=== PATIENT | female | born 1965 | race Caucasian/White ===

== ENCOUNTER 2017-12-12 17:56 | Emergency (ER) | payer OTHER, SELFPAY ==
[2017-12-12 17:57] VITALS: BP 132/63; PULSE 87; RESP 18; TEMP 36.4; O2SAT 95; BMI 35.4
[2017-12-12 18:01] VITALS: BP 141/82; PULSE 86; RESP 20; TEMP 37.2; O2SAT 99; BMI 35.4
--- NOTE | 2017-12-12 18:13 | PC.NURSE ---
1809: Spoke to Tam Mancini at [facility]. She spoke to Dr. Harrington regarding patient. He specifically said he wanted her sent to ER due to her recently having Pneumonia and complaining of a hard time breathing.
--- NOTE | 2017-12-12 18:38 | XR_ITS ---
XR chest 2V HISTORY: Shortness of air, cough, COPD ITS.REASON: copd and soa ORDERING PHYSICIAN: Hi Salmeron MD PATIENT AGE: 52 years COMPARISON: 01/19/2017 FINDINGS: The cardiomediastinal silhouette and pulmonary vascularity are within normal limits. The lungs are clear without infiltrates, suspicious nodules, or pleural effusions. No acute bony abnormalities. IMPRESSION: Negative chest, no acute finding
--- NOTE | 2017-12-12 18:40 | HMH.EDSOB ---
ED Disposition Clinical Impression: COPD (chronic obstructive pulmonary disease), URTI (acute upper respiratory infection), Diabetes, Tobacco use disorder Disposition: Home, Self-Care Condition on Discharge: Fair Additional Instructions: 1- stop smoking. 2- avoid soke and smokers. 3- give yourself a duoneb everu 4-6 hours. 4- star abx zithromax. 5- see Dr Kimbrough in AM. Prescriptions: Azithromycin [Zithromax 250mg tab] 250 mg PO DIRECTED #6 tab Referrals: Sonido Harrington MD [Primary Care Provider] - - Critical Care Critical Care Time: No Attestation: On 12/12/17, the high probability of a clinically significant, sudden or life threatening deterioration of the following system(s) required my full and direct attention, intervention and personal management. The time I documented below is in addition to time spent performing reported procedures but includes the following listed in this critical care notation. Medical Decision Making Vital Signs: 12/12/17 17:57 12/12/17 18:01 12/12/17 19:13 Temperature 97.5 F L 99.0 F Temperature Source Oral Tympanic Pulse Rate 89 Pulse Rate [Right Radial] 87 86 Respiratory Rate 18 20 Blood Pressure [Right Arm] 132/63 141/82 Blood Pressure Mean [Right Arm] 86 101 Blood Pressure Source [Right Arm] Automatic Cuff Blood Pressure Position [Right Arm] Sitting Sitting 02 Sat by Pulse Oximetry 95 99 Oxygen Delivery Method Room Air - Lab Data Lab Results 12/12/17 19:10: WBC 14.0 H, RBC 4.77, Hgb 12.9, Hct 42.5, MCV 89.1, MCH 27.1, MCHC 30.4 L, RDW 16.9, Plt Count 467 H, MPV 7.4, Neut % (Auto) 75.8, Lymph % (Auto) 16.3, Park % (Auto) 4.6, Eos % (Auto) 3.1, Baso % (Auto) 0.3, Neut # (Auto) 10.6 H, Lymph # (Auto) 2.3, Park # (Auto) 0.6, Eos # (Auto) 0.4, Baso # (Auto) 0.0 12/12/17 19:10: Sodium 136, Potassium 4.2, Chloride 98, Carbon Dioxide 28, Anion Gap 14.2, BUN 8, Creatinine 0.71, Estimated Creat Clear 130, Estimated GFR 86, Est GFR ( Amer) 104, Glucose 191 H Result diagrams: 12/12/17 19:10 12/12/17 19:10 Orders (Tests/Meds): ED MEDICATIONS Generic Name Dose Route Start Last Admin Trade Name Freq PRN Reason Stop Dose Admin Ceftriaxone Sodium 1 gm/ 50 mls @ 100 mls/hr 12/12/17 18:45 12/12/17 19:32 Sodium Chloride IV 12/26/17 18:44 100 mls/hr Q24H CIRA Administration Discontinued Medications Generic Name Dose Route Start Last Admin Trade Name Freq PRN Reason Stop Dose Admin Albuterol/Ipratropium 3 ml 12/12/17 18:39 12/12/17 19:12 Duoneb 3ml Neb IH 12/12/17 18:40 3 ml ONCE ONE Administration Famotidine 20 mg 12/12/17 18:39 12/12/17 19:32 Pepcid 20mg/2ml Vial IV 12/12/17 18:40 20 mg ONCE ONE Administration Methylprednisolone Sodium Succinate 125 mg 12/12/17 18:39 12/12/17 19:32 Solu-Medrol 125mg/2ml Vial IV 12/12/17 18:40 125 mg ONCE ONE Administration ORDERS Category Date Time Status XR chest 2V Stat Exams 12/12/17 18:38 Taken - Radiology Data #1 Image(s): Chest Image Reviewed: Yes I reviewed the patient's radiology image Preliminary Findings: Normal/NAD - Sammy Inquiry Pt receiving controlled substance: No Sammy was queried for this patient: No Resp/SOB HPI - General Chief Complaint: Upper Respiratory Infection Stated Complaint: Sore throat, ear pain, soa Mode of Arrival: Ambulatory Source of Information: Patient Limitations: No Limitations Description of Symptoms (Recalled from ER Triage Doc. by RN): SORE THROAT, LEFT EAR PAIN AND DECREASED HEARING X 1 DAY - History of Present Illness 52 years old white female smoker with history of COPD. Yesterday, She developed a right ear ache and a sore throat. Today she developed shortness of breath with nonproductive cough she denies wheezing. She wants to come early so she can start on antibiotics early. MD Complaint: shortness of breath, cough Onset (ago): day(s) (started yesterday.) Severity
--- NOTE | 2017-12-12 18:43 | ED_ITS ---
ED Disposition Clinical Impression: COPD (chronic obstructive pulmonary disease), URTI (acute upper respiratory infection), Diabetes, Tobacco use disorder Disposition: Home, Self-Care Condition on Discharge: Fair Additional Instructions: 1- stop smoking. 2- avoid soke and smokers. 3- give yourself a duoneb everu 4-6 hours. 4- star abx zithromax. 5- see Dr Kimbrough in AM. Prescriptions: Azithromycin [Zithromax 250mg tab] 250 mg PO DIRECTED #6 tab Referrals: Sonido Harrington MD [Primary Care Provider] - - Critical Care Critical Care Time: No Attestation: On 12/12/17, the high probability of a clinically significant, sudden or life threatening deterioration of the following system(s) required my full and direct attention, intervention and personal management. The time I documented below is in addition to time spent performing reported procedures but includes the following listed in this critical care notation. Medical Decision Making Vital Signs: 12/12/17 17:57 12/12/17 18:01 12/12/17 19:13 Temperature 97.5 F L 99.0 F Temperature Source Oral Tympanic Pulse Rate 89 Pulse Rate [Right Radial] 87 86 Respiratory Rate 18 20 Blood Pressure [Right Arm] 132/63 141/82 Blood Pressure Mean [Right Arm] 86 101 Blood Pressure Source [Right Arm] Automatic Cuff Blood Pressure Position [Right Arm] Sitting Sitting 02 Sat by Pulse Oximetry 95 99 Oxygen Delivery Method Room Air - Lab Data Lab Results 12/12/17 19:10: WBC 14.0 H, RBC 4.77, Hgb 12.9, Hct 42.5, MCV 89.1, MCH 27.1, MCHC 30.4 L, RDW 16.9, Plt Count 467 H, MPV 7.4, Neut % (Auto) 75.8, Lymph % ( Auto) 16.3, Grundy % (Auto) 4.6, Eos % (Auto) 3.1, Baso % (Auto) 0.3, Neut # (Auto ) 10.6 H, Lymph # (Auto) 2.3, Grundy # (Auto) 0.6, Eos # (Auto) 0.4, Baso # (Auto ) 0.0 12/12/17 19:10: Sodium 136, Potassium 4.2, Chloride 98, Carbon Dioxide 28, Anion Gap 14.2, BUN 8, Creatinine 0.71, Estimated Creat Clear 130, Estimated GFR 86, Est GFR ( Amer) 104, Glucose 191 H Result diagrams: 12/12/17 19:10 12/12/17 19:10 Orders (Tests/Meds): ED MEDICATIONS Generic Name Dose Route Start Last Admin Trade Name Freq PRN Reason Stop Dose Admin Ceftriaxone Sodium 1 gm/ 50 mls @ 100 mls/hr 12/12/17 18:45 12/12/17 19:32 Sodium Chloride IV 12/26/17 18:44 100 mls/hr Q24H CIRA Administration Discontinued Medications Generic Name Dose Route Start Last Admin Trade Name Freq PRN Reason Stop Dose Admin Albuterol/Ipratropium 3 ml 12/12/17 18:39 12/12/17 19:12 Duoneb 3ml Neb IH 12/12/17 18:40 3 ml ONCE ONE Administration Famotidine 20 mg 12/12/17 18:39 12/12/17 19:32 Pepcid 20mg/2ml Vial IV 12/12/17 18:40 20 mg ONCE ONE Administration Methylprednisolone Sodium Succinate 125 mg 12/12/17 18:39 12/12/17 19:32 Solu-Medrol 125mg/2ml Vial IV 12/12/17 18:40 125 mg ONCE ONE Administration ORDERS Category Date Time Status XR chest 2V Stat Exams 12/12/17 18:38 Taken - Radiology Data #1 Image(s): Chest Image Reviewed: Yes I reviewed the patient's radiology image Preliminary Findings: Normal/NAD - Sammy Inquiry Pt receiving controlled substance: No Sammy was queried for this patient: No
[2017-12-12 19:13] VITALS: PULSE 88; PULSE 89
[2017-12-12 19:32] LABS: Basophils % 0.3 % (0.1-2.0); Eosinophils # 0.4 K/mm3 (0.0-0.4); Eosinophils % 3.1 % (0.1-12.0); Hematocrit 42.5 % (37.0-47.0); Hemoglobin 12.9 g/dL (12.2-16.2); Lymphocytes # 2.3 K/mm3 (0.7-4.5); Lymphocytes % 16.3 K/mm3 (10-50); Mean Corpuscular HGB Conc 30.4 g/dL (31.8-35.4); Mean Corpuscular Hemoglobin 27.1 pg (27.0-31.2); Mean Corpuscular Volume 89.1 fl (81-99); Mean Platelet Volume 7.4 fl (7.4-10.4); Monocytes # 0.6 K/mm3 (0.1-1.0); Monocytes % 4.6 % (1.7-9.3); Neutrophils # 10.6 K/mm3 (1.8-7.8); Neutrophils % 75.8 % (37.0-80.0); Platelet Count 467 K/mm3 (142-424); Red Blood Count 4.77 M/mm3 (4.20-5.40); Red Cell Distribution Width 16.9 % (11.5-17.5)
[2017-12-12 19:40] LABS: Anion Gap 14.2 mEq/L (5-15); Blood Urea Nitrogen 8 mg/dL (7-18); Carbon Dioxide 28 mmol/L (21.0-32.0); Chloride 98 mmol/L (98-107); Creatinine Clearance Estimated 130 mL/min (0-300); Creatinine,Serum 0.71 mg/dL (0.55-1.02); Estimated Glomerular Filt Rate 86 ml/min (>60); GFR (African American) 104 ML/MIN (>60); Glucose 191 mg/dL (74-106); Potassium 4.2 mmoL/L (3.5-5.1); Sodium 136 mmol/L (136-145)
[2017-12-12 20:22] VITALS: BP 120/64; PULSE 82; RESP 16; TEMP 37.1; O2SAT 98
== END 2017-12-12 20:24 | disposition home or self-care (01) ==
LOC: UTC 18:16 → ER 18:26
PROVIDERS: Emergency Provider Emergency Medicine; PCP Emergency Medicine
DX: J06.9 Acute upper respiratory infection, unspecified (principal); J44.9 Chronic obstructive pulmonary disease, unspecified; E11.9 Type 2 diabetes mellitus without complications; F17.210 Nicotine dependence, cigarettes, uncomplicated; E73.9 Lactose intolerance, unspecified
CPT/HCPCS: 71046; 80048; 85025; 96365; 96374; 96375; 99282

== ENCOUNTER → 2018-01-05 09:56 | Outpatient (POV) | payer OTHER, SELFPAY | PROVIDERS: PCP Emergency Medicine; Visit Provider Internal Medicine | DX: Z00.00 Encounter for general adult medical examination without abnormal findings (principal) ==

== ENCOUNTER → 2018-01-13 07:06 | Outpatient (CLI) | payer OTHER, SELFPAY ==
--- NOTE | 2018-01-13 07:09 | NM_ITS ---
History and Indications: Coronary artery disease, hypertension, diabetes, hyperlipidemia, tobacco use, family history, chest pain, shortness of breath and fatigue. Procedure: Patient received a 0.4 mg of Lexiscan, resting heart rate was 99 bpm resting blood pressure 134/57, with Lexiscan maximum heart rate achieved was 95 bpm which is less than 85% of the maximum predicted heart rate and a blood pressure was 103/56. With Lexiscan patient complained of chest tightness and shortness of breath. Electrocardiogram: Resting electrocardiogram showed sinus rhythm, with Lexiscan there is less than 1.[address] segment depression noted from the baseline EKG. The EKG portion of the Lexiscan Myoview is nondiagnostic. Cardiac stress and resting SPECT images: Cardiac stress and rest SPECT images were obtained using technetium 99 Myoview 10.1 mCi at rest and 32.1 mCi at stress, gated SPECT further analysis of segmental wall motion and calculation of the ejection fraction also done. Cardiac stress and resting SPECT images show a fixed defect involving the inferior and posterobasal wall consistent with area of prior myocardial scarring, computer derived ejection fraction is 51% with marked inferior and posterobasal wall hypokinesis. There is no significant magalys-infarct ischemia seen. Conclusion: 1. The EKG portion of the Lexiscan Myoview is nondiagnostic. 2. No obvious scintigraphic evidence of reversible ischemia seen, a fixed defect seen in the inferior and posterobasal wall consistent with extensive area of prior myocardial scarring. Computer derived ejection fraction 51% segmental wall motion abnormality described above, right ventricle is normal size and contractility. 3. Abnormal Lexiscan Myoview study.
--- NOTE | 2018-01-13 07:46 | HMH.ITSHM ---
ALBUTEROL VISTARIL IBUPROFEN IMODIUM TRAMADOL ATORVASTATIN BREO WELLBUTRIN CLONAZEPAM CARVEDILOL CYMBALTA LEXAPRO FLONASE GLIPIZIDE LAMICTAL
== END ==
PROVIDERS: PCP Emergency Medicine; Visit Provider Internal Medicine
DX: I20.9 Angina pectoris, unspecified (principal); J44.9 Chronic obstructive pulmonary disease, unspecified; F17.200 Nicotine dependence, unspecified, uncomplicated; E11.9 Type 2 diabetes mellitus without complications
CPT/HCPCS: 78452; 93017; A9502; J2785

== ENCOUNTER → 2018-01-19 13:04 | Outpatient (CLI) | payer OTHER, SELFPAY ==
[2018-01-19 14:15] VITALS: PULSE 82; PULSE 85
[2018-01-19 14:30] VITALS: BP 118/70; BP 138/75; PULSE 85; PULSE 93; RESP 16; RESP 18; O2SAT 97; O2SAT 98
== END ==
PROVIDERS: PCP Emergency Medicine; Visit Provider Internal Medicine
DX: J44.9 Chronic obstructive pulmonary disease, unspecified (principal); R77.8 Other specified abnormalities of plasma proteins; Z87.09 Personal history of other diseases of the respiratory system
CPT/HCPCS: 94060; 94618; 94640

== ENCOUNTER 2018-03-16 08:34 | Outpatient (RCR) | payer OTHER, SELFPAY | END 2018-03-16 08:35 | disposition home or self-care (01) | LOC: PT 08:34 | PROVIDERS: PCP Emergency Medicine; Visit Provider Internal Medicine | DX: I25.10 Atherosclerotic heart disease of native coronary artery without angina pectoris (principal) | CPT/HCPCS: 93798 ==

== ENCOUNTER → 2018-05-11 09:21 | Outpatient (POV) | payer OTHER, SELFPAY | PROVIDERS: PCP Emergency Medicine; Visit Provider Internal Medicine | DX: Z00.00 Encounter for general adult medical examination without abnormal findings (principal) ==

== ENCOUNTER → 2018-06-08 20:08 | Outpatient (CLI) | payer OTHER, SELFPAY | PROVIDERS: PCP Emergency Medicine; Visit Provider Internal Medicine | DX: G47.33 Obstructive sleep apnea (adult) (pediatric) (principal) | CPT/HCPCS: 95810 ==

== ENCOUNTER → 2018-09-16 12:01 | Outpatient (CLI) | payer OTHER, SELFPAY ==
--- NOTE | 2018-09-16 12:23 | XR_ITS ---
XR chest AP HISTORY: Shortness of air, edema ITS.REASON: z ORDERING PHYSICIAN: Jake Ayala MD PATIENT AGE: 53 years COMPARISON: 12/12/2017 FINDINGS: There there are low lung volumes with some mild vascular crowding The cardiomediastinal silhouette and pulmonary vascularity are within normal limits. The lungs are clear without infiltrates, suspicious nodules, or pleural effusions. No acute bony abnormalities. IMPRESSION: No change with no acute finding
[2018-09-16 15:18] LABS: Anion Gap 15.7 mEq/L (5-15); Blood Urea Nitrogen 12 mg/dL (7-18); Calcium 9.1 mg/dL (8.5-10.1); Carbon Dioxide 31 mmol/L (21.0-32.0); Chloride 96 mmol/L (98-107); Creatinine,Serum 1.02 mg/dL (0.55-1.02); Estimated Glomerular Filt Rate 56 ml/min (>60); GFR (African American) 68 ML/MIN (>60); Glucose 221 mg/dL (74-106); Potassium 3.7 mmoL/L (3.5-5.1); Sodium 139 mmol/L (136-145)
== END ==
PROVIDERS: Visit Provider Internal Medicine Cardiovascular Disease
DX: I25.118 Atherosclerotic heart disease of native coronary artery with other forms of angina pectoris (principal); R06.02 Shortness of breath; R60.9 Edema, unspecified
CPT/HCPCS: 36415; 71045; 80048

== ENCOUNTER → 2018-09-23 10:39 | Outpatient (CLI) | payer OTHER, SELFPAY ==
--- NOTE | 2018-09-23 10:41 | CA_ITS ---
PROCEDURE: 2-D M-mode and color Doppler study INDICATIONS FOR THE TEST: Chest pain COPD+ Heart Murmur Tobacco Smoking+ Palpitations Fatigue Syncope Edema+ Hypertension+Diabetes Mellitus Rheumatic Fever SOB BOYKIN Obesity+Hyperlipidemia+ Family History HD Additional History CAD, GARRISON, STENTS PATIENT INFORMATION HEIGHT: 63 WEIGHT:217 GENDER: Female B/P:137/71 2-D/M-MODE INTERPRETATION: 2-D MEASUREMENTS OBSERVED VALUES IN CMS Right Ventricular Dimension (RVDd) 2.5 Interventricular Septum (Thickness)(IVsd) 1.8 Left Ventricular Internal Dimensions(LVIDd) 3.1 Left Ventricular Posterior Wall (Thickness)(LVPWd) 1.2 Aortic Root 2.7 Aortic Cusp Separation 1.8 Left Atrial Dimensions (LAD) 3.8 2D 1. Left atrium is mildly enlarged, left ventricle is normal size, mild concentric left ventricular hypertrophy, visually estimated ejection fraction 55% with no regional wall motion abnormality. 2. The right atrium and right ventricle are normal size and contractility. 3. The aortic, mitral and tricuspid valve are grossly normal. 4. The pulmonic valve is poorly visualized. 5. No significant pericardial effusion noted. DOPPLER INTERROGATION: Doppler interrogation of the aortic, mitral and tricuspid valvular presence of mild mitral and tricuspid regurgitation, tricuspid regurgitation jet velocity is inadequate for calculation of the right ventricular systolic pressure, grade 1 diastolic dysfunction seen with tissue Doppler evidence of raised left atrial pressure. CONCLUSION: 1. Mildly enlarged left atrium, normal left ventricular size, mild concentric left ventricular hypertrophy, visually estimated ejection fraction 55% with no regional wall motion abnormality, grade 1 diastolic dysfunction seen with tissue Doppler evidence of raised left atrial pressure. 2. Mild mitral and tricuspid regurgitation 3. No significant pericardial effusion noted.
--- NOTE | 2018-09-23 14:57 | NVE_ITS ---
Venous Exam Indications: 729.81 Swelling of limb. 729.5 Pain in limb. IMPRESSIONS 1. There is no evidence of significant Reflux. 2. No evidence of deep or superficial vein thrombosis involving the left lower extremity Left lower extremity venous duplex evaluation. Doppler flow study including spectral analysis, color and sparks scale imaging. Location: Vascular laboratory. Patient status: Outpatient. CRITICAL FINDINGS - Reported to: Kanchan Dykes/Cardiology - 09/23/2018 - 15:30 - Negative Tables: Venous flow and imaging: + +-------+ + Location Overall Flow properties + +-------+ + Left common femoral Patent Normal phasicity; spontaneous; normal augmentation; compressible + +-------+ + Left saphenofemoral junction Patent Compressible + +-------+ + Left profunda femoral Patent Compressible + +-------+ + Left femoral Patent Normal phasicity; spontaneous; normal augmentation; compressible + +-------+ + Left greater saphenous Patent Normal phasicity; spontaneous; normal augmentation; compressible + +-------+ + Left popliteal Patent Normal phasicity; spontaneous; normal augmentation; compressible + +-------+ + Left posterior tibial Patent Compressible + +-------+ + Left peroneal Patent Compressible + +-------+ + Left gastrocnemius Patent Compressible + +-------+ + Left soleal Patent Compressible + +-------+ + (Report amended ) Electronically signed by: Jonathan Everett [id number]
== END ==
PROVIDERS: PCP Emergency Medicine; Visit Provider Internal Medicine Cardiovascular Disease
DX: R06.02 Shortness of breath (principal); R60.0 Localized edema; L53.9 Erythematous condition, unspecified; M79.605 Pain in left leg
CPT/HCPCS: 93306; 93971

== ENCOUNTER 2019-03-03 14:00 | Outpatient (RCR) | payer OTHER, SELFPAY ==
--- NOTE | 2018-12-14 08:37 | HMH.PTOPWND ---
Rehab Outpt Wound Evaluation Rehab OP Wound Evaluation Start: 12/14/18 08:00 Freq: Status: Active Protocol: Document 12/14/18 08:26 CATARINO (Rec: 12/14/18 08:37 PHORNE [id number]) Electronically Signed By Dayo Munoz, PT 12/14/18 08:26 Subjective/History History History Pt is 53 yowf who presents with c/o pain and swelling in the left LE x ~ 6 wks with insidious onset of symptoms. Pt reports significant tenderness to palpation throughout the left lower leg, but appears to have some exaggerated tenderness. She had doppler US performed which shows no DVT in the left LE. She has hx of COPD, DM, HTN, cardiac cath with stent x 1. Lymphedema Eval Classification of Lymphedema Secondary Lymphedema Yes Stemmer's sign Stemmer's Sign no Stage of Lymphedema Lymphedema stages Stage I (Pitting edema, reduces w/ elevation, no fibrosis) Skin Changes Dry Skin Yes Redness Yes Pain Scale Pain Scale (0-10) 8 Affected Extremities Areas Affected by Lymphedema/Edema Left Lower Extremity Manual Lymphatic Drainage Treatment Area MLD Treatment Area Left Lower Extremity Wound Problems/Impairments Impairments Problems/Impairmments Palpation Tenderness Impaired Strength Impaired Walking Increased Edema Lymphedema Present Subjective C/O Pain Impaired Self Care/Self Management Prognosis Rehab Potential Fair Clinical Impression Consistent with Diagnosis Yes Short Term Goals Number of Weeks 4 Decreased Palpation Tenderness Yes: to mod Decrease Subjective C/O Pain Yes: 03/21 Patient to Understand Lymphedema Yes Treatment and Exercises Decrease Girth Measurments by (cm) Yes: by 5 cm Care Home Goals Number of Weeks 8 Decreased Palpation Tenderness Yes: to min Decrease Subjective C/O Pain Yes: /10 Patient to be Ind w/ HEP Yes Patient to be Ind w/ Donning/Lewis Yes Compression Garments Patient to Adhere Lymphedema Precautions Yes Decrease Girth Measurments by (cm) Yes: by 20 cm Outpatient Therapy Plan of Care Treatment Plan May Include Therapeutic Exercise Including Home Ye
== END 2019-03-03 14:05 | disposition home or self-care (01) ==
LOC: PT 14:00
PROVIDERS: Visit Provider Emergency Medicine
DX: R60.0 Localized edema (principal); M79.604 Pain in right leg; M79.605 Pain in left leg
CPT/HCPCS: 97140; 97162; 97760

== ENCOUNTER → 2019-04-19 10:08 | Outpatient (CLI) | payer OTHER, SELFPAY ==
--- NOTE | 2019-04-19 10:10 | FL_ITS ---
EXAM: Barium swallow/esophagram. INDICATION: ITS.REASON: painful swallowing ORDERING PHYSICIAN: Sonido Harrington MD PATIENT AGE: 54 years COMPARISON: None FINDINGS: No annular constricting lesions or filling defects. No hiatal hernia. IMPRESSION: Negative barium swallow. Fluoroscopy time: 21 seconds
== END ==
PROVIDERS: PCP Emergency Medicine; Visit Provider Emergency Medicine
DX: R13.10 Dysphagia, unspecified (principal)
CPT/HCPCS: 74220

== ENCOUNTER 2019-05-06 13:00 | Outpatient (RCR) | payer OTHER, SELFPAY ==
--- NOTE | 2019-04-05 08:45 | HMH.PTOPEV ---
PT Outpatient Evaluation Rehab PT Outpatient Evaluation Start: 04/05/19 08:01 Freq: Status: Active Protocol: Document 04/05/19 08:31 CATARINO (Rec: 04/05/19 08:45 PHORNE [id number]) Electronically Signed By Dayo Munoz, PT 04/05/19 08:31 Outpatient Therapy Subjective History Subjective History Pt is 54 yowf who presents with significantly decreased balance and hx of multiple falls. She resides at a personal residential and has fallen ~ 10 times in the past 6 mos. Pt is a poor historian with CT scan showing some cerebral atrophy. She does reports some neuropathy in B feet, most likely due to poorly controlled DM-II. She also presents today with increased right LE edema with hematoma on the right knee due to a fall ~ 3 wks ago. She has significant tenderness to palpation throughout the right lower leg with mild erythema. She is unable to perform any activities for DGI test and unable to follow any instructions for occulomotor testing. PMH: DM-II, HTN, cardiac cath, COPD Chief Complaint Pain,Weakness,Decreased Coordination Symptom Type Ache Symptoms Relieved By Nothing Symptoms Aggravated By Standing,Physical Activity, Walking Prior Functional Limitations Walking Current Functional Limitations Standing,Walking Symptom Description Constant but Variable Level of pain today (0-10) 2 Pain scale - at its worst (0-10) 7 Balance Eval Hx of Falls Hx Falls Yes Number in last 6 months 10 Gait/Posture Asssessment General Gait Observation Wide Based Gait,Shuffling Step ,Decrease Stride Lngth (R), Decrease Stride Lngth (L) Assistive Devices None / NA Level of Transfer Assist Standby Assistance Hip Observation in Gait Swing Decreased Flexion,Externally Rotated Hip Observation in Gait Stance Externally Rotated Ankle/Foot Observation in Gait Swing Decreased Foot Clearance Ankle/Foot Observation in Gait Stance Decreased Heel Strike,
--- NOTE | 2019-04-22 15:44 | HMH.RHREAS ---
Rehab Reassessment Rehab OP Re-assessment Start: 04/22/19 15:39 Freq: Status: Active Protocol: Document 04/22/19 15:40 CATARINO (Rec: 04/22/19 15:44 PHOSTEPHAN [id number]) Electronically Signed By Dayo Munoz, PT 04/22/19 15:40 Rehab Re-assessment Subjective Subjective Pt reports no changes in her balance at this time and she now has increased edema in her LE. Objective Objective Notes 3+ pitting edema with mildly fibrotic tissue quality noted on the R LE. Dynamic standing balance remains poor Assessment Progress Assessment Progressing as Expected Assessment Notes Pt has had little progress with balance training at this time this treatment has been her 1st since initial evaluation 17 days ago. Goals Not Met ST-8 LT-9 Revised Goals STG: Decrease LE edema to 2+ pitting edema LTG: Decrease LE edema to 1+ pitting edema. Plan Plan Continue per initial POC with new goals as above and addition of MLD for edema control with compression wrapping/orthotics. Frequency of Therapy 2x/wk Duration of therapy 8 wks Time and Billing Re-Eval Time 15 Re-Eval Billing Units 1 PHYSICIAN CERTIFICATION: I certify the specified therapy services for Jeny Starkey are required, authorized, and reviewed every 30 days.
== END 2019-05-06 13:05 | disposition home or self-care (01) ==
LOC: PT 13:00
PROVIDERS: Visit Provider Emergency Medicine
DX: R26.9 Unspecified abnormalities of gait and mobility (principal); R68.89 Other general symptoms and signs
CPT/HCPCS: 97110; 97140; 97163; 97164

== ENCOUNTER → 2019-06-11 16:22 | Outpatient (CLI) | payer OTHER, SELFPAY ==
[2019-06-11 20:31] LABS: Occult Blood,Stool Negative (Negative)
== END ==
PROVIDERS: Visit Provider Emergency Medicine
DX: D64.9 Anemia, unspecified (principal)
CPT/HCPCS: 82272; G0328

== ENCOUNTER → 2019-06-14 09:52 | Outpatient (CLI) | payer OTHER, SELFPAY ==
[2019-06-14 10:49] LABS: Occult Blood,Stool Positive (Negative)
== END ==
PROVIDERS: Visit Provider Emergency Medicine
DX: D64.9 Anemia, unspecified (principal); D50.9 Iron deficiency anemia, unspecified
CPT/HCPCS: 82272; G0328

== ENCOUNTER → 2019-08-22 09:17 | Outpatient (CLI) | payer MEDICAID, SELFPAY ==
--- NOTE | 2019-08-22 09:21 | XR_ITS ---
PROCEDURE: XR WRIST LT MIN 3V CLINICAL INDICATION: Wrist pain Posttraumatic pain COMPARISON: 08/04/2013 FINDINGS: There is a nondisplaced fracture involving the articular surface of the distal radius with a small step-off at the central aspect of the distal radius and a thin curvilinear lucency projecting back toward the distal radius laterally. This was not present on 08/04/2013 IMPRESSION: Nondisplaced distal radial fracture with articular involvement. If clinical findings are inconsistent then, CT may confirm. Dictated by: Jonathan Everett MD 08/22/2019 09:52 Electronically signed by Jonathan Everett MD in [place] 08/22/2019 09:52
== END ==
PROVIDERS: PCP Emergency Medicine; Visit Provider Orthopaedic Surgery
DX: M25.532 Pain in left wrist (principal)
CPT/HCPCS: 73110

== ENCOUNTER 2019-08-22 10:20 | Outpatient (RCR) | payer MEDICAID, SELFPAY | END 2019-08-22 11:00 | disposition home or self-care (01) | LOC: OT 10:20 | PROVIDERS: Visit Provider Orthopaedic Surgery | DX: M25.532 Pain in left wrist (principal) | CPT/HCPCS: 97763 ==

== ENCOUNTER → 2019-09-26 09:31 | Outpatient (CLI) | payer MEDICAID, SELFPAY ==
--- NOTE | 2019-09-26 09:33 | XR_ITS ---
PROCEDURE: XR WRIST LT MIN 3V CLINICAL INDICATION: Wrist FX Follow-up fracture COMPARISON: WRL3 WRIST-3 VIEWS-LT from 08/04/2013 XR WRIST LT MIN 3V from 08/22/2019 FINDINGS: Previously noted nondisplaced fracture of the distal radius is barely visible. No displacement IMPRESSION: Healing distal radial fracture Dictated by: Jonathan Everett MD 09/26/2019 10:14 Electronically signed by Jonathan Everett MD in [place] 09/26/2019 10:14
== END ==
PROVIDERS: PCP Emergency Medicine; Visit Provider Orthopaedic Surgery
DX: S62.102A Fracture of unspecified carpal bone, left wrist, initial encounter for closed fracture (principal)
CPT/HCPCS: 73110

== ENCOUNTER → 2019-10-24 11:27 | Outpatient (CLI) | payer MEDICAID, SELFPAY ==
--- NOTE | 2019-10-24 | XR_ITS ---
PROCEDURE: XR SCOLIOSIS SURVEY CLINICAL INDICATION: BACK PAIN COMPARISON: CHESTWO CT chest wo con from 08/17/2018 Chest from 03/19/[address] lumbar spine wo con from 05/20/2019 XR CHEST AP from 06/24/2019 FINDINGS: There is moderate thoracic scoliosis convex right measuring 36 degrees. Compensatory lumbar curvature convex left at 37 degrees. No obvious congenital anomalies.. Scoliosis appears somewhat more prominent compared to prior CT scan the chest of 08/17/2018 at that measuring 26 degrees. This however was not upright exam which may exaggerate the scoliosis. The previous lumbar curvature measures 15 degrees. IMPRESSION: Thoracolumbar scoliosis as described above which is increased compared to the previous exams. Dictated by: Jonathan Everett MD 10/24/2019 13:50 Electronically signed by Jonathan Everett MD in [place] 10/24/2019 13:50
--- NOTE | 2019-10-24 11:34 | XR_ITS ---
PROCEDURE: XR LUMBAR SPINE 2-3V CLINICAL INDICATION: back pain COMPARISON: SPLUMBWO CT lumbar spine wo con from 05/20/2019 FINDINGS: There is moderate lumbar scoliosis convex left measuring 36 degrees. There is moderate wedging of L1 anteriorly which was present on 05/20/2019. Degenerative disc disease is present at L2-L3 and L3-L4. There is generalized vascular calcification. There is mild dorsal angulation of the coccyx which could be due to an old injury. IMPRESSION: Lumbar scoliosis with chronic compression fracture of L1 with degenerative disc disease Dictated by: Jonathan Everett MD 10/24/2019 16:14 Electronically signed by Jonathan Everett MD in [place] 10/24/2019 16:14
== END ==
PROVIDERS: PCP Emergency Medicine; Visit Provider Orthopaedic Surgery
DX: M54.9 Dorsalgia, unspecified (principal)
CPT/HCPCS: 72081; 72100

== ENCOUNTER → 2019-11-07 12:41 | Outpatient (POV) | payer MEDICAID, SELFPAY | PROVIDERS: Visit Provider Specialist | DX: R20.0 Anesthesia of skin (principal); R20.2 Paresthesia of skin; M79.642 Pain in left hand; M79.641 Pain in right hand | CPT/HCPCS: 95886; 95909 ==

== ENCOUNTER → 2019-11-14 11:12 | Outpatient (CLI) | payer MEDICAID, SELFPAY ==
--- NOTE | 2019-11-14 11:15 | XR_ITS ---
PROCEDURE: XR SHOULDER LT MIN 2V CLINICAL INDICATION: shoulder pain COMPARISON: No exams were available for comparison FINDINGS: There are mild osteoarthritic changes of the glenohumeral joint and acromioclavicular joint. There is spurring of the superior surface of the distal clavicle. The there are questionable erosive changes of the distal clavicle with ill definition of the distal surface of the clavicle. IMPRESSION: Osteoarthritic change with questionable mild erosive change of the distal clavicle Dictated by: Jonathan Everett MD 11/14/2019 13:41 Electronically signed by Jonathan Everett MD in [place] 11/14/2019 13:41
== END ==
PROVIDERS: PCP Emergency Medicine; Visit Provider Orthopaedic Surgery
DX: M75.00 Adhesive capsulitis of unspecified shoulder (principal)
CPT/HCPCS: 73030

== ENCOUNTER → 2019-11-23 12:32 | Outpatient (CLI) | payer MEDICAID, SELFPAY ==
--- NOTE | 2019-11-23 12:32 | MR_ITS ---
PROCEDURE: MR SHOULDER LT WO CON CLINICAL INDICATION: rule out RTC tear Left shoulder pain following injury with limited range of motion COMPARISON: XR SHOULDER LT MIN 2V from 11/14/2019 TECHNIQUE: Routine multiplanar multi echo sequences are performed without gadolinium enhancement. FINDINGS: There are hypertrophic changes of the acromioclavicular joint with spurring projecting superiorly. There is mild generalized motion artifact which does decrease fine detail. There is thickening of the supraspinatus tendon with discontinuity of the supraspinatus tendon distally at the insertion on the greater tuberosity suggesting a partial tear. There is also thickening with increased T2 signal of the infraspinatus tendon. There is subacromial stenosis with a subacromial space measuring approximately 5 mm. Small amount fluid is present in the subdeltoid region and there is slight increased T2 signal of the greater tuberosity. The subscapularis and teres minor tendons are intact. Bicipital tendon is in place. No obvious labral tear. No obvious fracture. There is a small shoulder joint effusion as well as a small amount fluid in the subcoracoid region IMPRESSION: 1. Thickening of both the supraspinatus and infraspinatus tendons with increased T2 signal consistent with tendinopathy/tendinosis with suspected partial tear of the supraspinatus tendon distally. 2. Subacromial stenosis and hypertrophic changes of the acromioclavicular joint with spurring of the AC joint which is projected superiorly 3. Small shoulder joint effusion as well as a small amount of fluid in the subdeltoid and sub acromial region. Small amount fluid is present also in the subcoracoid region suggesting bursitis. 4. Motion artifact does obscure fine detail. Dictated by: Jonathan Everett MD 11/24/2019 18:47 Electronically signed by Jonathan Everett MD in [facility] 11/24/2019 18:47
== END ==
PROVIDERS: PCP Emergency Medicine; Visit Provider Orthopaedic Surgery
DX: M25.512 Pain in left shoulder (principal)
CPT/HCPCS: 73221

== ENCOUNTER → 2020-01-03 20:22 | Outpatient (CLI) | payer MEDICAID, SELFPAY | PROVIDERS: PCP Emergency Medicine; Visit Provider Emergency Medicine | DX: G47.33 Obstructive sleep apnea (adult) (pediatric) (principal) | CPT/HCPCS: 95810 ==

== ENCOUNTER → 2020-02-24 08:37 | Outpatient (CLI) | payer MEDICAID, SELFPAY ==
--- NOTE | 2020-02-24 08:42 | XR_ITS ---
PROCEDURE: XR SHOULDER LT MIN 2V CLINICAL INDICATION: shoulder pain COMPARISON: No exams were available for comparison FINDINGS: No fracture or dislocation. No lytic or blastic change. There is normal mineralization. The clavicle is intact. There is prominent spurring of the distal clavicle superiorly at the AC joint. The humeral head and glenoid appear intact. There are no soft tissue calcifications. IMPRESSION: Degenerate change of the AC joint, no acute fracture seen. Dictated by: Dr. Sage Drake MD 02/24/2020 14:[address] Sage Drake MD in [facility] 02/24/2020 14:02
== END ==
PROVIDERS: PCP Emergency Medicine; Visit Provider Orthopaedic Surgery
DX: M25.512 Pain in left shoulder (principal)
CPT/HCPCS: 73030

== ENCOUNTER → 2020-03-20 09:49 | Outpatient (CLI) | payer MEDICAID, SELFPAY ==
--- NOTE | 2020-03-20 09:51 | MM_ITS ---
PROCEDURE: MM DIG SCREENING MAMM BI W/CAD Digital Breast Tomosynthesis Included CLINICAL INDICATION: SCREENING patient is from [place] [facility] and could not answer history questions COMPARISON: No exams were available for comparison TECHNIQUE: Standard CC and MLO images and 3D Tomosynthesis was obtained. R2 CAD reviewed. FINDINGS: Moderate fibroglandular densities are seen in the subareolar regions and central portions of both breast and the findings are fairly symmetrical bilaterally. There are scattered benign-appearing micro and macrocalcifications in each breast there is a tiny benign-appearing nodular density upper-outer quadrant right breast. There are low-lying nodes in both axilla. There is no suspicious lesion and no suspicious microcalcifications. IMPRESSION: Mild to moderate breast density with no suspicious lesions seen BI-RAD Category: 2 Benign Finding(s) FOLLOW-UP: 1YR 1 Year Follow-up (A letter has been sent to the patient regarding results of the study.) Dictated by: Dr. Sage Drake MD 03/20/2020 15:[address] Sage Drake MD in [facility] 03/20/2020 15:51
== END ==
PROVIDERS: PCP Emergency Medicine; Visit Provider Emergency Medicine
DX: Z12.31 Encounter for screening mammogram for malignant neoplasm of breast (principal)
CPT/HCPCS: 77063; 77067

== ENCOUNTER 2020-09-07 10:37 | Emergency (ER) | payer MEDICAID, SELFPAY ==
[2020-09-07 10:37] VITALS: BP 136/61; PULSE 82; RESP 12; TEMP 36.6; O2SAT 96; BMI 37.2
--- NOTE | 2020-09-07 10:41 | CT_ITS ---
PROCEDURE: CT CERVICAL SPINE WO CON CLINICAL INDICATION: fall COMPARISON: CT CT CERVICAL SPINE WO CON from 06/24/2019 TECHNIQUE: Axial images obtained with sagittal and coronal reformats. All CT scans at the facility use one or more dose reduction, viz: automated exposure control, ma/kV adjustment per patient size (including targeted exams where dose is matched to indication, i.e. head), or iterative reconstruction technique. Axial spiral CT scanning performed of the cervical spine beginning at the base of the skull and continuing to the upper T-spine. 3-D multiplanar reconstruction with 3-D manipulation of volumetric data set in image rendering was completed by the radiologist and/or technologist with the supervision of the radiologist on independent workstation. FINDINGS: No fracture nor subluxation is evident. There is mild reversal of the normal cervical lordosis suggesting muscle spasm. C1 through C7 appear intact. There is minor anterior osteophytic spurring at the C6-7 level. The spinal canal is normal in size throughout. There is no abnormal disc protrusion. The prevertebral soft tissues are normal and the odontoid is normal. IMPRESSION: Findings of probable muscle spasm, minor degenerate disc disease C6-7 similar to the previous exam 06/24/2019 Dictated by: Dr. Sage Drake MD 09/07/2020 11:26 Dr. Sage Drake MD in [facility] 09/07/2020 11:26
--- NOTE | 2020-09-07 10:41 | XR_ITS ---
PROCEDURE: XR CHEST AP CLINICAL HISTORY: fall COMPARISON: CT CHESTWO CT chest wo con from 08/17/2018 CR Chest from 03/03/2019 CR Chest from 03/19/2019 CR XR CHEST AP from 06/24/2019 FINDINGS: The lung lemon are well-expanded and appear clear of infiltrate. Cardiac size is borderline but likely normal considering the body habitus. There is mild diffuse dextroscoliotic curvature of the lower thoracic spine. IMPRESSION: No acute findings. Dictated by: Dr. Sage Drake MD 09/07/2020 11:29 Dr. Sage Drake MD in [facility] 09/07/2020 11:29
--- NOTE | 2020-09-07 10:41 | XR_ITS ---
PROCEDURE: XR PELVIS 1-2V CLINICAL INDICATION: fall COMPARISON: CR XR HIP RT 2-3V W/PELVIS from 06/24/2019 TECHNIQUE: XR Pelvis AP View FINDINGS: No fracture or dislocation is evident. Bony detail slightly degraded due to the patient's obesity. No significant degenerative change. No lytic or blastic change. IMPRESSION: No acute findings. Dictated by: Dr. Sage Drake MD 09/07/2020 11:30 Dr. Sage Drake MD in [facility] 09/07/2020 11:30
--- NOTE | 2020-09-07 10:41 | CT_ITS ---
PROCEDURE: CT HEAD/BRAIN WO CON CLINICAL INDICATION: fall COMPARISON: CT CT HEAD/BRAIN WO CON from 06/24/2019 TECHNIQUE: IV Contrast: None Axial images obtained. All CT scans at the facility use one or more dose reduction, viz: automated exposure control, ma/kV adjustment per patient size (including targeted exams where dose is matched to indication, i.e. head), or iterative reconstruction technique. FINDINGS: No midline shift, mass effect, intracranial hemorrhage, hydrocephalus, or extra-axial fluid collection is evident. The sylvian fissures mildly prominent and the cortical sulci over frontal lobes. There are no significant chronic ischemic white matter changes. The calvarium has an unremarkable appearance. There is mild diffuse soft tissue swelling of the left occipital scalp region consistent with a diffuse contusion. The mastoids are clear bilaterally, the internal auditory canals appear normal. Unremarkable visualized portions of the paranasal sinuses. IMPRESSION: Findings of mild frontal cortical atrophy, no acute intracranial pathology noted, diffuse scalp contusion left occipital region Dictated by: Dr. Sage Drake MD 09/07/2020 11:22 Dr. Sage Drake MD in [facility] 09/07/2020 11:22
--- NOTE | 2020-09-07 10:41 | XR_ITS ---
PROCEDURE: XR WRIST RT MIN 3V CLINICAL INDICATION: fall COMPARISON: No exams were available for comparison FINDINGS: The carpal bones appear intact. The distal radius and ulna appear intact with no fracture seen. The soft tissues are normal. There is minor deformity of the distal ulna suggesting possibly an old healed fracture IMPRESSION: No acute findings. Dictated by: Dr. Sage Drake MD 09/07/2020 11:27 Dr. Sage Drake MD in [facility] 09/07/2020 11:27
--- NOTE | 2020-09-07 10:43 | HMH.EDFALL ---
ED Disposition Clinical Impression: Hematoma, Right wrist pain Fall from standing Qualifiers: Encounter type: initial encounter Qualified Code(s): W19.XXXA - Unspecified fall, initial encounter Disposition: Home, Self-Care Condition on Discharge: Good Instructions: How to Prevent Falls Referrals: Sonido Harrington MD [Primary Care Provider] - 3 days - Critical Care Critical Care Time: No Attestation: On , the high probability of a clinically significant, sudden or life threatening deterioration of the following system(s) required my full and direct attention, intervention and personal management. The time I documented below is in addition to time spent performing reported procedures but includes the following listed in this critical care notation. Medical Decision Making - Sammy Inquiry Pt receiving controlled substance: No Sammy was queried for this patient: No Vital Signs: 09/07/20 10:37 09/07/20 11:37 09/07/20 12:15 Temperature 97.8 F Temperature Source Tympanic Pulse Rate [Right] 82 73 76 Respiratory Rate 12 Blood Pressure [Right Arm] 136/61 122/74 130/66 Blood Pressure Mean [Right Arm] 86 90 87 Blood Pressure Source [Right Arm] Automatic Cuff Automatic Cuff Blood Pressure Position [Right Arm] Sitting Sitting 02 Sat by Pulse Oximetry 96 98 97 Oxygen Delivery Method Room Air Room Air - Lab Data Lab Results 09/07/20 10:46: WBC 9.2, RBC 4.04 L, Hgb 12.6, Hct 39.8, MCV 98.7, MCH 31.3 H, MCHC 31.7 L, RDW 14.9, Plt Count 365, MPV 8.3, Neut % (Auto) 72.3, Lymph % (Auto) 16.3, Whitman % (Auto) 4.6, Eos % (Auto) 6.3, Baso % (Auto) 0.5, Neut # (Auto) 6.6, Lymph # (Auto) 1.5, Whitman # (Auto) 0.4, Eos # (Auto) 0.6 H, Baso # (Auto) 0.1 09/07/20 10:46: PT 11.3, INR 1.03 09/07/20 10:46: Sodium 132 L, Potassium 4.2, Chloride 94 L, Carbon Dioxide 28, Anion Gap 14.2, BUN 14, Creatinine 0.70, Estimated Creat Clear 133, Estimated GFR 86, Est GFR ( Amer) 104, Glucose 353 H, Calcium 10.3 H, Total Bilirubin 0.3, AST 27, ALT 24, Alkaline Phosphatase 191 H, Total Protein 7.2, Albumin 4.4, Globulin 2.8, Albumin/Globulin Ratio 1.6 09/07/20 12:15: Urine Color Yellow, Urine Appearance Clear, Urine pH 5.5, Ur Specific [place] 1.020, Urine Protein Negative, Urine Glucose (UA) 3+, Urine Ketones Negative, Urine Blood Negative, Urine Nitrate Negative, Urine Bilirubin Negative, Urine Urobilinogen 0.2, Ur Leukocyte Esterase Negative Result diagrams: 09/07/20 10:46 09/07/20 10:46 Orders (Tests/Meds): ORDERS Category Date Time Status UA [Urinalysis and Microscopic] Stat Lab 09/07/20 12:15 Results - Radiology Data #1 Image(s): Chest Image Reviewed: Yes I reviewed the patient's radiology results Preliminary Findings: Normal/NAD #2 Image(s): Pelvis Image Reviewed: Yes I reviewed the patient's radiology results Preliminary Findings: Normal/NAD #3 Image(s): Wrist Image Reviewed: Yes I reviewed the patient's radiology results Preliminary Findings: Normal/NAD - CT Data CT Scan: Head, C-Spine Time Received: 11:[address] Reviewed: Yes: I have reviewed the patient's CT results Medical Decision Narrative: 55yo F maintained on Plavix and aspirin presents secondary to fall with head strike. Differential diagnosis includes was not limited to: SAH, IPH, SDH, soft tissue swelling. Patient is sent for CT of the head and C-spine. Patient also complains of right wrist pain. Plain films are ordered. All imaging studies are reviewed personally as well as radiology reports. No acute findings are demonstrated. CBC and CMP are unremarkable. Patient is currently pending a UA but is otherwise appropriate for discharge at this time. Fall HPI - General Chief Complaint: Fall Stated Complaint: fall Time Seen by Provider: 09/07/20 10:43 Mode of Arrival: EMS Limitations: No Limitations Description of Symptoms (Recalled from ER Triage Doc. by RN): Fall last night magdalena attempting to get out of her wheelchair
--- NOTE | 2020-09-07 10:49 | PC.NURSE ---
Radiology and MD at bedside
[2020-09-07 10:55] LABS: Basophils # 0.1 K/mm3 (0-0.2); Basophils % 0.5 % (0.1-2.0); Eosinophils # 0.6 K/mm3 (0.0-0.4); Eosinophils % 6.3 % (0.1-12.0); Hematocrit 39.8 % (37.0-47.0); Hemoglobin 12.6 g/dL (12.2-16.2); Lymphocytes # 1.5 K/mm3 (0.7-4.5); Lymphocytes % 16.3 % (10-50); Mean Corpuscular HGB Conc 31.7 g/dL (31.8-35.4); Mean Corpuscular Hemoglobin 31.3 pg (27.0-31.2); Mean Corpuscular Volume 98.7 fl (81-99); Mean Platelet Volume 8.3 fl (7.4-10.4); Monocytes # 0.4 K/mm3 (0.1-1.0); Monocytes % 4.6 % (1.7-9.3); Neutrophils # 6.6 K/mm3 (1.8-7.8); Neutrophils % 72.3 % (37.0-80.0); Platelet Count 365 K/mm3 (142-424); Red Blood Count 4.04 M/mm3 (4.20-5.40); Red Cell Distribution Width 14.9 % (11.5-17.5); White Blood Count 9.2 K/mm3 (4.8-10.8)
[2020-09-07 11:00] LABS: Chloride 94 mmol/L (98-107)
[2020-09-07 11:01] LABS: Potassium 4.2 mmoL/L (3.5-5.1); Sodium 132 mmol/L (136-145)
[2020-09-07 11:03] LABS: Alanine Aminotransferase 24 U/L (12-78); Aspartate Amino Transferase 27 U/L (14-36); Blood Urea Nitrogen 14 mg/dl (7-17); Creatinine Clearance Estimated 133 mL/min (50-200); Estimated Glomerular Filt Rate 86 ml/min (>60); GFR (African American) 104 ML/MIN (>60)
[2020-09-07 11:04] LABS: Albumin Level 4.4 g/dl (3.5-5.0); Albumin/Globulin Ratio 1.6 (1.1-1.8); Alkaline Phosphatase 191 U/L (38-126); Anion Gap 14.2 mEq/L (5-15); Bilirubin,Total 0.3 mg/dl (0.2-1.3); Calcium 10.3 mg/dl (8.4-10.2); Carbon Dioxide 28 mmol/L (22.0-30.0); Globulin 2.8 g/dL (1.3-3.2); Glucose 353 mg/dl (74-100); Total Protein,Serum 7.2 g/dl (6.3-8.2)
[2020-09-07 11:08] LABS: INR 1.03 (0.9-1.1); Prothrombin Time 11.3 seconds (9.4-11.8)
--- NOTE | 2020-09-07 11:28 | PC.NURSE ---
PT returning from radiology
[2020-09-07 11:37] VITALS: BP 122/74; PULSE 73; O2SAT 98
--- NOTE | 2020-09-07 12:00 | PC.NURSE ---
Have pt on bed hughes attempting to get urine sample. Patient states she is unable to urinate, giving her a few more mins before going to the next step.
[2020-09-07 12:15] VITALS: BP 130/66; PULSE 76; O2SAT 97
[2020-09-07 12:20] LABS: Microscopic, Urine URINE MICROSCOPIC (MICROSCOPIC)
[2020-09-07 12:26] LABS: Appearance,Urine CLEAR (Clear); Bilirubin,Urine Negative (Negative); Blood, Urine Negative (Negative); Color,Urine YELLOW (Yellow); Glucose,Urine (UA) 3+ (Negative); Ketones,Urine Negative (Negative); Leukocyte Esterase,Urine Negative (Negative); Nitrate,Urine Negative (Negative); PH,Urine 5.5 (5.0-8.5); Protein,Urine Negative (Negative); Urobilinogen,Urine 0.2 EU/dl (0.2)
[2020-09-07 12:30] VITALS: BP 142/72; PULSE 76; O2SAT 97
[2020-09-07 12:33] LABS: RBC,Urine Occasional #/hpf (0-3)
[2020-09-07 12:44] VITALS: BP 142/72; PULSE 88; RESP 17; TEMP 36.6; O2SAT 98
--- NOTE | 2020-09-07 12:44 | PC.NURSE ---
Report called to [facility].
--- NOTE | 2020-09-07 12:44 | PC.NURSE ---
Report being called to [facility] for transport.
== END 2020-09-07 13:39 | disposition home or self-care (01) ==
PROVIDERS: Emergency Provider Family Medicine; PCP Emergency Medicine
DX: M25.531 Pain in right wrist (principal); W05.0XXA Fall from non-moving wheelchair, initial encounter; Y92.89 Other specified places as the place of occurrence of the external cause; I10 Essential (primary) hypertension; E78.5 Hyperlipidemia, unspecified; J44.9 Chronic obstructive pulmonary disease, unspecified; E11.65 Type 2 diabetes mellitus with hyperglycemia; E03.9 Hypothyroidism, unspecified; Z79.899 Other long term (current) drug therapy
CPT/HCPCS: 70450; 71045; 72125; 72170; 73110; 80053; 81001; 85025; 85610; 99284

== ENCOUNTER → 2020-10-29 15:57 | Outpatient (CLI) | payer MEDICAID, SELFPAY ==
[2020-10-29 19:17] LABS: Coronavirus 19 IgG Antibody Negative (Negative); Coronavirus 19 IgM Antibody Negative (Negative)
== END ==
LOC: LAB 15:58 → LAB.DROPOF 15:59
PROVIDERS: Visit Provider Emergency Medicine
DX: Z20.822 Contact with and (suspected) exposure to COVID-19 (principal)
CPT/HCPCS: 86328

== ENCOUNTER → 2021-05-10 13:24 | Outpatient (CLI) | payer MEDICAID, SELFPAY ==
--- NOTE | 2021-05-10 13:30 | XR_ITS ---
PROCEDURE: XR SHOULDER LT MIN 2V CLINICAL INDICATION: LT shoulder pain COMPARISON: CR SHOU2L [id number] VIEW COMP.-LT from 08/04/2013 CR SHOU3L [id number] VIEWS from 05/30/2017 CR XR SHOULDER LT MIN 2V from 11/14/2019 CR XR SHOULDER LT MIN 2V from 02/24/2020 FINDINGS: There are mild osteoarthritic changes of the acromioclavicular and glenohumeral joint. No fracture or dislocation. No lytic or blastic change. There is mild subacromial stenosis Other findings:None. IMPRESSION: Mild osteoarthritis of the left shoulder Dictated by: Jonathan Everett MD 05/10/2021 16:06 Jonathan Everett MD in [facility] 05/10/2021 16:06
== END ==
PROVIDERS: PCP Emergency Medicine; Visit Provider Orthopaedic Surgery
DX: M25.512 Pain in left shoulder (principal)
CPT/HCPCS: 73030

== ENCOUNTER 2021-05-10 15:26 | Outpatient (RCR) | payer MEDICAID, SELFPAY | END 2021-05-10 16:47 | disposition home or self-care (01) | LOC: OT 15:26 | PROVIDERS: Visit Provider Orthopaedic Surgery | DX: G56.01 Carpal tunnel syndrome, right upper limb (principal) | CPT/HCPCS: 97763 ==

== ENCOUNTER → 2021-05-17 10:54 | Outpatient (CLI) | payer MEDICAID, SELFPAY ==
[2021-05-17 12:06] LABS: NT Pro Brain Natriuretic Pep. 52.1 pg/mL (0-125)
== END ==
PROVIDERS: Visit Provider Internal Medicine Cardiovascular Disease
DX: R06.02 Shortness of breath (principal); R60.0 Localized edema; I25.118 Atherosclerotic heart disease of native coronary artery with other forms of angina pectoris; I10 Essential (primary) hypertension; F17.200 Nicotine dependence, unspecified, uncomplicated
CPT/HCPCS: 83880

== ENCOUNTER → 2021-05-23 11:51 | Outpatient (CLI) | payer MEDICAID, SELFPAY ==
--- NOTE | 2021-05-23 11:52 | NM_ITS ---
APPROVED REPORT Exam: Nuclear Stress Test Indication: CAD, Chest pain, SOB, Syncope, Fatigue, HTN, DM, High cholesterol, Tobacco use, Family history Patient Location: Outpatient Stress Tech: Cece Altamirano NM Tech:Dionne Austin, ARRT RT(R)(N) Ht: 5 ft 3 in Wt: 220 lbs Bra Size: D HR: 84 bpm BP: 136/58 mmHg BSA: 2.01 m2 BMI: 38.9 History: CAD, Chest pain, SOB, Syncope, Fatigue, HTN, DM, High cholesterol, Tobacco use, Family history Procedure: Patient received a 0.4 mg of intravenous Lexiscan, resting heart rate 84 bpm, resting blood pressure 136/58 mmHg, with Lexiscan maximum heart rate achived was 101 bpm which is Less than 85 % of the maximum predicted heart rate and blood pressure was 136/58 mmHg. With Lexiscan, patient denied any complaint of chest pain. Electrocardiogram Resting electrocardiogram showed sinus rhythm, with Lexiscan there is less than 1.[address] segment depression noted from the baseline EKG. The EKG portion of the Lexiscan is nondiagnostic. Cardiac Stress and Resting SPECT Images: Cardiac Stress and Resting SPECT images were obtained using technetium 99m Myoview 32.5 mCi stress and 10.39 mCi at rest. Patient unable to lay on belly for Prone images. Gated SPECT for analysis of segmental wall motion and calculation of the ejection fraction also done. Cardiac stress and resting SPECT images show moderate sized area of reversible ischemia involving the inferior wall, there is transient ischemic dilatation of the left ventricle seen, computer derived ejection fraction is 66% with no regional wall motion abnormality, right ventricle is normal size and contractility. Conclusion: 1. The EKG portion of the Lexiscan is nondiagnostic. 2. Scintigraphic evidence of reversible ischemia involving the inferior wall, there is transient ischemic dilatation of the left ventricle raising the concerns for presence of likely multivessel coronary artery disease, computer derived ejection fraction is 66% with no regional wall motion abnormality, right ventricle is normal size and contractility. 3. Abnormal Lexiscan Myoview study. Electronically signed by : Magen Elizabeth MD 05/23/2021 15:06:56
--- NOTE | 2021-05-23 13:36 | CA_ITS ---
APPROVED REPORT Exam: Pharmacologic Technologist: Cece Altamirano, Ht: 5 ft 3 in Wt: 216 lbs BSA: 2.00 m2 HR: 84 bpm BP: 136/58 mmHg Medical History Medications: Levothyroxine,,,,, Aspirin,,,,, Metformin,,,,, Gabapentin,,,,, Losartan,,,,, Pantoprazole,,,,, Carvedilol,,,,, Lasix,,,,, ClonAZEPAM,,,,, INSULIN,,,,, Albuterol,,,,, ADVAIR,,,,, Stress Test Details Test: LEXISCAN HR Resting HR: 84 bpm Max Heart Rate (APMHR): 162.103062 bpm Max HR Achieved: 101 bpm Target HR (85% APMHR): 137.455791 bpm % of APMHR: 62.35 Recovery HR: 95 bpm BP Resting BP: 136/58 mmHg Max BP: 136/58 mmHg Recovery BP: 116.0/56.0 mmHg ECG Resting ECG: NSR, low voltage QRS Clinical Exercise duration: 04:00 min Highest Stage Achieved: Stress ECG Conclusion Symptoms: SOA, head discomfort. No CP. Arrhythmias/Ectopy: None ST-T Changes: No significant changes. Conclusion: Unremarkable Lexiscan stress. Myoview images reported separately. Electronically signed by : Magen Elizabeth MD 05/23/2021 14:50:23
--- NOTE | 2021-05-23 13:37 | CA_ITS ---
APPROVED REPORT EXAM: Comprehensive 2D, Doppler, and color-flow Echocardiogram Accounting Systems Analyst: Emerald Schilling RT(R) Ht: 5 ft 3 in Wt: 216lbs BSA: 2.00 BP: 120/63 mmHg Indications: CP, smoker, edema, HTN, SOB, obesity, hyperlipidemia, CAD, GARRISON, stents 2D Dimensions LVOT 1.94 cm (M/F) 1.5-2.5 M-Mode Dimensions RVDd 3.35 cm (0.9-2.6) LA Diam 2.96 cm (1.9-4.0) LVDd 3.88 cm (3.5-5.7) Ao Diam 2.46 cm (2.0-3.7) LVDs 3.01 cm (3.5-5.7) IVSd 0.84 cm (0.6-1.1) PWd 0.84 cm (0.6-1.1) EF (Teich) 45.80% FS 22.40% EDV (Teich) 65.10 mL ESV (Teich) 35.30 mL LV Diastology E Decel Time 217.00 (160-240 msec) E/A Ratio 1.0 MED E' 9.20 (< 7 cm/sec) E'/MED E' Ratio 13.79 (>14) LAT E' 9.70 (<10 cm/sec) E/LAT E' Ratio 13.08 (>14) Mitral Valve MV E Max Gaston. 127.00 (40-130 cm/s) MV A Velocity 123.00 (40-130 cm/s) E/A Ratio 1.04 MV Decel. Time 217.00 (160-240 ms) MV PHT 63.00 ms Left Ventricle Left atrium is normal size, left ventricle is normal size, left ventricle wall thickness is upper later normal, there is preserved left ventricular systolic function, visually estimated ejection fraction 55% with no regional wall motion abnormality, diastolic parameters are inconclusive. Atria Right atrium and right ventricle are normal size and contractility. Aortic Valve Aortic valve is grossly normal, there is no aortic stenosis or aortic insufficiency. Mitral Valve Mitral valve is grossly normal, there is trace mitral regurgitation. Tricuspid Valve Tricuspid grossly normal, there is trace tricuspid regurgitation, tricuspid regurgitation jet velocity is inadequate for calculation of the right ventricular systolic pressure. Pulmonic Valve Pulmonic valve is poorly visualized. Great Vessels Aortic root is normal size. Pericardium No significant pericardial effusion noted. Conclusion 1. Normal left ventricular size, preserved left ventricular systolic function, visually estimated ejection fraction 55% with no regional wall motion abnormality, diastolic parameters are inconclusive. 2. Trace mitral and tricuspid regurgitation. 3. No significant pericardial effusion noted. Electronically signed by : Magen Elizabeth MD 05/23/2021 16:12:33
== END ==
PROVIDERS: PCP Emergency Medicine; Visit Provider Internal Medicine Cardiovascular Disease
DX: R06.02 Shortness of breath (principal); I25.118 Atherosclerotic heart disease of native coronary artery with other forms of angina pectoris; R60.0 Localized edema; I20.9 Angina pectoris, unspecified; I10 Essential (primary) hypertension; F17.200 Nicotine dependence, unspecified, uncomplicated
CPT/HCPCS: 78452; 93017; 93306; A9502; J2785

== ENCOUNTER 2021-06-11 08:25 | Day surgery (SDC) | payer MEDICAID, SELFPAY ==
[2021-06-11] VITALS (11 sets, daily range): BP systolic 96–125; BP diastolic 51–72; PULSE 80–86; RESP 11–20; TEMP 36.6–37.2; O2SAT 93–98; BMI 37.9
--- NOTE | 2021-06-11 | IR_ITS ---
APPROVED REPORT Patient Location: Outpatient Engineering Secretary: CARO Dodd RT (R) PROCEDURES Left heart catheterization l Left ventriculogram Selective coronary angiogram FFR to the circumflex artery INDICATION Coronary artery disease, Abnormal Myoview with reversible ischemia, Indeterminate coronary artery disease Informed consent was obtained prior to the procedure. COMPLICATIONS None Estimated Blood Loss: Less than 10 mls TECHNIQUE One percent lidocaine used to anesthetize the right anterior aspect of the wrist. The right radial artery was accessed via the Seldinger technique. A 6 [place] sheath was placed in the right radial artery. 2.5 mg of verapamil, 800 mcg of nitroglycerin, 1mg Lidocaine and 5000 U Heparin were given through the arterial sheath. The trap catheter was also used to perform left heart catheterization, left ventriculogram and selective coronary angiogram. At the end the diagnostic procedure therapeutic heparin was administered giving a therapeutic ACT and a JL 3 guide catheter was placed in the left main artery. A Choice PT floppy wire was placed distally in the circumflex artery and a nevus FFR catheter was equalized in the ascending aorta. The catheter was advanced distal to the stenosis and adenosine was infused dropping the FFR index to 0.84. This did not meet hemodynamic significance therefore the apparatus was removed the sheath was removed good hemostasis was achieved using TR banding patient was transferred to the postop holding in stable condition ANGIOGRAPHIC RESULTS The left main artery Normal The left anterior descending artery Is widely patent in the proximal segment with mid vessel 20 to 30% stenoses The circumflex artery Is a nondominant vessel and has a mid vessel 50% stenosis The right coronary artery Is a dominant vessel and has stents in the proximal and mid segment which are widely patent with minimal in-stent restenosis. There is excellent distal transitioning into the [place] vessel The SPARROW ventriculogram reveals Hyperdynamic 70% The left ventricular end-diastolic pressure 25 mmHg IMPRESSION Coronary disease as described above with an FFR index of 0.84 and a moderately diseased nondominant circumflex artery Hyperdynamic ventricle Elevated LVEDP Widely patent stents within the previously chronically occluded right coronary artery PLAN 1. Continue medical management with attention focused on diastolic dysfunction hypertensive heart disease Electronically signed by : Jake Ayala MD 06/11/2021 12:10:52
[2021-06-11 09:03] LABS: Coronavirus 19, PCR Not Detected (NotDetected); Influenza A, PCR Not Detected (NotDetected); Influenza B, PCR Not Detected (NotDetected)
[2021-06-11 09:11] LABS: Basophils # 0.1 K/mm3 (0-0.2); Basophils % 0.5 % (0.1-2.0); Chloride 101 mmol/L (98-107); Eosinophils # 0.6 K/mm3 (0.0-0.4); Eosinophils % 5.8 % (0.1-12.0); Hemoglobin 12.1 g/dL (12.2-16.2); Lymphocytes # 1.5 K/mm3 (0.7-4.5); Lymphocytes % 14.5 % (10-50); Mean Corpuscular HGB Conc 33.6 g/dL (31.8-35.4); Mean Corpuscular Volume 95.3 fl (81-99); Mean Platelet Volume 8.8 fl (7.4-10.4); Monocytes # 0.5 K/mm3 (0.1-1.0); Monocytes % 4.4 % (1.7-9.3); Neutrophils # 7.7 K/mm3 (1.8-7.8); Neutrophils % 74.8 % (37.0-80.0); Platelet Count 433 K/mm3 (142-424); Potassium 4.5 mmoL/L (3.5-5.1); Red Blood Count 3.78 M/mm3 (4.20-5.40); Sodium 138 mmol/L (136-145); White Blood Count 10.4 K/mm3 (4.8-10.8)
[2021-06-11 09:14] LABS: Anion Gap 14.5 mEq/L (5-15); Blood Urea Nitrogen 15 mg/dl (7-17); Calcium 9.8 mg/dl (8.4-10.2); Carbon Dioxide 27 mmol/L (22.0-30.0); Creatinine Clearance Estimated 134 mL/min (50-200); Estimated Glomerular Filt Rate 86 ml/min (>60); GFR (African American) 104 ML/MIN (>60); Glucose 141 mg/dl (74-100)
--- NOTE | 2021-06-11 11:23 | SUR.PHASEII ---
Pt to outpatient to be recovered, LAURA Barnes accompanying patient
--- NOTE | 2021-06-11 13:09 | PC.NURSE ---
1300- radial site checked and small oozing noted around band. 2ml air added back to radial band. will continue to monitor.
[2021-06-11 14:02] LABS: CATHL Activated Clotting Time 328 SEC (74-125)
== END 2021-06-11 14:30 | disposition home or self-care (01) ==
LOC: CATHLAB 08:28
PROVIDERS: PCP Emergency Medicine; Visit Provider Internal Medicine
DX: I25.118 Atherosclerotic heart disease of native coronary artery with other forms of angina pectoris (principal); Z79.01 Long term (current) use of anticoagulants; E11.9 Type 2 diabetes mellitus without complications; Z79.84 Long term (current) use of oral hypoglycemic drugs; J45.909 Unspecified asthma, uncomplicated; I10 Essential (primary) hypertension; K21.9 Gastro-esophageal reflux disease without esophagitis; Z20.822 Contact with and (suspected) exposure to COVID-19
CPT/HCPCS: 80048; 85025; 85347; 93458; 93571; 99152; 99153; C1725; C1769; J0153; J1644; Q9967; U0003

== ENCOUNTER → 2021-07-17 12:39 | Outpatient (CLI) | payer MEDICAID, SELFPAY ==
--- NOTE | 2021-07-17 12:46 | XR_ITS ---
PROCEDURE: XR SHOULDER RT MIN 2V CLINICAL INDICATION: right shoulder pain COMPARISON: CR SHOU3L [id number] VIEWS from 05/30/2017 CR XR SHOULDER LT MIN 2V from 11/14/2019 CR XR SHOULDER LT MIN 2V from 02/24/2020 CR XR SHOULDER LT MIN 2V from 05/10/2021 FINDINGS: Prominent hypertrophic changes are present at the acromioclavicular joint. There is a faint calcific density in the glenohumeral space superiorly measuring 9 x 3 mm. This could represent an old avulsion fracture of the glenoid. A loose body is also considered. Glenohumeral space is well preserved. There is a faint subcortical lucency oriented longitudinally in the subglenoid region inferiorly possibly due to a Mach line from an osteophyte or nondisplaced fracture. IMPRESSION: 1. Acromioclavicular hypertrophy. No subacromial stenosis. 2. Loose body versus osteochondral fragment in the superior glenoid region with lucency along the subglenoid region inferiorly which could represent a Mach line from an osteophyte or a glenoid fracture. CT may provide further evaluation. Dictated by: Jonathan Everett MD 07/17/2021 15:53 Jonathan Everett MD in [facility] 07/17/2021 15:53
== END ==
PROVIDERS: PCP Emergency Medicine; Visit Provider Orthopaedic Surgery
DX: M25.511 Pain in right shoulder (principal)
CPT/HCPCS: 73030

== ENCOUNTER → 2021-08-02 07:25 | Outpatient (CLI) | payer MEDICAID, SELFPAY ==
--- NOTE | 2021-08-02 07:26 | CT_ITS ---
PROCEDURE: CT LUNG SCREENING CLINICAL INDICATION: lung cancer screening COMPARISON: CT CHESTWO CT chest wo con from 08/17/2018 TECHNIQUE: The exam was performed on a GE Light Speed [address] scanner using 2.90 mGy CTDI. A low dose helical CT CHEST was performed on a multi-detector scanner. All CT scans at the facility use one or more dose reduction, viz: automated exposure control, ma/kV adjustment per patient size (including targeted exams where dose is matched to indication, i.e. head), or iterative reconstruction technique. The LDCT was performed in a facility that meets the criteria for the screening program. Data regarding this exam was submitted to ACR which is an approved registry. The order for this exam indicates that it came as a result of a lung cancer screening counseling shard decision-making visit that included all the elements required of such a visit including smoking cessation. The radiologist interpreting this exam meets the [facility] criteria for the LDCT lung cancer screening program. The exam is reported using the Lung-RADS classification scale and reported to the ACR registry. NOTE: This study was performed for the specific purposes of lung cancer screening and is not an alternative to diagnostic chest CT. RADIATION DOSE: CTDI vol(CT dose Index-volume) = 2.90mG DLP (Dose Length Product) = 91.69 mGcm FINDINGS: COPD changes. There is faint increased density in the right upper lobe inferiorly which could be due to small area of atelectasis or infiltrate. This is not readily apparent on the previous exam. 3 mm nodule right middle lobe unchanged. New area of atelectatic or fibrotic change in the left lung base medially. Nodular opacity along the right hemidiaphragm flat like in nature once again noted not significantly changed. No suspicious nodule apparent. Atelectatic or fibrotic change in the left lung base. OTHER FINDINGS: Coronary artery calcifications and/or stents. Mild thickening of the pericardium slightly more prominent. The pericardium measures 7 mm in thickness posteriorly. There are few scattered small mediastinal lymph nodes unchanged. IMPRESSION: Lung-RADS Category 2 Benign Appearance or Behavior Follow-up: Continue annual screening with LDCT in 12 months There is mild thickening of the pericardium slightly more prominent from the previous study Dictated by: Jonathan Everett MD 08/19/2021 07:29 Jonathan Everett MD in [place] 08/19/2021 07:29
== END ==
PROVIDERS: PCP Emergency Medicine; Visit Provider Internal Medicine Pulmonary Disease
DX: Z87.891 Personal history of nicotine dependence (principal); Z12.2 Encounter for screening for malignant neoplasm of respiratory organs
CPT/HCPCS: 71271; 94060; 94640

== ENCOUNTER → 2021-09-29 09:54 | Outpatient (CLI) | payer MEDICAID, SELFPAY ==
[2021-09-29 10:38] LABS: Basophils # 0.1 K/mm3 (0-0.2); Basophils % 0.7 % (0.1-2.0); Eosinophils # 0.4 K/mm3 (0.0-0.4); Eosinophils % 3.4 % (0.1-12.0); Hematocrit 36.7 % (37.0-47.0); Hemoglobin 11.9 g/dL (12.2-16.2); Lymphocytes # 1.3 K/mm3 (0.7-4.5); Lymphocytes % 10.8 % (10-50); Mean Corpuscular HGB Conc 32.5 g/dL (31.8-35.4); Mean Corpuscular Hemoglobin 30.8 pg (27.0-31.2); Mean Corpuscular Volume 94.6 fl (81-99); Mean Platelet Volume 8.3 fl (7.4-10.4); Monocytes # 0.6 K/mm3 (0.1-1.0); Monocytes % 5.1 % (1.7-9.3); Neutrophils # 9.9 K/mm3 (1.8-7.8); Platelet Count 503 K/mm3 (142-424); Red Blood Count 3.88 M/mm3 (4.20-5.40); Red Cell Distribution Width 15.5 % (11.5-17.5); White Blood Count 12.3 K/mm3 (4.8-10.8)
== END ==
LOC: LAB 09:55 → LAB.DROPOF 10:33
PROVIDERS: Visit Provider Emergency Medicine
DX: R41.0 Disorientation, unspecified (principal)
CPT/HCPCS: 85025

== ENCOUNTER → 2021-09-29 16:26 | Outpatient (CLI) | payer MEDICAID, SELFPAY ==
[2021-09-29 16:43] LABS: Microscopic, Urine URINE MICROSCOPIC (MICROSCOPIC)
[2021-09-29 17:18] LABS: Appearance,Urine CLEAR (Clear); Bilirubin,Urine Negative (Negative); Blood, Urine Negative (Negative); Color,Urine ORANGE (Yellow); Glucose,Urine (UA) 1+ (Negative); Ketones,Urine Negative (Negative); Leukocyte Esterase,Urine Negative (Negative); Nitrate,Urine Negative (Negative); PH,Urine 6.5 (5.0-8.5); Protein,Urine Negative (Negative); Specific Gravity, Urine 1.015 (1.005-1.030); Urobilinogen,Urine 0.2 EU/dl (0.2)
== END ==
PROVIDERS: PCP Emergency Medicine; Visit Provider Emergency Medicine
DX: R41.0 Disorientation, unspecified (principal)
CPT/HCPCS: 81001

== ENCOUNTER → 2021-10-09 10:49 | Outpatient (CLI) | payer MEDICAID, SELFPAY ==
--- NOTE | 2021-10-09 10:53 | FL_ITS ---
PROCEDURE: FL BARIUM SWALLOW MODIFIED CLINICAL INDICATION: dysphagia COMPARISON: No exams were available for comparison TECHNIQUE: Patient administered varying consistencies of barium contrast, while viewed in lateral position under real-time fluoroscopy with cine recording. FLUOROSCOPY TIME: 1.54 minutes The study was performed in conjunction with speech pathologist. Please see that report & recommendations. FINDINGS: Patient was given varying consistencies of barium. No aspiration or penetration. There was some spillage with thin liquids into the hypopharynx. No significant residual.. IMPRESSION: Unremarkable modified barium swallow. Please see speech pathologist report and recommendations. Dictated by: Jonathan Everett MD 10/10/2021 11:41 Jonathan Everett MD in [place] 10/10/2021 11:41
--- NOTE | 2021-10-09 11:37 | HMH.SLMBS2 ---
Speech & Language Evaluation Speech/Language Mod Barium Swallow Start: 10/09/21 11:31 Freq: once Status: Complete Protocol: Document 10/09/21 11:31 DAVIDSINDHU (Rec: 10/09/21 11:37 SHANTELL [id number]) General Information General Current Food Consistancy Regular,Thin Liquids Dentition Poor Dentition Oxygen Status Room Air Facial Symmetry Symmetrical,Patient Baseline Ability to Follow Directions Good Communication Ability No Impairment MBS Recommendations Diet Dietary Recommendations Regular,Thin Liquids Treatment/Strategies Strategy/Precaution Recommend Sitting Upright (90 deg) Referrals/Other Recommended Referrals GI Consult Mod Barium Swallow Impressions Summary and Impressions Oral Phase Impression Minimal Impairment Oral Phase Summary Prolonged mastication 2' poor dentition. Pharyngeal Phase Impression No Impairment (WFL) Speech/Language MBS Assessment/Goals/Plan Assessment Date of Evaluation: 10/09/21 Evaluation Type Initial Certification Assessment/Problems Dysphagia per MD order. Does Patient Qualify for Service No Qualify/Failure Comment Based on the results of MBSS, pt does not qualify for skilled ST services at this time. Recommendations PHYSICIAN CERTIFICATION: The specified therapy services are required, authorized, and reviewed every 30 days. Diet Recommendations Normal Liquid Type Recommendations Normal/Thin Dysphagia Swallow Precautions/Strategies Sitting Upright (90 deg) Place Food on Either side of Mouth Plan Pt/Guardian verbally ack understanding Yes of dx/prognosis/goals Pt/Guardian verbally ack understanding Yes of/consent to tx prog G -code Required No Education Instructions provided Diet recommendations discussed with pt and caregiver. Pt/Caregiver able to recall information Unable to ind. understand Reinforcement needed No Mod Barium Swallow Setup Exam Setup Level of Consciousness Awake,Alert Position (degrees) 90 Mod Barium Swallow-Lat View Textures Lateral View Food Presentation Thin Liquid via Cup,Thin Liquid via Straw,Pureed Food- Thin,Mech. Soft Food- Regular, Regular Food Oral Phase Labial Closure No Impairment (WFL) Bolus Formation Pooling L/R No Impairment (WFL) Bolus Formation under Tongue No Impairment (WFL) Bolus Formation Scattered Loss No Impairment (WFL) Mastication Rotary Chew Minimal Impairment Mastication Munching Minimal Impairment Mastication Lateralization
== END ==
PROVIDERS: PCP Emergency Medicine; Visit Provider Emergency Medicine
DX: R13.10 Dysphagia, unspecified (principal)
CPT/HCPCS: 70371; 92611

== ENCOUNTER → 2021-11-03 02:13 | Outpatient (CLI) | payer MEDICAID, SELFPAY | PROVIDERS: PCP Emergency Medicine; Visit Provider Emergency Medicine | DX: Z20.822 Contact with and (suspected) exposure to COVID-19 (principal) | CPT/HCPCS: C9803; U0003; U0005 ==

== ENCOUNTER → 2021-11-04 10:52 | Outpatient (CLI) | payer MEDICAID, SELFPAY | PROVIDERS: Visit Provider Emergency Medicine | DX: Z20.822 Contact with and (suspected) exposure to COVID-19 (principal) | CPT/HCPCS: C9803; U0003; U0005 ==

== ENCOUNTER → 2021-11-21 06:21 | Outpatient (CLI) | payer MEDICAID, SELFPAY ==
[2021-11-21 07:18] LABS: Microscopic, Urine URINE MICROSCOPIC (MICROSCOPIC)
[2021-11-21 14:20] LABS: Appearance,Urine CLEAR (Clear); Bilirubin,Urine Negative (Negative); Blood, Urine Negative (Negative); Color,Urine YELLOW (Yellow); Glucose,Urine (UA) 1+ (Negative); Ketones,Urine Negative (Negative); Leukocyte Esterase,Urine Negative (Negative); Nitrate,Urine Negative (Negative); PH,Urine 5.5 (5.0-8.5); Protein,Urine Negative (Negative); Specific Gravity, Urine >= 1.030 (1.005-1.030); Urobilinogen,Urine 0.2 EU/dl (0.2)
[2021-11-21 14:58] LABS: RBC,Urine Occasional #/hpf (0-3); Squamous Epithelial Cell,Urine Occasional #/hpf (0-5)
== END ==
PROVIDERS: Visit Provider Emergency Medicine
DX: R10.9 Unspecified abdominal pain (principal); R30.0 Dysuria
CPT/HCPCS: 81001

== ENCOUNTER → 2021-12-13 11:10 | Outpatient (CLI) | payer MEDICAID, SELFPAY | PROVIDERS: PCP Emergency Medicine; Visit Provider Internal Medicine Cardiovascular Disease | DX: R42 Dizziness and giddiness (principal) | CPT/HCPCS: 93225 ==

== ENCOUNTER → 2021-12-17 12:15 | Outpatient (CLI) | payer MEDICAID, SELFPAY ==
--- NOTE | 2021-12-17 12:20 | XR_ITS ---
FINAL REPORT CLINICAL HISTORY: right knee pain FINDINGS: 4 views of the right knee were obtained. There is no acute fracture or dislocation. There are mild and moderate degenerative changes. A small joint effusion is present. There is mild valgus deformity. IMPRESSION: Mild and moderate degenerative change with a small joint effusion. Reviewed, Interpreted and Dictated by Amado Ng III, MD Transcribed by Ady Garcia Authenticated by Amado Ng III, MD on 12/17/2021 01:46:35 PM [facility]
== END ==
PROVIDERS: PCP Emergency Medicine; Visit Provider Orthopaedic Surgery
DX: M25.561 Pain in right knee (principal)
CPT/HCPCS: 73564

== ENCOUNTER 2021-12-17 15:07 | Outpatient (RCR) | payer MEDICAID, SELFPAY | END 2021-12-17 16:00 | disposition home or self-care (01) | LOC: PT 15:07 | PROVIDERS: Visit Provider Orthopaedic Surgery | DX: M25.561 Pain in right knee (principal) | CPT/HCPCS: 97760 ==

== ENCOUNTER → 2021-12-24 10:11 | Outpatient (CLI) | payer MEDICAID, SELFPAY ==
--- NOTE | 2021-12-24 10:12 | CA_ITS ---
FINAL REPORT TECHNIQUE: Color Doppler, duplex Doppler and sparks scale sonography of the bilateral neck arterial vasculature was performed. Velocities were measured in the carotid arteries. Stenosis evaluation based on the validated velocity criteria. CLINICAL HISTORY: dizziness, HTN, Family HX VICTOR MANUEL w/CEA FINDINGS: The peak systolic velocity of the right common carotid artery is 95 cm/s. The peak systolic velocity of the right internal carotid artery is 97 cm/s and end diastolic velocity 29 cm/s. The ICA/CCA ratio is 1.4. No plaque is present. The right external carotid artery is patent. The right vertebral artery is patent with antegrade flow. The peak systolic velocity of the left common carotid artery is 85 cm/s. The peak systolic velocity of the left internal carotid artery is 99 cm/s and end diastolic velocity 25 cm/s. The ICA/CCA ratio is 1.2. No plaque is present. The left external carotid artery is patent.The left vertebral artery is patent with antegrade flow. IMPRESSION: There is no evidence of bilateral carotid stenosis. Bilateral patent vertebral arteries with antegrade flow. Reviewed, Interpreted and Dictated by Amado Ng III, MD Transcribed by Es Vega Authenticated by Amado Ng III, MD on 12/24/2021 11:32:59 AM [facility]
== END ==
PROVIDERS: PCP Emergency Medicine; Visit Provider Internal Medicine Cardiovascular Disease
DX: R42 Dizziness and giddiness (principal); I25.118 Atherosclerotic heart disease of native coronary artery with other forms of angina pectoris; I10 Essential (primary) hypertension; E11.9 Type 2 diabetes mellitus without complications; E78.49 Other hyperlipidemia; Z79.4 Long term (current) use of insulin
CPT/HCPCS: 93880

== ENCOUNTER 2022-05-04 04:02 | Inpatient (IN) | payer MEDICAID, SELFPAY ==
[2022-05-04] VITALS (16 sets, daily range): BP systolic 98–135; BP diastolic 47–81; PULSE 79–113; RESP 14–23; TEMP 36.4–38.1; O2SAT 86–100; BMI 44.1; BMI 44.4; BMI 42.5
--- NOTE | 2022-05-04 04:02 | ECG_ITS ---
APPROVED REPORT Exam: Resting ECG HR:105 bpm ECG Measurements Heart Rate 105 AXES HI 164 P 55 QRSd 94 QRS 64 QT 333 T 51 QTc 394 Conclusion SINUS TACHYCARDIA LOW QRS VOLTAGE IN PRECORDIAL LEADS [QRS DEFLECTION < 1.0 mV IN CHEST LEADS] ABNORMAL RHYTHM ECG UNCONFIRMED REPORT Electronically signed by : Gerardo Navarro MD 05/06/2022 21:14:03
--- NOTE | 2022-05-04 04:05 | PC.NURSE ---
Pt arrived to ED @ [id number]
--- NOTE | 2022-05-04 04:09 | XR_ITS ---
PROCEDURE INFORMATION: Exam: XR Chest Exam date and time: 05/04/2022 4:20 AM Age: 57 years old Clinical indication: Shortness of breath; Additional info: SOA TECHNIQUE: Imaging protocol: Radiologic exam of the chest. Views: 1 view. COMPARISON: CR XR CHEST AP 09/07/2020 11:06 AM FINDINGS: Lungs: Unremarkable. No consolidation. Pleural spaces: Unremarkable. No pleural effusion. No pneumothorax. Heart/Mediastinum: Unremarkable. No cardiomegaly. Bones/joints: Unremarkable. IMPRESSION: No acute findings.
--- NOTE | 2022-05-04 04:10 | CT_ITS ---
PROCEDURE INFORMATION: Exam: CT Head Without Contrast Exam date and time: 05/04/2022 4:26 AM Age: 57 years old Clinical indication: Altered mental status/memory loss; Confusion or disorientation; Additional info: AMS TECHNIQUE: Imaging protocol: Computed tomography of the head without contrast. Radiation optimization: All CT scans at this facility use at least one of these dose optimization techniques: automated exposure control; mA and/or kV adjustment per patient size (includes targeted exams where dose is matched to clinical indication); or iterative reconstruction. COMPARISON: CT HEAD/BRAIN WO CON 09/07/2020 10:55 AM FINDINGS: Brain: There is diffuse prominence of the cerebral sulci, cisterns, and ventricles consistent with atrophy. No intra or extra-axial fluid collections are noted. No mass or mass effect is seen. Cerebral ventricles: No ventriculomegaly. Paranasal sinuses: Visualized sinuses are unremarkable. No fluid levels. Mastoid air cells: Visualized mastoid air cells are well aerated. Bones/joints: Unremarkable. No acute fracture. Soft tissues: Unremarkable. IMPRESSION: No acute process noted.
[2022-05-04 04:14] LABS: Basophils # 0.1 K/mm3 (0-0.2); Basophils % 0.4 % (0.1-2.0); Eosinophils # 0.5 K/mm3 (0.0-0.4); Eosinophils % 2.1 % (0.1-12.0); Hemoglobin 12.4 g/dL (12.2-16.2); Lymphocytes # 0.5 K/mm3 (0.7-4.5); Lymphocytes % 2.4 % (10-50); Mean Corpuscular HGB Conc 33.4 g/dL (31.8-35.4); Mean Corpuscular Hemoglobin 29.9 pg (27.0-31.2); Mean Corpuscular Volume 89.5 fl (81-99); Mean Platelet Volume 7.5 fl (7.4-10.4); Monocytes # 0.6 K/mm3 (0.1-1.0); Monocytes % 2.9 % (1.7-9.3); Neutrophils # 19.9 K/mm3 (1.8-7.8); Neutrophils % 92.2 % (37.0-80.0); Platelet Count 313 K/mm3 (142-424); Red Blood Count 4.13 M/mm3 (4.20-5.40); White Blood Count 21.6 K/mm3 (4.8-10.8)
[2022-05-04 04:22] LABS: Alanine Aminotransferase 31 U/L (12-78); Albumin Level 4.1 g/dl (3.5-5.0); Albumin/Globulin Ratio 1.6 (1.1-1.8); Alkaline Phosphatase 116 U/L (38-126); Anion Gap 11.2 mEq/L (5-15); Aspartate Amino Transferase 27 U/L (14-36); Blood Urea Nitrogen 17 mg/dl (7-17); Calcium 9.8 mg/dl (8.4-10.2); Carbon Dioxide 29 mmol/L (22.0-30.0); Chloride 97 mmol/L (98-107); Creatinine Clearance Estimated 57 mL/min (50-200); Estimated Glomerular Filt Rate 57 ml/min (>60); GFR (African American) 69 ML/MIN (>60); Globulin 2.6 g/dL (1.3-3.2); Glucose 277 mg/dl (74-100); Potassium 4.2 mmoL/L (3.5-5.1); Sodium 133 mmol/L (136-145); Total Protein,Serum 6.7 g/dl (6.3-8.2)
[2022-05-04 04:27] LABS: C-Reactive Protein 52.2 mg/L (0-4)
[2022-05-04 04:30] LABS: Acetone, Serum (Rapid) None Detected (None Detect)
[2022-05-04 04:31] LABS: Bilirubin,Total 0.1 mg/dl (0.2-1.3)
[2022-05-04 04:34] LABS: MANUAL DIFFERENTIAL MANUAL DIFFERENTIAL (MANUAL DIFF)
[2022-05-04 04:37] LABS: Lymphocytes % 6 % (10-50); Neutrophils % 76 % (42-76); Platelet Estimate Normal; RBC Morphology Normal; Total Cells Counted 100
[2022-05-04 04:40] LABS: Procalcitonin 0.255 ng/mL (0.0-2.0)
[2022-05-04 04:46] LABS: Erythrocyte Sedimentation Rate 21 mm/hr (0-30)
[2022-05-04 05:01] LABS: NT Pro Brain Natriuretic Pep. 543 pg/mL (0-125)
--- NOTE | 2022-05-04 05:26 | HMH.EDSOB ---
ED Disposition Clinical Impression: Acute exacerbation of chronic obstructive airways disease, Tobacco use disorder, SIRS (systemic inflammatory response syndrome), Hypothyroidism (acquired) Altered mental status Qualifiers: Altered mental status type: delirium Qualified Code(s): R41.0 - Disorientation, unspecified Obesity Qualifiers: Obesity type: due to excess calories Obesity classification: adult class 3 (BMI >= 40) Serious obesity comorbidity presence: with serious comorbidity Body mass index: BMI 40.0-44.9 Qualified Code(s): E66.01 - Morbid (severe) obesity due to excess calories; Z68.41 - Body mass index [BMI] 40.0-44.9, adult Diabetes mellitus Qualifiers: Diabetes mellitus type: type 2 Diabetes mellitus mcfp insulin use: unspecified mcfp insulin use status Diabetes mellitus complication status: with other specified complication Qualified Code(s): E11.69 - Type 2 diabetes mellitus with other specified complication CAD (coronary artery disease) Qualifiers: Coronary Disease-Associated Artery/Lesion type: d[place]las artery [place] vs. transplanted heart: douglas heart Associated angina: unspecified whether angina present Qualified Code(s): I25.10 - Atherosclerotic heart disease of douglas coronary artery without angina pectoris Disposition: Admitted As Inpatient Condition on Discharge: Fair - Critical Care Critical Care Time: No Attestation: On 05/04/22, the high probability of a clinically significant, sudden or life threatening deterioration of the following system(s) required my full and direct attention, intervention and personal management. The time I documented below is in addition to time spent performing reported procedures but includes the following listed in this critical care notation. Medical Decision Making - Medical Records Medical records reviewed: Yes: I reviewed the patient's medical records. - Sammy Inquiry Pt receiving controlled substance: No Vital Signs: 05/04/22 03:38 Temperature 97.9 F Temperature Source Oral Pulse Rate [Right] 105 H Respiratory Rate 23 Blood Pressure [Right Arm] 103/60 L Blood Pressure Mean [Right Arm] 74 Blood Pressure Source [Right Arm] Automatic Cuff 02 Sat by Pulse Oximetry 94 L Oxygen Delivery Method Nasal Cannula Oxygen Flow Rate (LPM) 3 - Lab Data Lab results reviewed: Yes: I reviewed the patient's lab results. Lab Results 05/04/22 04:05: ESR 21 05/04/22 04:05: C-Reactive Protein 52.2 H, Procalcitonin 0.255 05/04/22 04:05: WBC 21.6 H*, RBC 4.13 L, Hgb 12.4, Hct 37.0, MCV 89.5, MCH 29.9, MCHC 33.4, RDW 15.0, Plt Count 313, MPV 7.5, Neut % (Auto) 92.2 H, Lymph % (Auto) 2.4 L, [place] % (Auto) 2.9, Eos % (Auto) 2.1, Baso % (Auto) 0.4, Neut # (Auto) 19.9 H, Lymph # (Auto) 0.5 L, [place] # (Auto) 0.6, Eos # (Auto) 0.5 H, Baso # (Auto) 0.1, Total Counted 100, Neutrophils % (Manual) 76, Band Neutrophils % 18.0 H, Lymphocytes % (Manual) 6 L, Platelet Estimate Normal, RBC Morphology Normal 05/04/22 04:05: Sodium 133 L, Potassium 4.2, Chloride 97 L, Carbon Dioxide 29, Anion Gap 11.2, BUN 17, Creatinine 1.00, Estimated Creat Clear 57, Estimated GFR 57 L, Est GFR ( Amer) 69, Glucose 277 H, Calcium 9.8, Total Bilirubin 0.1 L, AST 27, ALT 31, Alkaline Phosphatase 116, Total Protein 6.7, Albumin 4.1, Globulin 2.6, Albumin/Globulin Ratio 1.6 05/04/22 04:05: Acetone Level None detected 05/04/22 04:05: NT-Pro-B Natriuret Pep 543 H 05/04/22 04:05: Hemoglobin A1c 8.4 H 05/04/22 04:05: TSH 1.14, Thyroxine (T4) 9.9 05/04/22 04:05: Troponin I < 0.01 05/04/22 05:35: Lactate 2.0 05/04/22 05:35: Urine Color Yellow, Urine Appearance Clear, Urine pH 7.0, Ur Specific [place] 1.025, Urine Protein Negative, Urine Glucose (UA) 2+, Urine Ketones Negative, Urine Blood Negative, Urine Nitrate Negative, Urine Bilirubin Negative, Urine Urobilinogen 0.2, Ur Leukocyte Esterase Trace, Urine WBC 3-5, Ur Squamous Epith Cells 3-5 05/04/22 06:12: SARS-CoV-2 (PCR) Not detected, Influenza A Untype (PC
[2022-05-04 05:42] LABS: Microscopic, Urine URINE MICROSCOPIC (MICROSCOPIC)
[2022-05-04 05:45] LABS: Appearance,Urine CLEAR (Clear); Bilirubin,Urine Negative (Negative); Blood, Urine Negative (Negative); Color,Urine YELLOW (Yellow); Glucose,Urine (UA) 2+ (Negative); Ketones,Urine Negative (Negative); Leukocyte Esterase,Urine TRACE (Negative); Nitrate,Urine Negative (Negative); Protein,Urine Negative (Negative); Specific Gravity, Urine 1.025 (1.005-1.030); Urobilinogen,Urine 0.2 EU/dl (0.2)
--- NOTE | 2022-05-04 05:54 | CT_ITS ---
PROCEDURE INFORMATION: Exam: CT Abdomen And Pelvis Without Contrast Exam date and time: 05/04/2022 5:57 AM Age: 57 years old Clinical indication: Abdominal pain; Generalized; Additional info: Generalized abdomen pain TECHNIQUE: Imaging protocol: Computed tomography of the abdomen and pelvis without contrast. Radiation optimization: All CT scans at this facility use at least one of these dose optimization techniques: automated exposure control; mA and/or kV adjustment per patient size (includes targeted exams where dose is matched to clinical indication); or iterative reconstruction. COMPARISON: CR XR PELVIS 1-2V 09/07/2020 11:06 AM FINDINGS: Heart: Coronary atherosclerosis is present. Liver: Normal. No mass. Gallbladder and bile ducts: The patient is status post cholecystectomy. Pancreas: Normal. No ductal dilation. Spleen: Normal. No splenomegaly. Adrenal glands: Normal. No mass. Kidneys and ureters: Normal. No hydronephrosis. Stomach and bowel: Moderate amount of retained stool is present throughout bowel. Appendix: No evidence of appendicitis. Intraperitoneal space: Unremarkable. No free air. No significant fluid collection. Vasculature: Unremarkable. No abdominal aortic aneurysm. Lymph nodes: Unremarkable. No enlarged lymph nodes. Urinary bladder: Unremarkable as visualized. Reproductive: Unremarkable as visualized. Bones/joints: Unremarkable. No acute fracture. Soft tissues: Unremarkable. IMPRESSION: 1. No acute process identified. 2. Moderate retained stool. 3. Stat cholecystectomy
--- NOTE | 2022-05-04 06:07 | PC.NURSE ---
Patient just returned from ct scan.
[2022-05-04 06:12] LABS: Hemoglobin A1C 8.4 % (4.0-6.0)
[2022-05-04 06:19] LABS: ABG Base Excess 4.4 mmol/L (-2.4-2.3); ABG HCO3 28.2 mmhg (22.0-26.0); ABG Oxygen Saturation 98 % (90-100); ABG PCO2 40.9 mmhg (35.0-45.0); ABG PH 7.46 mmol/L (7.35-7.45); ABG PO2 98.7 mmhg (80-100); ABG TCO2 29.5 mmhg (23-27)
[2022-05-04 06:20] LABS: Allen's Test Acceptable; Source Right Radial
--- NOTE | 2022-05-04 06:23 | PC.NURSE ---
PATIENT ADMITTED TO 214 OBSERVATION DX OF COPD WITH EXACERBATION TO THE CARE DR. GARRETT
[2022-05-04 06:25] LABS: T4 (Thyroxine) 9.9 ug/dl (5.53-11.0)
[2022-05-04 06:28] LABS: Troponin I < 0.01 ng/ml (0.00-0.034)
[2022-05-04 06:39] LABS: Thyroid Stimulating Hormone 1.14 uIU/mL (0.465-4.68)
[2022-05-04 06:43] LABS: Coronavirus 19, PCR Not Detected (NotDetected); Influenza A, PCR Not Detected (NotDetected); Influenza B, PCR Not Detected (NotDetected)
--- NOTE | 2022-05-04 07:05 | HMH.HP ---
*Admission Date: 05/04/22 *Chief complaint: sob *History of present illness: this patient was sent from [facility] with altered mental status and chest pain - pt is poor historian - pt has hx of copd and no hx of fall or trauma - pt was found in the ed with acute exacerbation copd and pneumonia and was admitted with ivf and abx - [facility] History I have reviewed the patient's past medical history: Yes Medical History: Reports:: Anxiety, Chronic Obstructive Pulmonary Disease (COPD), Coronary Artery Disease, Depression, Diabetes Mellitus Type 2, Gastroesophageal Reflux Disease(GERD), Hyperlipidemia, Hypertension, Lung Disease Denies:: Cancer, Diabetes Mellitus Type 1, Internal Pacemaker, MRSA, Seizures *Have you ever received a pneumonia vaccine?: Yes *Have you received a flu vaccine this season?: Yes Other Medical History: Reports: Hypothyroidism, Other. Denies: Blood Transfusion Reaction Laterality Cases: Right: Arthroscopy Knee, Bilateral: Carpal Tunnel Release, Tonsillectomy Other Surgeries: Yes: Cardiac Catheterization, Cholecystectomy, Colonoscopy, Other. No: Pacemaker Amputation: No Fractures: No - *Social History Smoking Status: Former smoker Tobacco Type: cigarettes # Packs/Day (cigarettes): 1 Alcohol Intake: never Alcohol Intake Frequency:: other Substance Use Type: denies use *Occupational Status:: unemployed Housing: custodial Household Members: other *Travel in the last 8 weeks: None - Psychiatric History Pschychiatric History:: Reports:: Anxiety, Depression Family Hx:: Unable to obtain Review of Systems - Review of Systems Review of systems:: pertinent systems reviewed and negative unless documented below - Constitutional Denies fever(s) - Eyes Denies change in vision - ENT Denies sore throat - *Cardiovascular Reports shortness of breath - *Respiratory Reports cough, Reports shortness of breath - *Gastrointestinal Reports abdominal pain, Denies vomiting - *Genitourinary Denies blood in urine - *Musculoskeletal Denies joint pain - Integumentary/Breasts Denies rash - *Neurologic Reports weakness, Denies localized weakness, Denies seizure-like activity - Psychiatric Denies confusion Meds Home Medications Medication Instructions Recorded Confirmed Type levothyroxine 50 mcg capsule 50 mcg PO DAILY cap 12/22/17 05/04/22 History metformin 1,000 mg tablet 1,000 mg PO BID 12/22/17 05/04/22 History clopidogrel 75 mg tablet 75 mg PO ONCE 03/09/18 05/04/22 History aspirin 81 mg tablet,delayed 81 mg PO DAILY tab 04/20/18 05/04/22 History release Losartan Potassium [Cozaar 100mg 100 mg PO DAILY 03/19/19 05/04/22 History Tablets] pantoprazole 20 mg tablet,delayed 20 mg PO DAILY 08/25/19 05/04/22 History release loratadine 10 mg tablet 0.5 mg PO DAILY 28 Days #1.4 tab 04/12/20 05/04/22 History atorvastatin 40 mg tablet 20 mg PO HS tab 05/17/21 05/04/22 History bupropion HCl 300 mg 24 hr tablet, 300 mg PO QAM tab 05/17/21 05/04/22 History extended release insulin NPH-regular 70-30 U-100 25 unit SQ BID ml 05/17/21 05/04/22 History insulin 100 unit/mL subcutaneous pen linagliptin 5 mg tablet 5 mg PO DAILY 05/17/21 05/04/22 History venlafaxine 37.5 mg tablet 100 mg PO BID tab 05/17/21 05/04/22 History sennosides 8.6 mg tablet 8.6 mg PO DAILY 05/31/21 05/04/22 History gabapentin 100 mg capsule 100 mg PO BID #60 cap 11/11/21 05/04/22 Rx clonazepam 0.5 mg tablet 0.5 mg PO .COMPLEX #90 tab 12/09/21 05/04/22 Rx fenofibrate 40 mg tablet 40 mg PO DAILY 12/13/21 05/04/22 History metoprolol succinate 50 mg 50 mg PO DAILY 12/13/21 05/04/22 History tablet,extended release 24 hr paliperidone 3 mg tablet,extended 6 mg PO HS 12/13/21 05/04/22 History release 24 hr ranolazine 500 mg tablet,extended 500 mg PO BID 12/13/21 05/04/22 History release,12 hr hydrocodone 5 mg-acetaminophen 325 1 tab PO TID #90 tab 04/16/22 05/04/22 Rx mg tablet Fluticasone Propion/Salmeterol 2 puff I
--- NOTE | 2022-05-04 08:17 | PC.NURSE ---
2nd floor here to get pt, to take her to her room
--- NOTE | 2022-05-04 09:01 | HMH.PHAVTE ---
[facility] Pharmacy VTE Monitoring - Patient Demographics Admission date: 05/04/22 Report Date: 05/04/22 Time: 09:01 Allergies/Adverse Reactions: Patient Allergies lactose [LACTOSE] Allergy (Unknown, Verified 03/18/22 09:35) Unknown allergy reaction TD Inhibitors Allergy (Verified 03/18/22 09:35) Unknown allergy reaction lisinopril Allergy (Verified 03/18/22 09:35) Unknown allergy reaction Height: 1.6 m Weight: 108.891 kg Patient Problems: Current Active Problems Acute exacerbation of chronic obstructive airways disease (Acute) Obesity (Acute) SIRS (systemic inflammatory response syndrome) (Acute) Hypothyroidism (acquired) (Acute) Altered mental status (Acute) HTN (hypertension) (Chronic) CAD (coronary artery disease) (Chronic) Tobacco use disorder (Chronic) Diabetes (Chronic) - VTE Risk Labs: VTE Related Lab Results Hgb 12.4 g/dL (12.2-16.2) 05/04/22 04:05 Hct 37.0 % (37.0-47.0) 05/04/22 04:05 Plt Count 313 K/mm3 (142-424) 05/04/22 04:05 BUN 17 mg/dl (7-17) 05/04/22 04:05 Creatinine 1.00 mg/dl (0.52-1.04) 05/04/22 04:05 Estimated Creat Clear 57 mL/min (50-200) 05/04/22 04:05 Clinical Trial Participant: No - Prophylaxis VTE Prophylaxis Ordered?: Yes Types of VTE Prophylaxis: TEDS Knee High
--- NOTE | 2022-05-04 09:18 | HMH.PHAINT ---
HOME MEDICATION LIST VERIFIED USING LIST FROM [facility] MAR
[2022-05-04 10:26] LABS: Troponin I < 0.01 ng/ml (0.00-0.034)
[2022-05-04 12:10] LABS: POC Glucose,Bedside 392 (70-110)
[2022-05-04 13:27] LABS: Troponin I < 0.01 ng/ml (0.00-0.034)
--- NOTE | 2022-05-04 16:08 | PC.NURSE ---
contacted MD solar installation technician regarding pt lethargy and hypotension. New orders received
--- NOTE | 2022-05-04 17:49 | PC.NURSE ---
NS bolus completed. Pt is still lethargic but responds to verbal commands. she is afebrile @ 98.1 bp 98/47
--- NOTE | 2022-05-04 21:45 | PC.NURSE ---
Spoke with pt POA, Queenie Mosher over phone. POA voices permission to take photos of pt wounds for documentation, verified by Tammie Kimble RN
--- NOTE | 2022-05-04 21:57 | PC.WOUNDNOTE ---
Redness/bruising noted to bottom. Area is palpable. Area cleaned powder/barrier cream applied. Top of right foot/ankle. DSG applied.
[2022-05-05] VITALS (11 sets, daily range): BP systolic 118–131; BP diastolic 54–82; PULSE 77–100; RESP 18–20; TEMP 36.5–37.3; O2SAT 90–96; BMI 43.3
[2022-05-05 00:55] LABS: POC Glucose,Bedside 382 (70-110)
[2022-05-05 00:55] LABS: POC Glucose,Bedside 328 (70-110)
--- NOTE | 2022-05-05 05:24 | PC.NURSE ---
Pt a+o to person/place. Pt wakes easily to name. Pt has had a good appetite t/o shift and received a full bed bath and linen change. Pt vitals have been WNL. Pt tolerating 2 L nc well with sats >90%. Pt has not voiced any complaints to staff t/o shift. Call light within reach.
[2022-05-05 06:13] LABS: Basophils % 0.1 % (0.1-2.0); Eosinophils # 0.1 K/mm3 (0.0-0.4); Eosinophils % 0.5 % (0.1-12.0); Hematocrit 30.8 % (37.0-47.0); Hemoglobin 10.3 g/dL (12.2-16.2); Lymphocytes # 0.6 K/mm3 (0.7-4.5); Lymphocytes % 5.5 % (10-50); Mean Corpuscular HGB Conc 33.4 g/dL (31.8-35.4); Mean Corpuscular Hemoglobin 29.5 pg (27.0-31.2); Mean Corpuscular Volume 88.4 fl (81-99); Mean Platelet Volume 7.5 fl (7.4-10.4); Monocytes # 0.5 K/mm3 (0.1-1.0); Monocytes % 4.1 % (1.7-9.3); Neutrophils # 10.5 K/mm3 (1.8-7.8); Neutrophils % 89.8 % (37.0-80.0); Platelet Count 302 K/mm3 (142-424); Red Blood Count 3.48 M/mm3 (4.20-5.40); Red Cell Distribution Width 15.1 % (11.5-17.5); White Blood Count 11.7 K/mm3 (4.8-10.8)
[2022-05-05 06:14] LABS: MANUAL DIFFERENTIAL MANUAL DIFFERENTIAL (MANUAL DIFF)
[2022-05-05 06:18] LABS: Anion Gap 8.9 mEq/L (5-15); Blood Urea Nitrogen 19 mg/dl (7-17); Calcium 8.7 mg/dl (8.4-10.2); Carbon Dioxide 29 mmol/L (22.0-30.0); Chloride 102 mmol/L (98-107); Creatinine Clearance Estimated 48 mL/min (50-200); Estimated Glomerular Filt Rate 57 ml/min (>60); GFR (African American) 69 ML/MIN (>60); Glucose 349 mg/dl (74-100); Magnesium 1.3 mg/dl (1.6-2.3); Potassium 3.9 mmoL/L (3.5-5.1); Sodium 136 mmol/L (136-145)
[2022-05-05 06:34] LABS: Lymphocytes % 6 % (10-50); Monocytes % 1 % (2-9); Neutrophils % 87 % (42-76); Nucleated Red Blood Cells 1; Platelet Estimate Normal; RBC Morphology Normal; Total Cells Counted 100
[2022-05-05 06:36] LABS: POC Glucose,Bedside 315 (70-110)
--- NOTE | 2022-05-05 07:03 | CA_ITS ---
APPROVED REPORT EXAM: Comprehensive 2D, Doppler, and color-flow Echocardiogram House Calls Nurse Practitioner: Kristina Falk RDCS Ht: 5 ft 6 in Wt: 275lbs BSA: 2.29 BP: 118/84 mmHg Indications: COPD,SOA,CAD,HTN,HLP 2D Dimensions LVOT 1.67 cm (M/F) 1.5-2.5 M-Mode Dimensions RVDd 2.55 cm (0.9-2.6) LA Diam 3.93 cm (1.9-4.0) LVDd 4.26 cm (3.5-5.7) Ao Diam 2.39 cm (2.0-3.7) LVDs 2.38 cm (3.5-5.7) IVSd 1.01 cm (0.6-1.1) PWd 0.67 cm (0.6-1.1) EF (Teich) 75.80% FS 44.10% EDV (Teich) 81.30 mL TAPSE 3.47 (<1.7) ESV (Teich) 19.70 mL LV Diastology E Decel Time 327.00 (160-240 msec) E/A Ratio 0.7 MED E' 10.40 (< 7 cm/sec) E'/MED E' Ratio 8.10 (>14) LAT E' 7.10 (<10 cm/sec) E/LAT E' Ratio 11.86 (>14) Mitral Valve MV E Max Gaston. 84.00 (40-130 cm/s) MV A Velocity 120.00 (40-130 cm/s) E/A Ratio 0.70 MV Decel. Time 327.00 (160-240 ms) MV PHT 96.00 ms Left Ventricle Left atrium is mildly enlarged, left ventricle is normal size, mild concentric left ventricular hypertrophy, estimated ejection fraction 55% with no regional wall motion abnormality, grade 1 diastolic dysfunction seen without tissue Doppler evidence of raise left atrial pressure. Right Ventricle Right atrium and right ventricle are mildly enlarged with normal contractility. Aortic Valve Aortic valve is minimally thickened and fibrosed there is no aortic stenosis or aortic insufficiency. Mitral Valve Mitral valve grossly normal, there is trace mitral regurgitation. Tricuspid Valve Tricuspid grossly normal, there is trace tricuspid regurgitation, tricuspid regurgitation jet velocity is inadequate for calculation of the right ventricular systolic pressure. Pulmonic Valve Pulmonic valve is poorly visualized. Great Vessels Aortic root is normal size. Inferior vena cava is poorly visualized. Pericardium No significant pericardial effusion noted. Conclusion 1. Mildly enlarged left atrium, normal left ventricular size, mild concentric left ventricular hypertrophy, estimated ejection fraction 55% with no regional wall motion abnormality, grade 1 diastolic dysfunction seen without tissue Doppler evidence of raise left atrial pressure. 2. Mildly enlarged right ventricle with normal contractility. 3. Trace mitral and tricuspid regurgitation. 4. No significant pericardial effusion. 5. Inferior vena cava is poorly visualized. Electronically signed by : Magen Elizabeth MD 05/05/2022 19:37:10
--- NOTE | 2022-05-05 07:57 | HMH.CNCARD ---
History of Present Illness Consult date: 05/05/22 Requesting physician: Sonido Harrington Consult reason: chest pain, shortness of breath Chief complaint: SOA, chest pain, AMS Additional Medical History:: 1. COPD 2. Hypertension 3. Hyperlipidemia 4. Diabetes mellitus 5. History of palpitations with Holter monitor showing sinus rhythm with no tachycardia no bradycardia arrhythmias and no abnormal pauses. 6. GARRISON, treated with CPAP 7. CAD A. History of JOY to RCA, 02/2018 B. C, ANGIOGRAPHIC RESULTS, 06/11/2021 The left main artery Normal The left anterior descending artery Is widely patent in the proximal segment with mid vessel 20 to 30% stenoses The circumflex artery Is a nondominant vessel and has a mid vessel 50% stenosis The right coronary artery Is a dominant vessel and has stents in the proximal and mid segment which are widely patent with minimal in-stent restenosis. There is excellent distal transitioning into the [place] vessel The SPARROW ventriculogram reveals Hyperdynamic 70% The left ventricular end-diastolic pressure 25 mmHg IMPRESSION Coronary disease as described above with an FFR index of 0.84 and a moderately diseased nondominant circumflex artery Hyperdynamic ventricle Elevated LVEDP Widely patent stents within the previously chronically occluded right coronary artery PLAN 1. Continue medical management with attention focused on diastolic dysfunction hypertensive heart disease History of present illness: this patient was sent from f with altered mental status and chest pain - pt is poor historian - pt has hx of copd and no hx of fall or trauma - pt was found in the ed with acute exacerbation copd and pneumonia and was admitted with ivf and abx The above per Dr. Harrington Patient relates chest pain only with cough. Patient has been treated for COPD exacerbation/bronchitis vs pneumonia during her stay. Her troponins have returned normal x3. Chest x-ray shows no acute process. EKG shows sinus tach at 105 bpm with no acute ST segment changes. Patient did have a recent cardiac catheterization in May 2021 with recommendation for medical therapy. [facility] History Medical History: Reports:: Anxiety, Chronic Obstructive Pulmonary Disease (COPD), Coronary Artery Disease, Depression, Diabetes Mellitus Type 2, Gastroesophageal Reflux Disease(GERD), Hyperlipidemia, Hypertension, Lung Disease Denies:: Cancer, Diabetes Mellitus Type 1, Internal Pacemaker, MRSA, Seizures *Have you ever received a pneumonia vaccine?: Yes *Have you received a flu vaccine this season?: Yes Other Medical History: Reports: Hypothyroidism, Other. Denies: Blood Transfusion Reaction Laterality Cases: Right: Arthroscopy Knee, Bilateral: Carpal Tunnel Release, Tonsillectomy Other Surgeries: Yes: Cardiac Catheterization, Cholecystectomy, Colonoscopy, Other. No: Pacemaker Amputation: No Fractures: No - *Social History Smoking Status: Former smoker Tobacco Type: cigarettes # Packs/Day (cigarettes): 1 Alcohol Intake: never Alcohol Intake Frequency:: other Substance Use Type: denies use *Occupational Status:: disabled Housing: [facility] Household Members: other *Travel in the last 8 weeks: None - Psychiatric History Pschychiatric History:: Reports:: Anxiety, Depression Family Hx:: Unable to obtain Meds Home Medications Medication Instructions Recorded Confirmed Type levothyroxine 50 mcg capsule 50 mcg PO DAILY cap 12/22/17 05/04/22 History metformin 1,000 mg tablet 1,000 mg PO BIDWMEAL 12/22/17 05/04/22 History clopidogrel 75 mg tablet 75 mg PO DAILY 03/09/18 05/04/22 History aspirin 81 mg tablet,delayed 81 mg PO DAILY tab 04/20/18 05/04/22 History release Losartan Potassium [Cozaar 100mg 100 mg PO DAILY 03/19/19 05/04/22 History Tablets] pantoprazole 20 mg tablet,delayed 20 mg PO DAILY 08/25/19 05/04/22 History release bupropion HCl 300 mg 24 hr tablet, 300 mg PO DAILY tab 05/17/21 05/04/22
--- NOTE | 2022-05-05 10:20 | HMH.PTEV ---
Physical Therapy Evaluation Rehab PT IP Evaluation Start: 05/05/22 08:45 Freq: ONCE Status: Active Protocol: Document 05/05/22 09:00 JENNIFER (Rec: 05/05/22 10:19 JENNIFER [id number]) Subjective/History History History this patient was sent from [facility] with altered mental status and chest pain - pt is poor historian - pt has hx of copd and no hx of fall or trauma - pt was found in the ed with acute exacerbation copd and pneumonia and was admitted with ivf and abx - Subjective Subjective Pt reports she does not walk because I fall pt reports she uses WC at [facility] - pt reports she has fallen twice so does not walk anymore Rehab PT IP Eval Objective Appearance Patient Behavior Cooperative,Fearful Patient Orientation Place,Name,Birthday,Year Difficulty following instructions mild Speech Pattern Appropriate Ambulation Patient Able to Ambulate Yes Ambulation Observation IP General Gait Pattern Observation Shuffling Step Ambulation Distance (feet) 3 Ambulation Assistive Device None Ambulation Ability Contact Guard/Hand Hold Balance Ability to Arise Unable Sitting Balance Steady, safe Standing Balance Steady, wide stance Dynamic Sitting Balance Ability Good Dynamic Standing Balance Ability Fair Transfers Bed Transfer Ability Contact Guard/Hand Hold Chair Transfer Ability Contact Guard/Hand Hold Sit to Stand Bed Transfer Ability Minimal x 1 (25% assist) Sit to Stand Chair Transfer Ability Minimal x 1 (25% assist) Rehab PT IP prob,goals,plan Problems Date of Evaluation: 05/05/22 PT IP Problems Transfers,Gait,Balance,Self care,Safety Rehab Potential Rehab Potential Fair Equipment Needs Assistive Devices Rolling / Wheeled Walker Plan PT Intervention Plan Transfers,Gait,Balance,Self care,Safety,Therapeutic Exercise PT Plan Frequency BID Duration LOS Discharge Goals Bed Transfer Ability Contact Guard/Hand Hold Sit to Stand Chair Transfer Ability Contact Guard/Hand Hold Ambulation Assistive Device Rolling Walker Ambulation Distance (feet) 5 Discharge Plan PT Discharge Plan Pt safe to return to [facility] home upon DC - pt will benef
--- NOTE | 2022-05-05 10:57 | SW/DCPLANNER ---
This patient is currently ICF level of care at [facility]. Updated patient information has been faxed to Viridiana gonzalez/ Bharat Sun. Discharge date is unknown at this time.
--- NOTE | 2022-05-05 11:28 | HMH.OTEV ---
OT Inpatient Evaluation Rehab OT IP Evaluation Start: 05/05/22 08:45 Freq: ONCE Status: Complete Protocol: Document 05/05/22 11:23 BHAVANIAUDELIA (Rec: 05/05/22 11:28 GUERO [id number]) Rehab OT IP Assessment Subjective History this patient was sent from [facility] with altered mental status and chest pain - pt is poor historian - pt has hx of copd and no hx of fall or trauma - pt was found in the ed with acute exacerbation copd and pneumonia and was admitted with ivf and abx. Patient is a resident at local care home that maneuver with usage of w/c and requires assistance for ADLs and transfers from nursing staff. [facility] History I have reviewed the patient's past medical history: Yes Medical History: Reports:: Anxiety, Chronic Obstructive Pulmonary Disease (COPD), Coronary Artery Disease, Depression, Diabetes Mellitus Type 2, Gastroesophageal Reflux Disease(GERD), Hyperlipidemia, Hypertension, Lung Disease Subjective I can try to get up. Instructed Patient on proper hand and foot placement to complete supine->sit @ EOB requiring Min A. Instructed Patient on completing EOB-> recliner transfer with SPT requiring Mod A. Left Patient sitting up in chair with needs met. Patient requiring Mod/ Max for ADLs at this time. Objective Patient Orientation Person,Place,Name,Year Upper Extremity Gross ROM WFL Bed Mobility bed mobility - supine/sit Assist Level Minimal x 1 (25% assist) Transfer Training Sit/Stand/Pivot Transfer Assist Level Moderate x 1 (50% assist) Chair Transfer Ability Moderate x 1 (50% assist) Chair Transfer Technique Sit to/from Ambulatory Chair Transfer Assistive Devices Rolling Walker Rehab OT IP prob,goals,plan Problems Date of Evaluation:
--- NOTE | 2022-05-05 12:09 | HMH.ACPN2 ---
Internal Medicine - PN: Subj *Date: 05/05/22 *Time: 21:00 Interval history: doing better - more alert - strep in blood c/s but still not at baseline and has dec mobility and dec po intake Exam Vital signs and Labs for Last 24 Hours: Temp Pulse Resp BP Pulse Ox 98.2 F 88 18 131/61 90 L 05/05/22 08:00 05/05/22 08:00 05/05/22 08:00 05/05/22 08:00 05/05/22 08:00 Laboratory Results - last 24 hr 05/04/22 11:48: POC Glucose 392 H* 05/04/22 12:36: Troponin I < 0.01 05/04/22 15:55: POC Glucose 382 H* 05/04/22 20:16: POC Glucose 328 H* 05/05/22 05:08: POC Glucose 315 H* 05/05/22 05:40: WBC 11.7 H D, RBC 3.48 L, Hgb 10.3 L, Hct 30.8 L, MCV 88.4, MCH 29.5, MCHC 33.4, RDW 15.1, Plt Count 302, MPV 7.5, Neut % (Auto) 89.8 H, Lymph % (Auto) 5.5 L, [place] % (Auto) 4.1, Eos % (Auto) 0.5, Baso % (Auto) 0.1, Neut # (Auto) 10.5 H, Lymph # (Auto) 0.6 L, [place] # (Auto) 0.5, Eos # (Auto) 0.1, Baso # (Auto) 0.0, Total Counted 100, Neutrophils % (Manual) 87 H, Band Neutrophils % 6.0, Lymphocytes % (Manual) 6 L, Monocytes % (Manual) 1 L, Nucleated RBCs 1, Platelet Estimate Normal, RBC Morphology Normal 05/05/22 05:40: Sodium 136, Potassium 3.9, Chloride 102, Carbon Dioxide 29, Anion Gap 8.9, BUN 19 H, Creatinine 1.00, Estimated Creat Clear 48, Estimated GFR 57 L, Est GFR ( Amer) 69, Glucose 349 H, Calcium 8.7, Magnesium 1.3 L I & O for Last 24 hours: Intake & Output 05/03/22 05/04/22 05/05/22 05/06/22 11:59 11:59 11:59 11:59 Intake Total 1150 / 1150 2622 / 2622 Output Total 2300 / 2300 1550 / 1550 Balance -1150 / -1150 1072 / 1072 Weight 240 lb 1 oz 244 lb 12.8 oz Microbiology Reports for the Last 24 Hours: Microbiology 05/04/22 05:35 Blood Blood Culture - Preliminary Gram Positive Cocci 05/04/22 03:55 Urine,Catheterized Urine Culture - Preliminary NO GROWTH AFTER 24 HOURS - Constitutional no acute distress, obese - *Routine HEENT Exam Head: Present: normocephalic Eye: Present: EOMI, PERRL ENT: Present: mucous membranes dry - *Routine Neck Exam Absent: JVD - *Routine Respiratory Exam Present: decreased breath sounds, prolonged expiratory phase - *Routine Cardiovascular Exam Present: RRR, murmur, S4 - *Routine Abdominal Exam Present: soft - *Routine Extremities Exam Present: edema. Absent: Carol's sign - *Routine Skin Exam Present: dry - *Routine Neurological Exam Present: alert. Absent: sensory deficit, motor deficit - Routine Psychiatric Exam Present: cooperative Assessment and Plan (1) HTN (hypertension) Status: Chronic Qualifiers: Hypertension type: primary hypertension Qualified Code(s): I10 - Essential (primary) hypertension Category: Medical Code(s): I10 - Essential (primary) hypertension (2) CAD (coronary artery disease) Problem details: (2018)Successful revascularization of the chronically occluded right coronary artery 100% occlusion reduced to 0% with 2 drug-eluting stents Status: Chronic Qualifiers: Coronary Disease-Associated Artery/Lesion type: [place] artery [place] vs. transplanted heart: [place] heart Associated angina: unspecified whether angina present Qualified Code(s): I25.10 - Atherosclerotic heart disease of [place] coronary artery without angina pectoris Category: Medical Code(s): I25.10 - Atherosclerotic heart disease of [place] coronary artery without angina pectoris (3) Tobacco use disorder Status: Chronic Category: Medical Code(s): F17.200 - Nicotine dependence, unspecified, uncomplicated (4) Diabetes Status: Chronic Qualifiers: Diabetes mellitus type: type 2 Diabetes mellitus care home insulin use: unspecified manager terminal insulin use status Diabetes mellitus complication status: with other specified complication Qualified Code(s): E11.69 - Type 2 diabetes mellitus with other specified complication Category: Medical Code(s): E11
[2022-05-05 15:25] LABS: POC Glucose,Bedside 329 (70-110)
--- NOTE | 2022-05-05 15:59 | PC.NURSE ---
patient has done well. has sat up to chair, and walked to and from bathroom with assistance. no significant complaints, has had a bm this shift. lungs clear but diminished. no signs of shortness of breath. alert and oriented. vitals stable.
[2022-05-05 18:49] LABS: POC Glucose,Bedside 361 (70-110)
[2022-05-05 21:02] LABS: POC Glucose,Bedside 339 (70-110)
[2022-05-06 03:52] VITALS: BP 155/98; PULSE 101; RESP 20; TEMP 37.3; O2SAT 90
[2022-05-06 05:00] VITALS: BMI 42.5
--- NOTE | 2022-05-06 05:44 | PC.NURSE ---
Patient A&O x4. Patient has ambulated ti the restroom with assistance throughout shift. Lungs clear but diminished. Patient has tolerated 2l nc to RA sats above 90%. Updated [facility]. No other complaints noted.
[2022-05-06 06:06] VITALS: PULSE 102; PULSE 103; O2SAT 93
[2022-05-06 06:47] LABS: POC Glucose,Bedside 323 (70-110)
[2022-05-06 08:00] VITALS: BP 126/71; PULSE 106; RESP 19; TEMP 36.5; O2SAT 99
--- NOTE | 2022-05-06 09:06 | HMH.DCSUM ---
General - General Admission date:: 05/04/22 Discharge date: 05/06/22 HPI HPI: this patient was sent from f with altered mental status and chest pain - pt is poor historian - pt has hx of copd and no hx of fall or trauma - pt was found in the ed with acute exacerbation copd and pneumonia and was admitted with ivf and abx - Hospital Course Hospital Course: this patient was sent from [facility] with altered mental status and chest pain - pt is poor historian - pt has hx of copd and no hx of fall or trauma - pt was found in the ed with acute exacerbation copd and pneumonia and was admitted with ivf and abx - 05/04/[address]: FINDINGS: Brain: There is diffuse prominence of the cerebral sulci, cisterns, and ventricles consistent with atrophy. No intra or extra-axial fluid collections are noted. No mass or mass effect is seen. Cerebral ventricles: No ventriculomegaly. Paranasal sinuses: Visualized sinuses are unremarkable. No fluid levels. Mastoid air cells: Visualized mastoid air cells are well aerated. Bones/joints: Unremarkable. No acute fracture. Soft tissues: Unremarkable. IMPRESSION: No acute process noted. Electronically signed by Flip Bill MD 05/04/2022 abdomen/pelvis CT: FINDINGS: Heart: Coronary atherosclerosis is present. Liver: Normal. No mass. Gallbladder and bile ducts: The patient is status post cholecystectomy. Pancreas: Normal. No ductal dilation. Spleen: Normal. No splenomegaly. Adrenal glands: Normal. No mass. Kidneys and ureters: Normal. No hydronephrosis. Stomach and bowel: Moderate amount of retained stool is present throughout bowel. Appendix: No evidence of appendicitis. Intraperitoneal space: Unremarkable. No free air. No significant fluid collection. Vasculature: Unremarkable. No abdominal aortic aneurysm. Lymph nodes: Unremarkable. No enlarged lymph nodes. Urinary bladder: Unremarkable as visualized. Reproductive: Unremarkable as visualized. Bones/joints: Unremarkable. No acute fracture. Soft tissues: Unremarkable. IMPRESSION: 1. No acute process identified. 2. Moderate retained stool. 3. Stat cholecystectomy Electronically signed by Flip Bill MD 05/05/2022 ECHO: Conclusion 1. Mildly enlarged left atrium, normal left ventricular size, mild concentric left ventricular hypertrophy, estimated ejection fraction 55% with no regional wall motion abnormality, grade 1 diastolic dysfunction seen without tissue Doppler evidence of raise left atrial pressure. 2. Mildly enlarged right ventricle with normal contractility. 3. Trace mitral and tricuspid regurgitation. 4. No significant pericardial effusion. 5. Inferior vena cava is poorly visualized. Electronically signed by : Magen Elizabeth MD Cardiology has seen and recommends: 1. Altered mental status with suspected COPD exacerbation. Improved. 2. Chest pain felt secondary to COPD exacerbation with normal troponins, no acute changes on EKG cardiac catheterization less than 1 year ago with recommendation for medical therapy. We will await results of echocardiogram today but preliminary shows preserved ejection fraction with no significant valve disease. Anticipate no further workup from cardiac standpoint. 3. Hypertension, controlled Continue aspirin, Plavix, atorvastatin, fenofibrate, Ranexa, metoprolol, irbesartan and HCTZ. Blood culture revealed strep agalactiae, she has received azithromycin, clindamycin, and ceftriaxone IV during her stay. She will be discharged on Omnicef 57-year-old female patient sitting up in the chair resting quietly with eyes open, she denies any chest pain or shortness of breath. Her oxygenation status 99% on 2 L per nasal cannula. Discussed discharge back to [facility] today, she is in agreement. PLAN: 1. We will discharge back to [facility] nursing facility today 2. Omnicef 300 mg twice daily x10 days 3. Follow-up with PCP 1
--- NOTE | 2022-05-06 10:46 | PC.NURSE ---
Called Report to cassie SANCHEZ at [facility]
--- NOTE | 2022-05-07 11:33 | CARE MANAGER ---
Contacted [facility] to follow up on patient. Staff states she is doing well an deny any questions or concerns at this time. LAURA Rocha
== END 2022-05-06 11:06 | DRG 194 ==
LOC: ER 04:06 → 2ND 06:54
PROVIDERS: Admitting Provider Emergency Medicine; Emergency Provider Emergency Medicine; PCP Emergency Medicine; Visit Provider Emergency Medicine
DX: J18.9 Pneumonia, unspecified organism (principal); J44.0 Chronic obstructive pulmonary disease with (acute) lower respiratory infection; Z68.41 Body mass index [BMI] 40.0-44.9, adult; J44.1 Chronic obstructive pulmonary disease with (acute) exacerbation; I25.10 Atherosclerotic heart disease of native coronary artery without angina pectoris; F41.9 Anxiety disorder, unspecified; F32.A Depression, unspecified; Z79.4 Long term (current) use of insulin; E66.01 Morbid (severe) obesity due to excess calories; G47.33 Obstructive sleep apnea (adult) (pediatric); E11.9 Type 2 diabetes mellitus without complications; K21.9 Gastro-esophageal reflux disease without esophagitis; E78.5 Hyperlipidemia, unspecified; E03.9 Hypothyroidism, unspecified; I10 Essential (primary) hypertension; F17.200 Nicotine dependence, unspecified, uncomplicated; Z20.822 Contact with and (suspected) exposure to COVID-19
CPT/HCPCS: 36415; 51702; 70450; 71045; 74176; 80048; 80053; 81001; 82009; 82803; 82962; 83036; 83605; 83735; 83880; 84145; 84436; 84443; 84484; 85007; 85025; 85651; 86140; 87040; 87077; 87086; 87186; 93005; 93306; 94640; 94760; 94761; 97116; 97161; 97165; 97530; 99285; C9803; J0456; J0696; U0003; U0005

== ENCOUNTER → 2022-06-23 11:25 | Outpatient (CLI) | payer MEDICAID, SELFPAY ==
[2022-06-23 13:58] LABS: Blood Urea Nitrogen 23 mg/dl (7-17); Calcium 9.6 mg/dl (8.4-10.2); Carbon Dioxide 31 mmol/L (22.0-30.0); Chloride 96 mmol/L (98-107); Estimated Glomerular Filt Rate 42 ml/min (>60); GFR (African American) 51 ML/MIN (>60); Glucose 179 mg/dl (74-100); Sodium 135 mmol/L (136-145)
== END ==
PROVIDERS: PCP Emergency Medicine; Visit Provider Physician Assistant
DX: I25.118 Atherosclerotic heart disease of native coronary artery with other forms of angina pectoris (principal); I10 Essential (primary) hypertension; E78.2 Mixed hyperlipidemia; G47.33 Obstructive sleep apnea (adult) (pediatric); Z99.89 Dependence on other enabling machines and devices
CPT/HCPCS: 36415; 80048

== ENCOUNTER 2022-08-19 08:56 | Day surgery (SDC) | payer MEDICAID, SELFPAY ==
[2022-08-19 09:20] VITALS: BP 98/40; PULSE 74; RESP 16; TEMP 36.3; O2SAT 97
[2022-08-19 09:45] VITALS: BMI 38.7
[2022-08-19 10:15] VITALS: BP 123/73; PULSE 77; RESP 16; TEMP 36.4; O2SAT 97
[2022-08-19 10:20] VITALS: BP 123/73; PULSE 77; RESP 16; TEMP 36.4; O2SAT 97
[2022-08-19 10:20] LABS: POC Glucose,Bedside 100 (70-110)
== END 2022-08-19 10:20 | disposition home or self-care (01) ==
LOC: OUTP 08:56
PROVIDERS: PCP Emergency Medicine; Visit Provider Ophthalmology
PROC: (CPT 66821; principal; 2022-08-19 09:30)
DX: H26.493 Other secondary cataract, bilateral (principal); E11.9 Type 2 diabetes mellitus without complications
CPT/HCPCS: 66821; 82962

== ENCOUNTER → 2022-09-02 12:56 | Outpatient (CLI) | payer MEDICAID, SELFPAY ==
--- NOTE | 2022-09-02 12:56 | CT_ITS ---
FINAL REPORT CLINICAL HISTORY: lung cancer screening, SMOKER FOR 40 YEARS, SMOKED 1/2 PACK PER DAY, QUIT SMOKING 1.5 YEARS AGO, COPD EMPHYSEMA COMPARISON: 08/02/2021 FINDINGS: Low-Dose Chest CT Axial images were obtained from the lung apex to the mid abdomen by computed tomography. Low-dose protocol was utilized. CTDI vol (mGy): 2.90 DLP (mGy-cm): 92.47 There is no axillary adenopathy. There is no hilar or mediastinal adenopathy. The heart is proper size. There is no pericardial or pleural effusion. Lung window images demonstrate a 3 mm right middle lobe nodule, stable. There are several other less than 3 mm nodules, stable. There is no new mass or nodule. There is mild bilateral scarring. There is improved small ground-glass opacities in the right upper lobe from the prior exam. Limited images of the upper abdomen are unremarkable. IMPRESSION: Stable 3 mm right middle lobe nodule. Lung RADS category 2. Recommend 12 month follow-up low-dose chest CT. Reviewed, Interpreted and Dictated by Amado Ng III, MD Transcribed by Es Vega Authenticated and [facility]
== END ==
PROVIDERS: PCP Emergency Medicine; Visit Provider Internal Medicine Pulmonary Disease
DX: Z87.891 Personal history of nicotine dependence (principal); Z12.2 Encounter for screening for malignant neoplasm of respiratory organs
CPT/HCPCS: 71271

== ENCOUNTER → 2022-09-27 23:11 | Outpatient (CLI) | payer MEDICAID, SELFPAY ==
[2022-09-27 23:57] LABS: Microscopic, Urine URINE MICROSCOPIC (MICROSCOPIC)
[2022-09-28 00:18] LABS: Appearance,Urine CLOUDY (Clear); Bilirubin,Urine Negative (Negative); Blood, Urine 2+ (Negative); Color,Urine YELLOW (Yellow); Glucose,Urine (UA) 1+ (Negative); Ketones,Urine Negative (Negative); Leukocyte Esterase,Urine 1+ (Negative); Nitrate,Urine Negative (Negative); Protein,Urine TRACE (Negative); Specific Gravity, Urine 1.025 (1.005-1.030); Urobilinogen,Urine 0.2 EU/dl (0.2)
[2022-09-28 00:25] LABS: Bacteria,Urine 1+ /lpf; Mucus,Urine 1+ /lpf; WBC,Urine 50-100 #/hpf (0-3)
== END ==
PROVIDERS: PCP Emergency Medicine; Visit Provider Emergency Medicine
DX: R10.9 Unspecified abdominal pain (principal); R30.0 Dysuria; N39.0 Urinary tract infection, site not specified; B96.4 Proteus (mirabilis) (morganii) as the cause of diseases classified elsewhere
CPT/HCPCS: 81001; 87086; 87088; 87186

== ENCOUNTER → 2023-08-17 11:03 | Outpatient (CLI) | payer MEDICAID, SELFPAY ==
--- NOTE | 2023-08-17 11:27 | FL_ITS ---
FINAL REPORT CLINICAL HISTORY: dysphagia 3.11 fluoro time 428.25 dap FINDINGS: MODIFIED BARIUM SWALLOW History: Dysphagia. FINDINGS: Fluoroscopy was provided for the speech pathologist to evaluate the swallowing mechanism. The patient was given several different consistencies of barium while the swallow was visualized fluoroscopically. The report of the speech pathologist should be consulted prior to making dietary decisions. Fluoro time:3 minutes 11 seconds DAP: 428.25 uGy.m2 IMPRESSION: Modified barium swallow under fluoroscopic guidance. Please see the report of the speech pathologist for more detail. Films reviewed , interpreted and dictated by Dr. Ary Villanueva. Transcribed by Kamari Taylor PA-C. Reviewed, Interpreted and Dictated by Ary Villanueva MD Transcribed by HAYDEN Mcclain Authenticated and [facility]
--- NOTE | 2023-08-17 13:24 | HMH.SLMBS2 ---
Speech & Language Evaluation Speech/Language Mod Barium Swallow Start: 08/17/23 13:03 Freq: once Status: Complete Protocol: Document 08/17/23 13:03 BLANCHE (Rec: 08/17/23 13:24 [facility] [id number]) General Information General Current Food Consistancy Mechanical Soft,Ground Meats, Thin Liquids Dentition Poor Dentition Oxygen Status Room Air Patient Orientation Person,Place Ability to Follow Directions Fair Communication Ability Mild Impairment MBS Recommendations Diet Dietary Recommendations Mechanical Soft,Ground Meats, Chopped Meats,Thin Liquids Treatment/Strategies Strategy/Precaution Recommend Sitting Upright (90 deg), Double Swallow,No Straw,Small Bites and Sips,Alternate Liquids/Solids Mod Barium Swallow Impressions Summary and Impressions Oral Phase Impression Moderate Impairment Oral Phase Summary Moderate impairment of the oral transit and oral preparatory phases of the swallow. Ms. Starkey was observed to have anterior loss of thin liquids and withheld thin trials in oral cavity with a delayed swallow with scattered loss under tongue. She demonstrated difficulty when masticating mechanical soft trial and regulars with fatigue observed. Significant fatigue was observed with trials of regular solid with premature spillage with scattered loss throughout the oral cavity. Jeny provided two subsequent effortful swallows after trial of regular solid, and still required a puree wash to clear residue on base of tongue 2' difficulty manipulating and masticating a solid bolus. It is recommended Ms. Starkey continue on a mechanical soft diet, safest being ground meats, however, chopped with extra sauces/gravys is next recommended per her report of wishing for an upgrade to more
== END ==
PROVIDERS: PCP Emergency Medicine; Visit Provider Emergency Medicine
DX: R10.9 Unspecified abdominal pain (principal)
CPT/HCPCS: 70371; 92611

== ENCOUNTER → 2023-09-07 14:59 | Outpatient (CLI) | payer MEDICAID, SELFPAY ==
--- NOTE | 2023-09-07 15:03 | CT_ITS ---
FINAL REPORT CLINICAL HISTORY: lung cancer screening Patient quit smoking 2 years ago. She smoked a half pack a day for 32 years. Hx of copd, empyhsema, cad, chf. Patient has no personal cancer history. COMPARISON: 09/02/2022 FINDINGS: CT CHEST LOW DOSE SCREENING HISTORY: Screening exam for lung cancer. 58-year-old female, former smoker, quit 2 years ago, 20 pack year smoking history DOSE: CTDIvol: 2.9 mGy, DLP: 97.95 mGy*cm COMPARISON: 09/02/2022. TECHNIQUE: Axial CT without IV contrast administration using low dose protocol FINDINGS: No acute lung disease is present . There is a 3 mm peripheral nodule seen best on image #45 in the right middle lobe, stable when compared to the prior CT of 2021. Mild bibasilar scarring is present, with mild changes of emphysema. No pleural or pericardial effusion is seen . No adenopathy or mass lesion is present . IMPRESSION: Stable 3 mm nodule in the right middle lobe. LUNG RADS CATEGORY 2 RECOMMENDATION: 12 month LDCT follow up Reviewed, Interpreted and Dictated by Efren Mckenzie MD Transcribed by Caitlyn Franco Authenticated and [facility]
== END ==
PROVIDERS: PCP Internal Medicine; Visit Provider Internal Medicine Pulmonary Disease
DX: F17.210 Nicotine dependence, cigarettes, uncomplicated (principal)
CPT/HCPCS: 71271

== ENCOUNTER → 2023-09-10 11:39 | Outpatient (CLI) | payer MEDICAID, SELFPAY ==
--- NOTE | 2023-09-10 12:30 | MR_ITS ---
FINAL REPORT CLINICAL HISTORY: Frequent falls, neck pain, hyperreflexia FINDINGS: Multi planar MR imaging was obtained of the cervical spine. There is abnormal decreased signal throughout the cervical discs. The vertebrae are of normal height. There is no malalignment. The cervical cord demonstrates normal signal and configuration. C2-C3: There is no evidence of significant disc bulge or protrusion. There is no significant facet hypertrophy. C3-C4: There is no evidence of significant disc bulge or protrusion. There is no significant facet hypertrophy. C4-C5: Mild diffuse disc bulge is present with mild spinal canal compromise. C5-C6: Mild diffuse disc bulge is present. There is endplate hypertrophy with moderate bilateral neural foraminal narrowing. C6-C7: Mild diffuse disc bulge is present. There is endplate hypertrophy with moderate bilateral neural foraminal narrowing. C7-T1: There is no evidence of significant disc bulge or protrusion. There is no significant facet hypertrophy. IMPRESSION: Diffuse disc bulges at C5-6 and C6-7 with endplate hypertrophy and moderate bilateral neural foraminal narrowing. Reviewed, Interpreted and Dictated by Jagdeep Blanca MD Transcribed by Sarah Lyon Authenticated and [facility]
--- NOTE | 2023-09-10 12:30 | MR_ITS ---
FINAL REPORT CLINICAL HISTORY: Head injury, frequent falls, right weakness COMPARISON: None FINDINGS: Multi planar MR imaging was obtained through the brain without contrast. The midline structures appear intact. There is no evidence of Chiari malformation. On T2 and flair axial images the brain parenchyma is homogeneous. On diffusion-weighted images there is no evidence of restricted diffusion. There is extensive right maxillary sinus lobular mucoperiosteal thickening. The seventh and eighth nerve root complexes are intact. IMPRESSION: Essentially unremarkable nonenhanced brain MRI. Extensive right maxillary sinus lobular mucoperiosteal thickening compatible with chronic sinusitis. Reviewed, Interpreted and Dictated by Jagdeep Blanca MD Transcribed by Caitlyn Franco Authenticated and [facility]
--- NOTE | 2023-09-10 12:30 | MR_ITS ---
FINAL REPORT CLINICAL HISTORY: Back pain, frequent falls, lower extremity weaknes COMPARISON: None FINDINGS: Multiplanar MR imaging of the lumbar spine was performed without contrast. On the sagittal T2-weighted images, there is abnormal decreased signal throughout the lumbar discs. There is 50% loss of height of the aspect of the L1 vertebral body without evidence of acute or subacute bone marrow edema, favor chronic. The vertebral alignment is normal. L1-2: There is no significant canal stenosis or neural foraminal narrowing. L2-3: A small annular bulge is present with posterolateral disc protrusions, and mild to moderate bilateral neural foraminal narrowing. L3-4: A small annular bulge is present with mild bilateral neural foraminal narrowing. L4-5: A mild to moderate annular bulge is present with posterolateral disc protrusions. There is moderate bilateral neural foraminal narrowing. There is no significant canal stenosis or neural foraminal narrowing. L5-S1: There is no significant canal stenosis or neural foraminal narrowing. IMPRESSION: Degenerative change in the lumbar spine as described, most severe at the L4-5 level. Chronic L1 compression fracture with 50% loss of height anteriorly. Reviewed, Interpreted and Dictated by Jagdeep Blanca MD Transcribed by Caitlyn Franco Authenticated and [facility]
[2023-09-10 12:50] LABS: Blood Urea Nitrogen 24 mg/dl (7-17); Estimated Glomerular Filt Rate 33 ml/min (>60); GFR (African American) 40 ML/MIN (>60)
== END ==
PROVIDERS: Emergency Medicine; PCP Internal Medicine; Visit Provider Nurse Practitioner Family
DX: M54.2 Cervicalgia (principal); M54.9 Dorsalgia, unspecified; G89.29 Other chronic pain; M41.9 Scoliosis, unspecified; R20.0 Anesthesia of skin; R20.2 Paresthesia of skin; R26.9 Unspecified abnormalities of gait and mobility; R27.8 Other lack of coordination; R29.2 Abnormal reflex; R29.898 Other symptoms and signs involving the musculoskeletal system; E11.9 Type 2 diabetes mellitus without complications; E53.8 Deficiency of other specified B group vitamins; G47.33 Obstructive sleep apnea (adult) (pediatric); E66.9 Obesity, unspecified; Z68.38 Body mass index [BMI] 38.0-38.9, adult; Z87.828 Personal history of other (healed) physical injury and trauma; Z79.4 Long term (current) use of insulin; Z79.899 Other long term (current) drug therapy
CPT/HCPCS: 36415; 70551; 72141; 72148; 82565; 84520

== ENCOUNTER → 2023-10-08 09:10 | Outpatient (CLI) | payer MEDICAID, SELFPAY ==
--- NOTE | 2023-10-08 09:18 | XR_ITS ---
FINAL REPORT CLINICAL HISTORY: Neck pain, hyperreflexia, frequent falls best images possible FINDINGS: CERVICAL SPINE 6 views, including flexion and extension, were obtained. C7 is not well-visualized. There is no acute fracture. Vertebrae are normal height. There is no malalignment. Disc spaces are relatively preserved. No instability is seen upon flexion and extension. The patient is nearly edentulous. IMPRESSION: No acute bony abnormality. No instability seen with flexion and extension Reviewed, Interpreted and Dictated by Jagdeep Blanca MD Transcribed by Sugey Cannon Authenticated and [facility]
--- NOTE | 2023-10-08 09:18 | XR_ITS ---
FINAL REPORT CLINICAL HISTORY: Back pain, frequent falls, history of compression best images possible due to pt condition FINDINGS: LUMBAR SPINE 2 views were obtained. A true lateral view was not obtained. There is no significant compression deformity. IMPRESSION: Limited exam with no significant compression deformity. Reviewed, Interpreted and Dictated by Jagdeep Blanca MD Transcribed by Sugey Cannon Authenticated and [facility]
--- NOTE | 2023-10-08 09:18 | XR_ITS ---
FINAL REPORT CLINICAL HISTORY: History of scoliosis, prior imaging on file best images possible, images done seated on a stool FINDINGS: THORACOLUMBAR SCOLIOSIS EVALUATION Two views of the thoracolumbar spine were obtained. There is 43 degrees of scoliosis convex to the right. There is 25 of scoliosis convex to the left. There are no vertebral anomalies. The lungs appear clear. IMPRESSION: Thoracolumbar scoliosis as above. Reviewed, Interpreted and Dictated by Jagdeep Blanca MD Transcribed by Sugey Cannon Authenticated and [facility]
== END ==
PROVIDERS: PCP Internal Medicine; Visit Provider Nurse Practitioner Family
DX: M41.9 Scoliosis, unspecified (principal); M54.2 Cervicalgia; M54.9 Dorsalgia, unspecified; R20.0 Anesthesia of skin; R20.2 Paresthesia of skin; R26.9 Unspecified abnormalities of gait and mobility; R27.8 Other lack of coordination; R29.2 Abnormal reflex; R29.898 Other symptoms and signs involving the musculoskeletal system; G89.29 Other chronic pain; Z87.828 Personal history of other (healed) physical injury and trauma; Z79.899 Other long term (current) drug therapy; G47.33 Obstructive sleep apnea (adult) (pediatric); E53.8 Deficiency of other specified B group vitamins; E11.9 Type 2 diabetes mellitus without complications; Z79.4 Long term (current) use of insulin; Z79.84 Long term (current) use of oral hypoglycemic drugs; E66.9 Obesity, unspecified; Z68.38 Body mass index [BMI] 38.0-38.9, adult
CPT/HCPCS: 72052; 72081; 72100

== ENCOUNTER 2023-11-30 13:44 | Outpatient (CLI) | payer MEDICAID, SELFPAY ==
--- NOTE | 2023-11-30 13:44 | CT_ITS ---
FINAL REPORT CLINICAL HISTORY: sinusitis FINDINGS: There is extensive lobular mucoperiosteal thickening of the right maxillary sinus and left spell of the sphenoid sinus. There is obstruction of the right ostiomeatal unit. There is no fracture. There are no air-fluid levels. IMPRESSION: Chronic right maxillary and left sphenoid sinusitis. Reviewed, Interpreted and Dictated by Jagdeep Blanca MD Transcribed by Kristel Copeland Authenticated and [facility]
== END 2023-11-30 23:59 ==
LOC: RAD 13:44
PROVIDERS: PCP Internal Medicine; Visit Provider Nurse Practitioner
DX: J32.8 Other chronic sinusitis (principal)
CPT/HCPCS: 70486

== ENCOUNTER → 2023-12-16 19:44 | Outpatient (CLI) | payer MEDICAID, SELFPAY | PROVIDERS: PCP Internal Medicine; Visit Provider Nurse Practitioner Family | DX: G47.33 Obstructive sleep apnea (adult) (pediatric) (principal); G47.36 Sleep related hypoventilation in conditions classified elsewhere; I10 Essential (primary) hypertension; R06.83 Snoring | CPT/HCPCS: 95810 ==

== ENCOUNTER 2024-01-05 19:28 | Emergency (ER) | payer MEDICAID, SELFPAY ==
[2024-01-05] VITALS (8 sets, daily range): BP systolic 90–128; BP diastolic 39–61; PULSE 2–74; RESP 16–20; TEMP 36.7; O2SAT 96–98; BMI 38.7
--- NOTE | 2024-01-05 19:12 | PC.NURSE ---
Received report from Fina, nurse @ [facility]. Was advised that she is an alert and oriented x3 female, who was getting up out of her chair, stumbled and fell, striking the back of her head against the bedside table. Fina states no LOC, no obvious bleeding at this time. Patient remains laying on the floor waiting on EMS. NKDA per her report, however we have mimi inhibitors and lactose listed. Patient currently takes plavix. Patient remains FULL code status. Most recent weight 240 lbs.
--- NOTE | 2024-01-05 19:34 | XR_ITS ---
PROCEDURE INFORMATION: Exam: XR Right Femur Exam date and time: 01/05/2024 7:59 PM Age: 58 years old Clinical indication: Injury or trauma; Fall; Blunt trauma; Thigh or upper leg; Right; Additional info: Fall, pain knee TECHNIQUE: Imaging protocol: Radiologic exam of the right femur. Views: 2 views. COMPARISON: CR XR HIP RT 2-3V W/PELVIS 01/05/2024 7:56 PM FINDINGS: Bones/joints: The osseous structures are intact, with no signs of acute fracture, dislocation, or malalignment. Age-related degenerative changes are observed. There is no evidence of abnormal bone density or destructive lesions. Soft tissues: The soft tissues appear within normal limits. IMPRESSION: At the time of imaging, the study shows no acute osseous abnormalities but does reveal signs of age-related degenerative changes.
--- NOTE | 2024-01-05 19:34 | XR_ITS ---
PROCEDURE INFORMATION: Exam: XR Right Hip Exam date and time: 01/05/2024 7:56 PM Age: 58 years old Clinical indication: Injury or trauma; Fall; Blunt trauma (contusions or hematomas); Right; Hip; Additional info: Fall, hip pain TECHNIQUE: Imaging protocol: Radiologic exam of the right hip. Views: 2 or 3 views hip with pelvis when performed. COMPARISON: CT ABDOMEN PELVIS WO CON 05/04/2022 5:57 AM FINDINGS: Bones/joints: There is mild osteoarthritis of the hips with joint space narrowing, productive changes, and subchondral sclerosis. There are partially visualized degenerative changes of the sacroiliac joints and lumbar spine as well as some degenerative disease of the pubic symphysis. The osseous structures are intact, with no signs of acute fracture, dislocation, or malalignment. Age-related degenerative changes are observed. There is no evidence of abnormal bone density or destructive lesions. Soft tissues: The soft tissues appear within normal limits. Other findings: The examination is limited by under penetration. IMPRESSION: At the time of imaging, the study shows no acute osseous abnormalities but does reveal signs of age-related degenerative changes.
--- NOTE | 2024-01-05 19:34 | XR_ITS ---
PROCEDURE INFORMATION: Exam: XR Right Knee Exam date and time: 01/05/2024 8:00 PM Age: 58 years old Clinical indication: Injury or trauma; Fall; Blunt trauma; Knee; Right; Additional info: Fall, pain right knee TECHNIQUE: Imaging protocol: Radiologic exam of the right knee. Views: 3 views. COMPARISON: CR XR KNEE RT 4V 12/17/2021 12:23 PM FINDINGS: Bones/joints: There is tricompartmental osteoarthritis of the knee with loss of joint space, subchondral sclerosis, and productive changes. The osseous structures are intact, with no signs of acute fracture, dislocation, or malalignment. There is no evidence of abnormal bone density or destructive lesions. Soft tissues: The soft tissues appear within normal limits. IMPRESSION: At the time of imaging, the study shows no acute osseous abnormalities but does reveal signs of tricompartmental osteoarthritis.
--- NOTE | 2024-01-05 19:34 | XR_ITS ---
PROCEDURE INFORMATION: Exam: XR Right Shoulder Exam date and time: 01/05/2024 8:02 PM Age: 58 years old Clinical indication: Injury or trauma; Fall; Blunt trauma (contusions or hematomas); Shoulder; Right; Additional info: Fall, right shoulder pain TECHNIQUE: Imaging protocol: Radiologic exam of the right shoulder. Views: 2 or more views. COMPARISON: CR XR SHOULDER RT MIN 2V 07/17/2021 12:46 PM FINDINGS: Bones/joints: Relatively high-riding right humeral head. The osseous structures are intact, with no signs of acute fracture, dislocation, or malalignment. Age-related degenerative changes are observed. There is no evidence of abnormal bone density or destructive lesions. Lungs: Limited visualization of the hemithorax demonstrates no acute pathology. Soft tissues: The soft tissues appear within normal limits. Other findings: The patient is wearing overall which minimally limits the study. IMPRESSION: At the time of imaging, the study shows no acute osseous abnormalities but does reveal signs of age-related degenerative changes.
--- NOTE | 2024-01-05 19:35 | CT_ITS ---
PROCEDURE INFORMATION: Exam: CT Head Without Contrast Exam date and time: 01/05/2024 7:55 PM Age: 58 years old Clinical indication: Injury or trauma; Fall; Blunt trauma (contusions or hematomas); Additional info: Fall, head trauma TECHNIQUE: Imaging protocol: Computed tomography of the head without contrast. Radiation optimization: All CT scans at this facility use at least one of these dose optimization techniques: automated exposure control; mA and/or kV adjustment per patient size (includes targeted exams where dose is matched to clinical indication); or iterative reconstruction. COMPARISON: MR HEAD/BRAIN WO CON 09/10/2023 1:19 PM FINDINGS: Brain: Age-related involutional changes and chronic microvascular ischemic disease. No evidence for acute transcortical infarct. No mass effect or midline shift. No extra-axial collection. No acute intracranial hemorrhage. Basal cisterns are patent. Cerebral ventricles: No ventriculomegaly. Paranasal sinuses: Visualized sinuses are unremarkable. No fluid levels. Mastoid air cells: Visualized mastoid air cells are well aerated. Orbital cavities: Bilateral cataract surgery. Bones/joints: Unremarkable. No acute fracture. Soft tissues: Unremarkable. IMPRESSION: No evidence for acute transcortical infarct, acute intracranial hemorrhage, or mass effect.
--- NOTE | 2024-01-05 19:35 | CT_ITS ---
PROCEDURE INFORMATION: Exam: CT Cervical Spine Without Contrast Exam date and time: 01/05/2024 7:57 PM Age: 58 years old Clinical indication: Injury or trauma; Fall; Blunt trauma; Additional info: Fall, head and neck trauma TECHNIQUE: Imaging protocol: Computed tomography of the cervical spine without contrast. Radiation optimization: All CT scans at this facility use at least one of these dose optimization techniques: automated exposure control; mA and/or kV adjustment per patient size (includes targeted exams where dose is matched to clinical indication); or iterative reconstruction. COMPARISON: MR CERVICAL SPINE WO CON 09/10/2023 12:21 PM FINDINGS: Bones/joints: No acute fracture or traumatic subluxation. No spondylolisthesis. The atlantooccipital and atlantoaxial articulations are intact. Occipital condyles are intact. Facet joint alignments are maintained. Age-related degenerative disc disease. Multilevel degenerative changes of the cervical spine. Prevertebral and retropharyngeal spaces: No prevertebral soft tissue swelling. Lungs: Lung apices are normal. Soft tissues: Unremarkable. IMPRESSION: No acute fracture or traumatic subluxation.
--- NOTE | 2024-01-05 19:36 | CT_ITS ---
PROCEDURE INFORMATION: Exam: CT Chest Without Contrast; Diagnostic Exam date and time: 01/05/2024 7:59 PM Age: 58 years old Clinical indication: Injury or trauma; Fall; Blunt trauma (contusions or hematomas); Additional info: Fall, right rib pain TECHNIQUE: Imaging protocol: Diagnostic computed tomography of the chest without contrast. Radiation optimization: All CT scans at this facility use at least one of these dose optimization techniques: automated exposure control; mA and/or kV adjustment per patient size (includes targeted exams where dose is matched to clinical indication); or iterative reconstruction. COMPARISON: 1. CT LUNG SCREENING 09/07/2023 3:[address] LUNG SCREENING 09/02/2022 1:[address] LUNG SCREENING 08/02/2021 7:43 AM FINDINGS: Lungs: Scattered areas of bronchial wall thickening which are likely chronic inflammatory. A few areas of subpleural reticulation are noted, nonspecific. Previously described 3 mm nodule is stable. Pleural spaces: Pleural surfaces are smooth, and there are no pleural effusions, pneumothoraces, or pleural plaques noted. Heart: There is a small pericardial effusion. Coronary arteries: There is moderate coronary atherosclerotic disease/calcification although evaluation is limited secondary to the non gated nature of the study. Mediastinal space: The mediastinum appears unremarkable with no evidence of masses, lymphadenopathy, or mediastinal widening. Hilar structures including the major bronchi and vessels appear intact. Lymph nodes: Prominent but nonenlarged axillary nodes are present. Vasculature: There is atherosclerotic disease of the visualized aorta and its major branch vessels. Gallbladder and bile ducts: The patient is status post cholecystectomy. Bones/joints: There is diffuse degenerative disease of the visualized osseous structures. Soft tissues: Unremarkable. IMPRESSION: No acute traumatic injury is identified.
--- NOTE | 2024-01-05 19:42 | PC.NURSE ---
Spoke with pt ZULY Spence, informed she had a fall at [place] and complaining of neck and hip pain, plan was to do imaging. She would like to be contacted at [phone] after results.
--- NOTE | 2024-01-05 19:43 | HMH.EDGENADL ---
Discharge Plan Disposition Patient Disposition: Home, Self-Care Chief Complaint: Fall Prescriptions Prescriptions: No Action atorvastatin 20 mg tablet 20 mg PO HS clonazepam 0.5 mg tablet 0.5 mg PO DAILY aspirin 81 mg tablet,chewable 81 mg PO DAILY bupropion HCl 300 mg tablet extended release 24 hr 300 mg PO DAILY fluticasone propion-salmeterol [Advair HFA] 230-21 mcg/actuation HFA aerosol inhaler 1 puff INHALATION BID furosemide 40 mg tablet 40 mg PO DAILY sennosides [senna] 8.6 mg tablet 8.6 mg PO BID metoprolol succinate 50 mg tablet extended release 24 hr 50 mg PO DAILY hydrocodone-acetaminophen 5-325 mg tablet 1 tab PO TID hydroxyzine HCl 50 mg tablet 100 mg PO BID clopidogrel 75 mg tablet 75 mg PO DAILY pantoprazole 20 mg tablet,delayed release (DR/EC) 20 mg PO DAILY levothyroxine 50 mcg tablet 50 mcg PO DAILY metformin 1,000 mg tablet 1,000 mg PO BIDWMEAL gabapentin 100 mg capsule 100 mg PO BID losartan 100 mg tablet 100 mg PO DAILY risperidone 1 mg tablet 1 mg PO HS Humulin 70/30 U-100 KwikPen 100 unit/mL (70-30) insulin pen 25 unit SQ BID Levemir FlexPen 100 unit/mL (3 mL) insulin pen 30 unit SQ HS fenofibrate nanocrystallized 48 mg tablet 48 mg PO DAILY Dupixent Syringe 300 mg/2 mL syringe 2 mg SQ DIRECTED Rx Instructions: every 2 weeks clonazepam 0.5 mg tablet 1 mg PO HS venlafaxine 100 mg tablet 100 mg PO TID spironolactone 50 mg tablet 50 mg PO DAILY Tradjenta 5 mg tablet 5 mg PO DAILY Referrals Follow up/Referrals: Jake Nickerson DO [Primary Care Provider] - See instructions Clinical Impressions Clinical Impression: Arm pain, right, Acute hip pain, Leg pain, right, Fall Discharge ED Provider: Chan Sin General Adult HPI General Chief complaint: Fall Stated complaint: Fall Time Seen by Provider: 01/05/24 19:29 History of Present Illness HPI narrative: This is a 58-year-old female with history of of hypertension, hyperlipidemia, CAD on daily Plavix and aspirin, type 2 diabetes, COPD not on home oxygen, schizoaffective disorder presenting with fall. Patient states that she was transferring from her bed to her wheelchair when she fell in the floor onto her right side, wheelchair fell onto her. No loss of consciousness. Patient states that she is hurting in the back of her head, right shoulder, right chest wall, hip, and right knee. Per EMS, patient was able to stand with lift assist, bear weight without issue, and ambulate to stretcher before being loaded on. Patient denies back pain, abdominal pain, or any other concerns. Please note that above description of symptoms, in this electronic medical record under categorization of recalled from ER triage doctor by RN are reflective of an initial nursing assessment, however, is not reflective of my full history and physical exam that was personally taken and clarified. Consequentially, this preceding description of symptoms, which may include the patient's categorized chief complaint in the EMR, do not reflect my personal clinical impression, and the ultimate description of history of present illness and patient stated complaints should be deferred to this section of the note. Unless stated otherwise or congruent with this section of the note, additional signs, symptoms, or incongruence should be interpreted as inaccurate with my clinical impression. Related Data Home Medications Medication Instructions Recorded Confirmed aspirin 81 mg chewable tablet 81 mg PO DAILY 01/05/24 01/05/24 atorvastatin 20 mg tablet 20 mg PO HS 01/05/24 01/05/24 bupropion HCl 300 mg 24 hr tablet, 300 mg PO DAILY 01/05/24 01/05/24 extended release clonazepam 0.5 mg tablet 0.5 mg PO DAILY 01/05/24 01/05/24 clonazepam 0.5 mg tablet 1 mg PO HS 01/05/24 01/05/24 clopidogrel 75 mg tablet 75 mg PO DAILY 01/05/24 01/05/24 dupilumab 300 mg/2 mL subcutaneous 2 mg SQ DIRECTED 01/05/24 01/05/24 syringe ([employer]) fenofibrate nanocrystallized 48 mg 48 mg PO DAILY 01/05/24 01/05/24 tablet fluticasone propionate 230 1 puff inhalation BID 01/05/24 01/05/24 mcg-salmeterol 21 mcg/actuation HFA inhaler (Advair HFA) furosemide 40 mg tablet 40 mg PO DAILY 01/05/24 01/05/24 gabapentin 100 mg capsule 100 mg PO BID 01/05/24 01/05/24 hydrocodone 5 mg-acetaminophen 325 1 tab PO TID 01/05/24 01/05/24 mg tablet hydroxyzine HCl 50 mg tablet 100 mg PO BID 01/05/24 01/05/24 insulin NPH-regular 70-30 U-100 25 unit SQ BID 01/05/24 01/05/24 insulin 100 unit/mL subcutaneous pen (Humulin 70/30 U-100 KwikPen) insulin detemir U-100 100 unit/mL 30 unit SQ HS 01/05/24 01/05/24 (3 mL) subcutaneous pen (Levemir FlexPen) levothyroxine 50 mcg tablet 50 mcg PO DAILY 01/05/24 01/05/24 linagliptin 5 mg tablet (Tradjenta) 5 mg PO DAILY 01/05/24 01/05/24 losartan 100 mg tablet 100 mg PO DAILY 01/05/24 01/05/24 metformin 1,000 mg tablet 1,000 mg PO BIDWMEAL 01/05/24 01/05/24 metoprolol succinate 50 mg 50 mg PO DAILY 01/05/24 01/05/24 tablet,extended release 24 hr pantoprazole 20 mg tablet,delayed 20 mg PO DAILY 01/05/24 01/05/24 release risperidone 1 mg tablet 1 mg PO HS 01/05/24 01/05/24 sennosides 8.6 mg tablet (senna) 8.6 mg PO BID 01/05/24 01/05/24 spironolactone 50 mg tablet 50 mg PO DAILY 01/05/24 01/05/24 venlafaxine 100 mg tablet 100 mg PO TID 01/05/24 01/05/24 Allergies Allergy/AdvReac Type Severity Reaction Status Date / Time lactose [LACTOSE] Allergy Unknown Unknown Verified 01/05/24 19:58 allergy reaction TD Inhibitors Allergy Unknown Verified 01/05/24 19:58 allergy reaction lisinopril Allergy Unknown Verified 01/05/24 19:58 allergy reaction PFSH PFS Disclaimer: The information contained in this section may have been updated after the patient was seen, as this information can be updated by other users. Medical History (Updated 01/05/24 @ 21:43 by Chan Sin MD) Deviated nasal septum Chronic sinusitis Anxiety disorder, unspecified Major depressive disorder, recurrent, unspecified Schizoaffective disorder, bipolar type Daytime somnolence Involuntary jerky movements Frequent falls Screening for lung cancer Asthma-COPD overlap syndrome Thoracic scoliosis Stopped smoking with greater than 30 pack year history Dyspnea on exertion Diastolic dysfunction Hypothyroidism (acquired) Obesity GARRISON on CPAP HLD (hyperlipidemia) HTN (hypertension) CAD (coronary artery disease) Tobacco use disorder Diabetes COPD (chronic obstructive pulmonary disease) Surgical History H/O colonoscopy with polypectomy History of tonsillectomy History of carpal tunnel release History of arthroscopic knee surgery Hx laparoscopic cholecystectomy Hx of cardiac cath Hx of cataract surgery Family History Other Family history of myocardial infarction Social History Smoking Status: Never smoker second hand exposure: Yes alcohol intake: never substance use type: denies use current occupational status: disabled Travel in the last 8 weeks: None household members: other housing: fpc current occupational exposures/hazards: No caffeine: Yes ROS Obtained: Yes All systems reviewed & no additional complaints except as documented Physical Exam General General appearance: alert, in no apparent distress and other (Chronically ill) Head Head exam: normocephalic and other (Hematoma on foot) Eye Eye exam: Present normal appearance, PERRL and EOMI ENT ENT exam: Present mucous membranes moist Neck Neck exam: Present trachea midline and other (Cervical collar in place.) Chest Chest inspection: Absent tenderness Respiratory Respiratory exam: Present normal lung sounds bilaterally; Absent respiratory distress, wheezes, stridor, accessory muscle use or prolonged expiratory phase Cardiovascular Cardiovascular exam: Present regular rate and normal rhythm Abdominal Exam Abdominal exam: Present soft; Absent distention, tenderness, guarding, rebound or rigidity Extremities Exam Extremities exam: Present tenderness (Tenderness about right lower extremity just distal to the knee with bruising on anterior tibia. Tenderness right upper extremity shoulder without outward signs of injury.); Absent edema Neurological Exam Neurological exam: Present alert, oriented X3 and CN II-XII intact; Absent motor sensory deficit Skin Skin exam: Present warm and dry; Absent diaphoresis or erythema Medical Decision Making Medical Records Medical records reviewed: Yes I reviewed the patient's medical records. Sammy Inquiry Pt receiving controlled substance: No Sammy was queried for this patient: No Vital Signs: 01/05/24 19:28 01/05/24 19:36 01/05/24 19:44 Temperature 98.0 F Temperature Source Oral Pulse Rate 70 2 L Pulse Rate [Left Radial] 71 Respiratory Rate 18 18 20 Blood Pressure 103/39 L 128/41 L Blood Pressure [Right Arm] 128/41 L Blood Pressure Mean 61 59 Blood Pressure Mean [Right Arm] 70 Blood Pressure Source [Right Arm] Automatic Cuff Blood Pressure Position [Right Arm] Supine 02 Sat by Pulse Oximetry 97 96 96 Oxygen Delivery Method Room Air Room Air Room Air 01/05/24 20:31 01/05/24 21:00 Temperature Temperature Source Pulse Rate 72 74 Pulse Rate [Left Radial] Respiratory Rate 18 16 Blood Pressure 98/45 L 105/61 L Blood Pressure [Right Arm] Blood Pressure Mean 55 75 Blood Pressure Mean [Right Arm] Blood Pressure Source [Right Arm] Blood Pressure Position [Right Arm] 02 Sat by Pulse Oximetry 97 96 Oxygen Delivery Method Room Air Room Air Orders (Tests/Meds): ORDERS Category Date Time Status CT cervical spine wo con Stat Cat Scan 01/05/24 19:[address] chest wo con Stat Cat Scan 01/05/24 19:[address] head/brain wo con Stat Cat Scan 01/05/24 19:35 Completed Femur XR right 2 views [XR femur RT 2V] Stat Exams 01/05/24 19:34 Completed Hip XR right minimum 2 views [XR hip RT 2-3V w/pelvis] Exams 01/05/24 19:34 Completed Stat Knee XR right 3 views [XR knee RT 3V] Stat Exams 01/05/24 19:34 Completed Shoulder XR right miminum 2 views [XR shoulder RT min Exams 01/05/24 19:34 Completed 2V] Stat Medical Decision Narrative: This is a 58-year-old female with history of of hypertension, hyperlipidemia, CAD on daily Plavix and aspirin, type 2 diabetes, COPD not on home oxygen, schizoaffective disorder presenting with fall. Patient states that she was transferring from her bed to her wheelchair when she fell in the floor onto her right side, wheelchair fell onto her. No loss of consciousness. Patient states that she is hurting in the back of her head, right shoulder, right chest wall, hip, and right knee. Per EMS, patient was able to stand with lift assist, bear weight without issue, and ambulate to stretcher before being loaded on. Patient denies back pain, abdominal pain, or any other concerns. History was obtained via conversation with patient and EMS. On arrival, patient hemodynamically stable, alert, oriented x4, appropriate, GCS 15, moving all extremities spontaneously, pupils equal and reactive to light. Full physical exam performed and significant for tenderness and hematoma on posterior occiput. No palpable skull fracture. No signs of basilar skull fracture. Patient does have c-collar in place. No chest tenderness, lungs are clear to auscultation bilaterally, cardiac exam within normal limits. Patient has tenderness right upper extremity, right and left lower extremities on alar wings, no true hip pain or inguinal fold pain. Patient also has tenderness about her right knee with associated bruising just inferior to the right knee. Differential includes intracranial bleed, cervical spine fracture unstable versus stable, hip fracture, lower extremity fracture, rib fracture, pneumothorax, among others. Workup independently interpreted and significant for negative x-ray films of the extremities. No intracranial hemorrhage, no cervical spine injury, or any traumatic injury of the chest. See radiology read for full review of final results. Given patient presentation, workup, history, this most likely represents minor MSK trauma in the setting of fall from bedside. Because patient at baseline without signs or symptoms of clinical decompensation, deemed appropriate for discharge. Results were relayed to patient who voiced understanding and were agreeable to outpatient management and follow up. I discussed my clinical impression with patient and answered all questions. At this time, the evidence for any other entities in the differential is insufficient to warrant any further testing or ED observation. This was explained as well. Advisory was given that persistent or worsening symptoms require further evaluation. I confirmed the understanding of this discussion. Critical Care Critical Care Time Critical Care Time: No
--- NOTE | 2024-01-05 19:53 | PC.NURSE ---
assisted patient to utilize bedpan. No results.
--- NOTE | 2024-01-05 21:40 | PC.NURSE ---
C-collar cleared and removed.
--- NOTE | 2024-01-05 21:51 | PC.NURSE ---
ContactQueenie Hurtado, per their request to update on scans and results. Patient pending discharge at this time.
--- NOTE | 2024-01-05 21:53 | PC.NURSE ---
Nurse to nurse report to [facility].
--- NOTE | 2024-01-05 21:57 | PC.NURSE ---
EMS notified for transport
--- NOTE | 2024-01-05 22:02 | PC.NURSE ---
Assisted patient to put on 2 pairs of earrings and one necklace.
--- NOTE | 2024-01-05 23:25 | PC.NURSE ---
EMS notified us that they are now available to transport patient back.
== END 2024-01-05 23:32 | disposition home or self-care (01) ==
PROVIDERS: Emergency Provider Emergency Medicine; PCP Internal Medicine
DX: M79.604 Pain in right leg (principal); M79.601 Pain in right arm; M25.551 Pain in right hip; I11.9 Hypertensive heart disease without heart failure; I25.10 Atherosclerotic heart disease of native coronary artery without angina pectoris; E78.5 Hyperlipidemia, unspecified; E11.9 Type 2 diabetes mellitus without complications; J44.9 Chronic obstructive pulmonary disease, unspecified; E03.9 Hypothyroidism, unspecified; W06.XXXA Fall from bed, initial encounter; Z79.4 Long term (current) use of insulin; Z79.84 Long term (current) use of oral hypoglycemic drugs
CPT/HCPCS: 70450; 71250; 72125; 73030; 73502; 73552; 73562; 99285

== ENCOUNTER 2024-01-18 13:52 | Outpatient (CLI) | payer MEDICAID, SELFPAY ==
[2024-01-18 14:30] VITALS: PULSE 75; PULSE 78
[2024-01-18] MEDS: ALBUTEROL 0.083% 2.5 MG/3 ML NEB IH (14:30)
[2024-01-18 14:46] LABS: MANUAL DIFFERENTIAL MANUAL DIFFERENTIAL (MANUAL DIFF)
--- NOTE | 2024-01-18 14:55 | XR_ITS ---
PROCEDURE INFORMATION: Exam: XR Chest Exam date and time: 01/18/2024 2:58 PM Age: 58 years old Clinical indication: Shortness of breath; Additional info: Hypoxemia TECHNIQUE: Imaging protocol: Radiologic exam of the chest. Views: 2 views. COMPARISON: CT CHEST WO CON 01/05/2024 7:59 PM and 12/12/2017 FINDINGS: Lungs: See Pleural spaces finding. Pleural spaces: Discoid atelectasis left costophrenic angle and fibro atelectatic changes over the posterior heart on the lateral view. Lungs otherwise clear. Heart/Mediastinum: Unremarkable. No cardiomegaly. Bones/joints: Unremarkable. IMPRESSION: Mild fibro atelectatic changes. No acute disease.
--- NOTE | 2024-01-18 15:44 | RESP.PFTSS ---
Patient unable to follow coaching to do DLCO. The only thing RT could get the patient to do was pre and post bronchodilator.
[2024-01-18 16:03] LABS: Basophils # 0.1 K/mm3 (0-0.2); Basophils % 0.8 % (0.1-2.0); Eosinophils # 0.4 K/mm3 (0.0-0.4); Eosinophils % 6.6 % (0.1-12.0); Hematocrit 35.1 % (37.0-47.0); Hemoglobin 10.7 g/dL (12.2-16.2); Lymphocytes # 1.2 K/mm3 (0.7-4.5); Lymphocytes % 18.9 % (10-50); Mean Corpuscular HGB Conc 30.5 g/dL (31.8-35.4); Mean Corpuscular Hemoglobin 24.3 pg (27.0-31.2); Mean Corpuscular Volume 79.7 fl (81-99); Mean Platelet Volume 8.4 fl (7.4-10.4); Monocytes # 0.5 K/mm3 (0.1-1.0); Neutrophils # 4.4 K/mm3 (1.8-7.8); Neutrophils % 66.8 % (37.0-80.0); Platelet Count 412 K/mm3 (142-424); Red Blood Count 4.41 M/mm3 (4.20-5.40); Red Cell Distribution Width 17.3 % (11.5-17.5); White Blood Count 6.5 K/mm3 (4.8-10.8)
[2024-01-18 16:28] LABS: Iron 97 ug/dL (37-170)
[2024-01-18 16:37] LABS: Total Iron Binding Capacity 346 ug/dL (265-497)
[2024-01-18 16:48] LABS: Hemoglobin A1C 8.2 % (4.0-6.0)
[2024-01-18 17:05] LABS: Ferritin 20.8 ng/ml (11.1-264)
[2024-01-18 17:11] LABS: Eosinophils % 2 % (0-3); Lymphocytes % 26 % (10-50); Monocytes % 3 % (2-9); Neutrophils % 69 % (42-76); Total Cells Counted 100
[2024-01-18 17:12] LABS: Microcytosis 1+; Platelet Estimate Normal; Tear Drop Cells 1+
[2024-01-18 17:36] LABS: Vitamin B12 273 pg/mL (239-931)
[2024-01-18 17:43] LABS: Folate 5.69 ng/mL
== END 2024-01-18 23:59 ==
PROVIDERS: PCP Internal Medicine; Visit Provider Specialist
DX: G47.34 Idiopathic sleep related nonobstructive alveolar hypoventilation (principal); E83.10 Disorder of iron metabolism, unspecified; D64.9 Anemia, unspecified; E53.8 Deficiency of other specified B group vitamins; I25.118 Atherosclerotic heart disease of native coronary artery with other forms of angina pectoris; J44.9 Chronic obstructive pulmonary disease, unspecified; G47.33 Obstructive sleep apnea (adult) (pediatric)
CPT/HCPCS: 36415; 71046; 82607; 82728; 82746; 83036; 83540; 83550; 85007; 85014; 85018; 85048; 85049; 94060; 94640

== ENCOUNTER 2024-01-21 11:26 | Outpatient (CLI) | payer MEDICAID, SELFPAY ==
[2024-01-21 12:30] LABS: Reticulocyte % (Auto) 2.4 % (0.9-3.2)
[2024-01-21 14:18] LABS: Lactate Dehydrogenase 225 U/L (313-618)
[2024-01-22 12:32] LABS: Haptoglobin 131 mg/dL (33-346)
== END 2024-01-21 23:59 | disposition home or self-care (01) ==
LOC: LAB 11:27
PROVIDERS: PCP Internal Medicine; Visit Provider Internal Medicine Medical Oncology
DX: D64.9 Anemia, unspecified (principal)
CPT/HCPCS: 36415; 83010; 83615; 85044; 86880

== ENCOUNTER 2024-02-11 07:19 | Outpatient (CLI) | payer MEDICAID, SELFPAY ==
--- NOTE | 2024-02-11 07:44 | NM_ITS ---
APPROVED REPORT Exam: Nuclear Stress Test Indication: cp..soa..fatigue Patient Location: Outpatient Stress Tech: Cece Altamirano [place] Tech:CARO Vu RT(R)(N) Ht: 5 ft 3 in Wt: 207 lbs Bra Size: 3x HR: 71 bpm BP: 114/62 mmHg BSA: 1.96 m2 Rhythm: NSR TID: 1.23 BMI: 36.6 History: cp..soa..fatigue Procedure: Patient received 0.4 mg of intravenous Lexiscan, resting heart rate 71 bpm, resting blood pressure 114/62 mmHg, with Lexiscan maximum heart rate achieved was 84 bpm which is 85 % of the maximum predicted heart rate and blood pressure was 129/53 mmHg. With Lexiscan, patient denied any complaint of chest pain. The patient was not able to lay on her abdomen for prone images. Cardiac Stress and Resting SPECT Images: Cardiac Stress and Resting SPECT images were obtained using technetium 99m Myoview 32.6 mCi stress and 10.84 mCi at rest. The patient is unable to lie on her abdomen. Therefore, prone stress imaging could not be performed. The raw images also demonstrate significant soft tissue overlap with the cardiac borders. This may affect the diagnostic interpretation of the study findings. Resting and stress imaging in supine positions demonstrate a medium-sized, moderate, fixed perfusion defect in the inferior LV wall. There is also increase in transient ischemic dilatation ratio (TID 1.23), suggestive of possible multivessel disease or balanced ischemia. Gated imaging demonstrates normal global and regional LV systolic function. LVEF is calculated at 66%. Conclusion: Medium-sized, moderate, fixed perfusion defect in the inferior LV wall. There is also increase in transient ischemic dilatation ratio (TID 1.23), suggestive of possible multivessel disease or balanced ischemia. Gated imaging demonstrates normal global and regional LV systolic function. LVEF is calculated at 66%. Electronically signed by : Sierra Haider MD 02/14/2024 19:36:35
--- NOTE | 2024-02-11 07:47 | CA_ITS ---
APPROVED REPORT EXAM: Comprehensive 2D, Doppler, and color-flow Echocardiogram Lining Caser: Kristina Falk RDCS Ht: 5 ft 3 in Wt: 275lbs BSA: 2.21 BP: 108/43 mmHg Indications: ANGINA,SOA,CAD,COPD M-Mode Dimensions RVDd 2.13 cm (0.9-2.6) LA Diam 2.86 cm (1.9-4.0) LVDd 3.93 cm (3.5-5.7) LVDs 2.81 cm (3.5-5.7) IVSd 0.79 cm (0.6-1.1) PWd 0.97 cm (0.6-1.1) EF (Teich) 55.60% FS 28.50% EDV (Teich) 67.10 mL ESV (Teich) 29.80 mL LV Diastology E Decel Time 397 (160-240 msec) E/A Ratio 0.7 Mitral Valve MV E Max Gaston. 88.0 (40-130 cm/s) MV A Velocity 120.0 (40-130 cm/s) E/A Ratio 0.74 MV PHT 116.0 ms Left Ventricle The left ventricle is normal size. The left ventricular systolic function is normal. The left ventricular ejection fraction is within the normal range. There is increased LV wall thickness. There is normal LV segmental wall motion. The left ventricular diastolic function is normal. LVEF is 60%. Right Ventricle The right ventricle is normal size. The right ventricular systolic function is normal. Atria The left atrium size is normal. The right atrium size is normal. There is no Doppler evidence of interatrial shunt. Aortic Valve The aortic valve opens well. There is no aortic valvular stenosis. No aortic regurgitation is present. Mitral Valve The mitral valve is normal in structure. No evidence of mitral valve stenosis. There is no mitral valve regurgitation noted. Tricuspid Valve The tricuspid valve leaflets are thin and pliable. Trace tricuspid regurgitation. There is insufficient TR jet to estimate RVSP. Pulmonic Valve The pulmonary valve is normal in structure. Trace pulmonic regurgitation. Great Vessels The aortic root is normal in size. The ascending aorta is normal in size. IVC is normal in size and collapses >50% with inspiration. Pericardium There is no pericardial effusion. Other Information Study Quality: Technically Difficult Conclusion Technically difficult study due to poor acoustic windows. Normal biventricular systolic function. No significant valvular stenosis or regurgitation. Electronically signed by : Sierra Haider MD 02/15/2024 13:41:16
--- NOTE | 2024-02-11 09:08 | CA_ITS ---
APPROVED REPORT Exam: Pharmacologic Technologist: Cece Batista, Ht: 5 ft 3 in HR: 72 bpm BP: 114/62 mmHg Rhythm: NSR Medical History Medications: Spiriva,,,,, Levothyroxine,,,,, Aspirin,,,,, Metformin,,,,, Gabapentin,,,,, Losartan,,,,, Pantoprazole,,,,, Atorvastatin,,,,, PERCOCET,,,,, ClonAZEPAM,,,,, Albuterol,,,,, ADVAIR,,,,, Stress Test Details Test: LEXISCAN Reason for pharmacologic stress test: physical limitation. HR Resting HR: 71 bpm Max Heart Rate (APMHR): 160 bpm Max HR Achieved: 84 bpm Target HR (85% APMHR): 136 bpm % of APMHR: 53 Recovery HR: 75 bpm BP Resting BP: 114.0/62.0 mmHg Max BP: 129.0/53.0 mmHg Recovery BP: 101.0/56.0 mmHg ECG Resting ECG: NSR, rightward axis, low voltage QRS Stress ECG: No significant ST changes Arrhythmia: None Clinical Exercise duration: 04:01 min Highest Stage Achieved: Stress ECG Conclusion Symptoms: Mild SOA & brief stomach discomfort. No CP. Arrhythmias/Ectopy: None ST-T Changes: No significant ST changes. Conclusion: Unremarkable Lexiscan stress. Myoview images reported separately. Test Summary REST . . . . . . . Resting REST 04:48 . . 71 . 114/ 62 . . Stage 1 01:00 . . 81 . . . . Stage 2 01:00 . . 80 . 129/ 53 . . Stage 3 01:00 . . 77 . 118/ 54 . . Stage 4 01:00 . . 77 . 95/ 52 . . Stage 4 01:01 . . 77 . 95/ 52 . Stop exercise at 04:01 RECOVERY 01:00 . . 77 . 111/ 53 . . RECOVERY 02:00 . . 76 . 111/ 53 . . RECOVERY 03:00 . . 77 . 103/ 56 . . RECOVERY 03:29 . . 76 . 101/ 56 . . Electronically signed by : Sierra Haider MD 02/14/2024 19:30:24
[2024-02-11] MEDS: REGADENOSON 0.4MG/5ML SYRINGE 0.400000000000000022 MG IV (10:27)
[2024-02-11] MEDS: SODIUM CHLORIDE 0.9% 10ML SYR (RAD ONLY) 10 ML IV ×2 (10:27)
[2024-02-11] MEDS: ISOTOPE MYOVIEW (PER STUDY) 1 DOSE IV (10:27)
== END 2024-02-11 23:59 | disposition home or self-care (01) ==
LOC: RAD 07:20
PROVIDERS: PCP Internal Medicine; Visit Provider Nurse Practitioner Family
DX: R06.09 Other forms of dyspnea (principal); R07.9 Chest pain, unspecified; I25.118 Atherosclerotic heart disease of native coronary artery with other forms of angina pectoris; I51.89 Other ill-defined heart diseases
CPT/HCPCS: 78452; 93017; 93018; 93306; A9502; J2785

== ENCOUNTER 2024-02-23 11:45 | Day surgery (SDC) | payer MEDICAID, SELFPAY ==
[2024-02-23] VITALS (8 sets, daily range): BP systolic 97–137; BP diastolic 51–91; PULSE 72–78; RESP 16–20; TEMP 36.6; O2SAT 92–96; BMI 39.0
--- NOTE | 2024-02-23 07:17 | IR_ITS ---
APPROVED REPORT Patient Location: Outpatient PROCEDURES Left heart catheterization Left ventriculogram selective coronary angiogram INDICATION Abnormal Myoview, Angina pectoris, Known coronary artery disease, Informed consent was obtained prior to the procedure. COMPLICATIONS None Estimated Blood Loss: Less than 10 mls TECHNIQUE One percent lidocaine used to anesthetize the right anterior aspect of the wrist. The right radial artery was accessed via the Seldinger technique. A 6 Georgian sheath was placed in the right radial artery. 2.5 mg of Verapamil, 800 mcg of nitroglycerin, 1mg Lidocaine and 5000 U Heparin were given through the arterial sheath. The papa catheter was also used to perform left heart catheterization, left ventriculogram and selective coronary angiogram. At the end of the procedure the sheath was removed good hemostasis was achieved using Traclet band, patient was transferred to the postop holding area in stable condition. ANGIOGRAPHIC RESULTS The left main artery Normal The left anterior descending artery Has proximal 30 to 40% stenosis with mid vessel 30% stenoses The circumflex artery Nondominant with a proximal to mid vessel concentric 30 to 40% stenosis The right coronary artery Dominant has stents in the proximal to mid segment which are widely patent. The distal right coronary artery is then occluded with the distal vessel filling via [id number] collaterals The SPARROW ventriculogram reveals Normal 65% The left ventricular end-diastolic pressure 10 mmHg IMPRESSION Mild to moderate LAD and circumflex artery disease as described above Chronically occluded distal right coronary which fills via [id number] collaterals Normal ejection fraction Normal left ventricular end-diastolic pressure PLAN 1. Medical management with risk factor modification Electronically signed by : Jake Ayala MD 02/23/2024 15:32:33
[2024-02-23 12:14] LABS: Basophils # 0.1 K/mm3 (0-0.2); Basophils % 1.1 % (0.1-2.0); Eosinophils # 0.2 K/mm3 (0.0-0.4); Eosinophils % 3.2 % (0.1-12.0); Hematocrit 35.2 % (37.0-47.0); Hemoglobin 11.1 g/dL (12.2-16.2); Lymphocytes # 1.2 K/mm3 (0.7-4.5); Lymphocytes % 16.7 % (10-50); Mean Corpuscular HGB Conc 31.5 g/dL (31.8-35.4); Mean Corpuscular Hemoglobin 25.1 pg (27.0-31.2); Mean Corpuscular Volume 79.7 fl (81-99); Mean Platelet Volume 7.7 fl (7.4-10.4); Monocytes # 0.4 K/mm3 (0.1-1.0); Monocytes % 5.3 % (1.7-9.3); Neutrophils # 5.1 K/mm3 (1.8-7.8); Neutrophils % 73.8 % (37.0-80.0); Platelet Count 396 K/mm3 (142-424); Red Blood Count 4.42 M/mm3 (4.20-5.40); Red Cell Distribution Width 17.2 % (11.5-17.5); White Blood Count 6.9 K/mm3 (4.8-10.8)
[2024-02-23] MEDS: ASPIRIN 81MG CHEWABLE TABLET 81 MG PO (12:35)
[2024-02-23] MEDS: CLOPIDOGREL 75MG TAB 75 MG PO (12:36)
[2024-02-23 12:43] LABS: Anion Gap 11.5 mEq/L (5-15); Blood Urea Nitrogen 22 mg/dl (7-17); Carbon Dioxide 30 mmol/L (22.0-30.0); Chloride 99 mmol/L (98-107); Creatinine Clearance Estimated 73 mL/min (50-200); Estimated Glomerular Filt Rate 42 ml/min (>60); GFR (African American) 51 ML/MIN (>60); Glucose 153 mg/dl (74-100); Potassium 4.5 mmoL/L (3.5-5.1); Sodium 136 mmol/L (136-145)
[2024-02-23] MEDS: 0.9 % SODIUM CHLORIDE 500 ML 25 ML IV (15:03)
[2024-02-23] MEDS: HEPARIN 1,000 UNITS/500ML NS (CATH LAB) 3000 UNIT IV (15:03)
[2024-02-23] MEDS: diphenhydrAMINE 50MG/ML VIAL 50 MG IV (15:04)
[2024-02-23] MEDS: LIDOCAINE 1% 10ML MDV 20 ML IJ (15:04)
[2024-02-23] MEDS: NITROGLYCERIN 800MCG/8ML SYR (CATH LAB) 800 MCG IA (15:04)
[2024-02-23] MEDS: VERAPAMIL 2.5MG/ML 2ML VIAL 2.5 MG IV (15:04)
[2024-02-23] MEDS: HEPARIN 1,000 UNITS/ML 10ML VIAL (CATH LAB) 10000 UNIT IV (15:04)
[2024-02-23] MEDS: MIDAZOLAM HCL 1MG/1ML 5ML VIAL 1 MG IV ×2 (15:11→15:24)
[2024-02-23] MEDS: FENTANYL 100MCG/2ML VIAL 50 MCG IV ×2 (15:11→15:24)
[2024-02-23] MEDS: IOPAMIDOL-370 (76%);100ML BOTTLE 85 ML IV (15:40)
== END 2024-02-23 16:36 | disposition home or self-care (01) ==
PROVIDERS: PCP Internal Medicine; Visit Provider Internal Medicine
DX: I25.118 Atherosclerotic heart disease of native coronary artery with other forms of angina pectoris (principal); E78.2 Mixed hyperlipidemia; I10 Essential (primary) hypertension; E11.69 Type 2 diabetes mellitus with other specified complication; J44.9 Chronic obstructive pulmonary disease, unspecified; Z79.899 Other long term (current) drug therapy; Z79.4 Long term (current) use of insulin; R94.39 Abnormal result of other cardiovascular function study; Z95.5 Presence of coronary angioplasty implant and graft
CPT/HCPCS: 36415; 80048; 85025; 93458; 99152; C1725; C1769; J1644; Q9967

== ENCOUNTER 2024-04-28 11:05 | Day surgery (SDC) | payer MEDICAID, SELFPAY ==
[2024-04-26 12:26] VITALS: BMI 37.7
--- NOTE | 2024-04-28 11:41 | EXP.ANES.CKL ---
[facility] Disclaimer: The information contained in this section may have been updated after the patient was seen, as this information can be updated by other users. Medical History Screening for breast cancer Screening for colon cancer Arm pain, right Acute hip pain Leg pain, right Angina pectoris Chest pain Anemia Deviated nasal septum Chronic sinusitis Anxiety disorder, unspecified Major depressive disorder, recurrent, unspecified Schizoaffective disorder, bipolar type Daytime somnolence Involuntary jerky movements Frequent falls Screening for lung cancer Asthma-COPD overlap syndrome Thoracic scoliosis Stopped smoking with greater than 30 pack year history Dyspnea on exertion Diastolic dysfunction Hypothyroidism (acquired) Obesity GARRISON on CPAP HLD (hyperlipidemia) HTN (hypertension) CAD (coronary artery disease) Tobacco use disorder Diabetes COPD (chronic obstructive pulmonary disease) Surgical History H/O colonoscopy with polypectomy History of tonsillectomy History of carpal tunnel release History of arthroscopic knee surgery Hx laparoscopic cholecystectomy Hx of cardiac cath Hx of cataract surgery Family History Other Family history of myocardial infarction Social History (Updated 04/26/24 @ 11:22 by Ami Smallwood RN) Smoking Status: Never smoker second hand exposure: Yes alcohol intake: never substance use type: denies use current occupational status: disabled Travel in the last 8 weeks: None household members: other housing: group home current occupational exposures/hazards: No caffeine: Yes [facility] Anesthesia Checklist Patient Identification Patient Identification: Arm Band and Verbal (Name & ) Structural Data Admitted From: Home Planned Operative Procedure/s: colonoscopy Consent for Planned Operative Procedure(s) Verified: Yes Verified Documents: Surgical Consent and History and Physical NPO Status Verified Time NPO: 00:00 Chart Verification Results Verified: CBC, BMP, ECG and Chest Xray Additional verifications Fingerstick Blood Glucose: 139 Patient : No Anesthesia Reactions: No Hx Blood Transfusions: No Blood Transfusion Reaction: No Cardiovascular Assessment Heart Sounds: S1 & S2 Pulse Rhythm: Irregular Peripheral Edema: No Airway Assessment Mallampati Score:: Class II C-Spine Mobility Assessed: Yes (FROM) TMJ Mobility Assessed: Yes Dentition: Poor Dentition (All missing except bottom middle 3. Nothing loose per pt.) Neurological Assessment Level of Consciousness: Awake, Alert, Appropriate and Follows Commands Hx Seizures: No Numbness or tingling in extremities: Yes (SHERIDAN LE) Anesthesia Plan Anesthesia Risk discussed: Yes Anesthesia Plan: Verified ASA Class: III Anesthesia Type: MAC
[2024-04-28 11:46] VITALS: BP 109/58; PULSE 72; RESP 18; TEMP 36.2; O2SAT 97
[2024-04-28 11:53] LABS: POC Glucose,Bedside 139 (70-110)
[2024-04-28 13:14] VITALS: O2SAT 97
--- NOTE | 2024-04-28 13:38 | HMH.SCOPE ---
Procedure: Date: 04/28/24 Patient Date of :: 1965 Procedure Performed:: Screening Colonoscopy Indications:: Colon cancer screening Performing Provider:: Mahendra Vasquez MD Referring Provider:: Gerardo Yan MD Sedation:: Propofol Procedure:: After placing the patient in the left lateral decubitus position, the colonoscopy was gently inserted into the rectum and under direct visualization advanced to the cecum which was identified by transillumination in the right lower quadrant, identification of the ileocecal valve, appendiceal orifice, and cecal strap. Color, texture, mucosa, and anatomy of the colon were carefully examined with the scope. Overall prep quality fair-poor. Findings:: Anal canal: normal Rectum: normal Sigmoid colon: normal without polyps or inflammatory changes Descending colon: normal without polyps or inflammatory changes Splenic flexure: normal Transverse colon: normal without polyps or inflammatory changes, much retained stool noted Hepatic flexure: normal Ascending colon: normal without polyps or inflammatory changes, visualization compromised due to poor prep Cecum: normal, much retained stool, visualization compromised Terminal ileum: not visualized Impression: Grossly normal colonoscopy. Visualization compromised due to poor quality of colon prep with much retained stool. Recommendations:: Follow up examination in about FIVE years or so, sooner if clinically indicated in view of poor prep quality. Complications:: None Estimated blood obtained (mL): 0 Colonoscopy Component Colonoscopy Component Was a colonoscopy performed during today's procedure?: Yes Recommended follow up colonoscopy of at least 10 years?: No If no, follow up colonoscopy recommended in ___ years?: Five Reason for not recommending >/= 10 yr follow-up interval?: Poor prep quality
[2024-04-28 13:43] VITALS: BP 95/55; PULSE 73; RESP 18; TEMP 36.4; O2SAT 92
[2024-04-28 13:52] VITALS: BP 108/55; PULSE 70; RESP 18; O2SAT 93
[2024-04-28 14:15] VITALS: BP 143/79; PULSE 73; RESP 18; O2SAT 99
--- NOTE | 2024-04-28 14:24 | SUR.PHASEII ---
Report called to Martine at [place]
== END 2024-04-28 14:22 | disposition home or self-care (01) ==
PROVIDERS: PCP Family Medicine; Visit Provider Internal Medicine Gastroenterology
PROC: (CPT 45378; principal; 2024-04-28 12:00)
DX: K62.5 Hemorrhage of anus and rectum (principal)
CPT/HCPCS: 45378; 82962

== ENCOUNTER 2024-04-29 10:20 | Outpatient (CLI) | payer MEDICAID, SELFPAY ==
--- NOTE | 2024-04-29 10:21 | MM_ITS ---
PROCEDURE INFORMATION: Exam: MG Bilateral Screening 3D Mammography Exam date and time: 04/29/2024 10:06 AM Age: 59 years old Clinical indication: Screening examination; Additional info: Preventive care TECHNIQUE: Imaging protocol: Bilateral Screening tomosynthesis and 2D mammography including computer-aided detection (CAD) when performed. COMPARISON: MG MM DIG SCREENING MAMM BI W/CAD 03/20/2020 10:03 AM FINDINGS: MAMMOGRAPHY: Breast composition: The breasts are heterogeneously dense, which may obscure small masses. Mass: No suspicious masses. Architectural distortion: No suspicious distortion. Calcifications: No suspicious calcifications. Asymmetric density: None. Skin thickening: None. Axillary adenopathy: None. IMPRESSION: No mammographic evidence of malignancy. Annual screening is recommended unless otherwise clinically indicated. ASSESSMENT: BI-RADS Category 1: Negative
== END 2024-04-29 23:59 | disposition home or self-care (01) ==
LOC: RAD 10:21
PROVIDERS: PCP Family Medicine; Visit Provider Family Medicine
DX: Z12.31 Encounter for screening mammogram for malignant neoplasm of breast (principal)
CPT/HCPCS: 77063; 77067

== ENCOUNTER 2024-05-17 07:35 | Outpatient (CLI) | payer MEDICAID, SELFPAY ==
--- NOTE | 2024-05-17 09:09 | PC.NURSE ---
Pt was unable to follow instructions attempted FVC multiple times with no success. Pt did complete 3 minutes of the 6 Minute walk test.
== END 2024-05-17 23:59 | disposition home or self-care (01) ==
LOC: RT 07:35
PROVIDERS: PCP Family Medicine; Visit Provider Internal Medicine Pulmonary Disease
DX: R06.09 Other forms of dyspnea (principal)
CPT/HCPCS: 94618

== ENCOUNTER 2024-05-27 08:59 | Inpatient (IN) | payer MEDICAID, SELFPAY ==
[2024-05-27] VITALS (34 sets, daily range): BP systolic 87–135; BP diastolic 38–95; PULSE 74–94; RESP 15–35; TEMP 37–39.8; O2SAT 90–100; BMI 36.2
--- NOTE | 2024-05-27 09:14 | PC.NURSE ---
notified radiology that we are ordering stroke scans
--- NOTE | 2024-05-27 09:22 | CT_ITS ---
FINAL REPORT TECHNIQUE: Thin section axial CT with IV contrast supplemented with multiplanar reconstruction under CT angiogram protocol. This study was performed with techniques to keep radiation doses as low as reasonably achievable (ALARA). Individualized dose reduction techniques using automated exposure control or adjustment of mA and/or kV according to the patient''s size were employed. NASCET criteria was utilized during interpretation. CLINICAL HISTORY: possible stroke, right sided weakness and numbness FINDINGS: Aortic arch: Arch shows no significant narrowing. Great vessel origins are widely patent. Right carotid: No significant stenosis is seen of the cervical common or internal carotid artery. Left carotid: No significant stenosis is seen of the cervical common or internal carotid artery. Vertebral: Left vertebral artery is dominant. No significant stenosis is present. IMPRESSION: No significant stenosis. Reviewed, Interpreted and Dictated by Amado Ng III, MD Transcribed by Sarah Lyon Authenticated and [facility]
--- NOTE | 2024-05-27 09:22 | CT_ITS ---
FINAL REPORT CLINICAL HISTORY: possible stroke, right-sided weakness and numbness COMPARISON: 01/05/2024 FINDINGS: Axial images of the head were obtained without contrast. Coronal reformatted images were also obtained.This study was performed with techniques to keep radiation doses as low as reasonably achievable (ALARA). Individualized dose reduction techniques using automated exposure control or adjustment of mA and/or kV according to the patient's size were employed. There is no evidence of intracranial hemorrhage or mass. The ventricular size is within normal limits. There is no evidence of shift of the midline structures. No abnormal extra axial fluid collection is identified. No skull abnormality is seen on the bone window images. IMPRESSION: No acute intracranial abnormality. Reviewed, Interpreted and Dictated by Amado Ng III, MD Transcribed by Sarah Lyon Authenticated and . [facility]
--- NOTE | 2024-05-27 09:22 | CT_ITS ---
FINAL REPORT TECHNIQUE: Thin section axial CT with IV contrast supplemented with multiplanar reconstruction under CT angiogram protocol. 3-D reconstructions were performed. This study was performed with techniques to keep radiation doses as low as reasonably achievable (ALARA). Individualized dose reduction techniques using automated exposure control or adjustment of mA and/or kV according to the patient''s size were employed. CLINICAL HISTORY: possible stroke, right-sided weakness and numbness FINDINGS: The distal vertebral and basilar arteries have an unremarkable appearance. There is vascular calcification of the distal internal carotid arteries bilaterally. There is mild stenosis of the cavernous right ICA and probable focal moderate stenosis of the cavernous left ICA. The proximal anterior, middle, and posterior cerebral arteries are patent without significant stenosis or occlusion. There is no evidence of aneurysm. 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 If indicated, catheter angiogram could further evaluate. No evidence of major branch occlusion. Reviewed, Interpreted and Dictated by Amado Ng III, MD Transcribed by Sarah Lyon Authenticated and [facility]
--- NOTE | 2024-05-27 09:27 | PC.NURSE ---
per computer stroke scale pt has a NIH of 12
--- NOTE | 2024-05-27 09:29 | PC.NURSE ---
Renotified radiology of the need for stroke scans
--- NOTE | 2024-05-27 09:32 | ECG_ITS ---
APPROVED REPORT Exam: Resting ECG HR:93 bpm ECG Measurements Heart Rate 93 AXES MO 161 P 56 QRSd 90 QRS 83 QT 324 T 17 QTc 374 Conclusion SINUS RHYTHM POSSIBLE INFERIOR MYOCARDIAL INFARCTION , PROBABLY OLD [30 ms Q WAVE IN II/aVF] BORDERLINE ECG Electronically signed by : JANY MICHEL, 05/28/2024 15:37:45
--- NOTE | 2024-05-27 09:35 | PC.NURSE ---
pt taken to radiology
--- NOTE | 2024-05-27 09:40 | PC.NURSE ---
the pts POA called to check on her. I updated her, Queenie Spence
--- NOTE | 2024-05-27 09:44 | PC.NURSE ---
pt returned from radiology
--- NOTE | 2024-05-27 09:46 | HMH.ITSTN ---
GFR completion/results were overrode for the use of contrast media by the Physician on a risk vs. benefit situation with this patient.
[2024-05-27] MEDS: SODIUM CHLORIDE 0.9% 10ML SYR (RAD ONLY) 10 ML IV (09:51)
[2024-05-27] MEDS: IOPAMIDOL-370 (76%);100ML BOTTLE 80 ML IV (09:51)
[2024-05-27] MEDS: 0.9 % SODIUM CHLORIDE 50 ML VIAL IV (09:51)
[2024-05-27 09:55] LABS: Basophils # 0.1 K/mm3 (0-0.2); Basophils % 0.4 % (0.1-2.0); Eosinophils # 0.2 K/mm3 (0.0-0.4); Eosinophils % 1.1 % (0.1-12.0); Hematocrit 37.2 % (37.0-47.0); Hemoglobin 11.5 g/dL (12.2-16.2); Lymphocytes # 0.5 K/mm3 (0.7-4.5); Lymphocytes % 3.6 % (10-50); Mean Corpuscular HGB Conc 30.9 g/dL (31.8-35.4); Mean Corpuscular Hemoglobin 25.5 pg (27.0-31.2); Mean Corpuscular Volume 82.7 fl (81-99); Mean Platelet Volume 9.2 fl (7.4-10.4); Monocytes # 0.5 K/mm3 (0.1-1.0); Monocytes % 3.7 % (1.7-9.3); Neutrophils # 13.3 K/mm3 (1.8-7.8); Neutrophils % 91.2 % (37.0-80.0); Platelet Count 398 K/mm3 (142-424); Red Cell Distribution Width 16.8 % (11.5-17.5); White Blood Count 14.6 K/mm3 (4.8-10.8)
[2024-05-27 09:57] LABS: Alanine Aminotransferase 36 U/L (12-78); Albumin Level 4.4 g/dl (3.5-5.0); Albumin/Globulin Ratio 1.3 (1.1-1.8); Alkaline Phosphatase 77 U/L (38-126); Aspartate Amino Transferase 38 U/L (14-36); Bilirubin,Total 0.7 mg/dl (0.2-1.3); Blood Urea Nitrogen 22 mg/dl (7-17); Carbon Dioxide 29 mmol/L (22.0-30.0); Chloride 99 mmol/L (98-107); Cholesterol 207 mg/dl (140-200); Creatinine Clearance Estimated 60 mL/min (50-200); Estimated Glomerular Filt Rate 35 ml/min (>60); GFR (African American) 43 ML/MIN (>60); Globulin 3.3 g/dL (1.3-3.2); Glucose 109 mg/dl (74-100); HDL Cholesterol 69 mg/dl (40-60); MANUAL DIFFERENTIAL MANUAL DIFFERENTIAL (MANUAL DIFF); Sodium 134 mmol/L (136-145); Total Protein,Serum 7.7 g/dl (6.3-8.2); Triglycerides 165 mg/dl (30-150); VLDL Cholesterol 33 mg/dL (0-40)
[2024-05-27] MEDS: LACTATED RINGERS 1000ML 1,640 ML 820 ML IV (09:57)
[2024-05-27 10:02] LABS: Activated Partial Thrombo Time 26.8 seconds (22.8-30.6); INR 0.97 (0.9-1.1); Prothrombin Time 10.9 seconds (10.1-12.5)
[2024-05-27 10:11] LABS: Troponin I < 0.01 ng/ml (0.00-0.034)
[2024-05-27 10:23] LABS: Eosinophils % 1 % (0-3); Hypochromasia 1+; Lymphocytes % 8 % (10-50); Monocytes % 4 % (2-9); Neutrophils % 87 % (42-76); Platelet Estimate Normal; Total Cells Counted 100
--- NOTE | 2024-05-27 10:26 | ED_ITS ---
Discharge Plan Disposition Patient Disposition: Admitted Condition: Fair Clinical Impressions Clinical Impression: Septic shock Discharge ED Provider: Chan Sin General Adult HPI General Chief complaint: Neuro Symptoms/Deficit Stated complaint: possible stroke Time Seen by Provider: 05/27/24 09:09 Mode of Arrival: EMS Source of Information: Patient and EMS Limitations: Altered Mental Status Description of Symptoms (Recalled from ER Triage Doc. by RN): Martine RN from [place] called and said the pt is having trouble forming sentences this am. last known norm was yesterday evening. 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 pt tested negative for covid this am. Cindi medic states the pt was slow to respond and A&O x3, confused and disoriented to time. pt arrived on 2L NC due to her room sat of 92%. my room air was 97%. O2 removed Upon my assessment the pt is lethargic, pale, has difficulty forming thought, BLE weakness, pt is 99.7 F orally at this time. NIH score of 8. 1- disoriented to time, 3- BLE no effort against gravity, 1- Limb ataxia, 1- sensory to L, 1- unable to identify whats going on in pictures, 1- extinction to L side. History of Present Illness HPI narrative: Please note that above description of symptoms, in this electronic medical record under categorization of recalled from ER triage doctor by RN are reflective of an initial nursing assessment, however, is not reflective of my full history and physical exam that was personally taken and clarified. Consequentially, this preceding description of symptoms, which may include the patient's categorized chief complaint in the EMR, do not reflect my personal clinical impression, and the ultimate description of history of present illness and patient stated complaints should be deferred to this section of the note. Unless stated otherwise or congruent with this section of the note, additional signs, symptoms, or incongruence should be interpreted as inaccurate with my clinical impression. Related Data Home Medications ?Medication ?Instructions ?Recorded ?Confirmed atorvastatin 20 mg tablet 20 mg PO HS 01/05/24 05/27/24 bupropion HCl 300 mg 24 hr tablet, 450 mg PO DAILY 01/05/24 05/27/24 extended release clonazepam 0.5 mg tablet 0.5 mg PO DAILY 01/05/24 05/27/24 clopidogrel 75 mg tablet (Plavix) 75 mg PO DAILY 01/05/24 05/27/24 dupilumab 300 mg/2 mL subcutaneous 2 mg SQ DIRECTED 01/05/24 05/27/24 syringe (Dupixent) fenofibrate nanocrystallized 48 mg 48 mg PO DAILY 01/05/24 05/27/24 tablet furosemide 40 mg tablet 40 mg PO DAILY 01/05/24 05/27/24 hydroxyzine HCl 50 mg tablet 100 mg PO BID 01/05/24 05/27/24 insulin NPH-regular 70-30 U-100 25 unit SQ BID 01/05/24 05/27/24 insulin 100 unit/mL subcutaneous pen (Humulin 70/30 U-100 KwikPen) insulin detemir U-100 100 unit/mL 30 unit SQ HS 01/05/24 05/27/24 (3 mL) subcutaneous pen (Levemir FlexPen) levothyroxine 50 mcg tablet 50 mcg PO DAILY 01/05/24 05/27/24 linagliptin 5 mg tablet (Tradjenta) 5 mg PO DAILY 01/05/24 05/27/24 losartan 100 mg tablet 100 mg PO DAILY 01/05/24 05/27/24 metformin 1,000 mg tablet 1,000 mg PO BIDWMEAL 01/05/24 05/27/24 metoprolol succinate 50 mg 50 mg PO DAILY 01/05/24 05/27/24 tablet,extended release 24 hr pantoprazole 20 mg tablet,delayed 20 mg PO DAILY 01/05/24 05/27/24 release risperidone 1 mg tablet 1 mg PO HS 01/05/24 05/27/24 sennosides 8.6 mg tablet (senna) 8.6 mg PO BID 01/05/24 05/27/24 spironolactone 50 mg tablet 50 mg PO DAILY 01/05/24 05/27/24 venlafaxine 100 mg tablet 100 mg PO TID 01/05/24 05/27/24 albuterol sulfate 90 mcg/actuation 90 mcg inhalation DAILY 01/12/24 05/27/24 aerosol inhaler (Ventolin HFA) aluminum-mag hydroxide-simethicone 30 ml PO TID PRN Acid Reflux 01/12/24 05/27/24 200 mg-200 mg-20 mg/5 mL oral susp (Antacid) azelastine 137 mcg (0.1 %) nasal 137 mcg intranasal DAILY 01/12/24 05/27/24 spray guaifenesin 200 mg tablet 200 mg PO Q4H 01/12/24 05/27/24 loperamide 2 mg capsule 2 mg PO NEEDED PRN Diarrhea 01/12/24 05/27/24 ondansetron HCl 4 mg tablet 4 mg PO Q6H PRN Gastric Reflux 01/12/24 05/27/24 acetaminophen 500 mg capsule 500 mg PO QID PRN Mild Pain (Scale 01/28/24 05/27/24 Score 1-4) clonazepam 0.5 mg tablet 1 mg PO HS 05/27/24 05/27/24 fluticasone propionate 50 1 spray intranasal BID 05/27/24 05/27/24 mcg/actuation nasal spray,suspension Previous Rx's ?Medication ?Instructions ?Recorded isosorbide mononitrate 30 mg 30 mg PO DAILY #90 tabs 01/28/24 tablet,extended release 24 hr budesonide-formoterol HFA 160 2 puff inhalation BID 90 days 02/15/24 mcg-4.5 mcg/actuation aerosol #10.2 grams inhaler (Symbicort) tiotropium bromide 18 mcg capsule 1 cap inhalation DAILY 90 days #90 02/15/24 with inhalation device (Spiriva puffs with HandiHaler) diclofenac sodium 1 % topical gel 2 g topical QID #100 grams 04/12/24 (Voltaren Arthritis Pain) ferrous sulfate 325 mg (65 mg 325 mg PO DAILY #90 tabs 04/26/24 iron) tablet gabapentin 100 mg capsule 100 mg PO BID #60 caps 04/26/24 hydrocodone 5 mg-acetaminophen 325 1 tab PO TID 30 days #90 tabs 05/10/24 mg tablet nystatin 100,000 unit/gram topical 1 applic topical TID #60 grams 05/24/24 powder Allergies Allergy/AdvReac Type Severity Reaction Status Date / Time lactose [LACTOSE] Allergy Unknown Unknown Verified 05/27/24 09:23 allergy reaction TD Inhibitors Allergy Unknown Verified 05/27/24 09:23 allergy reaction lisinopril Allergy Unknown Verified 05/27/24 09:23 [facility] Dis[facility]: The information contained in this section may have been updated after the patient was seen, as this information can be updated by other users. Medical History Normal colonoscopy Screening for breast cancer Screening for colon cancer Arm pain, right Acute hip pain Leg pain, right Angina pectoris Chest pain Anemia Deviated nasal septum Chronic sinusitis Anxiety disorder, unspecified Major depressive disorder, recurrent, unspecified Schizoaffective disorder, bipolar type Daytime somnolence Involuntary jerky movements Frequent falls Screening for lung cancer Asthma-COPD overlap syndrome Thoracic scoliosis Stopped smoking with greater than 30 pack year history Dyspnea on exertion Diastolic dysfunction Hypothyroidism (acquired) Obesity GARRISON on CPAP HLD (hyperlipidemia) HTN (hypertension) CAD (coronary artery disease) Tobacco use disorder Diabetes COPD (chronic obstructive pulmonary disease) Surgical History H/O colonoscopy with polypectomy History of tonsillectomy History of carpal tunnel release History of arthroscopic knee surgery Hx laparoscopic cholecystectomy Hx of cardiac cath Hx of cataract surgery Family History Family history of myocardial infarction Social History (Updated 05/27/24 @ 13:53 by Jodie Pereira RN) Smoking Status: Never smoker second hand exposure: Yes alcohol intake: never substance use type: denies use current occupational status: disabled Travel in the last 8 weeks: None household members: other housing: halfway current occupational exposures/hazards: No caffeine: Yes ROS Obtained: Yes All systems reviewed & no additional complaints except as documented Physical Exam General General appearance: obese and other (Sleeping, arousable to voice) Head Head exam: atraumatic and normocephalic Eye Eye exam: Present normal appearance, PERRL and EOMI ENT ENT exam: Present mucous membranes dry and other (Angular chelosis) Neck Neck exam: Present normal inspection, full ROM and trachea midline; Absent meningismus or lymphadenopathy Respiratory Respiratory exam: Present normal lung sounds bilaterally; Absent respiratory distress, wheezes, stridor, accessory muscle use or prolonged expiratory phase Cardiovascular Cardiovascular exam: Present regular rate, normal rhythm and other (Pulses equal symmetric in upper and lower extremities) Abdominal Exam Abdominal exam: Present soft; Absent distention, tenderness, guarding, rebound or pulsatile mass Extremities Exam Extremities exam: Present edema (Bilateral pitting edema lower extremities, right greater than left. Patient states this is normal.) Neurological Exam Neurological exam: Present oriented X3 and motor sensory deficit (Right upper extremity and right lower extremity weakness and drift, right sided sensation deficit. Bilateral dysmetria, right greater than left. Dysarthria, mild expressive aphasia); Absent alert (Sleeping, but arousable to voice, GCS 14) or CN II-XII intact (Right-sided nasolabial fold flattening) Skin Skin exam: Present warm and dry; Absent diaphoresis or erythema Medical Decision Making Medical Records Medical records reviewed: Yes I reviewed the patient's medical records. Sammy Inquiry Pt receiving controlled substance: No Sammy was queried for this patient: No Vital Signs: 05/27/24 09:07 05/27/24 09:30 05/27/24 10:00 Temperature 99.7 F H Temperature Source Oral Pulse Rate 74 77 Pulse Rate [Left] 91 H Respiratory Rate 16 31 H Blood Pressure 115/51 L 98/45 L Blood Pressure [Right Arm] 113/40 L Blood Pressure Mean Blood Pressure Mean [Right Arm] 64 Blood Pressure Source [Right Arm] Automatic Cuff Blood Pressure Position [Right Arm] Sitting 02 Sat by Pulse Oximetry 97 95 92 L Oxygen Delivery Method Room Air Room Air 05/27/24 10:30 05/27/24 11:00 05/27/24 11:31 Temperature Temperature Source Pulse Rate 82 94 H 94 H Pulse Rate [Left] Respiratory Rate 35 H 29 H 25 H Blood Pressure 94/53 L 110/40 L 90/43 L Blood Pressure [Right Arm] Blood Pressure Mean Blood Pressure Mean [Right Arm] Blood Pressure Source [Right Arm] Blood Pressure Position [Right Arm] 02 Sat by Pulse Oximetry 95 95 95 Oxygen Delivery Method Room Air Room Air 05/27/24 12:02 05/27/24 12:04 05/27/24 12:10 Temperature Temperature Source Pulse Rate 87 88 90 Pulse Rate [Left] Respiratory Rate 32 H 32 H 30 H Blood Pressure 100/44 L 101/46 L 107/54 L Blood Pressure [Right Arm] Blood Pressure Mean Blood Pressure Mean [Right Arm] Blood Pressure Source [Right Arm] Blood Pressure Position [Right Arm] 02 Sat by Pulse Oximetry 91 L 92 L 92 L Oxygen Delivery Method 05/27/24 12:20 05/27/24 12:30 05/27/24 12:33 Temperature Temperature Source Pulse Rate 88 Pulse Rate [Left] Respiratory Rate 28 H 21 Blood Pressure 109/51 L 122/69 121/48 L Blood Pressure [Right Arm] Blood Pressure Mean 72 Blood Pressure Mean [Right Arm] Blood Pressure Source [Right Arm] Blood Pressure Position [Right Arm] 02 Sat by Pulse Oximetry 92 L Oxygen Delivery Method 05/27/24 12:40 05/27/24 12:45 05/27/24 12:51 Temperature Temperature Source Pulse Rate 88 87 85 Pulse Rate [Left] Respiratory Rate Blood Pressure 121/48 L 99/44 L 89/39 L Blood Pressure [Right Arm] Blood Pressure Mean Blood Pressure Mean [Right Arm] Blood Pressure Source [Right Arm] Blood Pressure Position [Right Arm] 02 Sat by Pulse Oximetry 95 92 L 90 L Oxygen Delivery Method 05/27/24 12:52 Temperature Temperature Source Pulse Rate 84 Pulse Rate [Left] Respiratory Rate Blood Pressure 92/38 L Blood Pressure [Right Arm] Blood Pressure Mean Blood Pressure Mean [Right Arm] Blood Pressure Source [Right Arm] Blood Pressure Position [Right Arm] 02 Sat by Pulse Oximetry 92 L Oxygen Delivery Method Lab Data Lab Results 05/27/24 08:54: WBC 14.6 H, RBC 4.50, Hgb 11.5 L, Hct 37.2, MCV 82.7, MCH 25.5 L , MCHC 30.9 L, RDW 16.8, Plt Count 398, MPV 9.2, Neut % (Auto) 91.2 H, Lymph % (Auto) 3.6 L, [place] % (Auto) 3.7, Eos % (Auto) 1.1, Baso % (Auto) 0.4, Neut # (Auto) 13.3 H, Lymph # (Auto) 0.5 L, [place] # (Auto) 0.5, Eos # (Auto) 0.2, Baso # (Auto) 0.1, Total Counted 100, Neutrophils % (Manual) 87 H, Lymphocytes % (Manual) 8 L, Monocytes % (Manual) 4, Eosinophils % (Manual) 1, Platelet Estimate Normal, Hypochromasia 1+, PT 10.9, INR 0.97, APTT 26.8, Sodium 134 L, Potassium 5.0, Chloride 99, Carbon Dioxide 29, Anion Gap 11.0, BUN 22 H, C reatinine 1.50 H, Estimated Creat Clear 60, Estimated GFR 35 L, Est GFR ( Amer) 43 L, Glucose 109 H, Calcium 10.0, Magnesium 1.2 L, Total Bilirubin 0.7, A ST 38 H, ALT 36, Alkaline Phosphatase 77, Troponin I < 0.01, NT-Pro-B Natriuret Pep 220 H, Total Protein 7.7, Albumin 4.4, Globulin 3.3 H, Albumin/Globulin Ratio 1.3, Triglycerides 165 H, Cholesterol 207 H, LDL Cholesterol Direct 91.40 L, VLDL Cholesterol 33, HDL Cholesterol 69 H, Cholesterol/HDL Ratio 3.0, Vitamin B12 243, Folate 7.93 05/27/24 10:25: Urine Color Yellow, Urine Appearance Clear, Urine pH 6.5, Ur Specific [place] 1.015, Urine Protein Negative, Urine Glucose (UA) Negative, Urine Ketones Negative, Urine Blood Negative, Urine Nitrate Negative, Urine Bilirubin Negative, Urine Urobilinogen 0.2, Ur Leukocyte Esterase Negative, Urine RBC Occasional, Urine WBC 3-5, Ur Squamous Epith Cells 3-5, Urine Bacteria Trace, Urine Opiates Screen Positive H, Urine Methadone Screen Negative, Ur Barbituates Screen Negative, Ur Phencyclidine Scrn Negative, Ur Amphetamines Screen Negative, U Benzodiazepines Scrn Negative, Urine Cocaine Screen Negative, U Marijuana (THC) Screen Negative 05/27/24 10:34: VBG pH 7.37, VBG pCO2 45.8, VBG pO2 43.7 H, VBG HCO3 25.9, VBG Total CO2 27.3 H, VBG O2 Saturation 82.9 H, VBG Base Excess 0.6, VBG Lactic Acid 2.2 H 05/27/24 10:43: Lactate 2.3 H 05/27/24 11:34: SARS-CoV-2 (PCR) Not detected, Influenza A Untype (PCR) Not detected, Influenza Type B (PCR) Not detected 05/27/24 12:25: Troponin I < 0.01 05/27/24 08:54 05/27/24 08:54 Orders (Tests/Meds): ED MEDICATIONS Generic Name Dose Route Start Last Admin Trade Name Freq PRN Reason Stop Dose Admin Acetaminophen 650 mg 05/27/24 11:59 Acetaminophen 325mg Tab PO 06/26/24 11:58 Q4HP PRN Fever or Mild Pain (1-3) Enoxaparin Sodium 40 mg 05/27/24 12:15 05/27/24 15:00 Enoxaparin 40mg/0.4ml Syringe SQ 06/26/24 12:14 40 mg DAILY CIRA Administration Norepinephrine/Dextrose 8 mg in 250 mls @ 3.75 mls/hr 05/27/24 13:00 05/27/24 14:58 Norepinephrine 8mg/250ml-D5w Premix IV 06/26/24 12:59 4 mcg/min .Q24H CIRA 7.5 mls/hr Infusion Protocol 2 MCG/MIN Cefepime HCl 2 gm/ Sodium 100 mls @ 200 mls/hr 05/27/24 13:30 05/27/24 15:00 Chloride IV 06/06/24 13:29 200 mls/hr Q8H CIRA Administration Vancomycin/PEG/NADA/Lysine/Water 1.75 gm in 350 mls @ 175 mls/hr 05/28/24 22:30 Vancomycin 1.75gm/350ml (Peg) Premix IV 06/07/24 22:29 Q36H CIRA Sodium Chloride 10 ml 05/27/24 09:22 Sodium Chloride 0.9% 10ml Flush Syringe IV 06/26/24 09:21 NEEDED PRN Maintain IV Site Sodium Chloride 10 ml 05/27/24 09:48 05/27/24 09:51 Sodium Chloride 0.9% 10ml Syr (Rad Only) IV 06/26/24 09:47 10 ml NEEDED PRN Administration Maintain IV Site Discontinued Medications Generic Name Dose Route Start Last Admin Trade Name Freq PRN Reason Stop Dose Admin Lactated Ringer's 1,000 mls @ 999 mls/hr 05/27/24 09:22 05/27/24 11:17 Lactated Ringer's 1000 Ml Bag IV 05/27/24 10:22 Not Given .Q1H1M ONE Ampicillin Sodium/Sulbactam 100 mls @ 200 mls/hr 05/27/24 09:22 05/27/24 11:12 Sodium 3 gm/ Sodium Chloride IV 05/27/24 09:23 200 mls/hr ONCE ONE Administration Lactated Ringer's 1,640 mls @ 820 mls/hr 05/27/24 09:25 05/27/24 09:57 Lactated Ringer's 1000 Ml Bag 30 ml/kg infuse over 2 hr (1640 ml) 05/27/24 11:24 820 mls/hr IV Administration .Q2H ONE Vancomycin/PEG/NADA/Lysine/Water 1.75 gm in 350 mls @ 175 mls/hr 05/27/24 09:30 05/27/24 10:38 Vancomycin 1.75gm/350ml (Peg) Premix IV 05/27/24 11:29 175 mls/hr ONCE ONE Administration Magnesium Sulfate 2 gm in 50 mls @ 50 mls/hr 05/27/24 11:05 05/27/24 11:29 Magnesium Sulfate 2gm/50ml Premix IV 05/27/24 12:04 50 mls/hr ONCE ONE Administration Iopamidol 80 ml 05/27/24 09:48 05/27/24 09:51 Iopamidol-370 (76%);100ml Bottle IV 05/27/24 09:49 80 ml ONCE ONE Administration Magnesium Oxide 800 mg 05/27/24 11:05 05/27/24 11:26 Magnesium Oxide 400mg Tablet PO 05/27/24 11:06 800 mg ONCE ONE Administration Miscellaneous 1 each 05/27/24 09:30 05/27/24 11:11 Vancomycin Consult Request NOTAPPLIC 06/26/24 09:29 Not Given CONSULT PHARMACY [facility] Miscellaneous 1 each 05/27/24 13:30 Vancomycin Consult Request NOTAPPLIC 06/26/24 13:29 CONSULT PHARMACY [facility] Sodium Chloride 50 ml 05/27/24 09:48 05/27/24 09:51 0.9 % Sodium Chloride 50 Ml Vial IV 05/27/24 09:49 50 ml ONCE ONE Administration ORDERS Category Date Time Status CT angio head Stat Cat Scan 05/27/24 09:[address] angio neck Stat Cat Scan 05/27/24 09:[address] head/brain wo con Stat Cat Scan 05/27/24 09:22 Completed CXR --portable [XR chest portable] Stat Exams 05/27/24 10:36 Completed Activated Partial Thrombo Time Stat Lab 05/27/24 08:54 Completed Complete Blood Count Auto Diff AMLAB Lab 05/28/24 06:00 Ordered Complete Blood Count Auto Diff Stat Lab 05/27/24 08:54 Completed Comprehensive Metabolic Panel AMLAB Lab 05/28/24 06:00 Ordered Comprehensive Metabolic Panel Stat Lab 05/27/24 08:54 Completed Drug Screen,Urine Stat Lab 05/27/24 10:25 Completed Folate Stat Lab 05/27/24 08:54 Completed Lactic Acid Stat Lab 05/27/24 10:43 Completed Lipid Panel Stat Lab 05/27/24 08:54 Completed Magnesium AMLAB Lab 05/28/24 06:00 Ordered Magnesium Stat Lab 05/27/24 08:54 Completed NT Pro Brain Natriuretic Pep. Stat Lab 05/27/24 08:54 Completed Prothrombin Time INR Stat Lab 05/27/24 08:54 Completed Rapid PCR Covid and Flu A/B Stat Lab 05/27/24 11:34 Completed Thiamine level [Vitamin B1] Stat Lab 05/27/24 10:43 Received Troponin I Q3H Lab 05/27/24 12:25 Completed Troponin I Q3H Lab 05/27/24 15:30 Ordered Troponin I Stat Lab 05/27/24 08:54 Completed Urinalysis and Microscopic Stat Lab 05/27/24 10:25 Completed Vitamin B12 Stat Lab 05/27/24 08:54 Completed Blood Culture Stat Micro 05/27/24 09:50 Received VBG [Venous Blood Gas] Stat RT 05/27/24 10:34 Completed HEART Score History (anamnesis): Slightly suspicious ECG: Normal Age: 45-65 years Risk factors: 3 or more risk factors Troponin: </= normal limit HEART Score: 3 Medical Decision Narrative: 59-year-old female history of hypertension, hyperlipidemia, schizoaffective disorder, depression, COPD, GARRISON,. CAD, diabetes presenting with altered mental status, weakness. Per patient, she went to bed normally around 9 PM last night. Today, she states she woke up and felt unwell. Nauseated, felt weak and tingly on her right side. Per EMS and halfway staff, patient unable to ambulate, this is abnormal for her. She usually is able to at least stand, transfer and ambulate a couple of steps with help. Unable to do that today. Per halfway staffVia EMS, she was also having forming sentences, not acting like herself, febrile to 102 ?F. Given Tylenol prior to arrival. On arrival, patient without complaints of pain, shortness of breath, nausea, vomiting, but she does state that she still feels tingly on her right side. Also feels tired. History was obtained via conversation with patient, EMS. On arrival, patient hemodynamically stable, tired, but arousable to voice, oriented x4, appropriate, GCS 15, moving all extremities spontaneously, pupils equal and reactive to light. Full physical exam performed and significant for NIHSS 13 for right sided numbness, weakness, right upper and right lower extremity dysmetria and drift, dysarthria, aphasia, right-sided nasolabial fold flattening. Cardiac exam within normal limits, pulses are equal and symmetric in upper and lower extremities, but she does have bilateral lower extremity pitting edema, right greater than left. Differential includes intracranial hemorrhage, embolic stroke, sepsis, meningitis, ACS, [place], infectious delirium, metabolic abnormality, among others. Patient placed on continuous cardiac monitoring and continuous pulse ox with initial blood pressure 115/51, heart rate 74, saturation 95% on room air. Independent interpretation of EKG shows sinus rhythm 93 beats a minute with no ST or T wave changes concerning for acute ischemia. OR 161, QRS 90, QTc 374. [place] normal.. Patient was given fluid bolus, empiric vancomycin and Unasyn for symptomatic management and correction of underlying abnormalities. Workup independently interpreted and significant for leukocytosis 14.6 with neutrophilia, hemoglobin stable at 11.5, platelets normal at 398. Coags normal. Chemistry with what appears to be mild PAUL creatinine 1.5 and BUN 22 troponin negative. Lipid panel with hypercholesterolemia urinalysis without concern for UTI. Mildly elevated lactate. On independent interpretation of imaging, no intracranial hemorrhage, no large vessel occlusion. No cardiopulmonary space disease. See radiology read for full review of final results. Heart score 3. On reevaluation, patient progressively hypotensive, Levophed was started. Hospitalist was contacted and case was discussed at length out of concern for sepsis, malperfusion. Agreeable to admission to ICU. Because patient high risk for clinical decompensation, deemed appropriate for inpatient admission. Results were relayed to patient who voiced understanding and patient was agreeable to inpatient admission and management. Patient was admitted to the hospital for further definitive management. Plastic Tile Setter disclaimer Much of this encounter note is an electronic workforce management analyst spoken language to printed text. Electronic workforce management analyst of the spoken language may permit errors. Although I have reviewed the note, some errors may still exist. Critical Care Critical Care Time Critical Care Time: Yes (ID, CV) Attestation: On 05/27/24, the high probability of a clinically significant, sudden or life threatening deterioration of the following system(s) required my full and direct attention, intervention and personal management. The time I documented below is in addition to time spent performing reported procedures but includes the following listed in this critical care notation. Total Time Total Critical Care Time: 45
[2024-05-27 10:32] LABS: Microscopic, Urine URINE MICROSCOPIC (MICROSCOPIC)
[2024-05-27 10:34] LABS: Appearance,Urine CLEAR (Clear); Bilirubin,Urine Negative (Negative); Blood, Urine Negative (Negative); Color,Urine YELLOW (Yellow); Glucose,Urine (UA) Negative (Negative); Ketones,Urine Negative (Negative); Leukocyte Esterase,Urine Negative (Negative); Nitrate,Urine Negative (Negative); PH,Urine 6.5 (5.0-8.5); Protein,Urine Negative (Negative); Specific Gravity, Urine 1.015 (1.005-1.030); Urobilinogen,Urine 0.2 EU/dl (0.2)
--- NOTE | 2024-05-27 10:36 | XR_ITS ---
FINAL REPORT CLINICAL HISTORY: weakness, fever COMPARISON: 05/04/2022 FINDINGS: A single portable view of the chest was obtained. The heart size and pulmonary vascularity are within normal limits. The mediastinum is within normal limits. Mild bibasilar opacities are favored to represent atelectasis over pneumonia.. The bony thorax is intact. IMPRESSION: Mild bibasilar opacities favor atelectasis over pneumonia. Reviewed, Interpreted and Dictated by Amado Ng III, MD Transcribed by Gwen Quinonez Authenticated and [facility]
[2024-05-27] MEDS: VANCOMYCIN/WATER FOR INJ (PEG) 1.75 GM/350 ML PIGGYBACK IV (10:38)
[2024-05-27 10:45] LABS: Bacteria,Urine Trace /lpf; RBC,Urine Occasional #/hpf (0-3)
[2024-05-27 10:46] LABS: Magnesium 1.2 mg/dl (1.6-2.3)
[2024-05-27 10:46] LABS: Barbiturates Screen,Urine Negative ng/ml (<200)
[2024-05-27 10:47] LABS: Benzodiazepines Screen,Urine Negative ng/ml (<200)
[2024-05-27 10:48] LABS: Amphetamine/Metha Screen,Urine Negative ng/ml (<1000); Cannabinoid Screen,Urine Negative ng/ml (<50)
[2024-05-27 10:49] LABS: Cocaine Screen,Urine Negative ng/ml (<300); Methadone Screen,Urine Negative ng/ml (<300)
[2024-05-27 10:50] LABS: Opiate Screen,Urine Positive ng/ml (<300)
[2024-05-27 10:51] LABS: Phencyclidine Screen,Urine Negative ng/ml (<25)
[2024-05-27 10:56] LABS: NT Pro Brain Natriuretic Pep. 220 pg/mL (0-125)
--- NOTE | 2024-05-27 11:00 | PC.NURSE ---
I rounded on the pt, no new complaints. no needs voiced. call green in reach.
[2024-05-27 11:02] LABS: VBG Base Excess 0.6 mmol/L (-2.4-2.3); VBG HCO3 25.9 mmol/L (23-30); VBG Oxygen Saturation 82.9 % (50-70); VBG PCO2 45.8 mmol/L (35-51); VBG PH 7.37 mmol/L (7.31-7.41); VBG PO2 43.7 mmol/L (28-40); VBG Total CO2 27.3 mmol/L (23-27)
[2024-05-27 11:03] LABS: Lactate Venous 2.2 mmol/L (0.4-2.0)
--- NOTE | 2024-05-27 11:03 | PC.NURSE ---
I called pharmacy to request felixn
[2024-05-27 11:10] LABS: Lactic Acid 2.3 mmol/L (0.7-2.1)
[2024-05-27] MEDS: AMPICILLIN/SULBACTAM 3 GM in 0.9 % SODIUM CHLORIDE 100 ML IV (11:12)
[2024-05-27] MEDS: MAGNESIUM OXIDE 400MG TABLET 800 MG PO (11:26)
[2024-05-27] MEDS: MAGNESIUM SULFATE IN WATER 2 GM/50 ML PIGGYBACK IV (11:29)
--- NOTE | 2024-05-27 11:29 | PC.NURSE ---
I rounded on the pt and helped reposition her in the bed. no new complaints and no needs voiced. call green in reach.
--- NOTE | 2024-05-27 11:37 | PC.NURSE ---
I rounded on the pt, she is sleeping at this time. call green in reach.
[2024-05-27 11:45] LABS: Coronavirus 19, PCR Not Detected (NotDetected); Influenza A, PCR Not Detected (NotDetected); Influenza B, PCR Not Detected (NotDetected)
[2024-05-27 11:53] LABS: Vitamin B12 243 pg/mL (239-931)
[2024-05-27 12:00] LABS: Folate 7.93 ng/mL
--- NOTE | 2024-05-27 12:01 | EXP.HP ---
History of Present Illness *Admission Date: 05/27/24 *Reason for visit:: right sided weakness *History of present illness: Ms. Starkey is a 59-year-old female resident from [facility]. Reportedly had trouble forming sentences this morning. Last known normal was last night. She had a temperature of 102.2 orally. Was given Tylenol prior to admission and transferred to the ER for further evaluation. Patient was slow to respond when EMS showed up. Appeared confused and disoriented. Arrived on 2 L nasal cannula with sats in the low 90s. Found to be lethargic with concern for focal neurologic deficits on the right side. Workup in the ER concerning for possible stroke was negative. No acute findings on CT of head. Was found however to be tachycardic, tachypneic, had leukocytosis of 14.6. Concerning on chest imaging for possible pneumonia. Patient meeting sepsis criteria. Blood pressure continued to decline during workup in the ER after receiving IV antibiotics. Received sepsis bolus and continued to be hypotensive. Initiated on norepinephrine. Medicine consulted for further management and admission of septic shock. On arrival to the floor, patient is frankly altered. Unable to give much history. Knows her name but appears quite weak and confused. Movement grossly intact bilaterally. [facility] Disclaimer: The information contained in this section may have been updated after the patient was seen, as this information can be updated by other users. Medical History Normal colonoscopy Screening for breast cancer Screening for colon cancer Arm pain, right Acute hip pain Leg pain, right Angina pectoris Chest pain Anemia Deviated nasal septum Chronic sinusitis Anxiety disorder, unspecified Major depressive disorder, recurrent, unspecified Schizoaffective disorder, bipolar type Daytime somnolence Involuntary jerky movements Frequent falls Screening for lung cancer Asthma-COPD overlap syndrome Thoracic scoliosis Stopped smoking with greater than 30 pack year history Dyspnea on exertion Diastolic dysfunction Hypothyroidism (acquired) Obesity GARRISON on CPAP HLD (hyperlipidemia) HTN (hypertension) CAD (coronary artery disease) Tobacco use disorder Diabetes COPD (chronic obstructive pulmonary disease) Surgical History H/O colonoscopy with polypectomy History of tonsillectomy History of carpal tunnel release History of arthroscopic knee surgery Hx laparoscopic cholecystectomy Hx of cardiac cath Hx of cataract surgery Family History Other Family history of myocardial infarction Social History Smoking Status: Never smoker second hand exposure: Yes alcohol intake: never substance use type: denies use current occupational status: disabled Travel in the last 8 weeks: None household members: other housing: snf current occupational exposures/hazards: No caffeine: Yes Review of Systems Review of Systems Review of systems (narrative): 14 point review of systems performed, pertinent positives and negatives as per HPI Meds Home Medications and Allergies Home Medications ?Medication ?Instructions ?Recorded ?Confirmed ?Type atorvastatin 20 mg tablet 20 mg PO HS 01/05/24 05/27/24 History bupropion HCl 300 mg 24 hr tablet, 450 mg PO DAILY 01/05/24 05/27/24 History extended release clonazepam 0.5 mg tablet 0.5 mg PO DAILY 01/05/24 05/27/24 History clopidogrel 75 mg tablet (Plavix) 75 mg PO DAILY 01/05/24 05/27/24 History dupilumab 300 mg/2 mL subcutaneous 2 mg SQ DIRECTED 01/05/24 05/27/24 History syringe (Dupixent) fenofibrate nanocrystallized 48 mg 48 mg PO DAILY 01/05/24 05/27/24 History tablet furosemide 40 mg tablet 40 mg PO DAILY 01/05/24 05/27/24 History hydroxyzine HCl 50 mg tablet 100 mg PO BID 01/05/24 05/27/24 History insulin NPH-regular 70-30 U-100 25 unit SQ BID 01/05/24 05/27/24 History insulin 100 unit/mL subcutaneous pen (Humulin 70/30 U-100 KwikPen) insulin detemir U-100 100 unit/mL 30 unit SQ HS 01/05/24 05/27/24 History (3 mL) subcutaneous pen (Levemir FlexPen) levothyroxine 50 mcg tablet 50 mcg PO DAILY 01/05/24 05/27/24 History linagliptin 5 mg tablet (Tradjenta) 5 mg PO DAILY 01/05/24 05/27/24 History losartan 100 mg tablet 100 mg PO DAILY 01/05/24 05/27/24 History metformin 1,000 mg tablet 1,000 mg PO BIDWMEAL 01/05/24 05/27/24 History metoprolol succinate 50 mg 50 mg PO DAILY 01/05/24 05/27/24 History tablet,extended release 24 hr pantoprazole 20 mg tablet,delayed 20 mg PO DAILY 01/05/24 05/27/24 History release risperidone 1 mg tablet 1 mg PO HS 01/05/24 05/27/24 History sennosides 8.6 mg tablet (senna) 8.6 mg PO BID 01/05/24 05/27/24 History spironolactone 50 mg tablet 50 mg PO DAILY 01/05/24 05/27/24 History venlafaxine 100 mg tablet 100 mg PO TID 01/05/24 05/27/24 History albuterol sulfate 90 mcg/actuation 90 mcg inhalation DAILY 01/12/24 05/27/24 History aerosol inhaler (Ventolin HFA) aluminum-mag hydroxide-simethicone 30 ml PO TID PRN Acid Reflux 01/12/24 05/27/24 History 200 mg-200 mg-20 mg/5 mL oral susp (Antacid) azelastine 137 mcg (0.1 %) nasal 137 mcg intranasal DAILY 01/12/24 05/27/24 History spray guaifenesin 200 mg tablet 200 mg PO Q4H 01/12/24 05/27/24 History loperamide 2 mg capsule 2 mg PO NEEDED PRN Diarrhea 01/12/24 05/27/24 History ondansetron HCl 4 mg tablet 4 mg PO Q6H PRN Gastric Reflux 01/12/24 05/27/24 History acetaminophen 500 mg capsule 500 mg PO QID PRN Mild Pain (Scale 01/28/24 05/27/24 History Score 1-4) isosorbide mononitrate 30 mg 30 mg PO DAILY #90 tabs 01/28/24 05/27/24 Rx tablet,extended release 24 hr budesonide-formoterol HFA 160 2 puff inhalation BID 90 days 02/15/24 05/27/24 Rx mcg-4.5 mcg/actuation aerosol #10.2 grams inhaler (Symbicort) tiotropium bromide 18 mcg capsule 1 cap inhalation DAILY 90 days #90 02/15/24 05/27/24 Rx with inhalation device (Spiriva puffs with HandiHaler) diclofenac sodium 1 % topical gel 2 g topical QID #100 grams 04/12/24 05/24/24 Rx (Voltaren Arthritis Pain) ferrous sulfate 325 mg (65 mg 325 mg PO DAILY #90 tabs 04/26/24 05/27/24 Rx iron) tablet gabapentin 100 mg capsule 100 mg PO BID #60 caps 04/26/24 05/27/24 Rx hydrocodone 5 mg-acetaminophen 325 1 tab PO TID 30 days #90 tabs 05/10/24 05/27/24 Rx mg tablet nystatin 100,000 unit/gram topical 1 applic topical TID #60 grams 05/24/24 05/27/24 Rx powder clonazepam 0.5 mg tablet 1 mg PO HS 05/27/24 05/27/24 History fluticasone propionate 50 1 spray intranasal BID 05/27/24 05/27/24 History mcg/actuation nasal spray,suspension New Prescriptions to Start Prescriptions: Allergies Allergy/AdvReac Type Severity Reaction Status Date / Time lactose [LACTOSE] Allergy Unknown Unknown Verified 05/27/24 09:23 allergy reaction TD Inhibitors Allergy Unknown Verified 05/27/24 09:23 allergy reaction lisinopril Allergy Unknown Verified 05/27/24 09:23 allergy reaction Exam Data for Last 24 hours Vital signs and Labs for Last 24 Hours: Temp Pulse Resp BP Pulse Ox O2 Del Method 99.7 F H 94 H 25 H 90/43 L 95 Room Air 05/27/24 09:07 05/27/24 11:31 05/27/24 11:31 05/27/24 11:31 05/27/24 11:31 05/27/24 11:00 Laboratory Results - last 24 hr 05/27/24 08:54: WBC 14.6 H, RBC 4.50, Hgb 11.5 L, Hct 37.2, MCV 82.7, MCH 25.5 L, MCHC 30.9 L, RDW 16.8, Plt Count 398, MPV 9.2, Neut % (Auto) 91.2 H, Lymph % (Auto) 3.6 L, [place] % (Auto) 3.7, Eos % (Auto) 1.1, Baso % (Auto) 0.4, Neut # (Auto) 13.3 H, Lymph # (Auto) 0.5 L, [place] # (Auto) 0.5, Eos # (Auto) 0.2, Baso # (Auto) 0.1, Total Counted 100, Neutrophils % (Manual) 87 H, Lymphocytes % (Manual) 8 L, Monocytes % (Manual) 4, Eosinophils % (Manual) 1, Platelet Estimate Normal, Hypochromasia 1+, PT 10.9, INR 0.97, APTT 26.8, Sodium 134 L, Potassium 5.0, Chloride 99, Carbon Dioxide 29, Anion Gap 11.0, BUN 22 H, Creatinine 1.50 H, Estimated Creat Clear 60, Estimated GFR 35 L, Est GFR ( Amer) 43 L, Glucose 109 H, Calcium 10.0, Magnesium 1.2 L, Total Bilirubin 0.7, AST 38 H, ALT 36, Alkaline Phosphatase 77, Troponin I < 0.01, NT-Pro-B Natriuret Pep 220 H, Total Protein 7.7, Albumin 4.4, Globulin 3.3 H, Albumin/Globulin Ratio 1.3, Triglycerides 165 H, Cholesterol 207 H, LDL Cholesterol Direct 91.40 L, VLDL Cholesterol 33, HDL Cholesterol 69 H, Cholesterol/HDL Ratio 3.0, Vitamin B12 243, Folate 7.93 05/27/24 10:25: Urine Color Yellow, Urine Appearance Clear, Urine pH 6.5, Ur Specific [place] 1.015, Urine Protein Negative, Urine Glucose (UA) Negative, Urine Ketones Negative, Urine Blood Negative, Urine Nitrate Negative, Urine Bilirubin Negative, Urine Urobilinogen 0.2, Ur Leukocyte Esterase Negative, Urine RBC Occasional, Urine WBC 3-5, Ur Squamous Epith Cells 3-5, Urine Bacteria Trace, Urine Opiates Screen Positive H, Urine Methadone Screen Negative, Ur Barbituates Screen Negative, Ur Phencyclidine Scrn Negative, Ur Amphetamines Screen Negative, U Benzodiazepines Scrn Negative, Urine Cocaine Screen Negative, U Marijuana (THC) Screen Negative 05/27/24 10:34: VBG pH 7.37, VBG pCO2 45.8, VBG pO2 43.7 H, VBG HCO3 25.9, VBG Total CO2 27.3 H, VBG O2 Saturation 82.9 H, VBG Base Excess 0.6, VBG Lactic Acid 2.2 H 05/27/24 10:43: Lactate 2.3 H I & O for Last 24 hours: Intake & Output 05/24/24 05/25/24 05/26/2405/27/24 23:59 23:59 23:59 23:59 Weight 95.708 kg Constitutional Constitutional: moderate distress, obese, chronically ill appearing and somnolent *Routine HEENT Exam Head: Present normocephalic Eye: Present EOMI and PERRL ENT: Present mucous membranes moist *Routine Neck Exam Neck: Present supple; Absent lymphadenopathy *Routine Respiratory Exam Respiratory: Present CTA bilaterally; Absent rhonchi, wheezes or crackles Comments: tachypneic *Routine Cardiovascular Exam Cardiovascular: Present tachycardia *Routine Abdominal Exam Abdominal: Present soft and normoactive bowel sounds; Absent tenderness *Routine Rectal Exam Rectal:: deferred *Routine Genitalia Exam Genitalia:: deferred *Routine Extremities Exam Extremities: Present edema (Trace in lower extremity); Absent cyanosis or clubbing Comments: Redness of skin proximal to her right ankle *Routine Skin Exam Skin: Present warm; Absent rash *Routine Neurological Exam Neurological: Present alert, altered mental status and moving all extremities; Absent oriented X3 Assessment and Plan *Assessment and plan (1) Septic shock: Status: Acute Category: Medical Code(s): A41.9 - Sepsis, unspecified organism; R65.21 - Severe sepsis with septic shock (2) Candidiasis of breast: Problem Comment: right Status: Acute Category: Medical Code(s): B37.89 - Other sites of candidiasis (3) Schizoaffective disorder, bipolar type: Status: Acute Category: Medical Code(s): F25.0 - Schizoaffective disorder, bipolar type (4) Stroke-like symptoms: Status: Acute Category: Medical Code(s): R29.90 - Unspecified symptoms and signs involving the nervous system (5) Altered mental status: Status: Acute Qualifiers: Altered mental status type: delirium Qualified Code(s): R41.0 - Disorientation, unspecified Category: Medical Code(s): R41.82 - Altered mental status, unspecified (6) Obesity: Status: Chronic Qualifiers: Body mass index: BMI 40.0-44.9 Obesity classification: adult class 3 (BMI >= 40) Obesity type: due to excess calories Serious obesity comorbidity presence: with serious comorbidity Qualified Code(s): E66.01 - Morbid (severe) obesity due to excess calories; Z68.41 - Body mass index [BMI] 40.0-44.9, adult Category: Medical Code(s): E66.9 - Obesity, unspecified (7) Hypothyroidism (acquired): Status: Acute Category: Medical Code(s): E03.9 - Hypothyroidism, unspecified (8) HLD (hyperlipidemia): Status: Chronic Qualifiers: Hyperlipidemia type: mixed hyperlipidemia Qualified Code(s): E78.2 - Mixed hyperlipidemia Category: Medical Code(s): E78.5 - Hyperlipidemia, unspecified (9) HTN (hypertension): Status: Chronic Qualifiers: Hypertension type: primary hypertension Qualified Code(s): I10 - Essential (primary) hypertension Category: Medical Code(s): I10 - Essential (primary) hypertension (10) Diabetes: Status: Chronic Qualifiers: Diabetes mellitus complication status: with other specified complication Diabetes mellitus long term care pharmacist insulin use: unspecified long term care pharmacist insulin use status Diabetes mellitus type: type 2 Qualified Code(s): E11.69 - Type 2 diabetes mellitus with other specified complication Category: Medical Code(s): E11.9 - Type 2 diabetes mellitus without complications (11) Diastolic dysfunction: Status: Chronic Category: Medical Code(s): I51.89 - Other ill-defined heart diseases Plan Ms. Starkey is a 59-year-old female with history of bipolar/schizoaffective, obesity, diabetes, hypertension. Presented to the ER with concern for altered mental status and strokelike symptoms. Workup concerning for right sided deficits but also noted to become more hypotensive and found to have lab abnormalities consistent with septic shock. Did not respond to sepsis bolus. Initiated on norepinephrine and broad-spectrum antibiotics. Admitted to medicine for further management. Discussed case with ER physician, request admission for antibiotics, further workup of her sepsis, and electrolyte replacement. I agreed to admit. Problems addressed as follows: Septic shock Altered mental status Strokelike symptoms -White count elevated at 14.6, per my review of chest imaging, concern for bibasilar pneumonia versus atelectasis. Urinalysis pending along with blood cultures and urine cultures. -Initiated on vancomycin and Unasyn in the ER, will broaden to cefepime given her long-term snf residence. Continue cefepime 2 g every 8 hours IV, vancomycin 1.75 g every 36 hours. Monitor for toxicity. -Further management de-escalation of antibiotics pending cultures and sensitivity -Initiated on norepinephrine, goal MAP greater than 65. Mentation improving after fluid resuscitation and improvement in blood pressure. -Supplemental oxygen as needed, goal saturation greater 90%. -Monitor for improvement in neurologic deficits as mentation improves and sepsis stabilizes. -Kidney function slightly abnormal with BUN 22, creatinine 1.5. Magnesium low at 1.2, receiving IV replacement. Potassium normal at 5.0. Schizoaffective disorder Bipolar 2 -Significant medication regimen at home. Adjustments made due to encephalopathy/altered mental status -Continue Risperdal 1 mg nightly -Continue clonazepam 0.5 mg nightly. Decreased dose from home regimen -Continue bupropion 450 mg daily -Holding hydroxyzine twice daily -Resume venlafaxine 100 mg PO 3 times a day Hypertension. Holding home hypertensive meds due to hypotension. Reevaluate need pending ability to wean off Levophed and stability of her sepsis. Hypothyroid: Continue levothyroxine 75 mcg daily. TSH pending Type 2 diabetes: A1c pending. Continue sliding scale insulin with fingersticks ACHS. Hold home regimen including metformin pending improvement and sepsis Yeast dermatitis: Continue nystatin powder as needed 3 times a day in skin folds COPD: DuoNebs as needed every 6 hours. Continue Symbicort twice daily Obesity complicates all aspects of her care Full code Diabetic diet Lovenox 40 mg subcu daily
--- NOTE | 2024-05-27 12:44 | PC.NURSE ---
Report called to Kimberly SANCHEZ
[2024-05-27] MEDS: NOREPINEPHRINE BITARTRATE/D5W 8 MG/250 ML PLAST..BAG 3.75 MG IV (12:58)
--- NOTE | 2024-05-27 12:59 | PC.NURSE ---
RN notified of Blood pressures at this time.
[2024-05-27 13:08] LABS: Troponin I < 0.01 ng/ml (0.00-0.034)
--- NOTE | 2024-05-27 13:17 | PC.NURSE ---
pt ARRIVED TO FLOOR VIA STRETCHER @[phone]
--- NOTE | 2024-05-27 13:29 | P.CONPHA_ITS ---
Pharmacy Consult Date: 05/27/24 Time: 13:29 Referring provider: DR JONES Reason for Consult:: VANCOMYCIN DOSING CONSULT Allergies Allergy/AdvReac Type Severity Reaction Status Date / Time lactose [LACTOSE] Allergy Unknown Unknown Verified 05/27/24 09:23 allergy reaction TD Inhibitors Allergy Unknown Verified 05/27/24 09:23 allergy reaction lisinopril Allergy Unknown Verified 05/27/24 09:23 allergy reaction Home Medications ?Medication ?Instructions ?Recorded ?Confirmed ?Type atorvastatin 20 mg tablet 20 mg PO HS 01/05/24 05/24/24 History bupropion HCl 300 mg 24 hr tablet, 300 mg PO DAILY 01/05/24 05/24/24 History extended release clonazepam 0.5 mg tablet 0.5 mg PO DAILY 01/05/24 05/24/24 History clonazepam 0.5 mg tablet 1 mg PO HS 01/05/24 05/24/24 History clopidogrel 75 mg tablet (Plavix) 75 mg PO DAILY 01/05/24 05/24/24 History dupilumab 300 mg/2 mL subcutaneous 2 mg SQ DIRECTED 01/05/24 05/24/24 History syringe (Dupixent) fenofibrate nanocrystallized 48 mg 48 mg PO DAILY 01/05/24 05/24/24 History tablet furosemide 40 mg tablet 40 mg PO DAILY 01/05/24 05/24/24 History hydroxyzine HCl 50 mg tablet 100 mg PO BID 01/05/24 05/24/24 History insulin NPH-regular 70-30 U-100 25 unit SQ BID 01/05/24 05/24/24 History insulin 100 unit/mL subcutaneous pen (Humulin 70/30 U-100 KwikPen) insulin detemir U-100 100 unit/mL 30 unit SQ HS 01/05/24 05/24/24 History (3 mL) subcutaneous pen (Levemir FlexPen) levothyroxine 50 mcg tablet 50 mcg PO DAILY 01/05/24 05/24/24 History linagliptin 5 mg tablet (Tradjenta) 5 mg PO DAILY 01/05/24 05/24/24 History losartan 100 mg tablet 100 mg PO DAILY 01/05/24 05/24/24 History metformin 1,000 mg tablet 1,000 mg PO BIDWMEAL 01/05/24 05/24/24 History metoprolol succinate 50 mg 50 mg PO DAILY 01/05/24 05/24/24 History tablet,extended release 24 hr pantoprazole 20 mg tablet,delayed 20 mg PO DAILY 01/05/24 05/24/24 History release risperidone 1 mg tablet 1 mg PO HS 01/05/24 05/24/24 History sennosides 8.6 mg tablet (senna) 8.6 mg PO BID 01/05/24 05/24/24 History spironolactone 50 mg tablet 50 mg PO DAILY 01/05/24 05/24/24 History venlafaxine 100 mg tablet 100 mg PO TID 01/05/24 05/24/24 History albuterol sulfate 90 mcg/actuation 90 mcg inhalation DAILY 01/12/24 05/24/24 History aerosol inhaler (Ventolin HFA) aluminum-mag hydroxide-simethicone 30 ml PO TID PRN Acid Reflux 01/12/24 05/24/24 History 200 mg-200 mg-20 mg/5 mL oral susp (Antacid) azelastine 137 mcg (0.1 %) nasal 137 mcg intranasal DAILY 01/12/24 05/24/24 History spray guaifenesin 200 mg tablet 200 mg PO Q4H 01/12/24 05/24/24 History loperamide 2 mg capsule 2 mg PO NEEDED PRN Diarrhea 01/12/24 05/24/24 History ondansetron HCl 4 mg tablet 4 mg PO Q6H PRN Gastric Reflux 01/12/24 05/24/24 History acetaminophen 500 mg capsule 500 mg PO QID PRN Mild Pain (Scale 01/28/24 05/24/24 History Score 1-4) isosorbide mononitrate 30 mg 30 mg PO DAILY #90 tabs 01/28/24 05/24/24 Rx tablet,extended release 24 hr budesonide-formoterol HFA 160 2 puff inhalation BID 90 days 02/15/24 05/24/24 Rx mcg-4.5 mcg/actuation aerosol #10.2 grams inhaler (Symbicort) tiotropium bromide 18 mcg capsule 1 cap inhalation DAILY 90 days #90 02/15/24 05/24/24 Rx with inhalation device (Spiriva puffs with HandiHaler) diclofenac sodium 1 % topical gel 2 g topical QID #100 grams 04/12/24 05/24/24 Rx (Voltaren Arthritis Pain) ferrous sulfate 325 mg (65 mg 325 mg PO DAILY #90 tabs 04/26/24 05/24/24 Rx iron) tablet gabapentin 100 mg capsule 100 mg PO BID #60 caps 04/26/24 05/24/24 Rx hydrocodone 5 mg-acetaminophen 325 1 tab PO TID 30 days #90 tabs 05/10/24 05/24/24 Rx mg tablet nystatin 100,000 unit/gram topical 1 applic topical TID #60 grams 05/24/24 05/24/24 Rx powder New Prescriptions to Start Prescriptions: Height: 1.63 m Weight: 95.708 kg Laboratory Results:: Laboratory Results - last 24 hr 05/27/24 08:54: WBC 14.6 H, RBC 4.50, Hgb 11.5 L, Hct 37.2, MCV 82.7, MCH 25.5 L , MCHC 30.9 L, RDW 16.8, Plt Count 398, MPV 9.2, Neut % (Auto) 91.2 H, Lymph % (Auto) 3.6 L, [place] % (Auto) 3.7, Eos % (Auto) 1.1, Baso % (Auto) 0.4, Neut # (Auto) 13.3 H, Lymph # (Auto) 0.5 L, [place] # (Auto) 0.5, Eos # (Auto) 0.2, Baso # (Auto) 0.1, Total Counted 100, Neutrophils % (Manual) 87 H, Lymphocytes % (Manual) 8 L, Monocytes % (Manual) 4, Eosinophils % (Manual) 1, Platelet Estimate Normal, Hypochromasia 1+, PT 10.9, INR 0.97, APTT 26.8, Sodium 134 L, Potassium 5.0, Chloride 99, Carbon Dioxide 29, Anion Gap 11.0, BUN 22 H, Creatinine 1.50 H, Estimated Creat Clear 60, Estimated GFR 35 L, Est GFR ( Amer) 43 L, Glucose 109 H, Calcium 10.0, Magnesium 1.2 L, Total Bilirubin 0.7, AST 38 H, ALT 36, Alkaline Phosphatase 77, Troponin I < 0.01, NT-Pro-B Natriuret Pep 220 H, Total Protein 7.7, Albumin 4.4, Globulin 3.3 H, Albumin/Globulin Ratio 1.3, Triglycerides 165 H, Cholesterol 207 H, LDL Cholesterol Direct 91.40 L, VLDL Cholesterol 33, HDL Cholesterol 69 H, Chol esterol/HDL Ratio 3.0, Vitamin B12 243, Folate 7.93 05/27/24 10:25: Urine Color Yellow, Urine Appearance Clear, Urine pH 6.5, Ur Specific [place] 1.015, Urine Protein Negative, Urine Glucose (UA) Negative, Urine Ketones Negative, Urine Blood Negative, Urine Nitrate Negative, Urine Bilirubin Negative, Urine Urobilinogen 0.2, Ur Leukocyte Esterase Negative, Urine RBC Occasional, Urine WBC 3-5, Ur Squamous Epith Cells 3-5, Urine Bacteria Trace, Urine Opiates Screen Positive H, Urine Methadone Screen Negative, Ur Barbituates Screen Negative, Ur Phencyclidine Scrn Negative, Ur Amphetamines Screen Negative, U Benzodiazepines Scrn Negative, Urine Cocaine Screen Negative, U Marijuana (THC) Screen Negative 05/27/24 10:34: VBG pH 7.37, VBG pCO2 45.8, VBG pO2 43.7 H, VBG HCO3 25.9, VBG Total CO2 27.3 H, VBG O2 Saturation 82.9 H, VBG Base Excess 0.6, VBG Lactic Acid 2.2 H 05/27/24 10:43: Lactate 2.3 H 05/27/24 11:34: SARS-CoV-2 (PCR) Not detected, Influenza A Untype (PCR) Not detected, Influenza Type B (PCR) Not detected 05/27/24 12:25: Troponin I < 0.01 Medical History: Medical History (Updated 05/24/24 @ 15:04 by Leann Gould APRN) Normal colonoscopy Screening for breast cancer Screening for colon cancer Arm pain, right Acute hip pain Leg pain, right Angina pectoris Chest pain Anemia Deviated nasal septum Chronic sinusitis Anxiety disorder, unspecified Major depressive disorder, recurrent, unspecified Schizoaffective disorder, bipolar type Daytime somnolence Involuntary jerky movements Frequent falls Screening for lung cancer Asthma-COPD overlap syndrome Thoracic scoliosis Stopped smoking with greater than 30 pack year history Dyspnea on exertion Diastolic dysfunction Hypothyroidism (acquired) Obesity GARRISON on CPAP HLD (hyperlipidemia) HTN (hypertension) CAD (coronary artery disease) Tobacco use disorder Diabetes COPD (chronic obstructive pulmonary disease) Assessment and Plan Assessment and plan all Dx Assessment and Plan for all problems:: Pharmacokinetic dosing service Objective: Age: 59 yo Serum creatinine: 1.5 mg/dL Height: 64.0 Inches Weight (kg): 95.708 Diagnosis: SEPSIS Assessment: IBW (kg): 54.70 Dosing wt(kg): 95.708 Estimated Creatinine clearance (ml/min): 34.0 CRCL method: Cockcroft and Gault using ibw(default). Drug selected: Vancomycin Vd (liters): 67.0 (factor used: 0.7 L/kg) Jimbo (hr-1): 0.033 Half life (hrs): 21.00 CLvanco=?? 2.211 L/hr Recommended dose: 1750 mg Interval: 36 hrs Infusion time (hrs): 2.0 Predicted peak (mcg/mL): 36.4 Predicted trough (mcg/mL): 11.85 Total body weight is being used for vancomycin dosing. Recommendations: Give Vancomycin 1750 mg q 36 hrs with an expected Cpeak of 36.4 mcg/ml and an expected Ctrough of 11.85 mcg/ml. AUC 0-24 /LENIN Data: LENIN 0.5 mcg/mL:?? AUC/LENIN:? 1055.3 LENIN 1.0 mcg/mL:?? AUC/LENIN:? 527.7 --------- LENIN 1.5 mcg/mL:?? AUC/LENIN:? 351.8 LENIN 2.0 mcg/mL:?? AUC/LENIN:? 263.8 Thank you for the consult
[2024-05-27 14:11] LABS: Adenovirus,PCR Not Detected (NotDetected); Bordetella Pertussis Not Detected (NotDetected); Chlamydophila Pneumoniae, PCR Not Detected (NotDetected); Coronavirus 19, PCR Not Detected (NotDetected); Coronavirus 229E Not Detected (NotDetected); Coronavirus NL63 Not Detected (NotDetected); Coronavirus OC43 Not Detected (NotDetected); Coronovirus HKU1,PCR Not Detected (NotDetected); Human Metapneumovirus Not Detected (NotDetected); Influenza A, PCR Not Detected (NotDetected); Influenza AH1, 2009 Not Detected (NotDetected); Influenza AH1, PCR Not Detected (NotDetected); Influenza AH3,PCR Not Detected (NotDetected); Influenza B, PCR Not Detected (NotDetected); Mycoplasma Pneumoniae, PCR Not Detected (NotDetected); Parainfluenza 1, PCR Not Detected (NotDetected); Parainfluenza 2, PCR Not Detected (NotDetected); Parainfluenza 3, PCR Not Detected (NotDetected); Parainfluenza 4, PCR Not Detected (NotDetected); Respiratory Syncytial Virus Not Detected (NotDetected); Rhinovirus/Enterovirus Not Detected (NotDetected)
[2024-05-27] MEDS: CEFEPIME HCL 2 GM in 0.9 % SODIUM CHLORIDE 100 ML IV ×2 (15:00→20:30)
[2024-05-27] MEDS: ENOXAPARIN 40MG/0.4ML SYRINGE 40 MG SQ (15:00)
[2024-05-27 15:03] LABS: Reflex Lactic Add Lactic Reflex
[2024-05-27 16:47] LABS: POC Glucose,Bedside 119 (70-110)
--- NOTE | 2024-05-27 17:30 | PC.WOUNDNOTE ---
Addendum entered by Kymberly Nayak RN 05/27/24 17:31: right sole of foot Original Note: right sole of food
--- NOTE | 2024-05-27 17:31 | PC.WOUNDNOTE ---
left sole of foot
[2024-05-27 18:05] LABS: Hemoglobin A1C 7.3 % (4.0-6.0)
[2024-05-27 18:18] LABS: Thyroid Stimulating Hormone 2.33 uIU/mL (0.465-4.68)
[2024-05-27 19:15] LABS: Lactic Acid Follow Up (RFLX 1) 3.6 mmol/L (0.7-2.1)
[2024-05-27 20:02] LABS: POC Glucose,Bedside 227 (70-110)
[2024-05-27] MEDS: GABAPENTIN 100MG CAPSULE 100 MG PO (20:19)
[2024-05-27] MEDS: risperiDONE 1MG TABLET 1 MG PO (20:19)
[2024-05-27] MEDS: humaLOG 100 UNITS/ML 10ML VIAL (SSI) SQ (20:19)
[2024-05-27 20:35] LABS: Reflex Lactic (2 hrs) Add Lactic Reflex
[2024-05-27 21:10] LABS: Troponin I < 0.01 ng/ml (0.00-0.034)
[2024-05-27 21:15] LABS: Lactic Acid Follow up (RFLX 2) 2.5 mmol/L (0.7-2.1)
--- NOTE | 2024-05-27 22:50 | PC.NURSE ---
Addendum entered by Ayaz Garcia RN 05/27/24 23:05: Oral temperature not correlating with rectal temperatures* Original Note: After noticing that patient felt warm to touch, TRN obtained rectal temp. Patient rectal temp 103.6. Oral temp not correlating with oral temperatures. Ice packs placed im armpits and groin, cold wash cloth placed to forehead, and tylenol administered. see MAR.
[2024-05-27] MEDS: ACETAMINOPHEN 325MG TAB 650 MG PO (22:53)
[2024-05-28] VITALS (22 sets, daily range): BP systolic 78–146; BP diastolic 36–65; PULSE 69–86; RESP 15–25; TEMP 36.7–38.4; O2SAT 73–98; BMI 37.6
--- NOTE | 2024-05-28 00:31 | PC.NURSE ---
Positive BC result received from Mary in lab. See [facility] results.
[2024-05-28] MEDS: CEFEPIME HCL 2 GM in 0.9 % SODIUM CHLORIDE 100 ML IV ×2 (05:29→17:03)
[2024-05-28] MEDS: humaLOG 100 UNITS/ML 10ML VIAL (SSI) SQ ×4 (05:30→20:22)
[2024-05-28 05:41] LABS: POC Glucose,Bedside 262 (70-110)
[2024-05-28 08:05] LABS: Basophils # 0.1 K/mm3 (0-0.2); Basophils % 0.4 % (0.1-2.0); Eosinophils # 0.1 K/mm3 (0.0-0.4); Eosinophils % 0.6 % (0.1-12.0); Hematocrit 30.4 % (37.0-47.0); Lymphocytes # 0.7 K/mm3 (0.7-4.5); Lymphocytes % 6.1 % (10-50); Mean Corpuscular HGB Conc 32.9 g/dL (31.8-35.4); Mean Corpuscular Hemoglobin 27.6 pg (27.0-31.2); Mean Platelet Volume 7.8 fl (7.4-10.4); Monocytes # 0.3 K/mm3 (0.1-1.0); Monocytes % 3.1 % (1.7-9.3); Neutrophils # 9.7 K/mm3 (1.8-7.8); Neutrophils % 89.8 % (37.0-80.0); Platelet Count 251 K/mm3 (142-424); Red Blood Count 3.62 M/mm3 (4.20-5.40); Red Cell Distribution Width 16.9 % (11.5-17.5); White Blood Count 10.8 K/mm3 (4.8-10.8)
[2024-05-28 08:11] LABS: Albumin Level 3.5 g/dl (3.5-5.0); Chloride 102 mmol/L (98-107)
[2024-05-28 08:12] LABS: Potassium 4.3 mmoL/L (3.5-5.1); Sodium 132 mmol/L (136-145)
[2024-05-28 08:14] LABS: Alanine Aminotransferase 38 U/L (12-78); Aspartate Amino Transferase 35 U/L (14-36); Blood Urea Nitrogen 22 mg/dl (7-17); Creatinine Clearance Estimated 58 mL/min (50-200); Estimated Glomerular Filt Rate 33 ml/min (>60); GFR (African American) 40 ML/MIN (>60)
[2024-05-28 08:15] LABS: Albumin/Globulin Ratio 1.3 (1.1-1.8); Alkaline Phosphatase 83 U/L (38-126); Anion Gap 12.3 mEq/L (5-15); Bilirubin,Total 0.6 mg/dl (0.2-1.3); Calcium 8.7 mg/dl (8.4-10.2); Carbon Dioxide 22 mmol/L (22.0-30.0); Globulin 2.6 g/dL (1.3-3.2); Glucose 210 mg/dl (74-100); MANUAL DIFFERENTIAL MANUAL DIFFERENTIAL (MANUAL DIFF); Magnesium 1.8 mg/dl (1.6-2.3); Total Protein,Serum 6.1 g/dl (6.3-8.2)
[2024-05-28 08:22] LABS: Hemoglobin 10.1 g/dL (12.2-16.2)
[2024-05-28 09:19] LABS: Lymphocytes % 19 % (10-50); Neutrophils % 81 % (42-76); Platelet Estimate Normal; RBC Morphology Normal; Total Cells Counted 100
[2024-05-28] MEDS: TIOTROPIUM 18MCG/PUFF INHALER 1 CAP IH (09:54)
[2024-05-28] MEDS: FLUTICASONE/SALMETEROL 250/50MCG DISKUS 1 PUFF IH (09:55)
[2024-05-28] MEDS: ENOXAPARIN 40MG/0.4ML SYRINGE 40 MG SQ (10:21)
[2024-05-28] MEDS: buPROPion HCl SR 150MG TAB 450 MG PO (10:21)
[2024-05-28] MEDS: LEVOTHYROXINE 50MCG (0.05MG) TAB 50 MCG PO (10:22)
[2024-05-28] MEDS: VENLAFAXINE 37.5MG TABLET 112.5 MG PO ×3 (10:22→20:21)
[2024-05-28] MEDS: NYSTATIN TOPICAL POWDER 30GM TP ×3 (10:22→20:22)
[2024-05-28] MEDS: CLOPIDOGREL 75MG TAB 75 MG PO (10:22)
[2024-05-28] MEDS: GABAPENTIN 100MG CAPSULE 100 MG PO ×2 (10:22→20:20)
--- NOTE | 2024-05-28 11:06 | P.CONPHA_ITS ---
Pharmacy Intervention Comments: MEDICATION RECONCILIATION COMPLETED ON PATIENT USING MAR FROM [facility]. -JACKIE CARDONA, RUSSELLD
--- NOTE | 2024-05-28 11:06 | HMH.PHAINT1 ---
Pharmacy Intervention Comments: MEDICATION RECONCILIATION COMPLETED ON PATIENT USING MAR FROM [facility]USTOD[facility]. -JACKIE CARDONA, RUSSELLD
[2024-05-28 12:18] LABS: POC Glucose,Bedside 255 (70-110)
--- NOTE | 2024-05-28 14:47 | P.PN_ITS ---
Subjective *Date: 05/28/24 *Time: 14:47 Interval history: Patient alert and oriented x 2 today. On room air. No nausea or vomiting. States she is feeling much better. No focal neurologic deficits or suspicious changes overnight. Blood cultures returned positive for Streptococcus overn ight. Afebrile. Blood pressure stable off of pressors. Medical Exam Vital signs and Labs for Last 24 Hours: Vital Signs Temp Pulse Pulse Pulse Resp BP BP 05/28/24 14:00 83 15 99/46 L 05/28/24 13:00 05/28/24 13:00 81 20 105/45 L 05/28/24 12:00 80 05/28/24 12:00 80 20 105/40 L 05/28/24 11:00 79 20 127/52 L 05/28/24 11:00 05/28/24 10:00 82 22 129/54 L 05/28/24 09:56 05/28/24 09:00 05/28/24 09:00 78 22 117/50 L 05/28/24 08:00 80 05/28/24 08:00 99.3 F 78 22 122/48 L 05/28/24 08:00 80 05/28/24 07:00 78 25 H 133/41 L 05/28/24 07:00 05/28/24 06:00 74 23 102/45 L 05/28/24 05:00 71 23 111/47 L 05/28/24 05:00 05/28/24 04:00 80 05/28/24 04:00 98.2 F 73 23 118/51 L 05/28/24 03:00 72 19 113/49 L 05/28/24 02:00 73 24 114/50 L 05/28/24 01:30 74 24 146/65 H 05/28/24 01:15 69 23 108/46 L 05/28/24 01:00 05/28/24 01:00 72 25 H 78/36 L 05/28/24 00:00 70 05/28/24 00:00 101.2 F H 76 24 93/43 L 05/27/24 23:30 104/49 L 05/27/24 23:00 05/27/24 23:00 81 22 108/41 L 05/27/24 22:53 103.6 F H 05/27/24 22:00 98.6 F 80 22 115/44 L 05/27/24 21:00 74 16 119/45 L 05/27/24 21:00 05/27/24 20:00 80 05/27/24 20:00 99.1 F 76 20 109/49 L 05/27/24 19:00 79 15 102/64 L 05/27/24 18:39 05/27/24 18:30 79 22 110/55 L 05/27/24 18:00 83 22 101/68 L 05/27/24 17:30 80 22 135/95 H 05/27/24 17:03 05/27/24 17:00 83 22 131/45 L 05/27/24 16:10 05/27/24 16:00 90 05/27/24 16:00 85 24 96/43 L 05/27/24 15:05 05/27/24 15:00 84 26 H 111/49 L Pulse Ox O2 Del Method O2 Flow Rate 05/28/24 14:00 96 Room Air 05/28/24 13:00 Room Air 05/28/24 13:00 96 Room Air 05/28/24 12:00 05/28/24 12:00 97 Room Air 05/28/24 11:00 96 Room Air 05/28/24 11:00 Room Air 05/28/24 10:00 96 Room Air 05/28/24 09:56 97 Room Air 05/28/24 09:00 Room Air 05/28/24 09:00 97 Room Air 05/28/24 08:00 95 Room Air 05/28/24 08:00 95 Room Air 05/28/24 08:00 05/28/24 07:00 96 Room Air 05/28/24 07:00 Room Air 05/28/24 06:00 96 Room Air 05/28/24 05:00 96 Room Air 05/28/24 05:00 Room Air 05/28/24 04:00 05/28/24 04:00 73 L Room Air 05/28/24 03:00 95 Room Air 05/28/24 02:00 97 Room Air 05/28/24 01:30 92 L Room Air 05/28/24 01:15 94 L Room Air 05/28/24 01:00 Room Air 05/28/24 01:00 93 L Room Air 05/28/24 00:00 05/28/24 00:00 98 Room Air 05/27/24 23:30 05/27/24 23:00 Nasal Cannula 2 05/27/24 23:00 100 Nasal Cannula 2 05/27/24 22:53 05/27/24 22:00 96 Room Air 05/27/24 21:00 96 Room Air 05/27/24 21:00 Room Air 05/27/24 20:00 05/27/24 20:00 96 Room Air 05/27/24 19:00 95 Room Air 05/27/24 18:39 Room Air 05/27/24 18:30 95 Room Air 05/27/24 18:00 97 Room Air 05/27/24 17:30 94 L Room Air 05/27/24 17:03 Room Air 05/27/24 17:00 96 Room Air 05/27/24 16:10 Room Air 05/27/24 16:00 05/27/24 16:00 94 L Room Air 05/27/24 15:05 Room Air 05/27/24 15:00 94 L Room Air Intake and Output 05/27/24 05/28/24 05/28/24 23:59 07:59 15:59 Intake Total 513.875 / 629.000 164.187 / 284.187 120 / 284.187 Output Total 1000 / 1050 550 / 550 Balance -486.125 / -421.000 -385.813 / -265.813 120 / -265.813 Intake: Intake, Oral Amount 400 / 500 100 / 220 120 / 220 Intake, Total IV Amount 113.875 / 129.000 64.187 / 64.187 Cefepime HCl 2 gm In 0.9 % 100 / 100 Sodium Chloride 100 ml @ 200 mls/hr IV Q8H [facility] Rx#:[id number] Output: Output, Urine Amount 1000 / 1050 550 / 550 Other: Weight 100.017 kg Patient Weight 05/28/24 23:59 Weight 100.017 kg Laboratory Results - last 24 hr 05/27/24 08:54: Hemoglobin A1c 7.3 H, TSH 2.33 05/27/24 11:34: Chlamy pneumoniae PCR Not detected, Adenovirus (PCR) Not detected, B. pertussis DNA (PCR) Not detected, Coronavirus OC43 (PCR) Not detected, Coronavirus HKU1 (PCR) Not detected, Coronavirus 229E (PCR) Not detected, SARS-CoV-2 (PCR) Not detected, Coronavirus NL63 (PCR) Not detected, Human Metapneumovir PCR Not detected, Influenza A (H1) PCR Not detected, Influ A (H1N1/09) PCR Not detected, Influenza A (H3) PCR Not detected, Influenza Type A (PCR) Not detected, Influenza Type B (PCR) Not detected, M. pneumoniae (PCR) Not detected, Parainfluenza 1 (PCR) Not detected, Parainfluenza 2 (PCR) Not detected, Parainfluenza 3 (PCR) Not detected, Parainfluenza 4 (PCR) Not detected, RSV (PCR) Not detected, Entero/Rhino (PCR) Not detected 05/27/24 16:39: POC Glucose 119 H 05/27/24 18:21: Lactate 3.6 H, Troponin I < 0.01 05/27/24 19:54: POC Glucose 227 H 05/27/24 20:55: Lactate 2.5 H 05/28/24 05:28: POC Glucose 262 H 05/28/24 07:52: WBC 10.8 D, RBC 3.62 L, Hgb 10.1 L D, Hct 30.4 L, MCV 84.0, MCH 27.6, MCHC 32.9, RDW 16.9, Plt Count 251 D, MPV 7.8, Neut % (Auto) 89.8 H, Lymph % (Auto) 6.1 L, [place] % (Auto) 3.1, Eos % (Auto) 0.6, Baso % (Auto) 0.4, Neut # (Auto) 9.7 H, Lymph # (Auto) 0.7, [place] # (Auto) 0.3, Eos # (Auto) 0.1, Baso # (Auto) 0.1, Total Counted 100, Neutrophils % (Manual) 81 H, Lymphocytes % (Manual) 19, Platelet Estimate Normal, RBC Morphology Normal, Sodium 132 L, Potassium 4.3, Chloride 102, Carbon Dioxide 22, Anion Gap 12.3, BUN 22 H, Creatinine 1.60 H, Estimated Creat Clear 58, Estimated GFR 33 L, Est GFR ( Amer) 40 L, Glucose 210 H D, Calcium 8.7, Magnesium 1.8 D, Total Bilirubin 0.6, AST 35, ALT 38, Alkaline Phosphatase 83, Total Protein 6.1 L, Albumin 3.5 D, Globulin 2.6, Albumin/Globulin Ratio 1.3 05/28/24 11:59: POC Glucose 255 H I & O for Labs for Last 24 Hours: Intake & Output 05/25/24 05/26/24 05/27/24 05/28/24 23:59 23:59 23:59 23:59 Intake Total 529.000 / 629.000 284.187 / 284.187 Output Total 1000 / 1050 550 / 550 Balance -471.000 / -421.000 -265.813 / -265.813 Weight 95.708 kg 100.017 kg Microbiology Reports for the Last 24 Hours: Microbiology 05/27/24 09:50 Blood Blood Culture - Preliminary 05/27/24 09:50 Blood Blood Culture - Preliminary Constitutional: Present no acute distress, obese, chronically ill appearing and cooperative Head: Present atraumatic and normocephalic ENT: Present normal exam Neck: Present normal inspection Respiratory: Present normal respiratory effort; Absent rhonchi, wheezes or crackles Cardiac: Present Reg Rate and Rhythm GI: Present soft and normal bowel sounds; Absent distention or tenderness Extremities: Present normal inspection and full ROM Skin: Present intact; Absent erythema Neuro: Present Grossly Intact, alert, awake and moves all extremities Assessment and Plan *Assessment and plan (1) Septic shock: Status: Acute Category: Medical Code(s): A41.9 - Sepsis, unspecified organism; R65.21 - Severe sepsis with septic shock (2) Candidiasis of breast: Problem Comment: right Status: Acute Category: Medical Code(s): B37.89 - Other sites of candidiasis (3) Schizoaffective disorder, bipolar type: Status: Acute Category: Medical Code(s): F25.0 - Schizoaffective disorder, bipolar type (4) Stroke-like symptoms: Status: Acute Category: Medical Code(s): R29.90 - Unspecified symptoms and signs involving the nervous system (5) Altered mental status: Status: Acute Qualifiers: Altered mental status type: delirium Qualified Code(s): R41.0 - Disorientation, unspecified Category: Medical Code(s): R41.82 - Altered mental status, unspecified (6) Obesity: Status: Chronic Qualifiers: Body mass index: BMI 40.0-44.9 Obesity classification: adult class 3 (BMI >= 40) Obesity type: due to excess calories Serious obesity comorbidity presence: with serious comorbidity Qualified Code(s): E66.01 - Morbid (severe) obesity due to excess calories; Z68.41 - Body mass index [BMI] 40.0-44.9, adult Category: Medical Code(s): E66.9 - Obesity, unspecified (7) Hypothyroidism (acquired): Status: Acute Category: Medical Code(s): E03.9 - Hypothyroidism, unspecified (8) HLD (hyperlipidemia): Status: Chronic Qualifiers: Hyperlipidemia type: mixed hyperlipidemia Qualified Code(s): E78.2 - Mixed hyperlipidemia Category: Medical Code(s): E78.5 - Hyperlipidemia, unspecified (9) HTN (hypertension): Status: Chronic Qualifiers: Hypertension type: primary hypertension Qualified Code(s): I10 - Essential (primary) hypertension Category: Medical Code(s): I10 - Essential (primary) hypertension (10) Diabetes: Status: Chronic Qualifiers: Diabetes mellitus complication status: with other specified complication Diabetes mellitus [employer] insulin use: unspecified [employer] insulin use status Diabetes mellitus type: type 2 Qualified Code(s): E11.69 - Type 2 diabetes mellitus with other specified complication Category: Medical Code(s): E11.9 - Type 2 diabetes mellitus without complications (11) Diastolic dysfunction: Status: Chronic Category: Medical Code(s): I51.89 - Other ill-defined heart diseases Plan Ms. Starkey is a 59-year-old female with history of bipolar/schizoaffective, obesity, diabetes, hypertension. Presented to the ER with concern for altered mental status and strokelike symptoms. Workup concerning for right sided deficits but also noted to become more hypotensive and found to have lab abnormalities consistent with septic shock. Did not respond to sepsis bolus. Initiated on norepinephrine and broad-spectrum antibiotics. Admitted to medicine for further management. Discussed case with ER physician, request admission for antibiotics, further workup of her sepsis, and electrolyte replac ement. I agreed to admit. Seeing some improvement in symptoms overnight. Blood cultures returned positive. Continues to require inpatient management. Can de-escalate from ICU level of care today. Problems addressed as follows: Septic shock Altered mental status, improving Strokelike symptoms -White count improved to 10.8, hemoglobin 10.1. Neutrophil predominance. Kidney function and electrolytes stable with BUN 22, creatinine 1.6 -Cultures positive for strep agalactiae, will continue empiric antibiotics with vancomycin and cefepime. Cefepime 2 g every 8 hours IV, vancomycin 1.75 g every 36 hours. Monitor for toxicity. -Maintaining MAP on her own, no further vasopressors today. -Supplemental oxygen as needed, goal saturation greater 90%. On room air today. -Monitor for improvement in neurologic deficits as mentation improves and sepsis stabilizes. -Repeat CBC, CMP, magnesium ordered for the morning. Schizoaffective disorder Bipolar 2 -Significant medication regimen at home. Adjustments made due to encephalopathy/altered mental status -Continue Risperdal 1 mg nightly -Continue clonazepam 0.5 mg nightly. Decreased dose from home regimen -Continue bupropion 450 mg daily -Holding hydroxyzine twice daily -Resume venlafaxine 100 mg PO 3 times a day Hypertension. Holding home hypertensive meds due to hypotension. Reevaluate need pending ability to wean off Levophed and stability of her sepsis. Hypothyroid: Continue levothyroxine 75 mcg daily. TSH normal at 2.33 Type 2 diabetes: Morning glucose 203, A1c 7.3. Continue sliding scale insulin with fingersticks ACHS. Hold home regimen including metformin pending improvement and sepsis Yeast dermatitis: Continue nystatin powder as needed 3 times a day in skin folds COPD: DuoNebs as needed every 6 hours. Continue Symbicort twice daily Obesity complicates all aspects of her care Full code Diabetic diet Lovenox 40 mg subcu daily
--- NOTE | 2024-05-28 17:14 | PC.NURSE ---
pt has appeared to sleep periodically throughout the shift. pt is alert to self and is aware she is in the hospital. pt is able to move all 4 extremities. nad noted. pt bp has remained soft this shift. lungs are clear throughout. bowel sounds are active in all quads. pt is voiding per purwick.
[2024-05-28 17:23] LABS: POC Glucose,Bedside 250 (70-110)
[2024-05-28 20:14] LABS: POC Glucose,Bedside 296 (70-110)
[2024-05-28] MEDS: clonazePAM 0.5MG TABLET 0.5 MG PO (20:21)
[2024-05-28] MEDS: risperiDONE 1MG TABLET 1 MG PO (20:21)
[2024-05-28] MEDS: VANCOMYCIN/WATER FOR INJ (PEG) 1.75 GM/350 ML PIGGYBACK IV (22:55)
[2024-05-29] VITALS (9 sets, daily range): BP systolic 117–148; BP diastolic 48–60; PULSE 80–95; RESP 16–22; TEMP 36.6–37.1; O2SAT 90–98; BMI 37.6
[2024-05-29] MEDS: CEFEPIME HCL 2 GM in 0.9 % SODIUM CHLORIDE 100 ML IV (04:22)
--- NOTE | 2024-05-29 05:28 | PC.NURSE ---
pt alert and oriented x4, nsr on monitor, adequate uop, denies pain/soa
[2024-05-29] MEDS: LEVOTHYROXINE 50MCG (0.05MG) TAB 50 MCG PO (06:20)
[2024-05-29] MEDS: humaLOG 100 UNITS/ML 10ML VIAL (SSI) SQ ×4 (06:20→21:00)
[2024-05-29 06:24] LABS: POC Glucose,Bedside 428 (70-110)
[2024-05-29] MEDS: FLUTICASONE/SALMETEROL 250/50MCG DISKUS 1 PUFF IH (06:55)
[2024-05-29] MEDS: TIOTROPIUM 18MCG/PUFF INHALER 1 CAP IH (06:55)
[2024-05-29 07:09] LABS: Basophils % 0.3 % (0.1-2.0); Eosinophils # 0.2 K/mm3 (0.0-0.4); Eosinophils % 1.6 % (0.1-12.0); Hematocrit 27.7 % (37.0-47.0); Lymphocytes # 0.9 K/mm3 (0.7-4.5); Lymphocytes % 7.8 % (10-50); Mean Corpuscular HGB Conc 32.4 g/dL (31.8-35.4); Mean Corpuscular Volume 83.4 fl (81-99); Mean Platelet Volume 9.3 fl (7.4-10.4); Monocytes # 0.6 K/mm3 (0.1-1.0); Monocytes % 5.5 % (1.7-9.3); Neutrophils # 9.3 K/mm3 (1.8-7.8); Neutrophils % 84.8 % (37.0-80.0); Platelet Count 316 K/mm3 (142-424); Red Blood Count 3.33 M/mm3 (4.20-5.40)
[2024-05-29 07:20] LABS: Albumin Level 3.1 g/dl (3.5-5.0); Chloride 101 mmol/L (98-107); Potassium 4.7 mmoL/L (3.5-5.1); Sodium 130 mmol/L (136-145)
[2024-05-29 07:23] LABS: Alanine Aminotransferase 31 U/L (12-78); Albumin/Globulin Ratio 1.1 (1.1-1.8); Alkaline Phosphatase 82 U/L (38-126); Anion Gap 11.7 mEq/L (5-15); Aspartate Amino Transferase 26 U/L (14-36); Bilirubin,Total 0.4 mg/dl (0.2-1.3); Blood Urea Nitrogen 22 mg/dl (7-17); Calcium 8.7 mg/dl (8.4-10.2); Carbon Dioxide 22 mmol/L (22.0-30.0); Creatinine Clearance Estimated 67 mL/min (50-200); Estimated Glomerular Filt Rate 38 ml/min (>60); GFR (African American) 46 ML/MIN (>60); Globulin 2.7 g/dL (1.3-3.2); Glucose 379 mg/dl (74-100); Magnesium 1.7 mg/dl (1.6-2.3); Total Protein,Serum 5.8 g/dl (6.3-8.2)
[2024-05-29] MEDS: CLOPIDOGREL 75MG TAB 75 MG PO (08:04)
[2024-05-29] MEDS: buPROPion HCl SR 150MG TAB 450 MG PO (08:04)
[2024-05-29] MEDS: VENLAFAXINE 37.5MG TABLET 112.5 MG PO ×3 (08:04→21:01)
[2024-05-29] MEDS: GABAPENTIN 100MG CAPSULE 100 MG PO ×2 (08:04→21:01)
[2024-05-29] MEDS: ENOXAPARIN 40MG/0.4ML SYRINGE 40 MG SQ (08:04)
[2024-05-29] MEDS: NYSTATIN TOPICAL POWDER 30GM TP ×3 (08:05→21:01)
[2024-05-29] MEDS: humaLOG MIX 75/25 3ML FLEXPEN 15 UNIT SQ (10:01)
--- NOTE | 2024-05-29 11:17 | EXP.ACUTE.PN ---
Subjective *Date: 05/29/24 *Time: 11:17 Interval history: Patient feeling better today, back to baseline mentation. Asking if she can go back to her nursing facility. Informed that she needs repeat blood cultures and a PICC line so we can treat her infection. Does not fully recall why she came to the hospital. Stable on room air. No nausea or vomiting. Afebrile for over 24 hours. Blood pressure remained stable. Medical Exam Vital signs and Labs for Last 24 Hours: Vital Signs Temp Pulse Pulse Resp BP Pulse Ox O2 Del Method 05/29/24 08:00 95 H 05/29/24 08:00 98.6 F 90 20 122/60 91 L Room Air 05/29/24 08:00 Room Air 05/29/24 07:00 Room Air 05/29/24 06:55 93 L Room Air 05/29/24 05:00 Room Air 05/29/24 04:00 91 H 05/29/24 04:00 98.0 F 93 H 17 117/48 L 90 L Room Air 05/29/24 03:00 Room Air 05/29/24 01:00 Room Air 05/29/24 00:00 87 05/28/24 23:57 98.1 F 86 17 116/40 L 94 L Room Air 05/28/24 23:00 Room Air 05/28/24 21:00 Room Air 05/28/24 20:00 83 05/28/24 20:00 96 Room Air 05/28/24 19:52 99.2 F 82 16 105/56 L 94 L 05/28/24 18:47 Room Air 05/28/24 17:00 Room Air 05/28/24 16:00 98.8 F 78 17 98/40 L 95 Room Air 05/28/24 16:00 80 05/28/24 15:00 Room Air 05/28/24 14:00 83 15 99/46 L 96 Room Air 05/28/24 13:00 82 94 L Room Air 05/28/24 13:00 Room Air 05/28/24 13:00 81 20 105/45 L 96 Room Air 05/28/24 12:00 80 05/28/24 12:00 80 20 105/40 L 97 Room Air Intake and Output 05/28/24 05/29/24 05/29/24 23:59 07:59 15:59 Intake Total 240 / 844.187 220 / 620 400 / 620 Output Total 800 / 1350 950 / 1600 650 / 1600 Balance -560 / -505.813 -730 / -980 -250 / -980 Intake: Intake, Oral Amount 240 / 780 220 / 620 400 / 620 Output: Output, Urine Amount 800 / 1350 950 / 1600 650 / 1600 Other: Number of Unmeasured Voids 1 0 0 Weight 100.017 kg Patient Weight 05/29/24 23:59 Weight 100.017 kg Laboratory Results - last 24 hr 05/28/24 11:59: POC Glucose 255 H 05/28/24 17:03: POC Glucose 250 H 05/28/24 20:05: POC Glucose 296 H 05/29/24 06:07: WBC 11.0 H, RBC 3.33 L, Hgb 9.0 L D, Hct 27.7 L, MCV 83.4, MCH 27.0, MCHC 32.4, RDW 17.0, Plt Count 316 D, MPV 9.3, Neut % (Auto) 84.8 H, Lymph % (Auto) 7.8 L, [place] % (Auto) 5.5, Eos % (Auto) 1.6, Baso % (Auto) 0.3, Neut # (Auto) 9.3 H, Lymph # (Auto) 0.9, [place] # (Auto) 0.6, Eos # (Auto) 0.2, Baso # (Auto) 0.0, Sodium 130 L, Potassium 4.7, Chloride 101, Carbon Dioxide 22, Anion Gap 11.7, BUN 22 H, Creatinine 1.40 H, Estimated Creat Clear 67, Estimated GFR 38 L, Est GFR ( Amer) 46 L, Glucose 379 H D, Calcium 8.7, Magnesium 1.7, Total Bilirubin 0.4, AST 26 D, ALT 31, Alkaline Phosphatase 82, Total Protein 5.8 L, Albumin 3.1 L D, Globulin 2.7, Albumin/Globulin Ratio 1.1 05/29/24 06:16: POC Glucose 428 H* I & O for Labs for Last 24 Hours: Intake & Output 05/26/24 05/27/24 05/28/24 05/29/24 23:59 23:59 23:59 23:59 Intake Total 529.000 / 629.000 624.187 / 844.187 620 / 620 Output Total 1000 / 1050 1350 / 1350 1600 / 1600 Balance -471.000 / -421.000 -725.813 / -505.813 -980 / -980 Weight 95.708 kg 100.017 kg 100.017 kg Microbiology Reports for the Last 24 Hours: Microbiology 05/27/24 10:23 Urine,Catheterized Urine Culture - Final 05/27/24 09:50 Blood Blood Culture - Final Strep agalactiae - (group b) Constitutional: Present no acute distress, obese, chronically ill appearing and cooperative Head: Present atraumatic and normocephalic ENT: Present normal exam Neck: Present normal inspection Respiratory: Present normal respiratory effort; Absent rhonchi, wheezes or crackles Cardiac: Present Reg Rate and Rhythm GI: Present soft and normal bowel sounds; Absent distention or tenderness Extremities: Present normal inspection and full ROM Skin: Present intact; Absent erythema Neuro: Present Grossly Intact, alert, awake, oriented x 3 and moves all extremities Assessment and Plan *Assessment and plan (1) Septic shock: Status: Acute Category: Medical Code(s): A41.9 - Sepsis, unspecified organism; R65.21 - Severe sepsis with septic shock (2) Gram-positive bacteremia: Status: Acute Category: Medical Code(s): R78.81 - Bacteremia (3) Candidiasis of breast: Problem Comment: right Status: Acute Category: Medical Code(s): B37.89 - Other sites of candidiasis (4) Schizoaffective disorder, bipolar type: Status: Acute Category: Medical Code(s): F25.0 - Schizoaffective disorder, bipolar type (5) Stroke-like symptoms: Status: Acute Category: Medical Code(s): R29.90 - Unspecified symptoms and signs involving the nervous system (6) Altered mental status: Status: Acute Qualifiers: Altered mental status type: delirium Qualified Code(s): R41.0 - Disorientation, unspecified Category: Medical Code(s): R41.82 - Altered mental status, unspecified (7) Obesity: Status: Chronic Qualifiers: Body mass index: BMI 40.0-44.9 Obesity classification: adult class 3 (BMI >= 40) Obesity type: due to excess calories Serious obesity comorbidity presence: with serious comorbidity Qualified Code(s): E66.01 - Morbid (severe) obesity due to excess calories; Z68.41 - Body mass index [BMI] 40.0-44.9, adult Category: Medical Code(s): E66.9 - Obesity, unspecified (8) Hypothyroidism (acquired): Status: Acute Category: Medical Code(s): E03.9 - Hypothyroidism, unspecified (9) HLD (hyperlipidemia): Status: Chronic Qualifiers: Hyperlipidemia type: mixed hyperlipidemia Qualified Code(s): E78.2 - Mixed hyperlipidemia Category: Medical Code(s): E78.5 - Hyperlipidemia, unspecified (10) HTN (hypertension): Status: Chronic Qualifiers: Hypertension type: primary hypertension Qualified Code(s): I10 - Essential (primary) hypertension Category: Medical Code(s): I10 - Essential (primary) hypertension (11) Diabetes: Status: Chronic Qualifiers: Diabetes mellitus complication status: with other specified complication Diabetes mellitus [facility] insulin use: unspecified [facility] insulin use status Diabetes mellitus type: type 2 Qualified Code(s): E11.69 - Type 2 diabetes mellitus with other specified complication Category: Medical Code(s): E11.9 - Type 2 diabetes mellitus without complications (12) Diastolic dysfunction: Status: Chronic Category: Medical Code(s): I51.89 - Other ill-defined heart diseases Plan Ms. Starkey is a 59-year-old female with history of bipolar/schizoaffective, obesity, diabetes, hypertension. Presented to the ER with concern for altered mental status and strokelike symptoms. Workup concerning for right sided deficits but also noted to become more hypotensive and found to have lab abnormalities consistent with septic shock. Did not respond to sepsis bolus. Initiated on norepinephrine and broad-spectrum antibiotics. Admitted to medicine for further management. Discussed case with ER physician, request admission for antibiotics, further workup of her sepsis, and electrolyte replacement. I agreed to admit. Seeing improvement daily. Blood cultures positive for GBS. Repeat cultures pending. Continues to require inpatient management. Problems addressed as follows: Septic shock with GBS bacteremia Altered mental status, improving Strokelike symptoms -Blood cultures positive for group B strep. Will transition to ceftriaxone 2 g daily. Needs 14 days total of antibiotics. Repeat cultures ordered for today. If remain negative, will consider PICC line tomorrow. - White count remains in normal range 11. No fevers. Hemoglobin 9.0. Kidney function at patient's baseline with BUN 22, creatinine 1.4. -Has returned to baseline mentation. Repeat CBC, CMP, magnesium ordered for the morning. Schizoaffective disorder Bipolar 2 -Significant medication regimen at home. Adjustments made due to encephalopathy/altered mental status -Continue Risperdal 1 mg nightly -Continue clonazepam 0.5 mg nightly. Decreased dose from home regimen -Continue bupropion 450 mg daily -Holding hydroxyzine twice daily -continue venlafaxine 100 mg PO 3 times a day Hypertension. Holding home hypertensive meds due to hypotension on presentation. Remains normotensive. Hypothyroid: Continue levothyroxine 75 mcg daily. TSH normal at 2.33 Type 2 diabetes: Morning glucose 203, A1c 7.3. Continue sliding scale insulin with fingersticks ACHS. Resume 75/25 combo insulin 20 units twice daily as formulary conversion. morning glucose 379. Yeast dermatitis: Continue nystatin powder as needed 3 times a day in skin folds COPD: DuoNebs as needed every 6 hours. Continue Symbicort twice daily Obesity complicates all aspects of her care Full code Diabetic diet Lovenox 40 mg subcu daily
[2024-05-29] MEDS: SENNOSIDES 8.6MG/DOCUSATE 50MG TABLET 1 TAB PO ×2 (12:06→21:01)
[2024-05-29 12:17] LABS: POC Glucose,Bedside 398 (70-110)
[2024-05-29] MEDS: CEFTRIAXONE SODIUM 2 GM in 0.9 % SODIUM CHLORIDE 100 ML IV (16:09)
[2024-05-29 16:30] LABS: POC Glucose,Bedside 373 (70-110)
[2024-05-29] MEDS: humaLOG MIX 75/25 3ML FLEXPEN 20 UNIT SQ (18:26)
--- NOTE | 2024-05-29 18:44 | PC.NURSE ---
pt has been okay today except occasionally pt would call out stating someone is listening to me on the phone when i try to make a call reassure pt. pt also stated i will call administration if someone doesn't make them stop listening to me. notified dwight of this. pt has been pleasant this evening, sitting up in bed watching tv. glucose has been elevated and aware and adjusted meds. pts poa spoke with dwight. cb within reach no concerns at this time.
[2024-05-29 20:13] LABS: POC Glucose,Bedside 341 (70-110)
[2024-05-29] MEDS: risperiDONE 1MG TABLET 1 MG PO (21:01)
[2024-05-29] MEDS: clonazePAM 0.5MG TABLET 0.5 MG PO (21:01)
[2024-05-30] VITALS: PULSE 87
[2024-05-30 04:00] VITALS: BP 114/72; PULSE 85; PULSE 89; RESP 16; TEMP 36.8; O2SAT 94; BMI 37.1
--- NOTE | 2024-05-30 05:47 | PC.NURSE ---
Alert and oriented. Patient has rested well throughout the night with no complaints. Nystatin powder applied under R breast. Stage 1 noted to coccyx and under right buttock/upper thigh, patches applied. Incontinent, purewick in place. Redness noted to lower extremities. Room air. ACHS FS, treated per dec. Call light in reach.
[2024-05-30] MEDS: FLUTICASONE/SALMETEROL 250/50MCG DISKUS 1 PUFF IH (06:16)
[2024-05-30] MEDS: TIOTROPIUM 18MCG/PUFF INHALER 1 CAP IH (06:16)
[2024-05-30] MEDS: humaLOG 100 UNITS/ML 10ML VIAL (SSI) SQ ×2 (06:28→11:14)
[2024-05-30] MEDS: LEVOTHYROXINE 50MCG (0.05MG) TAB 50 MCG PO (06:28)
[2024-05-30 07:10] LABS: Basophils # 0.1 K/mm3 (0-0.2); Basophils % 0.7 % (0.1-2.0); Eosinophils # 0.3 K/mm3 (0.0-0.4); Eosinophils % 2.7 % (0.1-12.0); Hemoglobin 9.3 g/dL (12.2-16.2); Lymphocytes # 1.1 K/mm3 (0.7-4.5); Lymphocytes % 10.4 % (10-50); Mean Corpuscular Hemoglobin 25.4 pg (27.0-31.2); Mean Platelet Volume 9.1 fl (7.4-10.4); Monocytes # 0.6 K/mm3 (0.1-1.0); Monocytes % 5.8 % (1.7-9.3); Neutrophils # 8.2 K/mm3 (1.8-7.8); Neutrophils % 80.4 % (37.0-80.0); Platelet Count 391 K/mm3 (142-424); Red Blood Count 3.66 M/mm3 (4.20-5.40); Red Cell Distribution Width 16.9 % (11.5-17.5); White Blood Count 10.2 K/mm3 (4.8-10.8)
--- NOTE | 2024-05-30 07:13 | XR_ITS ---
FINAL REPORT CLINICAL HISTORY: Confirm PICC line placement COMPARISON: 05/27/2024 FINDINGS: The heart size is normal. The mediastinum is normal. In the interval since the prior chest x-ray of May 27 a PICC line has been inserted through a right arm approach. The tip of the PICC line is in the superior vena cava. Mild scarring is present in the lung bases. There are no pleural effusions. There is no pneumothorax. There is no osseous abnormality. IMPRESSION: No acute cardiopulmonary process Since the prior exam there has been interval insertion of a PICC line, with its tip in the superior vena cava. Reviewed, Interpreted and Dictated by Jagdeep Blanca MD Transcribed by Caitlyn Franco Authenticated and [facility]
[2024-05-30 07:18] LABS: Albumin Level 3.3 g/dl (3.5-5.0); Chloride 103 mmol/L (98-107); Potassium 4.2 mmoL/L (3.5-5.1); Sodium 134 mmol/L (136-145)
[2024-05-30 07:20] LABS: Blood Urea Nitrogen 17 mg/dl (7-17); Creatinine Clearance Estimated 77 mL/min (50-200); Estimated Glomerular Filt Rate 46 ml/min (>60); GFR (African American) 55 ML/MIN (>60)
[2024-05-30 07:21] LABS: Alanine Aminotransferase 26 U/L (12-78); Albumin/Globulin Ratio 1.1 (1.1-1.8); Alkaline Phosphatase 97 U/L (38-126); Anion Gap 11.2 mEq/L (5-15); Aspartate Amino Transferase 21 U/L (14-36); Bilirubin,Total 0.4 mg/dl (0.2-1.3); Calcium 9.1 mg/dl (8.4-10.2); Carbon Dioxide 24 mmol/L (22.0-30.0); Globulin 2.9 g/dL (1.3-3.2); Glucose 200 mg/dl (74-100); Total Protein,Serum 6.2 g/dl (6.3-8.2)
--- NOTE | 2024-05-30 07:38 | EXP.DC.SUM ---
General Admission date:: 05/27/24 Discharge date: 05/30/24 HPI HPI HPI: Ms. Starkey is a 59-year-old female resident from [facility]. Reportedly had trouble forming sentences this morning. Last known normal was last night. She had a temperature of 102.2 orally. Was given Tylenol prior to admission and transferred to the ER for further evaluation. Patient was slow to respond when EMS showed up. Appeared confused and disoriented. Arrived on 2 L nasal cannula with sats in the low 90s. Found to be lethargic with concern for focal neurologic deficits on the right side. Workup in the ER concerning for possible stroke was negative. No acute findings on CT of head. Was found however to be tachycardic, tachypneic, had leukocytosis of 14.6. Concerning on chest imaging for possible pneumonia. Patient meeting sepsis criteria. Blood pressure continued to decline during workup in the ER after receiving IV antibiotics. Received sepsis bolus and continued to be hypotensive. Initiated on norepinephrine. Medicine consulted for further management and admission of septic shock. On arrival to the floor, patient is frankly altered. Unable to give much history. Knows her name but appears quite weak and confused. Movement grossly intact bilaterally. Hospital Course Hospital Course Hospital Course: Ms. Starkey is a 59-year-old female with history of bipolar/schizoaffective, obesity, diabetes, hypertension. Presented to the ER with concern for altered mental status and strokelike symptoms. Workup concerning for right sided deficits but also noted to become more hypotensive and found to have lab abnormalities consistent with septic shock. Did not respond to sepsis bolus. Initiated on norepinephrine and broad-spectrum antibiotics. Admitted to medicine for further management. Discussed case with ER physician, request admission for antibiotics, further workup of her sepsis, and electrolyte replacement. I agreed to admit. Showed improvement clinically over the first 24 hours and able to wean off vasopressors. Mentation gradually improved back to baseline after 48 hours. Blood cultures returned positive for strep species (GBS). Repeat blood cultures obtained, remain negative. Responding to current treatment. Will continue 48 hours of antibiotics. PICC line placed on day of discharge. Stable to transition back to intermediate for further management. Problems addressed as follows: Septic shock with GBS bacteremia Altered mental status, improving Strokelike symptoms -Presented with altered mentation, during workup in the ER developed hypotension. Was started on norepinephrine. Showed improvement in her blood pressure. Able to wean off vasopressors. Blood cultures returned positive for group B strep. Was initially on broad-spectrum antibiotics with vancomycin and Unasyn. Antibiotics weaned to ceftriaxone 2 g daily. Will continue 14 days total of antibiotics for her bacteremia. Repeat cultures obtained and remain negative at time of discharge. PICC line placed on day of discharge. Recommend continuing 10 more days of ceftriaxone to complete 14 days total of antibiotics. Okay to remove PICC line after completing antibiotics. Would repeat labs with CBC, CMP, magnesium in 1 week. -Kidney function remains at patient's baseline of BUN 17, creatinine 1.2. Tolerating p.o. intake. Stable on room air. Schizoaffective disorder Bipolar 2 -Significant medication regimen at home. Adjustments made due to encephalopathy/altered mental status -Continue Risperdal 1 mg nightly -Continue clonazepam 0.5 mg nightly. Decreased dose from home regimen -Continue bupropion 450 mg daily -Recommend continuing to hold hydroxyzine twice daily -continue venlafaxine 100 mg PO 3 times a day Hypertension. Holding home hypertensive meds due to hypotension on presentation. Remains normotensive. Resume beta-roxana only. Hypothyroid: Continue levothyroxine 75 mcg daily. TSH normal at 2.33 Type 2 diabetes: Morning glucose 203, A1c 7.3. Continue sliding scale insulin with fingersticks ACHS. Resume 75/25 combo insulin 20 units twice daily as formulary conversion. morning glucose 379. Yeast dermatitis: Continue nystatin powder as needed 3 times a day in skin folds COPD: DuoNebs as needed every 6 hours. Continue Symbicort twice daily Total time spent on discharge 32 minutes in counseling, documentation, chart review, and direct care with patient. Exam Data for Last 24 hours Vital signs and Labs for Last 24 Hours: Temp Pulse Resp BP Pulse Ox O2 Del Method O2 Flow Rate 98.2 F 89 16 114/72 94 L Room Air 2 05/30/24 04:00 05/30/24 04:00 05/30/24 04:00 05/30/24 04:00 05/30/24 04:00 05/30/24 06:38 05/27/24 23:00 Laboratory Results - last 24 hr 05/29/24 06:07: Hgb 9.0 L D 05/29/24 11:59: POC Glucose 398 H* 05/29/24 16:02: POC Glucose 373 H* 05/29/24 20:06: POC Glucose 341 H* 05/30/24 05:42: WBC 10.2, RBC 3.66 L, Hgb 9.3 L, Hct 30.0 L, MCV 82.0, MCH 25.4 L, MCHC 31.0 L, RDW 16.9, Plt Count 391, MPV 9.1, Neut % (Auto) 80.4 H, Lymph % (Auto) 10.4, [place] % (Auto) 5.8, Eos % (Auto) 2.7, Baso % (Auto) 0.7, Neut # (Auto) 8.2 H, Lymph # (Auto) 1.1, [place] # (Auto) 0.6, Eos # (Auto) 0.3, Baso # (Auto) 0.1, Sodium 134 L, Potassium 4.2, Chloride 103, Carbon Dioxide 24, Anion Gap 11.2, BUN 17, Creatinine 1.20 H, Estimated Creat Clear 77, Estimated GFR 46 L, Est GFR ( Amer) 55 L, Glucose 200 H D, Calcium 9.1, Total Bilirubin 0.4, AST 21, ALT 26, Alkaline Phosphatase 97, Total Protein 6.2 L, Albumin 3.3 L, Globulin 2.9, Albumin/Globulin Ratio 1.1 I & O for Last 24 hours: Intake & Output 05/27/24 05/28/24 05/29/24 05/30/24 23:59 23:59 23:59 23:59 Intake Total 529.000 / 629.000 624.187 / 856.778 5719 / 1530 Output Total 1000 / 1050 1350 / 1350 3300 / 3300 400 / 400 Balance -471.000 / -421.000 -725.813 / -505.813 -1770 / -1770 -400 / -400 Weight 95.708 kg 100.017 kg 100.017 kg 98.656 kg Microbiology Reports for the Last 24 Hours: Microbiology 05/27/24 10:23 Urine,Catheterized Urine Culture - Final 05/27/24 09:50 Blood Blood Culture - Final Strep agalactiae - (group b) Constitutional Constitutional: no acute distress, obese, chronically ill appearing and cooperative *Routine HEENT Exam Head: Present normocephalic Eye: Present EOMI and PERRL ENT: Present mucous membranes moist *Routine Neck Exam Neck: Present supple; Absent lymphadenopathy *Routine Respiratory Exam Respiratory: Present CTA bilaterally; Absent rhonchi, wheezes or crackles *Routine Cardiovascular Exam Cardiovascular: Present RRR *Routine Abdominal Exam Abdominal: Present soft and normoactive bowel sounds; Absent tenderness *Routine Rectal Exam Patient deferred: visual exam *Routine Exam Patient deferred: external exam *Routine Extremities Exam Extremities: Present edema (Trace lower extremities); Absent cyanosis or clubbing *Routine Skin Exam Skin: Present warm; Absent rash *Routine Neurological Exam Neurological: Present alert, oriented X3 and moving all extremities; Absent altered mental status Routine Psychiatric Exam Comments: Forgetful but appears at baseline affect and mentation Results Data Completed and Pending Labs on day of discharge: Labs from last 24 hours 05/30/24 05/29/24 05/29/24 05:42 20:06 16:02 WBC 10.2 RBC 3.66 L Hgb 9.3 L Hct 30.0 L MCV 82.0 MCH 25.4 L MCHC 31.0 L RDW 16.9 Plt Count 391 MPV 9.1 Neut % (Auto) 80.4 H Lymph % (Auto) 10.4 [place] % (Auto) 5.8 Eos % (Auto) 2.7 Baso % (Auto) 0.7 Neut # (Auto) 8.2 H Lymph # (Auto) 1.1 [place] # (Auto) 0.6 Eos # (Auto) 0.3 Baso # (Auto) 0.1 Sodium 134 L Potassium 4.2 Chloride 103 Carbon Dioxide 24 Anion Gap 11.2 BUN 17 Creatinine 1.20 H Estimated Creat Clear 77 Estimated GFR 46 L Est GFR ( Amer) 55 L Glucose 200 H D POC Glucose 341 H* 373 H* Calcium 9.1 Total Bilirubin 0.4 AST 21 ALT 26 Alkaline Phosphatase 97 Total Protein 6.2 L Albumin 3.3 L Globulin 2.9 Albumin/Globulin Ratio 1.1 05/29/24 05/29/24 11:59 06:07 WBC RBC Hgb 9.0 L D Hct MCV MCH MCHC RDW Plt Count MPV Neut % (Auto) Lymph % (Auto) [place] % (Auto) Eos % (Auto) Baso % (Auto) Neut # (Auto) Lymph # (Auto) [place] # (Auto) Eos # (Auto) Baso # (Auto) Sodium Potassium Chloride Carbon Dioxide Anion Gap BUN Creatinine Estimated Creat Clear Estimated GFR Est GFR ( Amer) Glucose POC Glucose 398 H* Calcium Total Bilirubin AST ALT Alkaline Phosphatase Total Protein Albumin Globulin Albumin/Globulin Ratio Preliminary micro results at discharge 05/27/24 09:50 Blood Culture - Preliminary Blood DS: Diagnosis Discharge Diagnosis (1) Septic shock: Status: Acute Code(s): A41.9 - Sepsis, unspecified organism; R65.21 - Severe sepsis with septic shock (2) Gram-positive bacteremia: Status: Acute Code(s): R78.81 - Bacteremia (3) Candidiasis of breast: Status: Acute Code(s): B37.89 - Other sites of candidiasis Problem details: right (4) Schizoaffective disorder, bipolar type: Status: Acute Code(s): F25.0 - Schizoaffective disorder, bipolar type (5) Stroke-like symptoms: Status: Acute Code(s): R29.90 - Unspecified symptoms and signs involving the nervous system (6) Altered mental status: Status: Acute Code(s): R41.82 - Altered mental status, unspecified Qualifiers: Altered mental status type: delirium Qualified Code(s): R41.0 - Disorientation, unspecified (7) Obesity: Status: Chronic Code(s): E66.9 - Obesity, unspecified Qualifiers: Body mass index: BMI 40.0-44.9 Obesity classification: adult class 3 (BMI >= 40) Obesity type: due to excess calories Serious obesity comorbidity presence: with serious comorbidity Qualified Code(s): E66.01 - Morbid (severe) obesity due to excess calories; Z68.41 - Body mass index [BMI] 40.0-44.9, adult (8) Hypothyroidism (acquired): Status: Acute Code(s): E03.9 - Hypothyroidism, unspecified (9) HLD (hyperlipidemia): Status: Chronic Code(s): E78.5 - Hyperlipidemia, unspecified Qualifiers: Hyperlipidemia type: mixed hyperlipidemia Qualified Code(s): E78.2 - Mixed hyperlipidemia (10) HTN (hypertension): Status: Chronic Code(s): I10 - Essential (primary) hypertension Qualifiers: Hypertension type: primary hypertension Qualified Code(s): I10 - Essential (primary) hypertension (11) Diabetes: Status: Chronic Code(s): E11.9 - Type 2 diabetes mellitus without complications Qualifiers: Diabetes mellitus complication status: with other specified complication Diabetes mellitus 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 insulin use: unspecified skilled nursing insulin use status Diabetes mellitus type: type 2 Qualified Code(s): E11.69 - Type 2 diabetes mellitus with other specified complication (12) Diastolic dysfunction: Status: Chronic Code(s): I51.89 - Other ill-defined heart diseases Meds Home Medications and Allergies Home Medications ?Medication ?Instructions ?Recorded ?Confirmed ?Type atorvastatin 20 mg tablet 20 mg PO DAILY 01/05/24 05/28/24 History clonazepam 0.5 mg tablet 0.5 mg PO DAILY 01/05/24 05/27/24 History clopidogrel 75 mg tablet (Plavix) 75 mg PO DAILY 01/05/24 05/27/24 History dupilumab 300 mg/2 mL subcutaneous 300 mg SQ DIRECTED 01/05/24 05/28/24 History syringe (Dupixent) fenofibrate nanocrystallized 48 mg 48 mg PO DAILY 01/05/24 05/27/24 History tablet furosemide 40 mg tablet 40 mg PO DAILY 01/05/24 05/27/24 History hydroxyzine HCl 50 mg tablet 100 mg PO BID 01/05/24 05/27/24 History insulin NPH-regular 70-30 U-100 25 unit SQ BID 01/05/24 05/27/24 History insulin 100 unit/mL subcutaneous pen (Humulin 70/30 U-100 KwikPen) insulin detemir U-100 100 unit/mL 30 unit SQ HS 01/05/24 05/27/24 History (3 mL) subcutaneous pen (Levemir FlexPen) levothyroxine 50 mcg tablet 50 mcg PO DAILY 01/05/24 05/27/24 History linagliptin 5 mg tablet (Tradjenta) 5 mg PO DAILY 01/05/24 05/27/24 History losartan 100 mg tablet 100 mg PO DAILY 01/05/24 05/27/24 History metformin 1,000 mg tablet 1,000 mg PO BIDWMEAL 01/05/24 05/27/24 History metoprolol succinate 50 mg 50 mg PO DAILY 01/05/24 05/27/24 History tablet,extended release 24 hr pantoprazole 20 mg tablet,delayed 20 mg PO DAILY 01/05/24 05/27/24 History release risperidone 1 mg tablet 1 mg PO HS 01/05/24 05/27/24 History sennosides 8.6 mg tablet (senna) 8.6 mg PO BID 01/05/24 05/27/24 History spironolactone 50 mg tablet 50 mg PO DAILY 01/05/24 05/27/24 History venlafaxine 100 mg tablet 100 mg PO TID 01/05/24 05/27/24 History albuterol sulfate 90 mcg/actuation 2 puff inhalation Q6HP PRN 01/12/24 05/28/24 History aerosol inhaler (Ventolin HFA) Shortness Of Breath aluminum-mag hydroxide-simethicone 30 ml PO TIDP PRN Acid Reflux 01/12/24 05/28/24 History 200 mg-200 mg-20 mg/5 mL oral susp (Antacid) azelastine 137 mcg (0.1 %) nasal 2 spray intranasal BID 01/12/24 05/28/24 History spray guaifenesin 200 mg tablet 200 mg PO Q4HP PRN Cough 01/12/24 05/28/24 History loperamide 2 mg capsule 2 mg PO NEEDED PRN Diarrhea 01/12/24 05/27/24 History ondansetron HCl 4 mg tablet 4 mg PO Q6HP PRN Nausea And 01/12/24 05/28/24 History Vomiting acetaminophen 500 mg capsule 500 mg PO QIDP PRN Mild Pain 01/28/24 05/28/24 History (Scale Score 1-4) isosorbide mononitrate 30 mg 30 mg PO DAILY #90 tabs 01/28/24 05/27/24 Rx tablet,extended release 24 hr budesonide-formoterol HFA 160 2 puff inhalation BID 90 days 02/15/24 05/27/24 Rx mcg-4.5 mcg/actuation aerosol #10.2 grams inhaler (Symbicort) tiotropium bromide 18 mcg capsule 1 cap inhalation DAILY 90 days #90 02/15/24 05/27/24 Rx with inhalation device (Spiriva puffs with HandiHaler) diclofenac sodium 1 % topical gel 2 g topical QID #100 grams 04/12/24 05/28/24 Rx (Voltaren Arthritis Pain) ferrous sulfate 325 mg (65 mg 325 mg PO DAILY #90 tabs 04/26/24 05/27/24 Rx iron) tablet gabapentin 100 mg capsule 100 mg PO BID #60 caps 04/26/24 05/27/24 Rx hydrocodone 5 mg-acetaminophen 325 1 tab PO TID 30 days #90 tabs 05/10/24 05/27/24 Rx mg tablet nystatin 100,000 unit/gram topical 1 applic topical TID #60 grams 05/24/24 05/27/24 Rx powder clonazepam 0.5 mg tablet 1 mg PO HS 05/27/24 05/27/24 History fluticasone propionate 50 1 spray intranasal BID 05/27/24 05/27/24 History mcg/actuation nasal spray,suspension bupropion HCl 150 mg 24 hr tablet, 450 mg PO DAILY 05/28/24 05/28/24 History extended release fexofenadine 180 mg tablet 180 mg PO DAILY 05/28/24 05/28/24 History ceftriaxone 2 gram intravenous 2 g IV Q24H 10 days 05/30/24 Rx solution New Prescriptions to Start Prescriptions: Allergies Allergy/AdvReac Type Severity Reaction Status Date / Time lactose [LACTOSE] Allergy Unknown Unknown Verified 05/27/24 09:23 allergy reaction TD Inhibitors Allergy Unknown Verified 05/27/24 09:23 allergy reaction lisinopril Allergy Unknown Verified 05/27/24 09:23 allergy reaction Discharge Plan Disposition Patient Disposition: [facility]mediate Care [facility] Condition: Fair Discharge Order Discharge Orders: Discharge Order (Routine); Ordered 05/30/24 Ordered By: Flip Hickman Follow up Plan Prescriptions/Medication Reconciliation: New ceftriaxone 2 gram recon soln 2 g IV Q24H 10 Days Rx Instructions: first dose due 05/31/24 Continued loperamide 2 mg capsule 2 mg PO NEEDED PRN (Reason: Diarrhea) azelastine 137 mcg (0.1 %) aerosol,spray 2 spray intranasal BID albuterol sulfate [Ventolin HFA] 90 mcg/actuation HFA aerosol inhaler 2 puff inhalation Q6HP PRN (Reason: Shortness Of Breath) guaifenesin 200 mg tablet 200 mg PO Q4HP PRN (Reason: Cough) alum-mag hydroxide-simeth [Antacid] 200-200-20 mg/5 mL suspension 30 ml PO TIDP PRN (Reason: Acid Reflux) Rx Instructions: administer between meals and at bedtime ondansetron HCl 4 mg tablet 4 mg PO Q6HP PRN (Reason: Nausea And Vomiting) acetaminophen 500 mg capsule 500 mg PO QIDP PRN (Reason: Mild Pain (Scale Score 1-4)) budesonide-formoterol [Symbicort] 160-4.5 mcg/actuation HFA aerosol inhaler 2 puff inhalation BID 90 Days Qty: 10.2 2RF tiotropium bromide [Spiriva with HandiHaler] 18 mcg capsule, w/inhalation device 1 cap inhalation DAILY 90 Days Qty: 90 3RF Rx Instructions: puncture 1 cap using device; one dose = 2 inhalations diclofenac sodium [Voltaren Arthritis Pain] 1 % gel 2 g topical QID Qty: 100 2RF Rx Instructions: apply to single elbow, wrist or hand; for hand includes palm/fingers/back of hand ferrous sulfate 325 mg (65 mg iron) tablet 325 mg PO DAILY Qty: 90 3RF gabapentin 100 mg capsule 100 mg PO BID Qty: 60 5RF hydrocodone-acetaminophen 5-325 mg tablet 1 tab PO TID 30 Days Qty: 90 0RF nystatin 100,000 unit/gram powder 1 applic topical TID Qty: 60 0RF atorvastatin 20 mg tablet 20 mg PO DAILY clonazepam 0.5 mg tablet 0.5 mg PO DAILY sennosides [senna] 8.6 mg tablet 8.6 mg PO BID metoprolol succinate 50 mg tablet extended release 24 hr 50 mg PO DAILY hydroxyzine HCl 50 mg tablet 100 mg PO BID clopidogrel [Plavix] 75 mg tablet 75 mg PO DAILY pantoprazole 20 mg tablet,delayed release (DR/EC) 20 mg PO DAILY levothyroxine 50 mcg tablet 50 mcg PO DAILY metformin 1,000 mg tablet 1,000 mg PO BIDWMEAL risperidone 1 mg tablet 1 mg PO HS Humulin 70/30 U-100 KwikPen 100 unit/mL (70-30) insulin pen 25 unit SQ BID Levemir FlexPen 100 unit/mL (3 mL) insulin pen 30 unit SQ HS fenofibrate nanocrystallized 48 mg tablet 48 mg PO DAILY Dupixent Syringe 300 mg/2 mL syringe 300 mg SQ DIRECTED Rx Instructions: every 2 weeks venlafaxine 100 mg tablet 100 mg PO TID Tradjenta 5 mg tablet 5 mg PO DAILY clonazepam 0.5 mg tablet 1 mg PO HS fluticasone propionate 50 mcg/actuation spray,suspension 1 spray INTRANASAL BID bupropion HCl 150 mg tablet extended release 24 hr 450 mg PO DAILY fexofenadine 180 mg Tablet 180 mg PO DAILY Held isosorbide mononitrate 30 mg tablet extended release 24 hr 30 mg PO DAILY Qty: 90 3RF Hold Instructions: Pending evaluation by accepting provider at intermediate as blood pressure has been normal off these meds after her sepsis. furosemide 40 mg tablet 40 mg PO DAILY Hold Instructions: Pending evaluation by accepting provider at intermediate as blood pressure has been normal off these meds after her sepsis. losartan 100 mg tablet 100 mg PO DAILY Hold Instructions: Pending evaluation by accepting provider at intermediate as blood pressure has been normal off these meds after her sepsis. spironolactone 50 mg tablet 50 mg PO DAILY Hold Instructions: Pending evaluation by accepting provider at intermediate as blood pressure has been normal off these meds after her sepsis. Problem Reconciliation Problems Reviewed?: Yes Patient Discharge Instructions ACTIVITY: Continue current activity DIET: continue same diet Patient Instructions: DI for Sepsis -- Adult Print Language: French Providers Primary Care Provider: Provider,Referral Admit Provider: Flip Hickman Attending Provider: Flip Hickman
--- NOTE | 2024-05-30 07:55 | SW/DCPLANNER ---
Patient currently resides at [facility] level of care. I have updated Africa gonzalez/ Bharat that patient will return today and will need IV Ceftriaxone at time of discharge. PICC line has been ordered.
[2024-05-30 07:59] LABS: Magnesium 1.7 mg/dl (1.6-2.3)
[2024-05-30 08:00] VITALS: BP 127/66; PULSE 100; PULSE 95; RESP 18; TEMP 37; O2SAT 92
[2024-05-30] MEDS: GABAPENTIN 100MG CAPSULE 100 MG PO (08:12)
[2024-05-30] MEDS: buPROPion HCl SR 150MG TAB 450 MG PO (08:12)
[2024-05-30] MEDS: ENOXAPARIN 40MG/0.4ML SYRINGE 40 MG SQ (08:12)
[2024-05-30] MEDS: CLOPIDOGREL 75MG TAB 75 MG PO (08:12)
[2024-05-30] MEDS: SENNOSIDES 8.6MG/DOCUSATE 50MG TABLET 1 TAB PO (08:12)
[2024-05-30] MEDS: humaLOG MIX 75/25 3ML FLEXPEN 20 UNIT SQ (08:12)
[2024-05-30] MEDS: VENLAFAXINE 37.5MG TABLET 112.5 MG PO ×2 (08:12→12:25)
[2024-05-30] MEDS: NYSTATIN TOPICAL POWDER 30GM TP ×2 (08:17→12:25)
[2024-05-30 11:17] LABS: POC Glucose,Bedside 337 (70-110)
[2024-05-30 11:29] VITALS: BP 146/83; PULSE 88; RESP 18; TEMP 36.8; O2SAT 92
[2024-05-30 12:00] VITALS: PULSE 100
--- NOTE | 2024-05-30 12:04 | PC.NURSE ---
report called to madelyn at [facility]
[2024-05-31 07:12] LABS: Vitamin B1 128.5 nmol/L (66.5-200.0)
== END 2024-05-30 12:43 | DRG 871 ==
LOC: ER 09:39 → 2ND 13:01
PROVIDERS: Admitting Provider Internal Medicine Adolescent Medicine; Emergency Provider Emergency Medicine; Visit Provider Internal Medicine Adolescent Medicine
DX: A40.1 Sepsis due to streptococcus, group B (principal); R65.21 Severe sepsis with septic shock; Z68.41 Body mass index [BMI] 40.0-44.9, adult; B37.89 Other sites of candidiasis; E66.01 Morbid (severe) obesity due to excess calories; E11.69 Type 2 diabetes mellitus with other specified complication; F25.0 Schizoaffective disorder, bipolar type; E03.9 Hypothyroidism, unspecified; Z79.4 Long term (current) use of insulin; E66.9 Obesity, unspecified; J44.9 Chronic obstructive pulmonary disease, unspecified; I10 Essential (primary) hypertension; Z79.84 Long term (current) use of oral hypoglycemic drugs
CPT/HCPCS: 36569; 36415; 70450; 70496; 70498; 71045; 80050; 80053; 80061; 80307; 81001; 82607; 82746; 82803; 82962; 83036; 83605; 83735; 83880; 84425; 84443; 84484; 85007; 85025; 85027; 85610; 85730; 87040; 87077; 87086; 87186; 87581; 87632; 87635; 87636; 87798; 93005; 94640; 99291; C1751; J0295; J0696; J1650; J3475; J7120; Q9967

== ENCOUNTER 2024-06-06 14:06 | Emergency (ER) | payer MEDICAID, SELFPAY ==
[2024-06-06 14:00] VITALS: BP 143/59; PULSE 73; O2SAT 99
[2024-06-06 14:06] VITALS: BP 143/59; PULSE 79; RESP 20; TEMP 36.6; O2SAT 100; BMI 29.5
--- NOTE | 2024-06-06 14:07 | CA_ITS ---
FINAL REPORT TECHNIQUE: Ultrasound images of the deep venous system were obtained from the left groin to the calf veins. CLINICAL HISTORY: LE swelling, recent hospital stay for septic shock, chronic LE edema, CAD, HTN, HLD, COPD, DM, ex smoker. Pain in posterior thigh. Denies trauma. COMPARISON: None FINDINGS: There is limited visualization of the peroneal veins secondary to edema. Otherwise, the deep venous system is normally compressible. Normal flow is identified. IMPRESSION: No evidence of left lower extremity DVT. Reviewed, Interpreted and Dictated by Jagdeep Blanca MD Transcribed by Gwen Quinonez Authenticated and [facility]
--- NOTE | 2024-06-06 14:10 | HMH.EDGENADL ---
Discharge Plan Disposition Patient Disposition: Xfer [facility] Condition: Good Prescriptions Prescriptions: No Action loperamide 2 mg capsule 2 mg PO NEEDED PRN (Reason: Diarrhea) azelastine 137 mcg (0.1 %) aerosol,spray 2 spray intranasal BID albuterol sulfate [Ventolin HFA] 90 mcg/actuation HFA aerosol inhaler 2 puff inhalation Q6HP PRN (Reason: Shortness Of Breath) guaifenesin 200 mg tablet 200 mg PO Q4HP PRN (Reason: Cough) alum-mag hydroxide-simeth [Antacid] 200-200-20 mg/5 mL suspension 30 ml PO TIDP PRN (Reason: Acid Reflux) Rx Instructions: administer between meals and at bedtime ondansetron HCl 4 mg tablet 4 mg PO Q6HP PRN (Reason: Nausea And Vomiting) levothyroxine 75 mcg tablet 75 mcg PO DAILY Qty: 90 3RF clonazepam 0.5 mg tablet 0.5 mg PO HS acetaminophen 500 mg capsule 500 mg PO QIDP PRN (Reason: Mild Pain (Scale Score 1-4)) isosorbide mononitrate 30 mg tablet extended release 24 hr 30 mg PO DAILY Qty: 90 3RF budesonide-formoterol [Symbicort] 160-4.5 mcg/actuation HFA aerosol inhaler 2 puff inhalation BID 90 Days Qty: 10.2 2RF tiotropium bromide [Spiriva with HandiHaler] 18 mcg capsule, w/inhalation device 1 cap inhalation DAILY 90 Days Qty: 90 3RF Rx Instructions: puncture 1 cap using device; one dose = 2 inhalations diclofenac sodium [Voltaren Arthritis Pain] 1 % gel 2 g topical QID Qty: 100 2RF Rx Instructions: apply to single elbow, wrist or hand; for hand includes palm/fingers/back of hand ferrous sulfate 325 mg (65 mg iron) tablet 325 mg PO DAILY Qty: 90 3RF gabapentin 100 mg capsule 100 mg PO BID Qty: 60 5RF nystatin 100,000 unit/gram powder 1 applic topical TID Qty: 60 0RF hydrocodone-acetaminophen 5-325 mg tablet 1 tab PO TID 30 Days Qty: 90 0RF atorvastatin 20 mg tablet 20 mg PO DAILY clonazepam 0.5 mg tablet 0.5 mg PO DAILY furosemide 40 mg tablet 40 mg PO DAILY sennosides [senna] 8.6 mg tablet 8.6 mg PO BID metoprolol succinate 50 mg tablet extended release 24 hr 50 mg PO DAILY hydroxyzine HCl 50 mg tablet 100 mg PO BID clopidogrel [Plavix] 75 mg tablet 75 mg PO DAILY pantoprazole 20 mg tablet,delayed release (DR/EC) 20 mg PO DAILY metformin 1,000 mg tablet 1,000 mg PO BIDWMEAL losartan 100 mg tablet 100 mg PO DAILY risperidone 1 mg tablet 1 mg PO HS Humulin 70/30 U-100 KwikPen 100 unit/mL (70-30) insulin pen 25 unit SQ BID Levemir FlexPen 100 unit/mL (3 mL) insulin pen 30 unit SQ HS fenofibrate nanocrystallized 48 mg tablet 48 mg PO DAILY Dupixent Syringe 300 mg/2 mL syringe 300 mg SQ DIRECTED Rx Instructions: every 2 weeks venlafaxine 100 mg tablet 100 mg PO TID spironolactone 50 mg tablet 50 mg PO DAILY Tradjenta 5 mg tablet 5 mg PO DAILY fluticasone propionate 50 mcg/actuation spray,suspension 1 spray INTRANASAL BID bupropion HCl 150 mg tablet extended release 24 hr 450 mg PO DAILY fexofenadine 180 mg Tablet 180 mg PO DAILY ceftriaxone 2 gram recon soln 2 g IV Q24H 10 Days Rx Instructions: first dose due 05/31/24 Referrals Follow up/Referrals: Gerardo Yan MD [Primary Care Provider] - See instructions Activity Restrictions/Add. Instructions Additional Instructions/Restrictions: You were evaluated at the emergency department today. At this time, ultrasound does not show any evidence of blood clot. Please follow-up closely with primary care. Continue taking antibiotics as an outpatient. Return to the emergency department for new or worsening symptoms. Clinical Impressions Clinical Impression: Leg swelling Instructions Patient Instructions: DI for Cellulitis -- Adult Print Language Print Language: Sami Discharge ED Provider: Devi Caro General Adult HPI <Dae Cash
[2024-06-06 14:23] LABS: Basophils # 0.1 K/mm3 (0-0.2); Basophils % 1.1 % (0.1-2.0); Eosinophils # 0.3 K/mm3 (0.0-0.4); Eosinophils % 3.2 % (0.1-12.0); Hematocrit 32.5 % (37.0-47.0); Lymphocytes # 1.2 K/mm3 (0.7-4.5); Lymphocytes % 14.5 % (10-50); Mean Corpuscular HGB Conc 30.7 g/dL (31.8-35.4); Mean Corpuscular Hemoglobin 25.7 pg (27.0-31.2); Mean Corpuscular Volume 83.7 fl (81-99); Mean Platelet Volume 7.8 fl (7.4-10.4); Monocytes # 0.4 K/mm3 (0.1-1.0); Monocytes % 4.3 % (1.7-9.3); Neutrophils # 6.5 K/mm3 (1.8-7.8); Platelet Count 513 K/mm3 (142-424); Red Blood Count 3.88 M/mm3 (4.20-5.40); Red Cell Distribution Width 17.9 % (11.5-17.5); White Blood Count 8.4 K/mm3 (4.8-10.8)
[2024-06-06 14:30] LABS: Albumin Level 3.7 g/dl (3.5-5.0); Chloride 105 mmol/L (98-107); Potassium 4.7 mmoL/L (3.5-5.1); Sodium 136 mmol/L (136-145)
[2024-06-06 14:33] LABS: Alanine Aminotransferase 33 U/L (12-78); Albumin/Globulin Ratio 1.3 (1.1-1.8); Alkaline Phosphatase 93 U/L (38-126); Anion Gap 9.7 mEq/L (5-15); Aspartate Amino Transferase 39 U/L (14-36); Bilirubin,Total 0.4 mg/dl (0.2-1.3); Blood Urea Nitrogen 15 mg/dl (7-17); Carbon Dioxide 26 mmol/L (22.0-30.0); Estimated Glomerular Filt Rate 50 ml/min (>60); GFR (African American) 61 ML/MIN (>60); Globulin 2.9 g/dL (1.3-3.2); Glucose 166 mg/dl (74-100); Total Protein,Serum 6.6 g/dl (6.3-8.2)
[2024-06-06 14:38] LABS: Creatinine Clearance Estimated 77 mL/min (50-200)
[2024-06-06 15:00] VITALS: BP 124/45; PULSE 70; O2SAT 99
[2024-06-06 15:30] VITALS: BP 135/48; PULSE 70; O2SAT 97
[2024-06-06 15:58] VITALS: BP 138/52; PULSE 70; RESP 18; TEMP 36.6; O2SAT 95
== END 2024-06-06 15:59 ==
PROVIDERS: Emergency Medicine; Emergency Provider Emergency Medicine; PCP Family Medicine
DX: R22.42 Localized swelling, mass and lump, left lower limb (principal); L53.9 Erythematous condition, unspecified; I10 Essential (primary) hypertension; E11.9 Type 2 diabetes mellitus without complications; Z79.4 Long term (current) use of insulin; Z79.84 Long term (current) use of oral hypoglycemic drugs
CPT/HCPCS: 80053; 85025; 87040; 93971; 99284

== ENCOUNTER 2024-07-05 07:26 | Outpatient (CLI) | payer MEDICAID, SELFPAY ==
--- NOTE | 2024-07-05 | US_ITS ---
FINAL REPORT CLINICAL HISTORY: .LT LOWER EXTREMITY POST CALF HARDENED AREA-- SWELLING FINDINGS: Limited sonographic images of the left lower extremity were obtained. There is edema infiltrating the subcutaneous tissues of the posterior thigh in the region of interest, however no discrete fluid collection or obvious mass is present. IMPRESSION: Nonspecific edema. If clinical condition progresses, consider MR with contrast. Reviewed, Interpreted and Dictated by Efren Mckenzie MD Transcribed by Sarah Lyon Authenticated and . [facility]
== END 2024-07-05 23:59 | disposition home or self-care (01) ==
LOC: RAD 07:27
PROVIDERS: PCP Family Medicine; Visit Provider Family Medicine
DX: R22.42 Localized swelling, mass and lump, left lower limb (principal)
CPT/HCPCS: 76882

== ENCOUNTER 2024-07-09 20:03 | Emergency (ER) | payer MEDICAID, SELFPAY ==
[2024-07-09 20:03] VITALS: BP 142/77; PULSE 74; RESP 16; TEMP 36.6; O2SAT 97; BMI 36.6
--- NOTE | 2024-07-09 20:05 | HMH.EDGENADL ---
Discharge Plan Disposition Patient Disposition: Home, Self-Care Condition: Fair Prescriptions Prescriptions: No Action loperamide 2 mg capsule 2 mg PO NEEDED PRN (Reason: Diarrhea) azelastine 137 mcg (0.1 %) aerosol,spray 2 spray intranasal BID albuterol sulfate [Ventolin HFA] 90 mcg/actuation HFA aerosol inhaler 2 puff inhalation Q6HP PRN (Reason: Shortness Of Breath) guaifenesin 200 mg tablet 200 mg PO Q4HP PRN (Reason: Cough) alum-mag hydroxide-simeth [Antacid] 200-200-20 mg/5 mL suspension 30 ml PO TIDP PRN (Reason: Acid Reflux) Rx Instructions: administer between meals and at bedtime ondansetron HCl 4 mg tablet 4 mg PO Q6HP PRN (Reason: Nausea And Vomiting) levothyroxine 75 mcg tablet 75 mcg PO DAILY Qty: 90 3RF clonazepam 0.5 mg tablet 0.5 mg PO HS acetaminophen 500 mg capsule 500 mg PO QIDP PRN (Reason: Mild Pain (Scale Score 1-4)) isosorbide mononitrate 30 mg tablet extended release 24 hr 30 mg PO DAILY Qty: 90 3RF budesonide-formoterol [Symbicort] 160-4.5 mcg/actuation HFA aerosol inhaler 2 puff inhalation BID 90 Days Qty: 10.2 2RF tiotropium bromide [Spiriva with HandiHaler] 18 mcg capsule, w/inhalation device 1 cap inhalation DAILY 90 Days Qty: 90 3RF Rx Instructions: puncture 1 cap using device; one dose = 2 inhalations Humulin 70/30 U-100 KwikPen 100 unit/mL (70-30) insulin pen See Rx Instructions SQ BID Qty: 15 0RF Rx Instructions: 30 U q AM, 25 U 430 PM subcutaneously twice a day; diclofenac sodium [Voltaren Arthritis Pain] 1 % gel 2 g topical QID Qty: 100 2RF Rx Instructions: apply to single elbow, wrist or hand; for hand includes palm/fingers/back of hand ferrous sulfate 325 mg (65 mg iron) tablet 325 mg PO DAILY Qty: 90 3RF gabapentin 100 mg capsule 100 mg PO BID Qty: 60 5RF nystatin 100,000 unit/gram powder 1 applic topical TID Qty: 60 0RF hydrocodone-acetaminophen 5-325 mg tablet 1 tab PO TID 30 Days Qty: 90 0RF atorvastatin 20 mg tablet 20 mg PO DAILY clonazepam 0.5 mg tablet 0.5 mg PO DAILY furosemide 40 mg tablet 40 mg PO DAILY sennosides [senna] 8.6 mg tablet 8.6 mg PO BID metoprolol succinate 50 mg tablet extended release 24 hr 50 mg PO DAILY hydroxyzine HCl 50 mg tablet 100 mg PO BID clopidogrel [Plavix] 75 mg tablet 75 mg PO DAILY pantoprazole 20 mg tablet,delayed release (DR/EC) 20 mg PO DAILY metformin 1,000 mg tablet 1,000 mg PO BIDWMEAL losartan 100 mg tablet 100 mg PO DAILY risperidone 1 mg tablet 1 mg PO HS Levemir FlexPen 100 unit/mL (3 mL) insulin pen 30 unit SQ HS fenofibrate nanocrystallized 48 mg tablet 48 mg PO DAILY Dupixent Syringe 300 mg/2 mL syringe 300 mg SQ DIRECTED Rx Instructions: every 2 weeks venlafaxine 100 mg tablet 100 mg PO TID spironolactone 50 mg tablet 50 mg PO DAILY Tradjenta 5 mg tablet 5 mg PO DAILY fluticasone propionate 50 mcg/actuation spray,suspension 1 spray INTRANASAL BID bupropion HCl 150 mg tablet extended release 24 hr 450 mg PO DAILY fexofenadine 180 mg Tablet 180 mg PO DAILY ceftriaxone 2 gram recon soln 2 g IV Q24H 10 Days Rx Instructions: first dose due 05/31/24 Referrals Follow up/Referrals: Provider,Referral, MD [Primary Care Provider] - See instructions Activity Restrictions/Add. Instructions Additional Instructions/Restrictions: Return to care if any worsening symptoms or if symptoms do not improve. Clinical Impressions Clinical Impression: Fall, Bilateral shoulder pain Instructions Patient Instructions: DI for Neck Pain Print Language Print Language: [place] Discharge ED Provider: Dae Mendoza General Adult HPI <Valeria Bearden (ED), CERTIFIED HEALTH EDUCATION SPECIALIST - Last Filed: 07/09/24 22:12> General Chief complaint: Neck Pain/Injury Stated complaint: Fall Time Seen by Provider: 07/09/24 20:10 History of Present Illness HPI narrative: This is a 59-year-old female who presents to the ED via EMS after she was squatting down and fell over onto the floor. She has a knot on the back of her head, neck pain, bilateral shoulder pain and right upper hip pain. She says she was trying to sit on the floor she is usually in a wheelchair due to her arthritis. Patient came EMS and was placed in a c-collar. Patient denies any other pain. She is able to lift bilateral legs with no pain. Patient is not on anticoagulants. Related Data Home Medications ?Medication ?Instructions ?Recorded ?Confirmed atorvastatin 20 mg tablet 20 mg PO DAILY 01/05/24 06/09/24 clonazepam 0.5 mg tablet 0.5 mg PO DAILY 01/05/24 06/09/24 clopidogrel 75 mg tablet (Plavix) 75 mg PO DAILY 01/05/24 06/09/24 dupilumab 300 mg/2 mL subcutaneous 300 mg SQ DIRECTED 01/05/24 06/09/24 syringe (Dupixent) fenofibrate nanocrystallized 48 mg 48 mg PO DAILY 01/05/24 06/09/24 tablet furosemide 40 mg tablet 40 mg PO DAILY 01/05/24 06/09/24 hydroxyzine HCl 50 mg tablet 100 mg PO BID 01/05/24 06/09/24 insulin detemir U-100 100 unit/mL 30 unit SQ HS 01/05/24 06/09/24 (3 mL) subcutaneous pen (Levemir FlexPen) linagliptin 5 mg tablet (Tradjenta) 5 mg PO DAILY 01/05/24 06/09/24 losartan 100 mg tablet 100 mg PO DAILY 01/05/24 06/09/24 metformin 1,000 mg tablet 1,000 mg PO BIDWMEAL 01/05/24 06/09/24 metoprolol succinate 50 mg 50 mg PO DAILY 01/05/24 06/09/24 tablet,extended release 24 hr pantoprazole 20 mg tablet,delayed 20 mg PO DAILY 01/05/24 06/09/24 release risperidone 1 mg tablet 1 mg PO HS 01/05/24 06/09/24 sennosides 8.6 mg tablet (senna) 8.6 mg PO BID 01/05/24 06/09/24 spironolactone 50 mg tablet 50 mg PO DAILY 01/05/24 06/09/24 venlafaxine 100 mg tablet 100 mg PO TID 01/05/24 06/09/24 albuterol sulfate 90 mcg/actuation 2 puff inhalation Q6HP PRN 01/12/24 06/09/24 aerosol inhaler (Ventolin HFA) Shortness Of Breath aluminum-mag hydroxide-simethicone 30 ml PO TIDP PRN Acid Reflux 01/12/24 06/09/24 200 mg-200 mg-20 mg/5 mL oral susp (Antacid) azelastine 137 mcg (0.1 %) nasal 2 spray intranasal BID 01/12/24 06/09/24 spray guaifenesin 200 mg tablet 200 mg PO Q4HP PRN Cough 01/12/24 06/09/24 loperamide 2 mg capsule 2 mg PO NEEDED PRN Diarrhea 01/12/24 06/09/24 ondansetron HCl 4 mg tablet 4 mg PO Q6HP PRN Nausea And 01/12/24 06/09/24 Vomiting acetaminophen 500 mg capsule 500 mg PO QIDP PRN Mild Pain 01/28/24 06/09/24 (Scale Score 1-4) fluticasone propionate 50 1 spray intranasal BID 05/27/24 06/09/24 mcg/actuation nasal spray,suspension bupropion HCl 150 mg 24 hr tablet, 450 mg PO DAILY 05/28/24 06/09/24 extended release fexofenadine 180 mg tablet 180 mg PO DAILY 05/28/24 06/09/24 clonazepam 0.5 mg tablet 0.5 mg PO HS 05/31/24 06/09/24 Previous Rx's ?Medication ?Instructions ?Recorded isosorbide mononitrate 30 mg 30 mg PO DAILY #90 tabs 01/28/24 tablet,extended release 24 hr budesonide-formoterol HFA 160 2 puff inhalation BID 90 days 02/15/24 mcg-4.5 mcg/actuation aerosol #10.2 grams inhaler (Symbicort) tiotropium bromide 18 mcg capsule 1 cap inhalation DAILY 90 days #90 02/15/24 with inhalation device (Spiriva puffs with HandiHaler) diclofenac sodium 1 % topical gel 2 g topical QID #100 grams 04/12/24 (Voltaren Arthritis Pain) ferrous sulfate 325 mg (65 mg 325 mg PO DAILY #90 tabs 04/26/24 iron) tablet gabapentin 100 mg capsule 100 mg PO BID #60 caps 04/26/24 nystatin 100,000 unit/gram topical 1 applic topical TID #60 grams 05/24/24 powder ceftriaxone 2 gram intravenous 2 g IV Q24H 10 days 05/30/24 solution levothyroxine 75 mcg tablet 75 mcg PO DAILY #90 tabs 05/31/24 hydrocodone 5 mg-acetaminophen 325 1 tab PO TID 30 days #90 tabs 06/21/24 mg tablet insulin NPH-regular 70-30 U-100 See Rx Instructions SQ BID #15 mL 06/30/24 insulin 100 unit/mL subcutaneous pen (Humulin 70/30 U-100 KwikPen) Allergies Allergy/AdvReac Type Severity Reaction Status Date / Time lactose [LACTOSE] Allergy Unknown Unknown Verified 06/01/24 10:32 allergy reaction TD Inhibitors Allergy Unknown Verified 06/01/24 10:32 allergy reaction lisinopril Allergy Unknown Verified 06/01/24 10:32 allergy reaction PFSH <Valeria Bearden (ED), CERTIFIED HEALTH EDUCATION SPECIALIST - Last Filed: 07/09/24 22:12> PFS Disclaimer: The information contained in this section may have been updated after the patient was seen, as this information can be updated by other users. Medical History (Updated 07/09/24 @ 22:14 by Valeria Bearden (ED), CERTIFIED HEALTH EDUCATION SPECIALIST) Mass of left thigh Lymphedema Cellulitis Normal colonoscopy Screening for breast cancer Screening for colon cancer Arm pain, right Acute hip pain Leg pain, right Angina pectoris Chest pain Anemia Deviated nasal septum Chronic sinusitis Anxiety disorder, unspecified Major depressive disorder, recurrent, unspecified Schizoaffective disorder, bipolar type Daytime somnolence Involuntary jerky movements Frequent falls Screening for lung cancer Asthma-COPD overlap syndrome Thoracic scoliosis Stopped smoking with greater than 30 pack year history Dyspnea on exertion Diastolic dysfunction Hypothyroidism (acquired) Obesity GARRISON on CPAP HLD (hyperlipidemia) HTN (hypertension) CAD (coronary artery disease) Tobacco use disorder Diabetes COPD (chronic obstructive pulmonary disease) Surgical History H/O colonoscopy with polypectomy History of tonsillectomy History of carpal tunnel release History of arthroscopic knee surgery Hx laparoscopic cholecystectomy Hx of cardiac cath Hx of cataract surgery Family History Other Family history of myocardial infarction Social History Smoking Status: Never smoker second hand exposure: Yes alcohol intake: never substance use type: denies use current occupational status: disabled Travel in the last 8 weeks: None household members: other housing: jail current occupational exposures/hazards: No caffeine: Yes <Valeria Kilbrandi (ED), CERTIFIED HEALTH EDUCATION SPECIALIST - Last Filed: 07/09/24 22:12> ROS Obtained: Yes Systems reviewed as appropriate & no additional complaints except as documented Constitutional Constitutional: Reports system reviewed and no additional complaints, except as documented and Reports as per HPI Physical Exam <Valeria Bearden (ED), CERTIFIED HEALTH EDUCATION SPECIALIST - Last Filed: 07/09/24 22:12> General General appearance: alert and in no apparent distress Head Head exam: other (Large knot on the back of head) Eye Eye exam: Present normal appearance, PERRL and EOMI ENT ENT exam: Present normal exam, normal oropharynx and mucous membranes moist Neck Neck exam: Present other (C-collar intact) Chest Chest inspection: Present normal inspection Respiratory Respiratory exam: Present normal lung sounds bilaterally Cardiovascular Cardiovascular exam: Present regular rate, normal rhythm, normal heart sounds, +S1 and +S2 Abdominal Exam Abdominal exam: Present soft and normal bowel sounds Extremities Exam Extremities exam: Present normal inspection, full ROM and normal capillary refill Neurological Exam Neurological exam: Present alert and oriented X3 Psychiatric Psychiatric exam: Present normal affect and normal mood Skin Skin exam: Present warm Medical Decision Making <Valerializ Bearden (ED), CERTIFIED HEALTH EDUCATION SPECIALIST - Last Filed: 07/09/24 22:12> Medical Records Screening: Per USPSTF and CDC recommendations, given the prevalence of disease in our region, it is our hospital?s policy to screen for HIV and viral Hepatitis for all patients aged 18 and over and those with ongoing risk factors. Sammy Inquiry Pt receiving controlled substance: No Sammy was queried for this patient: No Vital Signs: 07/09/24 20:03 07/09/24 21:15 07/09/24 21:45 Temperature 97.9 F Temperature Source Oral Pulse Rate 73 73 Pulse Rate [Right Radial] 74 Respiratory Rate 16 Blood Pressure 114/41 L 159/67 H Blood Pressure [Left Arm] 142/77 H Blood Pressure Mean [Left Arm] 98 Blood Pressure Source [Left Arm] Automatic Cuff Blood Pressure Position [Left Arm] Supine 02 Sat by Pulse Oximetry 97 98 96 Oxygen Delivery Method Room Air Orders (Tests/Meds): ED MEDICATIONS Discontinued Medications Generic Name Dose Route Start Last Admin Trade Name Marcela PRN Reason Stop Dose Admin Acetaminophen 1,000 mg 07/09/24 20:19 07/09/24 20:26 Acetaminophen 1,000mg/100ml Vial IV 07/09/24 20:20 1,000 mg ONCE ONE Administration ORDERS Category Date Time Status CT bony pelvis Stat Cat Scan 07/09/24 20:[address] cervical spine wo con Stat Cat Scan 07/09/24 20:[address] head/brain wo con Stat Cat Scan 07/09/24 20:16 Completed Shoulder XR left minimum 2 views [XR shoulder LT min 2V Exams 07/09/24 20:15 Taken ] Stat Shoulder XR right miminum 2 views [XR shoulder RT min Exams 07/09/24 20:15 Taken 2V] Stat XR femur RT 2V Stat Exams 07/09/24 20:18 Taken HIV (1&2) Antibody Rapid Stat Lab 07/09/24 20:59 Received Hep C Ab with Reflex to RNA Stat Lab 07/09/24 20:59 Received Medical Decision Narrative: Insert review patient is a 59-year-old female presenting to the emergency department for evaluation of fall at jail. Patient is hemodynamically stable and nontoxic-appearing upon arrival, afebrile. Differential diagnosis includes head injury, neck injury after fall. Workup will be conducted with labs, CT of neck and head, CT hip and plain films of bilateral shoulders. Initial inventions include Tylenol for pain. Initial workup reviewed by me as no acute fractures. All plain films look negative. Dr. Mendoza also looked at the films and informally read them as negative. C-spine cleared and c-collar taken off. Patient is safe for discharge back to jail. Patient with improved pain. <Dae Mendoza MD - Last Filed: 07/09/24 22:19> Vital Signs: 07/09/24 20:03 07/09/24 21:15 07/09/24 21:45 Temperature 97.9 F Temperature Source Oral Pulse Rate 73 73 Pulse Rate [Right Radial] 74 Respiratory Rate 16 Blood Pressure 114/41 L 159/67 H Blood Pressure [Left Arm] 142/77 H Blood Pressure Mean [Left Arm] 98 Blood Pressure Source [Left Arm] Automatic Cuff Blood Pressure Position [Left Arm] Supine 02 Sat by Pulse Oximetry 97 98 96 Oxygen Delivery Method Room Air Orders (Tests/Meds): ED MEDICATIONS Discontinued Medications Generic Name Dose Route Start Last Admin Trade Name Marcela PRN Reason Stop Dose Admin Acetaminophen 1,000 mg 07/09/24 20:19 07/09/24 20:26 Acetaminophen 1,000mg/100ml Vial IV 07/09/24 20:20 1,000 mg ONCE ONE Administration ORDERS Category Date Time Status CT bony pelvis Stat Cat Scan 07/09/24 20:[address] cervical spine wo con Stat Cat Scan 07/09/24 20:[address] head/brain wo con Stat Cat Scan 07/09/24 20:16 Completed Shoulder XR left minimum 2 views [XR shoulder LT min 2V Exams 07/09/24 20:15 Taken ] Stat Shoulder XR right miminum 2 views [XR shoulder RT min Exams 07/09/24 20:15 Taken 2V] Stat XR femur RT 2V Stat Exams 07/09/24 20:18 Taken HIV (1&2) Antibody Rapid Stat Lab 07/09/24 20:59 Received Hep C Ab with Reflex to RNA Stat Lab 07/09/24 20:59 Received Medical Decision Narrative: Insert review patient is a 59-year-old female presenting to the emergency department for evaluation of fall at jail. Patient is hemodynamically stable and nontoxic-appearing upon arrival, afebrile. Differential diagnosis includes head injury, neck injury after fall. Workup will be conducted with labs, CT of neck and head, CT hip and plain films of bilateral shoulders. Initial inventions include Tylenol for pain. Initial workup reviewed by me as no acute fractures. All plain films look negative. Dr. Mendoza also looked at the films and informally read them as negative. C-spine cleared and c-collar taken off. Patient is safe for discharge back to jail. Patient with improved pain. I was consulted by the [facility], and we discussed the complexity of the problems being addressed. I approved the treatment and management plan for this patient's care in the emergency department, thus performing a substantive portion of the medical decision making. Dae Mendoza MD Critical Care <Valeria Bearden (ED), CERTIFIED HEALTH EDUCATION SPECIALIST - Last Filed: 07/09/24 22:12> Critical Care Time Critical Care Time: No
--- NOTE | 2024-07-09 20:15 | XR_ITS ---
PROCEDURE INFORMATION: Exam: XR Left Shoulder Exam date and time: 07/09/2024 8:28 PM Age: 59 years old Clinical indication: Injury or trauma; Fall; Other: Pain TECHNIQUE: Imaging protocol: Radiologic exam of the left shoulder. Views: 2 or more views. COMPARISON: CR XR SHOULDER LT MIN 2V 05/10/2021 1:43 PM FINDINGS: Bones/joints: The osseous structures appear intact with no evidence of acute fracture, dislocation, or malalignment. There is some acromioclavicular osteoarthritis. No abnormal bone density or destructive lesions are noted. Soft tissues: Soft tissues appear unremarkable. IMPRESSION: At the time of imaging, there is no evidence for acute osseous abnormalities.
--- NOTE | 2024-07-09 20:15 | CT_ITS ---
PROCEDURE INFORMATION: Exam: CT Cervical Spine Without Contrast Exam date and time: 07/09/2024 8:32 PM Age: 59 years old Clinical indication: Injury or trauma; Fall; Other: Pain TECHNIQUE: Imaging protocol: Computed tomography of the cervical spine without contrast. Radiation optimization: All CT scans at this facility use at least one of these dose optimization techniques: automated exposure control; mA and/or kV adjustment per patient size (includes targeted exams where dose is matched to clinical indication); or iterative reconstruction. COMPARISON: 1. CT CERVICAL SPINE WO CON 01/05/2024 7:57 PM 2. MR CERVICAL SPINE WO CON 09/10/2023 12:[address] CERVICAL SPINE WO CON 09/07/2020 10:58 AM FINDINGS: Bones: The cervical spine shows relatively preserved alignment of the vertebral bodies with no evidence of acute fractures or dislocations. However, age-related degenerative changes are observed, including mild disc space narrowing and osteophyte formation at multiple levels. These findings are consistent with age related degenerative disease. Lungs: Lung apices are normal. Soft tissues: Unremarkable. IMPRESSION: Multilevel degenerative change without acute injury identified.
--- NOTE | 2024-07-09 20:15 | XR_ITS ---
PROCEDURE INFORMATION: Exam: XR Right Shoulder Exam date and time: 07/09/2024 8:28 PM Age: 59 years old Clinical indication: Injury or trauma; Fall; Other: Pain TECHNIQUE: Imaging protocol: Radiologic exam of the right shoulder. Views: 2 or more views. COMPARISON: CR XR SHOULDER RT MIN 2V 01/05/2024 8:02 PM FINDINGS: Bones/joints: The osseous structures appear intact with no evidence of acute fracture, dislocation, or malalignment. Joint spaces are preserved. No abnormal bone density or destructive lesions are noted. Soft tissues: Soft tissues appear unremarkable. IMPRESSION: At the time of imaging, there is no evidence for acute osseous abnormalities.
--- NOTE | 2024-07-09 20:16 | CT_ITS ---
PROCEDURE INFORMATION: Exam: CT Head Without Contrast Exam date and time: 07/09/2024 8:29 PM Age: 59 years old Clinical indication: Injury or trauma; Fall; Other: Pain TECHNIQUE: Imaging protocol: Computed tomography of the head without contrast. Radiation optimization: All CT scans at this facility use at least one of these dose optimization techniques: automated exposure control; mA and/or kV adjustment per patient size (includes targeted exams where dose is matched to clinical indication); or iterative reconstruction. COMPARISON: 1. CT HEAD/BRAIN WO CON 05/27/2024 9:[address] ANGIO HEAD 05/27/2024 9:[address] HEAD/BRAIN WO CON 01/05/2024 7:55 PM FINDINGS: Limitations: The patient is wearing earrings with associated streak artifact that mildly limits the study. Brain: Normal. No hemorrhage. Unremarkable white matter. No mass effect. Cerebral ventricles: No ventriculomegaly. Paranasal sinuses: Visualized sinuses are unremarkable. No fluid levels. Mastoid air cells: Visualized mastoid air cells are well aerated. Bones: See Soft tissues finding. Soft tissues: There is soft tissue swelling over the right parietal calvarium without underlying calvarial injury identified. IMPRESSION: There is soft tissue swelling over the right parietal calvarium without underlying calvarial injury identified.
--- NOTE | 2024-07-09 20:18 | XR_ITS ---
PROCEDURE INFORMATION: Exam: XR Right Femur Exam date and time: 07/09/2024 8:28 PM Age: 59 years old Clinical indication: Injury or trauma; Fall; Other: Pain TECHNIQUE: Imaging protocol: Radiologic exam of the right femur. Views: 2 views. COMPARISON: CR XR FEMUR RT 2V 01/05/2024 7:59 PM FINDINGS: Bones/joints: The osseous structures are intact, with no signs of acute fracture, dislocation, or malalignment. Age-related degenerative changes are observed. There is no evidence of abnormal bone density or destructive lesions. Soft tissues: The soft tissues appear within normal limits. IMPRESSION: At the time of imaging, the study shows no acute osseous abnormalities but does reveal signs of age-related degenerative changes.
[2024-07-09] MEDS: ACETAMINOPHEN 1,000MG/100ML VIAL 1000 MG IV (20:26)
[2024-07-09 21:15] VITALS: BP 114/41; PULSE 73; O2SAT 98
--- NOTE | 2024-07-09 21:43 | HMH.ITSTN ---
I took the patient back to her room after completing a head and cervical spine CT and x-rays of both of her shoulders and her right femur. Once coming back to send the patients images from those exams, I noticed a CT bony pelvis had been added on for the patient. When I went back to get the patient to do this exam she refused. The doctors were notified and Dr Mendoza wanted to wait for the results from her femur x-ray to come back before trying again to proceed with the CT of her pelvis.
[2024-07-09 21:45] VITALS: BP 159/67; PULSE 73; O2SAT 96
--- NOTE | 2024-07-09 22:09 | PC.NURSE ---
Report given to chicho horne lorton
[2024-07-09 22:20] VITALS: BP 152/74; PULSE 72; RESP 16; TEMP 36.6; O2SAT 98
[2024-07-09 23:00] LABS: HIV (1&2) Antibody Rapid NONREACTIVE (NONREACTIVE)
[2024-07-11 14:13] LABS: HCV Ab Non Reactive (Non Reactive)
== END 2024-07-09 22:35 ==
PROVIDERS: Emergency Provider Emergency Medicine
DX: M25.511 Pain in right shoulder (principal); M25.512 Pain in left shoulder; W18.30XA Fall on same level, unspecified, initial encounter
CPT/HCPCS: 70450; 72125; 73030; 73552; 86803; 87389; 96374; 99285; J0131

== ENCOUNTER 2024-07-14 10:00 | Outpatient (RCR) | payer MEDICAID, SELFPAY ==
--- NOTE | 2024-06-22 08:45 | HMH.PTOPWND ---
Rehab Outpt Wound Evaluation Rehab OP Wound Evaluation Start: 06/22/24 08:16 Freq: Status: Active Protocol: Document 06/22/24 08:16 CATARINO (Rec: 06/22/24 08:45 CATARINO [id number]) E-signed By Dayo Munoz, PT Subjective/History History History This is the initial PT eval for Jeny Starkey, 59 yowf who presents with c/o B LE edema worse x ~ 2-3 wks per her report after a recent hospitalization due to cellulitis with sepsis. She reports limited ambulation at baseline, which has been worse since her hospitalization with increased pain in B LE. She reports L LE is worse than R and she has edema extending into the L thigh. She reports edema does not decrease much at night with elevation of her extremities. She has PMH of COPD, DM, Anemia, schizophrenia, bipolar disorder, depression, anxiety, CAD, HTN, HLD. Subjective Subjective Pt reports 0/10 currently, 8/ 10 at worst. 2+ pitting edema to B LE (R mid-calf distally and L knee distally). TTP 2/4 to B lower legs. Moderate blanchable erythema to B lower legs. New diagnosis of cancer in past 12 No months? Lymphedema Eval Classification of Lymphedema Secondary Lymphedema Yes Stemmer's sign Stemmer's Sign yes Stage of Lymphedema Lymphedema stages Stage I (Pitting edema, reduces w/ elevation, no fibrosis) Skin Changes Dry Skin Yes Redness Yes Discoloration of Skin Yes Other Changes Yes Pain Scale Pain Scale (0-10) 8 Affected Extremities Areas Affected by Lymphedema/Edema Right Lower Extremity,Left Lower Extremity Lower Extremity Measurements Right MTP Measurement (cm) 23.3 Heel Measurement (cm) 30.4 10 cm Proximal to Lateral Malleoli 25.8 Measurement (cm) 20 cm Proximal to Lateral Malleoli 35.0 Measurement (cm) 30 cm Proximal to Lateral Malleoli 32.2 Measurement (cm) 40 cm Proximal to Lateral Malleoli 40.2 Measurement (cm) 50 cm Proximal to Lateral Malleoli 0 Measurement (cm) 60 cm Proximal to Lateral Malleoli 0 Measurement (cm) Lower Extremity Measurement Total (cm) 186.9 Left MTP Measurement (cm) 23.2 Heel Measurement (cm) 32.7 10 cm Proximal to Lateral Malleoli 38.9 Measurement (cm) 20 cm Proximal to Lateral Malleoli 40.0 Measurement (cm) 30 cm Proximal to Lateral Malleoli 35.1 Measurement (cm) 40 cm Proximal to Lateral Malleoli 42.5 Measurement (cm) 50 cm Proximal to Lateral Malleoli 0 Measurement (cm) 60 cm Proximal to Lateral Malleoli 0 Measurement (cm) Lower Extremity Measurement Total (cm) 212.4 Manual Lymphatic Drainage Treatment Area MLD Treatment Area Right Lower Extremity,Left Lower Extremity Wound Problems/Impairments Impairments Problems/Impairmments Palpation Tenderness,Impaired Walking,Impaired Shower/ Bathing,Increased Edema, Lymphedema Present,Subjective C/O Pain,Impaired Self Care/ Self Management Prognosis Rehab Potential Good Comment Skilled therapy is indicated to reduce overall edema burden and pain to return pt to PLOF . Clinical Impression Consistent with Diagnosis Yes Short Term Goals Number of Weeks 2 Decreased Palpation Tenderness Yes: 1/4 B lower legs Decrease Edema Yes: 1+ pitting edema to B LE Decrease Subjective C/O Pain Yes: 6/10 at worst B LE Patient to Understand Lymphedema Yes Treatment and Exercises Decrease Girth Measurments by (cm) Yes: B LE by 5 cm ea Photographic Press Screwmaker Goals Number of Weeks 4 Decreased Palpation Tenderness Yes: 0/4 B lower legs Decrease Edema Yes: No pitting edema to B LE Decrease Lymphedema Yes: No fibrotic edema to B LE Decrease Subjective C/O Pain Yes: 4/10 at worst in B LE Patient to be Ind w/ HEP Yes Patient to Adhere Lymphedema Precautions Yes Decrease Girth Measurments by (cm) Yes: B LE total by 15 cm ea Outpatient Therapy Plan of Care Treatment Plan May Include Therapeutic Exercise Including Home Yes Exercise Program Manual Therapy Techniques Yes Neuromuscular Re-education Yes Therapeutic Activities to Return to Yes Previous Functional/Work Level ADL/Self Care Education Yes Orthotics/Bracing/Splinting Yes Vasopneumatic Compression Pump Yes Manual Lymphatic Drainage Yes Eval/Re-Eval Yes Frequency Times per week 2 Duration Number of Weeks 4 Addendums This patient is a candidate for social No or vocational rehab? Patient/Guardian verbally acknowledges Yes understanding of treatment program and consents to further treatment? Patient/Guardian verbally acknowledges Yes understanding of diagnosis, prognosis and goals for treatment? Eval Complexity PT Charges 11067 - High Complexity PHYSICIAN CERTIFICATION: I certify the specified therapy services for Jeny Starkey are required, authorized, and reviewed every 30 days.
== END 2024-07-14 23:59 | disposition home or self-care (01) ==
LOC: PT 10:00
PROVIDERS: Visit Provider Family Medicine
DX: I89.0 Lymphedema, not elsewhere classified (principal)
CPT/HCPCS: 97140; 97163

== ENCOUNTER 2024-08-10 21:12 | Outpatient (CLI) | payer MEDICAID, SELFPAY ==
[2024-08-10 21:38] LABS: Adenovirus F 40/41, stool Not Detected (NotDetected); Astrovirus Not Detected (NotDetected); Clostridium Difficile A/B, PCR Not Detected (NotDetected); Cryptosporidium Not Detected (NotDetected); Cyclospora Cayetanesis Not Detected (NotDetected); Entamoeba histolytica Not Detected (NotDetected); Enteroaggregative E coli Not Detected (NotDetected); Enteropathogenic E coli Not Detected (NotDetected); Enterotoxigenic E coli Not Detected (NotDetected); Giardia lamblia Not Detected (NotDetected); Plesimonas Shigalloides, PCR Not Detected (NotDetected); Rotavirus A Not Detected (NotDetected); Salmonella, PCR Not Detected (NotDetected); Sapovirus Not Detected (NotDetected); Shiga-like toxin E coli Not Detected (NotDetected); Shigella Enterovasive E coli Not Detected (NotDetected); Vibrio Cholerae Not Detected (NotDetected); Vibrio, PCR Not Detected (NotDetected); Yersinia Entercolitica, PCR Not Detected (NotDetected)
[2024-08-11 14:14] LABS: Campylobacter Detected (NotDetected); Norovirus Detected (NotDetected)
== END 2024-08-10 23:59 | disposition home or self-care (01) ==
LOC: LAB.DROPOF 21:14
PROVIDERS: PCP Family Medicine; Visit Provider Family Medicine
DX: R19.7 Diarrhea, unspecified (principal)
CPT/HCPCS: 87507

== ENCOUNTER 2024-08-31 09:00 | Outpatient (RCR) | payer MEDICAID, SELFPAY ==
--- NOTE | 2024-08-17 12:57 | HMH.PTOPWND ---
Rehab Outpt Wound Evaluation Rehab OP Wound Evaluation Start: 08/17/24 11:33 Freq: Status: Active Protocol: Document 08/17/24 11:33 CATARINO (Rec: 08/17/24 12:57 PHOSTEPHAN [id number]) E-signed By Dayo Munoz, PT Subjective/History History History This is the initial PT eval for Jeny Starkey, 59 yowf who presents with c/o B LE edema increased for several years now. She also reports increased pain in B lower legs. She reports limited ambulation at baseline, which has been worse since a recent hospitalization with increased pain in B LE. She reports L LE is worse than R and she has edema extending into the L thigh. She reports edema does not decrease much at night with elevation of her extremities. She has PMH of COPD, DM, Anemia, schizophrenia, bipolar disorder, depression, anxiety, CAD, Subjective Subjective 2+ pitting edema to B lower legs with MOD erythema noted. 2/4 TTP noted to B lower legs. Possible enciso's cyst to R LE . New diagnosis of cancer in past 12 No months? Lymphedema Eval Classification of Lymphedema Secondary Lymphedema Yes Stemmer's sign Stemmer's Sign yes Stage of Lymphedema Lymphedema stages Stage II (Pitting edema, increased fibrosis w/ decreased pitting) Skin Changes Dry Skin Yes Taut, Shiny Skin Yes Skin Folds Yes Hyperkeratosis Yes Redness Yes Discoloration of Skin Yes Other Changes Yes Pain Scale Pain Scale (0-10) 5 Affected Extremities Areas Affected by Lymphedema/Edema Right Lower Extremity,Left Lower Extremity Lower Extremity Measurements Right MTP Measurement (cm) 23.3 Heel Measurement (cm) 30.1 10 cm Proximal to Lateral Malleoli 30.5 Measurement (cm) 20 cm Proximal to Lateral Malleoli 37.7 Measurement (cm) 30 cm Proximal to Lateral Malleoli 31.6 Measurement (cm) 40 cm Proximal to Lateral Malleoli 44.5 Measurement (cm) 50 cm Proximal to Lateral Malleoli 0 Measurement (cm) 60 cm Proximal to Lateral Malleoli 0 Measurement (cm) Lower Extremity Measurement Total (cm) 197.7 Left MTP Measurement (cm) 22.9 Heel Measurement (cm) 30.5 10 cm Proximal to Lateral Malleoli 28.8 Measurement (cm) 20 cm Proximal to Lateral Malleoli 33.6 Measurement (cm) 30 cm Proximal to Lateral Malleoli 30.2 Measurement (cm) 40 cm Proximal to Lateral Malleoli 44.1 Measurement (cm) 50 cm Proximal to Lateral Malleoli 0 Measurement (cm) 60 cm Proximal to Lateral Malleoli 0 Measurement (cm) Lower Extremity Measurement Total (cm) 190.1 Manual Lymphatic Drainage Treatment Area MLD Treatment Area Right Lower Extremity,Left Lower Extremity Wound Problems/Impairments Impairments Problems/Impairmments Impaired Gait Pattern,Impaired Walking,Impaired Standing, Impaired Shower/Bathing, Increased Edema,Lymphedema Present,Subjective C/O Pain, Impaired Self Care/Self Management Prognosis Rehab Potential Good Comment Skilled therapy is indicate to reduce overall B LE edema burden and return pt to PLOF Clinical Impression Consistent with Diagnosis Yes Short Term Goals Number of Weeks 2 Decreased Palpation Tenderness Yes: 1/4 B lower legs Decrease Edema Yes: 1+ pitting edema to B lower legs Decrease Subjective C/O Pain Yes: 310 B lower legs at worst Patient to Understand Lymphedema Yes Treatment and Exercises Decrease Girth Measurments by (cm) Yes: B LE total by 5 cm Jail Goals Number of Weeks 4 Decreased Palpation Tenderness Yes: 0/4 B lower legs Decrease Edema Yes: no pitting edema B lower legs Decrease Subjective C/O Pain Yes: 10/21 at worst B lower legs Patient to be Ind w/ HEP Yes Patient to Adhere Lymphedema Precautions Yes Decrease Girth Measurments by (cm) Yes: B LE total by 15 cm ea Outpatient Therapy Plan of Care Treatment Plan May Include Therapeutic Exercise Including Home Yes Exercise Program Manual Therapy Techniques Yes Neuromuscular Re-education Yes Therapeutic Activities to Return to Yes Previous Functional/Work Level ADL/Self Care Education Yes Orthotics/Bracing/Splinting Yes Manual Lymphatic Drainage Yes Eval/Re-Eval Yes Frequency Times per week 2 Duration Number of Weeks 4 Addendums This patient is a candidate for social No or vocational rehab? Patient/Guardian verbally acknowledges Yes understanding of treatment program and consents to further treatment? Patient/Guardian verbally acknowledges Yes understanding of diagnosis, prognosis and goals for treatment? Eval Complexity PT Charges [id number] - High Complexity PHYSICIAN CERTIFICATION: I certify the specified therapy services for Jeny Starkey are required, authorized, and reviewed every 30 days.
== END 2024-08-31 23:59 | disposition home or self-care (01) ==
LOC: PT 09:00
PROVIDERS: Visit Provider Family Medicine
DX: R60.9 Edema, unspecified (principal)
CPT/HCPCS: 97140; 97163

== ENCOUNTER 2024-10-10 18:43 | Outpatient (CLI) | payer MEDICAID, SELFPAY ==
[2024-10-10 18:55] LABS: Adenovirus F 40/41, stool Not Detected (NotDetected); Astrovirus Not Detected (NotDetected); Campylobacter Not Detected (NotDetected); Clostridium Difficile A/B, PCR Not Detected (NotDetected); Cryptosporidium Not Detected (NotDetected); Cyclospora Cayetanesis Not Detected (NotDetected); Entamoeba histolytica Not Detected (NotDetected); Enteroaggregative E coli Not Detected (NotDetected); Enteropathogenic E coli Not Detected (NotDetected); Enterotoxigenic E coli Not Detected (NotDetected); Giardia lamblia Not Detected (NotDetected); Norovirus Not Detected (NotDetected); Plesimonas Shigalloides, PCR Not Detected (NotDetected); Rotavirus A Not Detected (NotDetected); Salmonella, PCR Not Detected (NotDetected); Sapovirus Not Detected (NotDetected); Shiga-like toxin E coli Not Detected (NotDetected); Shigella Enterovasive E coli Not Detected (NotDetected); Vibrio Cholerae Not Detected (NotDetected); Vibrio, PCR Not Detected (NotDetected); Yersinia Entercolitica, PCR Not Detected (NotDetected)
== END 2024-10-10 23:59 | disposition home or self-care (01) ==
LOC: LAB.DROPOF 18:45
PROVIDERS: PCP Family Medicine; Visit Provider Family Medicine
DX: R19.7 Diarrhea, unspecified (principal)
CPT/HCPCS: 87506

== ENCOUNTER 2024-11-02 13:37 | Outpatient (CLI) | payer MEDICAID, SELFPAY | END 2024-11-02 23:59 | disposition home or self-care (01) | LOC: LAB 13:38 | PROVIDERS: PCP Family Medicine; Visit Provider Family Medicine | DX: Z02.9 Encounter for administrative examinations, unspecified (principal) ==

== ENCOUNTER 2024-11-02 14:12 | Outpatient (CLI) | payer MEDICAID, SELFPAY | END 2024-11-02 23:59 | disposition home or self-care (01) | LOC: LAB 14:13 | PROVIDERS: PCP Family Medicine; Visit Provider Family Medicine | DX: R05.9 Cough, unspecified (principal) | CPT/HCPCS: 87275; 87276 ==

== ENCOUNTER 2025-01-25 07:31 | Outpatient (CLI) | payer MEDICAID, SELFPAY ==
[2025-01-25 08:22] LABS: Glucose,Fasting 118 mg/dl (74-100)
== END 2025-01-25 23:59 | disposition home or self-care (01) ==
PROVIDERS: PCP Nurse Practitioner Family; Visit Provider Nurse Practitioner Family
DX: E10.9 Type 1 diabetes mellitus without complications (principal)
CPT/HCPCS: 36415; 82947

== ENCOUNTER 2025-02-22 07:24 | Outpatient (CLI) | payer MEDICAID, SELFPAY ==
[2025-02-22 07:27] LABS: MANUAL DIFFERENTIAL MANUAL DIFFERENTIAL (MANUAL DIFF)
[2025-02-22 07:42] LABS: Basophils % 0.5 % (0.1-2.0); Eosinophils # 0.2 Kmm3 (0.0-0.4); Hematocrit 38.2 % (37.0-47.0); Hemoglobin 12.4 g/dL (12.2-16.2); Lymphocytes # 1.4 K/mm3 (0.7-4.5); Lymphocytes % 22.9 % (10-50); Mean Corpuscular HGB Conc 32.5 g/dL (31.8-35.4); Mean Corpuscular Hemoglobin 28.2 pg (27.0-31.2); Monocytes # 0.6 K/mm3 (0.1-1.0); Monocytes % 9.2 % (1.7-9.3); Neutrophils # 3.7 K/mm3 (1.8-7.8); Neutrophils % 62.1 % (37.0-80.0); Platelet Count 252 K/mm3 (142-424); Red Blood Count 4.39 M/mm3 (4.20-5.40); Red Cell Distribution Width 12.6 % (11.5-17.5)
[2025-02-22 08:15] LABS: Eosinophils % 2 % (0-3); Lymphocytes % 31 % (10-50); Monocytes % 5 % (2-9); Neutrophils % 62 % (42-76); Total Cells Counted 100
[2025-02-22 08:16] LABS: Platelet Estimate Normal; RBC Morphology Normal
[2025-02-22 09:26] LABS: Hemoglobin A1C 7.2 % (4.0-6.0)
[2025-02-22 10:27] LABS: Iron 75 ug/dL (37-170)
[2025-02-22 10:36] LABS: Total Iron Binding Capacity 302 ug/dL (265-497)
[2025-02-22 11:12] LABS: Ferritin 23.8 ng/ml (11.1-264)
== END 2025-02-22 23:59 | disposition home or self-care (01) ==
PROVIDERS: PCP Nurse Practitioner Family; Visit Provider Nurse Practitioner Family
DX: D64.9 Anemia, unspecified (principal); E11.9 Type 2 diabetes mellitus without complications; Z79.4 Long term (current) use of insulin
CPT/HCPCS: 36415; 82728; 83036; 83540; 83550; 85007; 85014; 85018; 85048; 85049

== ENCOUNTER 2025-05-15 16:48 | Emergency (ER) | payer MEDICAID, SELFPAY ==
[2025-05-15] VITALS (20 sets, daily range): BP systolic 129–165; BP diastolic 55–90; PULSE 69–73; RESP 9–23; TEMP 36.6–36.8; O2SAT 95–100; BMI 37.5
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
--- OUTSIDE RECORDS SUMMARY | 2025-05-15 16:56 | XMS_ITS | Clinical Summary ---
Author Organization Healthcare Address [address] [place] [address] Care Team Providers Care Steak Sauce Maker Name Role Phone Sonido Harrington MD Primary Care Provider [phone] Family History Medical History Relation Name Comments Cardiac disorder Father Hyperlipidemia Father Hypertension Father Obesity Father Cardiac disorder Mother Diabetes Mother Hyperlipidemia Mother Hypertension Mother Stroke Mother Thyroid disease Sister Relation Name Status Comments Father Mother Sister Social History Tobacco Use Types Packs/Day Years Used Date Smoking Tobacco: Every Day Alcohol Use Standard Drinks/Week Comments No 0 (1 standard drink = 0.6 oz pur e alcohol) Comments Unknown Sex and Gender Information Value Date Recorded Sex Assigned at Not on file Legal Sex Female 7:44 PM EDT Gender Identity Not on file Sexual Orientation Not on file Last Filed Vital Signs Vital Sign Reading Time Taken Comments Blood Pressure 146/69 05/11/2018 9:42 AM EDT Pulse 89 05/11/2018 9:42 AM EDT Temperature 36.3 C (97.3 F) 05/11/2018 9:42 AM EDT Respiratory Rate 16 05/11/2018 9:42 AM EDT Oxygen Saturation - - Inhaled Oxygen Concentration - - Weight 99.1 kg (218 lb 8 oz) 05/11/2018 9:42 AM EDT Height 160 cm (5' 3 ) 05/11/2018 9:42 AM EDT Body Mass Index 38.71 05/11/2018 9:42 AM EDT Plan of Treatment Health Maintenance Due Date Last Done Comments [facility]-Depression Screening 1963 [facility]-/Child/Adol SDOH Screenings 1963 [facility]- SDOH Screenings 1981 [facility]-Adult SDOH Screenings 1981 [facility]-DTaP,Tdap,and Td Vaccines (1 - Tdap) 1982 [facility]-Pap Smear 1984 [facility]-Cervical Cancer Screening 1993 [facility]-HPV/Cotest 1993 CT Colonography 2008 Colonoscopy 2008 FIT-DNA 2008 FIT 2008 FOBT 2008 Sigmoidoscopy 2008 [facility]-Colorectal Cancer Screening 2008 [facility]-Pneumococcal Vaccine: 50+ Years (1 of 1 - PCV) 2013 [facility]-Zoster Vaccines (1 of 2) 2013 [id number]-[id number]-04 Vaccine (2 - season) 2024 12/13/2020 [facility]-Influenza Vaccine (#1) 06/12/202508/19, 08/20/2016, 07/23/2015, Additional history exists [facility]-RSV Vaccine: 60+ Years or (1 - 1-dose 75+ series) 2038 HPV Vaccines Aged Out No longer eligi ble based on patient's age to complete this topic [facility]-HIB Vaccines Aged Out No longer e ligible based on patient's age to complete this topic [facility]-Hepatitis A Vaccines Aged Out No longer eligible based on patient's age to complete this topic [facility]-IPV Vaccines Aged Out No longer e ligible based on patient's age to complete this topic [facility]-Rotavirus Vaccines Aged Out No lo nger eligible based on patient's age to complete this topic Insurance [facility] [place] [id number] [place] Care Teams Steak Sauce Maker Relationship Specialty Start Date End Date Sonido Harrington MD [address] [facility] [place] [id number] [facility] - General 02/22/21
--- OUTSIDE RECORDS SUMMARY | 2025-05-15 16:56 | XMS_ITS | Encounter Summary ---
Author Organization [employer] ([place], [place], [place], [place]) Address [address] [place] [address] Care Team Providers Care Human Resources Administrator Name Role Phone Unavailable Primary Care Provider Unavailabl e Encounter Details Date Type Department Care Team (Late st Contact Info) Description 05/09/2019 Transcribed Document [facility] [place] Medicine [address] [place] [address] ProviderCorrina MD [facility] [place] [address] Social History Tobacco Use Types Packs/Day Years Used Date Smoking Tobacco: Never Assessed Comments Unknown Sex and Gender Information Value Date Recorded Sex Assigned at Female 04/10/2022 5:16 PM CDT Legal Sex Female 6:39 PM CDT Gender Identity Female 04/10/2022 5:16 PM CDT Sexual Orientation Not on file documented as of this encounter Miscellaneous Notes * Cerner Conversion Note - Historical ProviderMD - 05/09/2019 8:00 AM CDT Neurodiagnostics Event Note Entered On: 05/09/2019 8:00 EDT Performed On: 05/09/2019 8:00 EDT by HOLLIE RAMIRES Neurodiagnostics Event Note Neurodiagnostic Event Date/Time : 05/09/2019 8:00 EDT Neurodiagnostic Event Location : Neurodiagnostic department Neurodiagnostic Event Details : Procedure completed HOLLIE RAMIRES - 05/09/2019 8:00 EDT Electronically signed by Aaron Steward Conversion Electrician Rectifier Maintenance Cerner at 01/28/2023 11:34 AM CDT documented in this encounter Plan of Treatment Not on file documented as of this encounter Visit Diagnoses Not on filedocumented in this encounter
--- OUTSIDE RECORDS SUMMARY | 2025-05-15 16:56 | XMS_ITS | Encounter Summary ---
Author Organization [employer] ([place]) Address [address] [place] [address] Care Team Providers Care Refrigeration Operator Name Role Phone Unavailable Primary Care Provider Unavailabl e Encounter Details Date Type Department Care Team (Late st Contact Info) Description 05/08/2019 Transcribed Document [facility] [place] Family Medicine [address] [place] [address] ProviderCorrina MD [facility] [place] [address] Social History Tobacco Use Types Packs/Day Years Used Date Smoking Tobacco: Never Assessed Comments Unknown Sex and Gender Information Value Date Recorded Sex Assigned at Female 04/10/2022 5:16 PM CDT Legal Sex Female 6:39 PM CDT Gender Identity Female 04/10/2022 5:16 PM CDT Sexual Orientation Not on file documented as of this encounter Miscellaneous Notes * Cerner Conversion Note - Corrina ProviderMD - 05/08/2019 5:08 PM CDT Discharge Instructions Entered On: 05/08/2019 17:08 EDT Performed On: 05/08/2019 17:08 EDT by SEMAJ ABEL MD-NEU DC Instructions HWD Driving After Discharge : Do not drive SEMAJ ABEL MD-NEU - 05/08/2019 17:08 EDT documented in this encounter Plan of Treatment Not on file documented as of this encounter Visit Diagnoses Not on filedocumented in this encounter
--- OUTSIDE RECORDS SUMMARY | 2025-05-15 16:56 | XMS_ITS | Encounter Summary ---
Author Organization [employer] ([place]) Address [address] [place] [address] Care Team Providers Care Bat Boy/Girl Name Role Phone Unavailable Primary Care Provider Unavailabl e Encounter Details Date Type Department Care Team (Late st Contact Info) Description 05/09/2019 Transcribed Document [facility] [place] [facility] [place] [address] ProviderCorrina MD [facility] [place] [address] Social History Tobacco Use Types [...] Conversion Note - Historical ProviderMD - 05/09/2019 4:56 PM CDT Nursing Discharge Summary Entered On: 05/09/2019 16:58 EDT Performed On: 05/09/2019 16:56 EDT by Lavinia Oh RN Discharge Documentation Discharge Date/Time : 05/09/2019 16:56 EDT Patient Disposition, General : Discharge Discharge To : Assisted living Mode Of Departure, General Discharge : Public transportation Accompanied By, Discharge : Unaccompanied IV Discontinued : Yes Personal Belongings With Patient : Yes Prescriptions Given to Patient : Yes Number of Prescriptions Given : 1 Teaching Method : Explanation, Printed materials Teaching Evaluation : Verbalizes understanding Education Comment : poc, meds, safety Nurse Report w/Opportunity for Questions : Called External Facility Requested Documentation : Yes Discharge, Comment : [facility] - 05/09/2019 16:56 EDT documented in this encounter Plan of Treatment Not on file documented as of this encounter Visit Diagnoses Not on filedocumented in this encounter
--- OUTSIDE RECORDS SUMMARY | 2025-05-15 16:56 | XMS_ITS | Encounter Summary ---
Author Organization [employer] ([place]) Address [address] [place] [address] Care Team Providers Care Spray Blender Name Role Phone Unavailable Primary Care Provider Unavailabl e Encounter Details Date Type Department Care Team (Late st Contact Info) Description 05/09/2019 Transcribed Document [facility] [place] Family Medicine [address] [place] [address] ProviderCorrina MD [address] [place] [address] Social History Tobacco Use Types [...] Conversion Note - Historical ProviderMD - 05/09/2019 5:00 AM CDT Chart Check - Review Order Profile Entered On: 05/09/2019 4:29 EDT Performed On: 05/09/2019 5:00 EDT by Drea Antonio Rn Chart Check Powerplans Initiated/Discontinued as Appropriate : Yes All Active Orders Reviewed : Yes Drea Antonio Rn - 05/09/2019 4:29 EDT documented in this encounter Plan of Treatment Not on file documented as of this encounter Visit Diagnoses Not on filedocumented in this encounter
--- OUTSIDE RECORDS SUMMARY | 2025-05-15 16:56 | XMS_ITS | Encounter Summary ---
Author Organization [employer] ([place]) Address [address] [place] [address] Care Team Providers Care Rod Mill Operator Name Role Phone Unavailable Primary Care Provider Lauren mathews Encounter Details Date Type Department Care Team (Late st Contact Info) Description 05/07/[address] [facility] [place] [address] [place] [address] ProviderCorrina MD [facility] [place] [address] Social History Tobacco Use Types [...] Cerner Conversion Note - Historical ProviderMD - 05/07/2019 5:00 AM CDT Chart Check - Review Order Profile Entered On: 05/08/2019 4:46 EDT Performed On: 05/07/2019 5:00 EDT by Lizet Kline RN Chart Check Powerplans Initiated/Discontinued as Appropriate : Yes All Active Orders Reviewed : Yes Lizet Kline RN - 05/08/2019 4:46 EDT documented in this encounter Plan of Treatment Not on file documented as of this encounter Visit Diagnoses Not on filedocumented in this encounter
--- OUTSIDE RECORDS SUMMARY | 2025-05-15 16:56 | XMS_ITS | Encounter Summary ---
Author Organization [employer] ([place]) Address [address] [place] [address] Care Team Providers Care Etymology Professor Name Role Phone Unavailable Primary Care Provider Unavailabl e Encounter Details Date Type Department Care Team (Late st Contact Info) Description 05/06/2019 Transcribed Document [facility] [place] Family Medicine [facility] [place] [address] ProviderCorrina MD [facility] [place] [address] Social History Tobacco Use Types Packs/Day Years Used Date Smoking Tobacco: Never Assessed Comments Unknown Sex and Gender Information Value Date Recorded Sex Assigned at Female 04/10/2022 5:16 PM CDT Legal Sex Female 6:39 PM CDT Gender Identity Female 04/10/2022 5:16 PM CDT Sexual Orientation Not on file documented as of this encounter Miscellaneous Notes * Cerner Conversion Note - Historical Provider, - 05/06/2019 7:48 PM CDT Admission History, Adult Entered On: 05/07/2019 14:51 EDT Performed On: 05/06/2019 19:48 EDT by iLzet Keita RN Advance Directive Patient has Advance Directive *Q : Yes, Advance Directive on file Advance Directive Type : Living will Copy Advance Directive Verified/on Chart : Yes Lizet Keita RN - 05/07/2019 14:47 EDT Anesthesia/Transfusion History Family History of Anesthesia Reaction : No prior transfusion(s) Transfusion History : Prior anesthesia without reaction Family History of Anesthesia Reaction : None Lizet Keita RN - 05/07/2019 14:47 EDT Functional Assessment Living Situation : long-term CHRISTIANSON Hx Falls Immediate/Within 3 Months : Yes Current Home Treatments : None Lizet Keita RN - 05/07/2019 14:47 EDT General Info Want Family/Rep/Phys Notified of Admit : No Emergency Contact #1 : andres Spence MERCYGeoff Emergency Contact #1 Phone Number : . Emergency Contact #1 Relationship : . Emergency Contact #2 : . Emergency Contact #2 Phone Number : . Emergency Contact #2 Relationship : . Primary Language : Rwand[place] Preferred Communication Mode : Verbal Communication Barrier : None Lizet Keita RN - 05/07/2019 14:47 EDT Fall Risk Scales ABCs Fall Injury Risk Identification : Age ABC Fall Injury Risk : Moderate to high injury risk Injury Moderate to High Risk Interventions : Toileting schedule CHRISTIANSON Hx Falls Immediate/Within 3 Months : Yes Christianson Secondary Diagnosis : Yes CHRISTIANSON Use of Ambulatory Aid : None CHRISTIANSON IV Therapy or IV Access : Yes Christianson Gait/Transferring : Weak Christianson Mental Status : Overestimates/Forgets limitations Christianson Fall Risk Score : 85 CHRISTIANSON Fall Scale Risk Level : 46 or > High Risk Thompsons Fall Interventions : Adequate lighting, Bed in low position, Call device within reach, Hourly comfort/safety rounds, Non-slip footwear, Personal items within reach, Room free of clutter/spills, Upper side-rails up, Wheels locked, Wires/Cords secured Barriers to Learning : Acuity of Illness Learning Style Preferences Family : None Learning Style Preferences Patient : None Fall Risk Scale Calc Temp : 0 Lizet Keita RN - 05/07/2019 14:47 EDT Health Histories Smoking Status : 4 or less cigarettes(less than 1/4 pack)/day in last 30 days Smokeless Tobacco Status : Never Desires Tobacco Cessation Medication : No Reason for No Tobacco Cessation Medication : Refuses FDA approved medications Lizet Keita RN - 05/07/2019 14:47 EDT Social History (As Of: 05/07/2019 14:51:36 EDT) Height and Weight, Clinical Dosing Height Source : Stated Height Entry Format : Critz Height, Feet : 5 ft(Converted to: 152 cm, 60 Inch) Height, Inches : 3 Inch(Converted to: 0 ft 3 Inch, 7.62 cm) Clinical Height : 160.02 cm Weight Source : Bed scale Weight Entry Format : Critz Clinical Dosing Weight : 93.84 kg Weight, Pounds : 206 lb Weight, Ounces : 7 oz Body Surface Area (BSA) : 1.96 m2 Body Mass Index : 36.6 kg/m2 (HI) Fowler Body Weight : 52 kg Lavinia Oh RN - 05/09/2019 14:57 EDT Infectious Disease History Infectious Disease History : None Fever/Chills Last 48 Hours : No Travel To Regions with Travel Advisories : No Travel Outside [place] Within Last 30 Days : No Contact With Traveler to Advisory Region : No Tuberculosis Symptoms : None Lizet Keita RN - 05/07/2019 14:47 EDT Influenza Vaccine Asmt, Adult Previous Vaccines from Immunization Schedule : No qualifying data available. Influenza Immunization, Current Season : Outside of influenza season Lizet Keita RN - 05/07/2019 14:47 EDT Pneumococcal Vaccine Previous Vaccines from Immunization Schedule : No qualifying data available. Pneumonia Immunization Received : Yes Lizet Keita RN - 05/07/2019 14:47 EDT Nutrition History Feeding Ability : Independent Adaptive Feeding Equipment : Regular Eating Poorly Due to Decreased Appetite : No Unplanned Weight Loss in Past 3-6 Months : No Malnutrition Screening Tool Total(mal) : 0 Malnutrition Screening Tool Risk Level : Patient not at risk Lizet Keita RN - 05/07/2019 14:47 EDT Psychosocial History Currently in Unsafe Situation : No Tried to Harm Yourself in the Past? : No Thoughts of Harming/Killing Yourself : No Lizet Keita RN - 05/07/2019 14:47 EDT Sleep Apnea Risk Assmt Hx of Obstructive Sleep Apnea Diagnosis : No Snore Loudly : No Tired, Fatigued, or Sleepy During Day : No Observed Stopping Breathing During Sleep : No Have/Are Being Treated for Hypertension : No BMI Greater Than 35 kg/m2 : No Age over 50 Years Old : Yes Neck Circumference Greater Than 40 cm : No Gender Male : No STOP-BANG Sleep Apnea Risk Level Score : 1 Lizet Keita RN - 05/07/2019 14:47 EDT Valuables and Belongings Valuables and Belongings : Clothing Clothing : Common streetwear Clothing Disposition : Bedside Lizet Keita RN - 05/07/2019 14:47 EDT documented in this encounter Plan of Treatment Not on file documented as of this encounter Visit Diagnoses Not on filedocumented in this encounter
--- OUTSIDE RECORDS SUMMARY | 2025-05-15 16:56 | XMS_ITS | Encounter Summary ---
Author Organization [employer] ([place]) Address [address] [place] [address] Care Team Providers Care News Camera Operator Name Role Phone Unavailable Primary Care Provider Unavailabl e Encounter Details Date Type Department Care Team (Late st Contact Info) Description 05/09/2019 Transcribed Document [facility] [place] [address] [place] [address] ProviderCorrina MD [address] [place] [address] Social History Tobacco Use Types [...] Conversion Note - Historical ProviderMD - 05/09/2019 4:50 PM CDT Stroke/Warfarin Instructions Entered On: 05/09/2019 16:50 EDT Performed On: 05/09/2019 16:50 EDT by Lavinia Oh RN Stroke/Warfarin Instructions Stroke/TIA Discharge Ins : N/A Warfarin Discharge Ins : N/A Lavinia Oh RN - 05/09/2019 16:50 EDT documented in this encounter Plan of Treatment Not on file documented as of this encounter Visit Diagnoses Not on filedocumented in this encounter
--- OUTSIDE RECORDS SUMMARY | 2025-05-15 16:56 | XMS_ITS | Encounter Summary ---
Author Organization [facility] ([place], [place]) Address [address] [place] [address] Care Team Providers Care Pilot Highway Patrol Name Role Phone Unavailable Primary Care Provider Unavailabl e Encounter Details Date Type Department Care Team (Late st Contact Info) Description 05/06/2019 Transcribed Document [facility] [place] [address] [place] [address] ProviderCorrina MD [facility] [place] [address] Social History Tobacco Use Types Packs/Day Years Used Date Smoking Tobacco: Never Assessed Comments Unknown Sex and Gender Information Value Date Recorded Sex Assigned at Female 04/10/2022 5:16 PM CDT Legal Sex Female 6:39 PM CDT Gender Identity Female 04/10/2022 5:16 PM CDT Sexual Orientation Not on file documented as of this encounter Miscellaneous Notes * Cerner Conversion Note - Historical ProviderMD - 05/06/2019 9:20 PM CDT Consult Phone Call Documentation Entered On: 05/07/2019 15:03 EDT Performed On: 05/06/2019 21:20 EDT by SANDRA PFEIFFER Phone Call for Consults Consult Phone Call/Page Attempt : First call Consult Reason : Altered mental status Physician Requesting Consult : ROSA MCCLURE MD-INT Physician Requested for Consult : SEMAJ ABEL MD-MERCEDES Provider Service Notified Name : Neurology Date and Time Call Returned : 05/06/2019 15:03 EDT SANDRA PFEIFFER - 05/07/2019 14:58 EDT Electronically signed by Araon Steward Conversion Special Effects Makeup Artist Cerner at 01/28/2023 11:33 AM CDT documented in this encounter Plan of Treatment Not on file documented as of this encounter Visit Diagnoses Not on filedocumented in this encounter
--- OUTSIDE RECORDS SUMMARY | 2025-05-15 16:56 | XMS_ITS | Encounter Summary ---
Author Organization [employer] ([place], [place], [place], [place]) Address [address] [place] [address] Care Team Providers Care Quality Control Representative Name Role Phone Unavailable Primary Care Provider Unavailabl e Encounter Details Date Type Department Care Team (Late st Contact Info) Description 05/09/2019 Transcribed Document [facility] [place] Family Medicine [facility] [place] [address] ProviderCorrina MD [address] [place] [address] Social History Tobacco Use Types [...] Historical ProviderMD - 05/09/2019 4:50 PM CDT Patient Education Materials Follows: Toxic Metabolic Encephalopathy Toxic metabolic encephalopathy (TME) is a type of brain disorder caused by a change in brain chemistry. This condition may result from illnesses or conditions that cause an imbalance of fluid, minerals (electrolytes), and other substances in the body that affect the way the brain functions. It is not caused by brain damage or brain disease. TME can cause confusion and other mental disturbances, which are generally referred to as delirium. Untreated delirium may lead to permanent mental changes or worsening medical conditions. Untreated delirium is a life-threatening condition that may need to be treated in the hospital. What are the causes? Possible causes of TME that can lead to delirium?include: ??? Short-term (acute) or long-term (chronic) disease of the kidney or liver. ??? Not having enough fluid in the body (dehydration). ??? Changes in the acid level (pH) of the blood. ??? High or low levels of any of the following substances in the blood: ? Calcium. ? Salt (sodium). ? Sugar (glucose). ? Magnesium. ? Phosphate. ??? High body temperature. ??? Not having enough oxygen in the blood. ??? Low levels of B vitamins. This can result from alcohol abuse. ??? Certain medicines, such as steroids and medicines that reduce the activity of the immune system (immunosuppressants). ??? Certain infections. What increases the risk? You may have a higher risk for TME if you: ??? Are elderly. ??? Have dementia. ??? Are in the hospital, especially in intensive care. ??? Live in a half-way. ??? Had recent surgery. ??? Have liver or kidney disease. ??? Have poorly controlled diabetes. ??? Have chronic medical problems, especially heart or lung disease. ??? Are not getting enough fluids. ??? Have poor nutrition. ??? Abuse alcohol. What are the signs or symptoms? Symptoms of TME may include: ??? Muscle stiffness or jerking (spasticity). ??? Shaking (tremors). ??? Flapping of the hands. ??? Weakness. ??? Clumsiness. ??? Slowed breathing. ??? Jerky movements that you cannot control (seizures). ??? Not being able to stay awake (drowsiness). ??? Not being able to pay attention. ??? Loss of consciousness (coma). Symptoms of delirium caused by TME include: ??? Confusion. ??? Difficulty focusing or concentrating, or inability to focus or concentrate. ??? Not knowing where you are (disorientation). ??? Seeing or hearing things that are not real (hallucinations). ??? Fearfulness. ??? False beliefs (delusions). ??? Changes in mood or personality. ??? Changes in speech, such as saying things that do not make sense. ??? Memory loss. ??? Irritability. ??? Avoiding other people (withdrawal). ??? Depression. ??? Poor judgment. ??? Changes in eating and sleeping patterns. ??? Hyperactivity. ??? Decreased alertness. ??? General mistrust of others (paranoia). Delirium may come and go. Symptoms of delirium may start suddenly or gradually, and they often get worse at night. How is this diagnosed? This condition is diagnosed based on: ??? Your symptoms and behavior. ??? An exam to check how you are thinking, feeling, and behaving (mental status exam). To diagnose delirium, the mental status exam must rule out other possible causes of TME, and must show: ? Changes in attention and awareness. ? Changes that develop over a short period of time and tend to come and go (fluctuate). ? Changes in memory, language, and thinking that were not present before. ??? A physical exam. ??? Imaging tests, such as: ? MRI. ? CT scan. ??? Blood tests to: ? Measure liver and kidney function. ? Check for a lack (deficiency) of vitamin B. ? Check for changes in acid levels (pH) and changes in calcium, sodium, or magnesium levels in the blood. ? Measure your blood sugar (glucose). ? Measure your blood oxygen level. How is this treated? Treatment for TME depends on the cause, and it may include. ??? Getting fluids through an IV tube. ??? Regulating calcium, sodium, glucose, or magnesium levels in the body. ??? Getting oxygen. ??? Improving nutrition. ??? Treating liver or kidney disease. ??? Adjusting certain medicines. ??? Treating infections. If the cause is found and treated, delirium usually improves. Managing delirium may include: ??? Keeping the room well-lit and quiet. ??? Using calendars, pictures, and clocks to prevent disorientation. ??? Having frequent checks from nursing staff and visits from caregivers. ??? Wearing eyeglasses or a hearing aid, if needed. ??? Physical therapy. ??? Medicine to treat agitation, anxiety, hallucinations, or delusions. Follow these instructions at home: ??? Drink enough fluid to keep your urine clear or pale yellow. ??? Take [id number] and prescription medicines only as told by your health care provider. ??? Return to your normal activities as told by your health care provider. Ask your health care provider what activities are safe for you. ??? Follow a healthy diet. Do not skip meals. ??? Do not drink alcohol. ??? Go to bed at the same time every night. ??? Keep all follow-up visits as told by your health care provider. This is important. Contact a health care provider if: ??? You are unable to feed yourself or hydrate yourself. ??? You need help at home. ??? You start to feel clumsy. ??? You start to have tremors or weakness. Get help right away if: ??? You have a seizure. ??? You lose consciousness. ??? You have trouble breathing. ??? You do not feel able to care for yourself at home. ??? You have a fever. ??? You become disoriented at home. This information is not intended to replace advice given to you by your health care provider. Make sure you discuss any questions you have with your health care provider. Document Released: 03/06/2017 Document Revised: 06/01/2017 Document Reviewed: 03/06/2017 Elsevier Interactive Patient Education ? 2019 [employer] documented in this encounter Plan of Treatment Not on file documented as of this encounter Visit Diagnoses Not on filedocumented in this encounter
--- OUTSIDE RECORDS SUMMARY | 2025-05-15 16:56 | XMS_ITS | Encounter Summary ---
Author Organization [employer] ([place], [place], [place], [place]) Address [address] [place] [address] Care Team Providers Care Belt Polisher Name Role Phone Unavailable Primary Care Provider Unavailabl e Encounter Details Date Type Department Care Team (Late st Contact Info) Description 05/07/2019 Transcribed Document [facility] [place] Family Medicine [address] [place] [address] ProviderCorrina MD [facility] [place] [address] Social History Tobacco Use Types [...] Conversion Note - Historical ProviderMD - 05/07/2019 9:23 AM CDT Shift Summary Note Entered On: 05/07/2019 9:25 EDT Performed On: 05/07/2019 9:23 EDT by Lizet Keita RN Shift Summary Note Shift Summary Note : Patient concerned about swelling on left side of abdomen, there is an enlargement of the left side of her abdomen. Patient states she feels like she is going to pass out, vital signs stable. she states difficulty breathing, oxygensaturation is 99 percent on room air. alert oriented, no obvious distress. Lizet Keita RN - 05/07/2019 9:23 EDT documented in this encounter Plan of Treatment Not on file documented as of this encounter Visit Diagnoses Not on filedocumented in this encounter
--- OUTSIDE RECORDS SUMMARY | 2025-05-15 16:56 | XMS_ITS | Encounter Summary ---
Author Organization [employer] ([place], [place], [place], [place]) Address [address] [place] [address] Care Team Providers Care Veterinary Bacteriologist Name Role Phone Unavailable Primary Care Provider Unavailabl e Encounter Details Date Type Department Care Team (Late st Contact Info) Description 05/08/2019 Transcribed Document [facility] [place] Family Medicine [facility] [place] [address] ProviderCorrina MD [facility] [address] Social History Tobacco Use Types [...] Cerner Conversion Note - Historical ProviderMD - 05/08/2019 5:09 PM CDT DATE OF CONSULTATION: 05/08/2019 NEUROLOGY CONSULTATION REFERRING PHYSICIAN: Suzanne Aleman M.D. HISTORY OF PRESENT ILLNESS: Jeny Starkey is a 54-year-old white female, who apparently has a history of schizoaffective disorder, who was transferred to our hospital two days ago from [facility] for an episode of encephalopathy. I have been asked to evaluate her for encephalopathy. The patient indicates to me that a couple of days ago she went to physical therapy session at [facility] and may have passed out. According to Dr. Aleman's note, the patient was obtunded and unresponsive for a period of time and now she is getting better. The patient tells me that she lives at a care home in [place]. She indicates she has never had this happen to her before. CURRENT MEDICATIONS: Include: 1. Proventil. 2. Aspirin. 3. Lipitor. 4. Cogentin. 5. Wellbutrin. 6. Coreg. 7. Plavix. 8. Lexapro. 9. Insulin. 10. Lamictal. 11. Levothyroxine. 12. Singulair. 13. Pantoprazole. 14. Risperidone. 15. Diovan ALLERGIES: 1. TD INHIBITORS. 2. LACTOSE. 3. LISINOPRIL. HOME MEDICATIONS: Medications at home according to a computerized home medication list may or may not have included: 1. Escitalopram. 2. Benztropine. 3. Fluticasone. 4. Aspirin. 5. Sitagliptin. 6. Aspirin. 7. Plavix. 8. Lamictal. 9. Omeprazole. 10. Singulair. 11. Levothyroxine. 12. Metformin. 13. Fluticasone. 14. Albuterol. 15. Wellbutrin. 16. Klonopin. 17. Atorvastatin. 18. Cozaar. 19. Lasix. 20. Coreg. 21. Risperidone. PAST MEDICAL HISTORY: 1. She says she smokes. 2. No alcohol use. 3. No illicit drug use. 4. Apparently, she has schizoaffective disorder. 5. Hypothyroidism. 6. Diabetes. 7. Hypertension. 8. She has had knee surgery. 9. She has had a cholecystectomy. SOCIAL HISTORY: Apparently, the patient lives in a care home in [place]. She has no children. She is single. She says she walks independently, but does not drive. FAMILY HISTORY: Her father of unknown causes. Her mother from complications of a surgery. REVIEW OF SYSTEMS: GENERAL: She says 50 years ago she had fevers. EYES: She denies any visual changes. EARS: She denies any hearing loss. CARDIAC: She denies any chest pain. RESPIRATORY: She says sometimes she feels short of breath. SKIN: She says sometimes she has a rash. NEUROLOGIC: She denies any headache. PSYCHIATRIC: She denies any suicidality. ENDOCRINE: She has diabetes. HEMATOLOGIC: She denies any history of blood transfusions. PHYSICAL EXAMINATION: She is a well-developed female, in no acute distress, resting comfortably in bed. Her blood pressure is 188/90, temperature is 97.6. Her heart is regular rate and rhythm. Lungs are clear. Neck is supple without any bruits. An ophthalmologic exam was done and her pupils react equally to light, but I could not see her disc. Motor exam shows 5/5 strength in both arms and legs. Her tone in both arms and legs is normal. She is alert and oriented to person, place, and time. She is able to follow simple commands. She is able to identify objects. She is able to tell me, who the president was. Cranial nerves 2 through 12 were intact. Coordination shows intact [id number] bilaterally. Gait was not tested. Reflexes were 1+. LABORATORY DATA: The patient had a head CT at the outside hospital, which was normal. She has had an echocardiogram here that is within normal limits. A carotid ultrasound is pending. Laboratory show unremarkable electrolytes and an unremarkable CBC with diff. ASSESSMENT: Jeny Starkey is a 54-year-old with diabetes and schizoaffective disorder, who had an unexplained episode of encephalopathy two days ago. The differential could include one or combination of followin. Side effects of medications. 2. A seizure--the use of Wellbutrin could put her at risk of this. 3. Cerebrovascular disease. 4. Cardiac arrhythmia. 5. A functional disorder. 6. A cerebral mass lesion. 7. An episode of hypoglycemia or hyperglycemia. At this time I do not know the exact etiology of her episode of encephalopathy and there are multiple potential causes. At this time, I would recommend the followin. To continue supportive care. 2. Screening EEG. 3. To follow up on her carotid ultrasound. 4. At discharge, she should follow up with an outpatient neurologist. Of note, I have spent over an hour this case today. Over half that time was spent reviewing the chart . Jose Lima M.D. Dict: 05/08/2019 17:09:10 Trans: 05/08/2019 19:17:30 CC1: Jose Lima M.D. documented in this encounter Plan of Treatment Not on file documented as of this encounter Visit Diagnoses Not on filedocumented in this encounter
--- OUTSIDE RECORDS SUMMARY | 2025-05-15 16:56 | XMS_ITS | Encounter Summary ---
Author Organization [employer] ([place], [place], [place], [place]) Address [address] [place] [address] Care Team Providers Care Canvas Goods Maker Name Role Phone Unavailable Primary Care Provider Lauren mathews Encounter Details Date Type Department Care Team (Late st Contact Info) Description 05/08/2019 Transcribed Document [facility] [place] Family Medicine [address] [place] [address] ProviderCorrina MD [facility] [place] [address] Social History Tobacco Use Types [...] Conversion Note - Historical ProviderMD - 05/08/2019 5:00 AM CDT Chart Check - Review Order Profile Entered On: 05/08/2019 4:49 EDT Performed On: 05/08/2019 5:00 EDT by Lizet Kline RN Chart Check Powerplans Initiated/Discontinued as Appropriate : Yes All Active Orders Reviewed : Yes Lizet Kline RN - 05/08/2019 4:49 EDT documented in this encounter Plan of Treatment Not on file documented as of this encounter Visit Diagnoses Not on filedocumented in this encounter
--- OUTSIDE RECORDS SUMMARY | 2025-05-15 16:56 | XMS_ITS | Encounter Summary ---
Author Organization [employer] ([place], [place], [place], [place]) Address [address] [place] [address] Care Team Providers Care Hoop Machine Operator Name Role Phone Unavailable Primary Care Provider Unavailabl e Encounter Details Date Type Department Care Team (Late st Contact Info) Description 05/09/2019 Transcribed Document [facility] [place] [facility] [place] [address] ProviderCorrina MD [facility] [place] [address] Social History Tobacco Use Types [...] Conversion Note - Historical ProviderMD - 05/09/2019 9:25 AM CDT On Going Discharge Planning Entered On: 05/09/2019 9:28 EDT Performed On: 05/09/2019 9:25 EDT by BRENDA SMITH RN-Care Management Care Management Progress Note Discharge Arrangements : Patient Post-Acute Information Patient Name: NURA AG Gender: Female : [birth year] Age: 54 Years No Post-Acute Placement(s) Listed No Post-Acute Service(s) Listed No [place] Referral(s) Listed BRENDA SMITH RN-Care Management - 05/09/2019 9:25 EDT Narrative Progress Note Narrative Progress Note : Pt a resident of [facility] in [place] and person spoke lisa/Yaar [phone]/fax [phone] BRENDA SMITH, RN-Care Management - 05/09/2019 9:25 EDT documented in this encounter Plan of Treatment Not on file documented as of this encounter Visit Diagnoses Not on filedocumented in this encounter
--- OUTSIDE RECORDS SUMMARY | 2025-05-15 16:56 | XMS_ITS | Encounter Summary ---
Author Organization [employer] ([place], [place], [place], [place]) Address [address] [place] [address] Care Team Providers Care Stem Threshing Machine Operator Name Role Phone Unavailable Primary Care Provider Unavailabl e Encounter Details Date Type Department Care Team (Late st Contact Info) Description 05/07/2019 Transcribed Document [facility] [place] [facility] [place] [address] ProviderCorrina MD [address] [place] [address] Social History Tobacco Use Types Packs/Day [...] Conversion Note - Historical ProviderMD - 05/07/2019 1:51 PM CDT Evaluation, Physical Therapy Entered On: 05/08/2019 11:18 EDT Performed On: 05/08/2019 11:11 EDT by KEVIN SAEZ, PT General Information, PT Visit Type, PT : Initial evaluation Patient Orders : Order Date Order Ordering 05/07/2019 13:51 Physical Therapy Eval and Treat Ordered By: ISRAEL GILBERT MD Active Diagnoses : 05/08/2019 00:00 Encephalopathy, unspecified Therapy Diagnosis, PT : Impaired endurance Admission Date : 05/06/2019 19:49 Personal Devices : Personal Devices No Devices Recorded Assistive Devices : Assistive Devices No Devices Recorded General Information Comment, PT : Diagnosis: Encephalopatahy. Hx: schizo affective disorder. KEVIN SAZE, PT - 05/08/2019 11:11 EDT General Status Patient Received Status : Supine in bed Treatment Start Time : 05/08/2019 10:47 EDT Patient Left Status : Supine in bed RN/PCT Informed Comment : Laura Treatment End Time : 05/08/2019 11:09 EDT Treatment Time : 22 Minute(s) KEVIN SAEZ, PT - 05/08/2019 11:11 EDT History and Environment Living Situation, Therapy : Assisted living Patient Lives With : Legal guardian(s) Persons Assisting Patient at Home : Legal guardian(s) Professional Skilled Services : None Persons Providing Information : Patient Home Equipment Therapy, PT : Walker Walker : Walker, front wheel Home Setup : One story Stairs : No KEVIN SAEZ, PT - 05/08/2019 11:11 EDT Prior Level of Function PT GRID Prior LOF Ambulation, Household : Independent Prior LOF Ambulation, Community : Independent Prior LOF Bed Mobility : Independent Prior LOF Toileting : Independent Prior LOF Transfer : Independent Prior LOF Wheel Chair Mobility : Independent KEVIN SAEZ, PT - 05/08/2019 11:11 EDT Upper Extremity Upper Extremity Dominance : Right Right UE Active ROM : WFL Right UE Strength : WFL Left UE Active ROM : WFL Left UE Strength : WFL Right UE Strength : WF Left UE Strength : WFL KEVIN SAEZ, PT - 05/08/2019 11:11 EDT Lower Extremity RLE Active ROM : WFL Right LE Strength : WFL LLE Active ROM : WFL Left LE Strength : WFL KEVIN SAEZ, PT - 05/08/2019 11:11 EDT Right Lower Extremity MMT Hip Flexion (0-125) : 4/good Hip Extension (0-10) : 4/good Hip Abduction (0-45) : 4/good Hip Adduction (0-20) : 4/good Hip External Rotation (0-45) : 4/good Hip Internal Rotation (0-45) : 4/good Knee Flexion (0-140) : 4/good Knee Extension (0-0) : 4/good Ankle Dorsiflexion (0-20) : 4/good Ankle Plantarflexion (0-45) : 4/good Ankle Inversion (0-35) : 4/good Ankle Eversion (0-20) : 4/good Other Location : 4/good KEVIN SAEZ, PT - 05/08/2019 11:11 EDT Left Lower Extremity MMT Hip Flexion (0-125) : 4/good Hip Extension (0-10) : 4/good Hip Abduction (0-45) : 4/good Hip Adduction (0-20) : 4/good Hip External Rotation (0-45) : 4/good Hip Internal Rotation (0-45) : 4/good Knee Flexion (0-140) : 4/good Knee Extension (0-0) : 4/good Ankle Dorsiflexion (0-20) : 4/good Ankle Plantarflexion (0-45) : 4/good Ankle Inversion (0-35) : 4/good Ankle Eversion (0-20) : 4/good Other Location : 4/good KEVIN SAEZ, PT - 05/08/2019 11:11 EDT Functional Mobility Mobility Grid Bed Roll Left : Rehab Complete independence Bed Roll Right : Rehab Complete independence Bed Scooting : Rehab Complete independence Supine to Sit : Rehab Complete independence Sit to Stand : Rehab Modified independence Stand to Sit : Rehab Complete independence Sit to Supine : Rehab Complete independence KEVIN SAEZ, PT - 05/08/2019 11:11 EDT Gait Training/Assessment, PT Gait Assistance Level : Independent, modified KEVIN SAEZ, PT - 05/08/2019 11:11 EDT Walking Distance : 170' KEVIN SAEZ, PT - 05/08/2019 11:40 EDT Ambulatory Devices : Gait belt, Walker, front wheel Gait Deviations : Yes Left Lower Gait Deviation : Alethea, decreased Right Lower Gait Deviation : Alethea, decreased KEVIN SAEZ, PT - 05/08/2019 11:11 EDT Neurological/Sensory Overall Sensory Response : Intact KEVIN SAEZ, PT - 05/08/2019 11:11 EDT Cognition Assessment, PT Orientation : Oriented x 4 KEVIN SAEZ PT - 05/08/2019 11:11 EDT Edu Topics Physical Therapy Education Grid Role of Physical Therapy : Verbalizes understanding KEVIN SAEZ, PT - 05/08/2019 11:11 EDT Indication Assesessment, PT Physical Therapy Indicated : No Physical Therapy Not Indicated : Prior level of function Potential Barriers To Therapy : None evident Rehabilitation Potential : At prior level of function KEVIN SAEZ, PT - 05/08/2019 11:11 EDT Plan of Care, PT PT Tx Plan/Goals Established w Patient : No Reason Tx/Plan Not Established W/ Pt PT : Prior functional level. KEVIN SAEZ, PT - 05/08/2019 11:11 EDT Treatment Note Assessment : Patient at prior level of function and skilled P.T services not indicated. Prior independent level of function. Plan for Treatment : D/C KEVIN SAEZ, PT - 05/08/2019 11:40 EDT Subjective Comment : Patient and RN (Laura) agrees with POC. KEVIN SAEZ, PT - 05/08/2019 11:11 EDT Patient's Response to Treatment : No c/o pain. No mobility deficits noted. KEVIN SAEZ, PT - 05/08/2019 11:21 EDT Additional Objective Information : P.T eval completed and RN (Mariella) present during mobility assessement. Supine to sit independently. Sit to stand (I). Patient ambulated 170' with RWx Modified independent. Patient returned to supine position Mod (I). 2nd Tx~Patient stood at EOb independently and ambulated into bathroom for personal care. Patient ambulated in halls 150' to nursing station. Patient returned to supine position independently. KEVIN SAEZ, PT - 05/08/2019 11:40 EDT Pain Assessment Pain Scaled Used : 0-10 Pain scale Pain Score Pre-Intervention : 0 KEVIN SAEZ, PT - 05/08/2019 11:40 EDT Image 1 - Images currently included in the form version of this document have not been included in the text rendition version of the form. Anticipated Discharge Needs, OT/PT Anticipated Discharge to : Assisted living KEVIN SAEZ, PT - 05/08/2019 11:40 EDT [place] PT Charges PT Eval Low Complexity : 1 KEVIN SAEZ, PT - 05/08/2019 11:40 EDT documented in this encounter Plan of Treatment Not on file documented as of this encounter Visit Diagnoses Not on filedocumented in this encounter
--- OUTSIDE RECORDS SUMMARY | 2025-05-15 16:56 | XMS_ITS | Encounter Summary ---
Author Organization [employer] ([place], [place], [place], [place]) Address [address] [place] [address] Care Team Providers Care Agile Qa Tester Name Role Phone Unavailable Primary Care Provider Unavailabl e Encounter Details Date Type Department Care Team (Late st Contact Info) Description 05/07/2019 Transcribed Document [facility] [place] Family Medicine [address] [place] [address] ProviderCorrina [place] [address] Social History Tobacco Use Types [...] Conversion Note - Historical ProviderMD - 05/07/2019 1:31 PM CDT UM Authorization Entered On: 05/07/2019 13:31 EDT Performed On: 05/07/2019 13:31 EDT by SHINE SOLANO Rn-Utilization Review Primary Insurance Authorization Authorization and Policy Numbers : Insurance 1 Health Plan: [facility] Policy Number: [id number] Authorization Number: Insurance Primary Name : [facility] Policy Number: [id number] Historical Authorization Comments-Primary : No Authorization Comments Found SHINE SOLANO Rn-Utilization Review - 05/07/2019 13:31 EDT documented in this encounter Plan of Treatment Not on file documented as of this encounter Visit Diagnoses Not on filedocumented in this encounter
--- OUTSIDE RECORDS SUMMARY | 2025-05-15 16:56 | XMS_ITS | Encounter Summary ---
Author Organization [employer] ([place], [place], [place], [place]) Address [address] [place] [address] Care Team Providers Care Mental Health Counselor Name Role Phone Unavailable Primary Care Provider Unavailabl e Encounter Details Date Type Department Care Team (Late st Contact Info) Description 05/08/2019 Transcribed Document [facility] [place] [address] [place] [address] ProviderCorrina [place] [address] Social History Tobacco Use Types [...] Note - Historical ProviderMD - 05/08/2019 5:00 PM CDT Chart Check - Review Order Profile Entered On: 05/08/2019 16:09 EDT Performed On: 05/08/2019 17:00 EDT by Mariella Deshpande LPN Chart Check All Active Orders Reviewed : Yes Mariella Deshpande LPN - 05/08/2019 16:09 EDT documented in this encounter Plan of Treatment Not on file documented as of this encounter Visit Diagnoses Not on filedocumented in this encounter
--- OUTSIDE RECORDS SUMMARY | 2025-05-15 16:56 | XMS_ITS | Encounter Summary ---
Author Organization [employer] ([place], [place], [place], [place]) Address [address] [place] [address] Care Team Providers Care Brazing Machine Operator Automatic Name Role Phone Unavailable Primary Care Provider Unavailabl e Encounter Details Date Type Department Care Team (Late st Contact Info) Description 05/09/2019 Transcribed Document [facility] [place] [facility] [place] [address] ProviderCorrina MD [facility] [place] [address] Social History Tobacco Use Types [...] Conversion Note - Historical ProviderMD - 05/09/2019 12:54 PM CDT UM Authorization Entered On: 05/09/2019 12:55 EDT Performed On: 05/09/2019 12:54 EDT by HALIE CABRALES Instrumentation Controls Engineer Primary Insurance Authorization Authorization and Policy Numbers : Insurance 1 Health Plan: [facility] Policy Number: [id number] Authorization Number: Insurance Primary Name : [facility] Policy Number: [id number] Authorization Comments-Primary : Angelia from [facility] called stating that decision needs to be made today as to wheather pt going to be OBS or go to INPT. needs clinical today Email sent to Benita Schultz Historical Authorization Comments-Primary : No Authorization Comments Found HALIE CABRALES, Instrumentation Controls Engineer - 05/09/2019 12:54 EDT documented in this encounter Plan of Treatment Not on file documented as of this encounter Visit Diagnoses Not on filedocumented in this encounter
--- OUTSIDE RECORDS SUMMARY | 2025-05-15 16:56 | XMS_ITS | Encounter Summary ---
Author Organization [employer] ([place], [place], [place], [place]) Address [address] [place] [address] Care Team Providers Care Golf Instructor Name Role Phone Unavailable Primary Care Provider Unavailabl e Encounter Details Date Type Department Care Team (Late st Contact Info) Description 05/09/2019 Transcribed Document [facility] [place] [facility] [place] [address] ProviderCorrina MD [facility] [place] [address] Social History Tobacco Use Types [...] Cerner Conversion Note - Corrina ProviderMD - 05/09/2019 11:57 AM CDT Initial Discharge Planning Entered On: 05/09/2019 12:04 EDT Performed On: 05/09/2019 11:57 EDT by NAT DALAL Rn-Health Service Worker Initial Assessment I Previously Documented Living Environment : No qualifying data available. Living Situation : Other: [facility] in [place] [phone] Patient Lives With : Legal guardian(s) Emergency Contact #1 : andres CARUSO Emergency Contact #1 Phone Number : .[phone] Emergency Contact #1 Relationship : . Emergency Contact #2 : . Emergency Contact #2 Phone Number : . Emergency Contact #2 Relationship : . NAT DALAL Rn-Health Service Worker - 05/09/2019 11:57 EDT Initial Assessment II Sensory and Motor Deficits : None, Weakness Current Home Treatments and Equipment : NAT Dougherty Rn-Health Service Worker - 05/09/2019 11:57 EDT Discharge Needs I Anticipated Discharge Date : 05/09/2019 EDT Current Home Treatment/Equipment : Current Home Treatment/Equipment No qualifying data available. Post Acute/Home Treatments : NAT Dougherty Rn-Health Service Worker - 05/09/2019 11:57 EDT Discharge Needs II Professional Skilled Services : Professional Skilled Services No qualifying data available. Services and Community Resources : Home Health Discharge Options Discussed with Patient : Home Health RHIANNAJaswantNAT VENCES Rn-Health Service Worker - 05/09/2019 11:57 EDT Narrative Note Narrative Note : brokerage office manager met with pt and ZULY Jerome [phone] at the bedside. Pt is from [facility] in [facility] [employer] # [phone]. PLOG> Somewhat independent with walker. Per ZULY Jerome, the last 3 mos pt been falling on and off. Facility is now working on transitioning pt to manager long term care [facility] facility in [place]. Ambulates with a walker. CM discussed local intermodal truck driver is more appropriate and pt will continue to pursue while at the [facility]. DC plan is to return with . CM will order Nursing and PT at [place]. CM called Spoke with Demand Equipment Repairer at the facility. Will not need to make onsite assessment, Wants dc summary faxed to her at [phone]. has updated attending MD Phillips that facility is agreeable to take pt today. CM has arranged [facility] for 4PM. IF EEG and Doppler negative will dc as scheduled. NAT DALAL Rn-Health Service Worker - 05/09/2019 11:57 EDT documented in this encounter Plan of Treatment Not on file documented as of this encounter Visit Diagnoses Not on filedocumented in this encounter
--- OUTSIDE RECORDS SUMMARY | 2025-05-15 16:56 | XMS_ITS | Encounter Summary ---
Author Organization [employer] ([place], [place], [place], [place]) Address [address] [place] [address] Care Team Providers Care Animal Nurse Name Role Phone Unavailable Primary Care Provider Unavailabl e Encounter Details Date Type Department Care Team (Late st Contact Info) Description 05/09/2019 Transcribed Document [facility] [place] Family Medicine [address] [place] [address] ProviderCorrina MD [facility] [place] [address] Social History Tobacco Use Types [...] Note - Historical ProviderMD - 05/09/2019 5:00 PM CDT Chart Check - Review Order Profile Entered On: 05/09/2019 15:29 EDT Performed On: 05/09/2019 17:00 EDT by Lavinia Oh RN Chart Check Powerplans Initiated/Discontinued as Appropriate : Yes All Active Orders Reviewed : Yes Lavinia Oh RN - 05/09/2019 15:28 EDT Electronically signed by Aaron Steward Conversion Morning Show Newscast Producer Cerner at 01/28/2023 11:19 AM CDT documented in this encounter Plan of Treatment Not on file documented as of this encounter Visit Diagnoses Not on filedocumented in this encounter
--- OUTSIDE RECORDS SUMMARY | 2025-05-15 16:56 | XMS_ITS | Encounter Summary ---
Author Organization [employer] ([place], [place], [place], [place]) Address [address] [place] [address] Care Team Providers Care Stereo Equipment Salesperson Name Role Phone Unavailable Primary Care Provider Unavailabl e Encounter Details Date Type Department Care Team (Late st Contact Info) Description 05/09/2019 Transcribed Document [facility] [place] [facility] [place] [address] ProviderCorrina MD [facility] [place] [address] Social History Tobacco Use Types [...] Conversion Note - Historical ProviderMD - 05/09/2019 2:17 PM CDT DATE OF STUDY: 05/09/2019 REFERRING PHYSICIAN: Jose Lima M.D. INDICATIONS: An EEG is requested in a 54-year-old with a recent unexplained loss of consciousness. FINDINGS: Throughout the tracing, there are intermittent runs of moderately well regulated, medium amplitude, posteriorly dominant 7-8 cycle per second theta rhythm. No epileptiform features are observed. Hyperventilation is not performed. Photic stimulation is performed and produces no change in the tracing. Sleep is not obtained. CLINICAL IMPRESSION: This electroencephalogram performed during wakefulness is within normal limits except for some mild background slowing. The lack of epileptiform features does not exclude the diagnosis of a seizure disorder. Clinical correlation is advised. Jose Lima M.D. Dict: 05/09/2019 14:17:28 Trans: 05/09/2019 14:29:52 CC1: Jose Lima M.D. Electronically signed by Aaron Steward Conversion Marketing And Development Coordinator Cerner at 01/28/2023 11:24 AM CDT documented in this encounter Plan of Treatment Not on file documented as of this encounter Visit Diagnoses Not on filedocumented in this encounter
--- OUTSIDE RECORDS SUMMARY | 2025-05-15 16:56 | XMS_ITS | Encounter Summary ---
Author Organization [employer] ([place], [place], [place], [place]) Address [address] [place] [address] Care Team Providers Care Shot Polisher Name Role Phone Unavailable Primary Care Provider Unavailabl e Encounter Details Date Type Department Care Team (Late st Contact Info) Description 05/06/2019 Transcribed Document [facility] [place] [facility] [place] [address] ProviderCorrina MD [facility] [place] [address] Social History Tobacco Use Types [...] Historical ProviderMD - 05/06/2019 9:20 PM CDT Pain Assessment Entered On: 05/09/2019 4:28 EDT Performed On: 05/08/2019 23:19 EDT by Drea Antonio Rn Intervention Information: acetaminophen Performed by Drea Antonio Rn on 05/08/2019 22:19:00 EDT acetaminophen,650mg Oral,Pain (Mild 1-3) Pain Assessment Pain Assessment : Follow-up assessment Pain Scale Used : 0-10 Scale Drea Antonio Rn - 05/09/2019 4:28 EDT Pain Scale Intensity : 0 Drea Antonio Rn - 05/09/2019 4:28 EDT Image 4 - Images currently included in the form version of this document have not been included in the text rendition version of the form. documented in this encounter Plan of Treatment Not on file documented as of this encounter Visit Diagnoses Not on filedocumented in this encounter
--- OUTSIDE RECORDS SUMMARY | 2025-05-15 16:56 | XMS_ITS | Encounter Summary ---
Author Organization [facility] Address [address] [place] [address] Care Team Providers Care Print Shop Helper Name Role Phone Sonido Harrington MD Primary Care Provider [phone] Encounter Details Date Type Department Care Team (Late st Contact Info) Description 10/14/2023 Community [facility] Community [facility] [address] [place] [address] Abhi Orozco, OPTICAL SCIENTIST [address] [place] [address] Abnormal MRI, lumbar spine (Primary Dx); Abnormal nerve conduction studies Social History Tobacco Use Types Packs/Day Years Used Date Smoking Tobacco: Every Day Alcohol Use Standard Drinks/Week Comments No 0 (1 standard drink = 0.6 oz pur e alcohol) Comments Unknown Sex and Gender Information Value Date Recorded Sex Assigned at Not on file Legal Sex Female 7:44 PM EDT Gender Identity Not on file Sexual Orientation Not on file documented as of this encounter Plan of Treatment Not on file documented as of this encounter Visit Diagnoses Diagnosis Abnormal MRI, lumbar spine- Primary Abnormal nerve conduction studies documented in this encounter Care Teams Print Shop Helper Relationship Specialty Start Date End Date Sonido Harrington MD [address] [place], [place] [id number] PCP - General 02/22/21 documented as of this encounter
--- OUTSIDE RECORDS SUMMARY | 2025-05-15 16:56 | XMS_ITS | Referral Summary ---
Author Organization [employer] ([place], [place], [place], [place]) Address [address] [place] [address] Care Team Providers Care Jewelry Sales Name Role Phone Unavailable Primary Care Provider Unavailabl e Social History Tobacco Use Types Packs/Day Years Used Date Smoking Tobacco: Never Assessed Comments Unknown Sex and Gender Information Value Date Recorded Sex Assigned at Female 04/10/2022 5:16 PM CDT Legal Sex Female 6:39 PM CDT Gender Identity Female 04/10/2022 5:16 PM CDT Sexual Orientation Not on file Plan of Treatment Not on file
--- OUTSIDE RECORDS SUMMARY | 2025-05-15 16:56 | XMS_ITS | Encounter Summary ---
Author Organization [employer] ([place], [place], [place], [place]) Address [address] [place] [address] Care Team Providers Care Medication Manager Name Role Phone Unavailable Primary Care Provider Unavailabl e Encounter Details Date Type Department Care Team (Late st Contact Info) Description 05/09/2019 Transcribed Document [facility] [place] [facility] [place] [address] ProviderCorrina MD [facility] [place] [address] Social History Tobacco Use Types [...] Conversion Note - Historical ProviderMD - 05/09/2019 2:40 PM CDT Patient: NURA AG Age: 54 Years Sex: Female : 1965 Subjective Patient without any more episodes of syncope. Patient walked 170 feet in PT with a rolling walker. Review of Systems Cardiac - patient denies any chest pain. Objective Vitals & Measurements T: 36.7 ??C TMIN: 36.4 ??C TMAX: 36.9 ??C HR: 70(Monitored) RR: 16 BP: 157/65 SpO2: 95% Physical Exam EOMI Speech - fluent Motor - 5/5 in both arms and both legs TESTS Carotid Ultrasound - normal EEG - within normal limits. Assessment/Plan Nura Ag is a 54-year-old with diabetes and schizoaffective disorder, who had an unexplained episode of encephalopathy three days ago . The differential could include one or combination [...] the followin. To continue supportive care. 2. At discharge, she should follow up with an outpatient neurologist and her other outpatient physicians to continue work up for her episode of encephalopathy . I have told the patient that Wellbutrin can put her at risk of seizures. However, the patient wants to continue taking Wellbutrin at this time. I am OK with her being discharged today with continued outpatient workup. Medications Inpatient aspirin, 81 mg= 1 Tab, Oral, Daily clonazePAM, 0.25 mg= 0.5 Tab, Oral, BID, PRN Cogentin, 0.5 mg= 0.5 Tab, Oral, BID Coreg, 12.5 mg= 1 Tab, Oral, BID Diovan, 160 mg= 1 Tab, Oral, BID Dulera 200 mcg-5 mcg/inh inhalation aerosol, 2 Puff, Inhalation, BID DuoNeb 0.5 mg-2.5 mg/3 mL inhalation solution, 3 mL, Nebulized Inhalation , RT_Q4H, PRN insulin lispro sliding scale, Scale B:, SubCutaneous, AC and at Bedtime LaMICtal, 200 mg= 2 Tab, Oral, BID levothyroxine, 50 mcg= 1 Tab, Oral, Daily Lexapro, 20 mg= 1 Tab, Oral, Daily Lipitor, 40 mg= 1 Tab, Oral, At Bedtime MiraLax, 17 Gram= 1 Packet, Oral, Daily, PRN Mylanta, 15 mL, Oral, BID Lequire 5 mg-325 mg oral tablet, 1 Tab, Oral, 1-Time, PRN pantoprazole, 40 mg= 1 Tab, Oral, Daily Plavix, 75 mg= 1 Tab, Oral, Daily Proventil HFA, 1 Puff, Inhalation, Q6H risperiDONE, 1.5 mg= 3 Tab, Oral, BID Singulair, 10 mg= 1 Tab, Oral, At Bedtime Tylenol, 650 mg= 2 Tab, Oral, Q4H, PRN Wellbutrin XL, 300 mg= 1 Tab, Oral, Daily Zofran, 4 mg= 2 mL, IV Push, Q4H, PRN documented in this encounter Plan of Treatment Not on file documented as of this encounter Visit Diagnoses Not on filedocumented in this encounter
--- OUTSIDE RECORDS SUMMARY | 2025-05-15 16:56 | XMS_ITS | Encounter Summary ---
Author Organization [facility] ([place], [place], [place], [place]) Address [address] [place] [address] Care Team Providers Care Hub Lead Name Role Phone Unavailable Primary Care Provider Unavailabl e Encounter Details Date Type Department Care Team (Late st Contact Info) Description 05/09/2019 Transcribed Document [facility] [place] [facility] Formerly [facility] [place] [address] ProviderCorrina MD [facility] [address] Social History Tobacco Use Types [...] Conversion Note - Corrina ProviderMD - 05/09/2019 4:50 PM CDT [facility] [address] [place] [id number] NURA AG :1965 Visit Time:05/06/2019 Your Visit Summary Your Care Team Admitting Physician - ROSA MCCLURE MD-INT Attending Physician - ROSA MCCLURE MD-INT Primary Care Physician - MAGUI, UNKNOWN Referring Physician - MAGUI, UNKNOWN Your Diagnosis Acute encephalopathy, Encephalopathy, unspecified, Encephalopathy, unspecified These Are Your Goals to be more awake and not be lightheated Discharge Vitals Temperature 36.3 ??C Heart Rate (Monitored) 65 Respiratory Rate 19 Blood Pressure 178/77 What to do next Instructions From Your Care Team STOP bentyl (dicyclomine), benadryl (diphenhydramine), haldol (haloperidol), advil (ibuprofen), imodium (loperamide), and claritin (loratadine). Discharge Activity: Discharge Activity: Activity as tolerated Activity: Discharge Activity: Activity as tolerated Diet: Discharge Diet: Resume usual diet as tolerated Diet: Discharge Diet: Diabetic diet (carb controlled) Follow-Up Appointments Follow Up with Follow up with primary care provider When Within 2 to 3 days Follow Up with RAOUL DUGGAN When Within 6 weeks Comments Patient should call for a follow up appointment with [facility] Neurology. 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 specialist Medications What How Much When Instructions Next Dose albuterol (albuterol 2.5 mg/ 3 mL (0.083%) inhalation solution) 3 Milliliter(s) Inhalation Every 6 Hours 11:00 pm buPROPion (buPROPion 300 mg/ 24 hours (XL) oral tablet, extended release) 1 Tablet(s) Oral Interval Every 24 Hours tomorrow clonazePAM (clonazePAM 0.5 mg oral tablet) 0.5 Tablet(s) Oral Two Times A Day as needed for Anxiety as needed clopidogrel (Plavix 75 mg oral tablet) 1 Tablet(s) Oral Every Day tomorrow escitalopram (escitalopram 20 mg oral tablet) 1 Tablet(s) Oral Every Day tomorrow furosemide (Lasix 40 mg oral tablet) 1 Tablet(s) Oral Every Day tomorrow losartan (Cozaar 100 mg oral tablet) 1 Tablet(s) Oral Every Day tomorrow montelukast (montelukast 10 mg oral tablet) 1 Tablet(s) Oral At Bedtime aspirin (aspirin 81 mg oral delayed release tablet) 1 Tablet(s) Oral Every Day tomorrow benztropine (benztropine 0.5 mg oral tablet) 1/2 Tab Oral Two Times A Day tonight carvedilol (carvedilol 12.5 mg oral tablet) 1 Tablet(s) Oral Two Times A Day tonight fluticasone (fluticasone propionate 55 mcg/ inh inhalation powder) Inhalation Every 12 hours tonight fluticasone-vilanterol (fluticasone-vilanterol 100 mcg-25 mcg inhalation powder) 1 Puff(s) Inhalation Every Day tomorrow lamoTRIgine (lamoTRIgine 100 mg oral tablet) 1 Tablet(s) Oral Two Times A Day tonight levothyroxine (levothyroxine 50 mcg (0.05 mg) oral tablet) 1 Tablet(s) Oral Every Day tomorrow metFORMIN (metFORMIN 1000 mg oral tablet) 1 Tablet(s) Oral Two Times A Day tonight omeprazole 20 Milligram(s) Oral Every Day tomorrow risperiDONE (risperiDONE-1) 1.5 Milligram(s) Oral Two Times A Day tonight SITagliptin 100 Milligram(s) Oral Every Day Take half tablet daily and if blood sugar over 150 consistently during the day then start taking a whole tablet tomorrow Take your medications faithfully. Do NOT skip medication. Do NOT stop taking medications without the direction of a physician. Carry a list of your medications with you at all times, and take this medication list with you to your first follow up visit. Report any side effects. Avoid herbal remedies unless discussed with your physician. As part of your treatment plan, your physician may have prescribed a limited course of a controlled substance. This medication may be given to help people with moderate or severe pain or for other medical conditions, but there are risks involved with treatment. Common side effects may include nausea, constipation, drowsiness, sweating, itching, dry mouth, and rash. More serious side effects may include cognitive and motor impairment, like problems with thinking, concentrating, alertness, and movement (e.g. slowed reflexes), and driving and operating heavy machinery can be dangerous. It is important for you to talk to your physician if you have these side effects or questions. These controlled substances can produce physical dependence and be habit-forming if taken for an extended period of time, which means that the body has gotten used to them and may experience withdrawal symptoms if they are abruptly stopped. Withdrawal symptoms can include runny nose, sweating, goose bumps, diarrhea, abdominal cramping, rapid heartbeat, difficulty sleeping, and nervousness. Please dispose of unused and medications per your retail pharmacy guidance. Allergies TD inhibitors Lactose lisinopril Immunizations This Visit No Immunizations Found Education Materials Toxic Metabolic Encephalopathy Toxic metabolic encephalopathy (TME) [...] causes of TME that can lead to delirium include: ??? Short-term (acute) or long-term (chronic) disease [...] in intensive care. ??? Live in a long-term. ??? Had recent surgery. ??? Have liver [...] urine clear or pale yellow. ??? Take qjao-ddn-javbpxl and prescription medicines only as told by [...] 03/06/2017 Document Revised: 06/01/2017 Document Reviewed: 03/06/2017 [employer] Interactive Patient Education ?? 2019 [employer]. clonazepam (kloe CAMERON e jacqueline) Chinedu What is the most important information I should know about clonazepam? You should not use this medicine if you have narrow-angle glaucoma or severe liver disease, or if you are allergic to Valium or a similar medicine. Call your doctor if you have any new or worsening symptoms of depression, unusual changes in behavior, or thoughts about suicide or hurting yourself. Clonazepam may be habit-forming. Never share clonazepam with another person. Keep the medication in a place where others cannot get to it. Selling or giving away this medicine is against the law. What is clonazepam? Clonazepam is a benzodiazepine (zjt-wsw-ujh-AZE-eh-peen) that affects chemicals in the brain that may be unbalanced. Clonazepam is also a seizure medicine, also called an anti-epileptic drug. Clonazepam is used to treat certain seizure disorders (including absence seizures or Sam-Gastaut syndrome) in adults and children. Clonazepam is also used to treat panic disorder (including agoraphobia) in adults. Clonazepam may also be used for purposes not listed in this medication guide. What should I discuss with my healthcare provider before taking clonazepam? You should not take clonazepam if you have: ? narrow-angle glaucoma; ?? severe liver disease; or ?? a history of allergic reaction to any benzodiazepine, such as diazepam (Valium), alprazolam (Xanax), lorazepam (Ativan), chlordiazepoxide, flurazepam, and others. To make sure clonazepam is safe for you, tell your doctor if you have ever had: ? kidney or liver disease; ?? glaucoma; ?? asthma, emphysema, bronchitis, chronic obstructive pulmonary disorder (COPD), or other breathing problems; ?? porphyria (a genetic enzyme disorder that causes symptoms affecting the skin or nervous system); ?? depression or suicidal thoughts or behavior; ?? mental illness, psychosis, or addiction to drugs or alcohol; or ?? if you use a narcotic (opioid) medication. Some people have thoughts about suicide when taking seizure medication. Your doctor should check your progress at regular visits. Your family or other caregivers should also be alert to changes in your mood or symptoms. Follow your doctor's instructions about taking seizure medication if you are . Do not start or stop taking this medicine without your doctor's advice, and tell your doctor right away if you become . Clonazepam may cause harm to an unborn baby, and may cause breathing or feeding problems in a . But having seizures during could harm both mother and baby. If you are , your name may be listed on a registry. This is to track the outcome of the and to evaluate any effects of clonazepam on the baby. Clonazepam can pass into breast milk, but effects on the nursing baby are not known. Tell your doctor if you are breast-feeding. Do not give this medicine to a child without medical advice. Clonazepam is not approved to treat panic disorder in anyone younger than 18 years old. How should I take clonazepam? Follow all directions on your prescription label. Your doctor may occasionally change your dose to make sure you get the best results. Do not use this medicine in larger or smaller amounts or for longer than recommended. Clonazepam may be habit-forming. Never share this medicine with another person, especially someone with a history of drug abuse or addiction. Keep the medication in a place where others cannot get to it. Misuse of habit-forming medicine can cause addiction, overdose, or . Selling or giving away this medicine is against the law. Clonazepam should be used for only a short time. Do not take this medication for longer than 9 weeks without your doctor's advice. Swallow the regular clonazepam tablet whole, with a full glass of water. To take the orally disintegrating tablet: ? Keep the tablet in its blister pack until you are ready to take it. Open the package and peel back the foil. Do not push a tablet through the foil or you may damage the tablet. ?? Use dry hands to remove the tablet and place it in your mouth. ?? Do not swallow the tablet whole. Allow it to dissolve in your mouth without chewing. ?? Swallow several times as the tablet dissolves. If desired, you may drink liquid to help swallow the dissolved tablet. If you use this medicine long-term, you may need frequent medical tests. Do not stop using clonazepam suddenly or you could have unpleasant withdrawal symptoms, including a seizure (convulsions). Ask your doctor how to safely stop using this medicine. Call your doctor if this medicine seems to stop working as well in treating your seizures or anxiety symptoms. Seizures are often treated with a combination of drugs. Use all medications as directed by your doctor. Read the medication guide or patient instructions provided with each medication. Do not change your doses or medication schedule without your doctor's advice. Store at room temperature away from moisture, heat, and light. Keep track of the amount of medicine used from each new bottle. Clonazepam is a drug of abuse and you should be aware if anyone is using your medicine improperly or without a prescription. What happens if I miss a dose? Take the missed dose as soon as you remember. Skip the missed dose if it is almost time for your next scheduled dose. Do not take extra medicine to make up the missed dose. What happens if I overdose? Seek emergency medical attention or call the Poison Help line at . Overdose symptoms may include extreme drowsiness, confusion, muscle weakness, fainting, or coma. What should I avoid while taking clonazepam? Avoid drinking alcohol. Dangerous side effects could occur. Clonazepam may impair your thinking or reactions. Avoid driving or operating machinery until you know how this medicine will affect you. Dizziness or severe drowsiness can cause falls or other accidents. What are the possible side effects of clonazepam? Get emergency medical help if you have signs of an allergic reaction: hives; difficulty breathing; swelling of your face, lips, tongue, or throat. Report any new or worsening symptoms to your doctor, such as: mood or behavior changes, anxiety, panic attacks, trouble sleeping, or if you feel impulsive, irritable, agitated, hostile, aggressive, restless, hyperactive (mentally or physically), more depressed, or have thoughts about suicide or hurting yourself. Call your doctor at once if you have: ? new or worsening seizures; ?? severe drowsiness; ?? unusual changes in mood or behavior; ?? confusion, aggression, hallucinations; ?? thoughts of suicide or hurting yourself; ?? weak or shallow breathing; ?? pounding heartbeats or fluttering in your chest; or ?? unusual or involuntary eye movements. The sedative effects of clonazepam may last longer in older adults. Accidental falls are common in elderly patients who take benzodiazepines. Use caution to avoid falling or accidental injury while you are taking clonazepam. Common side effects may include: ? feeling tired or depressed; ?? drowsiness, dizziness; ?? memory problems; or ?? problems with balance or coordination. This is not a complete list of side effects and others may occur. Call your doctor for medical advice about side effects. You may report side effects to FDA at 1-375-CYJ-3352. What other drugs will affect clonazepam? Taking clonazepam with other drugs that make you sleepy or slow your breathing can cause dangerous side effects or . Ask your doctor before taking a sleeping pill, an opioid medicine, prescription cough medicine, a muscle relaxer, or medicine for anxiety, depression, or seizures. Other drugs may interact with clonazepam, including prescription and uvpw-tvd-kuxvnio medicines, vitamins, and herbal products. Tell your doctor about all your current medicines and any medicine you start or stop using. Where can I get more information? Your pharmacist can provide more information about clonazepam. Remember, keep this and all other medicines out of the reach of children, never share your medicines with others, and use this medication only for the indication prescribed. Every effort has been made to ensure that the information provided by [employer]. ('[employer]') is accurate, up-to-date, and complete, but no guarantee is made to that effect. Drug information contained herein may be time sensitive. [employer] information has been compiled for use by healthcare practitioners and consumers in the [place] and therefore [employer] does not warrant that uses outside of the [place] are appropriate, unless specifically indicated otherwise. [employer] drug information does not endorse drugs, diagnose patients or recommend therapy. [employer] drug information is an informational resource designed to assist licensed healthcare practitioners in caring for their patients and/or to serve consumers viewing this service as a supplement to, and not a substitute for, the expertise, skill, knowledge and judgment of healthcare practitioners. The absence of a warning for a given drug or drug combination in no way should be construed to indicate that the drug or drug combination is safe, effective or appropriate for any given patient. [employer] does not assume any responsibility for any aspect of healthcare administered with the aid of information [employer] provides. The information contained herein is not intended to cover all possible uses, directions, precautions, warnings, drug interactions, allergic reactions, or adverse effects. If you have questions about the drugs you are taking, check with your doctor, nurse or pharmacist. Copyright 6583-9734 [employer]. Version: 8.01. Revision Date: 08/17/2017. Emergency Awareness and Preventative Care STROKE is an EMERGENCY Every Minute Counts Act FAST and Check for these signs: FACE Does the face look uneven? ARM Does one arm drift down? SPEECH Does their speech sound strange? TIME Call at any sign of stroke Stroke Risk Factors Atrial Fibrillation (irregular heartbeat) Diabetes Family history of stroke Heart Disease Heavy alcohol use High Blood Pressure High Cholesterol Physical inactivity and obesity Smoking Cigarette Smoking The facts are clear, cigarette smoking will shorten your life. Smoking can cause many illnesses along the way. As a healthcare provider, we recommend that you stop smoking. Assistance with quitting is available by contacting 5-078-YGSYNOW. This is a free resource providing counseling, support, and referral. Or you may contact your personal physician. [place] Suicide Prevention Lifeline: The National Suicide Prevention Lifeline is a national network of local crisis centers that provides free and confidential emotional support to people in suicidal crisis or emotional distress 24 hours a day, 7 days a week. Don't Wait! Stop a Heart Attack Before it Starts What is a heart attack? A heart attack is damage or to a part of the heart from severely decreased or lack of blood flow to the heart. Over time, arteries can become narrow from the buildup of fat and cholesterol, which is called plaque. The plaque can rupture causing a blood clot to form. When the blood clot forms, the artery can become severely narrowed or completely blocked, causing a heart attack. Heart attack is the leading cause of in the [place]. 85% of muscle damage occurs within the first 2 hours. Delay in the recognition of heart attack symptoms increases the chances of . Know the early symptoms of a heart attack: Nausea Feeling of fullness in chest Jaw Pain Pain that travels down one or both arms Fatigue/being tired Anxiety Back Pain Chest pressure, squeezing, or discomfort Shortness of breath Sweating, or a cold sweat Feeling of impending doom There are unusual signs of a heart attack, too! Women, the elderly, and diabetics may present with atypical symptoms: Fainting/dizziness Weakness Confusion Risk Factors for a Heart Attack Some heart disease risk factors, such as age and family history, cannot be changed. Others, like smoking and lack of exercise, can be changed. Smoking High Cholesterol High Blood Pressure Family History Obesity Age Gender (Males are at higher risk) Lack of Exercise Diabetes Diet Stress Excessive Alcohol Intake If you or someone you know is experiencing the signs and symptoms of a heart attack, DON???T DELAY. Call immediately and seek help. If someone collapses, perform CPR! Do not attempt to drive if you are having symptoms of heart attack. Hands-Only CPR Why Hands-Only CPR? Hands-Only CPR has been shown to be as effective as conventional CPR for cardiac arrests that occur outside of a hospital. Survival depends on immediately receiving CPR from someone nearby. How do you perform Hands-Only CPR? There are two easy steps: Call 9-1-1 if you see a teen or adult collapse Push hard and fast in the center of the chest at a beat of 100 beats per minute. Save a life! 4 WAYS TO GET AHEAD OF SEPSIS SEPSIS is a MEDICAL EMERGENCY. Time matters! Infections put you and your family at risk for a life-threatening condition called sepsis. Sepsis is the body's extreme response to an infection. It is life-threatening, and without timely treatment, sepsis can rapidly lead to tissue damage, organ failure, and . Sepsis happens when an infection you already have-in your skin, lungs, urinary tract or somewhere else-triggers a chain reaction throughout your body. 1 PREVENT INFECTIONS Take good care of chronic conditions. Talk to your doctor about getting the recommended vaccines. 2 PRACTICE GOOD HYGIENE Wash your hands frequently. Keep cuts or open sores clean and covered until they are healed. 3 KNOW THE SYMPTOMS Confusion or disorientation Shortness of breath High heart rate Fever, shivering, or feeling very cold Extreme pain or discomfort Clammy or sweaty skin 4 ACT FAST Get medical care IMMEDIATELY if you suspect sepsis or if you have an infection that is not getting better or is getting worse. To learn more about sepsis and how to prevent infections, visit www.cdc.gov/sepsis. Test Results Laboratory or Other Results This Visit (last charted value for your 05/06/2019 visit) Hematology 05/09/19 11:12:00 WBC: 8.0 K/uL -- Normal range between ( 4.5 and 10.5 ) RBC: 3.29 Million/uL -- Normal range between ( 3.93 and 5.22 ) Hct: 28.2 % -- Normal range between ( 34.1 and 44.9 ) Hgb: 8.6 g/dL -- Normal range between ( 11.2 and 15.7 ) Platelet Count: 332 K/uL -- Normal range between ( 163 and 369 ) MCH: 26.1 pg -- Normal range between ( 25.6 and 32.2 ) MCHC: 30.5 Gram/dL -- Normal range between ( 32.2 and 36.5 ) MCV: 85.7 fL -- Normal range between ( 79.0 and 94.8 ) Slide Review: No RDW: 16.3 % -- Normal range between ( 11.7 and 14.9 ) MPV: 9.1 fL -- Normal range between ( 9.4 and 12.4 ) 05/08/19 06:58:00 Eos %: 5.2 % -- Normal range between ( 0.0 and 7.0 ) R[place]y #: 0.63 K/uL -- Normal range between ( 0.16 and 1.00 ) Eos #: 0.57 x10(3)/uL -- Normal range between ( 0.00 and 0.80 ) [place] %: 5.8 % -- Normal range between ( 3.0 and 9.0 ) Baso %: 0.3 % -- Normal range between ( 0.0 and 1.5 ) Baso #: 0.03 x10(3)/uL -- Normal range between ( 0.00 and 0.20 ) Neut %: 79.3 % -- Normal range between ( 34.0 and 71.0 ) Neut #: 8.66 K/uL -- Normal range between ( 1.56 and 6.13 ) Lymph %: 8.7 % -- Normal range between ( 19.3 and 53.1 ) Lymph #: 0.95 x10(3)/uL -- Normal range between ( 1.00 and 3.90 ) IG#: 0.08 x10(3)/uL -- Normal range between ( 0.00 and 0.05 ) IG%: 0.70 % -- Normal range between ( 0.00 and 0.60 ) General Chemistry 05/09/19 15:39:00 Glucose POC2: 199 mg/dL -- Normal range between ( 70 and 110 ) Device Comment 1: Device Comment 1 05/08/19 06:58:00 Creatinine Level: 0.80 mg/dL -- Normal range between ( 0.55 and 1.02 ) Sodium Level: 140 mmol/L -- Normal range between ( 136 and 146 ) Potassium Level: 3.6 mmol/L -- Normal range between ( 3.5 and 5.1 ) Chloride Level: 109 mmol/L -- Normal range between ( 102 and 112 ) Carbon Dioxide Level: 27 mmol/L -- Normal range between ( 21 and 32 ) Anion Gap: 8 -- Normal range between ( 9 and 20 ) Bilirubin Total: 0.7 mg/dL -- Normal range between ( 0.2 and 1.2 ) A/G Ratio: 1.1 -- Normal range between ( 1.1 and 2.5 ) ALT: 13 Units/Liter -- Normal range between ( 13 and 56 ) AST: 8 Units/Liter -- Normal range between ( 5 and 37 ) Globulin: 2.9 Gram/dL -- Normal range between ( 1.5 and 4.5 ) Alk Phos: 144 Units/Liter -- Normal range between ( 27 and 136 ) Bun/Creatinine: 11.2 -- Normal range between ( 8.0 and 20.0 ) Calcium Level: 9.1 mg/dL -- Normal range between ( 8.4 and 10.1 ) eGFR : >60 mL/min/1.73m2 eGFR NonAfrican: >60 mL/min/1.73m2 Glucose Level: 131 mg/dL -- Normal range between ( 74 and 106 ) Magnesium Level: 1.9 mg/dL -- Normal range between ( 1.5 and 2.4 ) Blood Urea Nitrogen: 9 mg/dL -- Normal range between ( 7 and 22 ) Protein Total: 6.0 Gram/dL -- Normal range between ( 6.4 and 8.2 ) Albumin Level: 3.1 Gram/dL -- Normal range between ( 3.4 and 5.0 ) Iron Studies 05/09/19 11:12:00 Ferritin Level: 22.5 ng/mL -- Normal range between ( 8.0 and 252.0 ) TIBC: 322.0 mcg/dL -- Normal range between ( 250.0 and 450.0 ) Iron Level: 19 mcg/dL -- Normal range between ( 50 and 170 ) Echo 05/08/19 13:04:39 EC Echo Complete: EC Echo Complete Vascular Ultrasound 05/08/19 15:41:14 VL Carotid Duplex BILAT: VL Carotid Duplex BILAT Patient Name:NURA AG I have received and understand this information and was given the opportunity to ask questions. 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
--- OUTSIDE RECORDS SUMMARY | 2025-05-15 16:56 | XMS_ITS | Encounter Summary ---
Author Organization [employer] ([place], [place], [place], [place]) Address [address] [place] [address] Care Team Providers Care Fingerprint Clerk Name Role Phone Unavailable Primary Care Provider Unavailabl e Encounter Details Date Type Department Care Team (Late st Contact Info) Description 05/09/2019 Transcribed Document [facility] [place] [address] [place] [address] ProviderCorrina MD [address] [place] [address] Social History Tobacco Use Types [...] Conversion Note - Historical ProviderMD - 05/09/2019 2:00 AM CDT Baton Twirler Details Entered On: 05/09/2019 4:29 EDT Performed On: 05/09/2019 2:00 EDT by Drea Antonio Rn Order Details Transport Mode Order Detail : Wheelchair Isolation Precautions Order Detail : Standard Precautions Order Detail : 0 IV Order Detail : 1 Oxygen Order Detail : 1 Nurse Collect Order Detail : 0 Lift/Transfer : Moderate assist Central Line Order Detail : No Room Service : Not Appropriate Arterial Line : No Drea Antonio Rn - 05/09/2019 4:28 EDT documented in this encounter Plan of Treatment Not on file documented as of this encounter Visit Diagnoses Not on filedocumented in this encounter
--- OUTSIDE RECORDS SUMMARY | 2025-05-15 16:56 | XMS_ITS | Encounter Summary ---
Author Organization [employer] ([place], [place], [place], [place]) Address [address] [place] [id number] Care Team Providers Care Transcription Specialist Name Role Phone Unavailable Primary Care Provider Unavailabl e Encounter Details Date Type Department Care Team (Late st Contact Info) Description 05/06/2019 Transcribed Document [facility] [place] [facility] [place] [address] ProviderCorrina MD [place] [address] Social History Tobacco Use Types Packs/Day Years Used Date Smoking Tobacco: Never Assessed Comments Unknown Sex and Gender Information Value Date Recorded Sex Assigned at Female 04/10/2022 5:16 PM CDT Legal Sex Female 6:39 PM CDT Gender Identity Female 04/10/2022 5:16 PM CDT Sexual Orientation Not on file documented as of this encounter Miscellaneous Notes * Cerner Conversion Note - Corrina Darnell MD - 05/06/2019 8:44 PM CDT Patient: NURA AG Age: 54 years Sex: Female : 1965 Associated Diagnoses: None Author: ROSA MCCLURE MD-INT Basic Information Source of history: Medical record, Not self. Referral source: [facility]. History limitation: Clinical condition. Primary Care Physician: Sonido Harrington Referring Physician: Fam Chief Complaint Confusion History of Present Illness This is a 54 year old female with a past medical history as noted below who was requested for transfer from [facility] for sudden onset of altered mental status during an appointment earlier today for lymphedema leg treatment. The patient had pretty extensive workup at [facility] which was unrevealing for any explanation of sudden mental status changes. The patient was administered narcan x 2 without effect as well. I was asked to accept this patient in transfer so she could be evaluated by Neurology as there was really no identifiable cause for her altered mental status. On interview this evening she remains obtunded and difficult to arouse. I could not obtain any useful history from her. Review of Systems Unobtainable secondary to lethargy/altered mental status Health Status Allergies: No active allergies have been recorded. Current medications: (Selected) Histories Past Medical History: 1. Hypothyroidism 2. DM Type II 3. Depression 4. Hypertension Family History: Significant for CAD. Procedure history: 1. Cholecystectomy 2. Knee surgery Social History I'm not sure whether the patient smokes or drinks alcohol and I cannot obtain this information from the patient.. Physical Examination General: No acute distress, Obtunded, briefly opens eyes to vigorous sternal rub but then falls back asleep, Not alert and oriented. Eye: Pupils are equal, round and reactive to light, Extraocular movements are intact, Normal conjunctiva. HENT: Normocephalic, Oral mucosa is moist. Neck: Supple, Non-tender. Respiratory: Lungs are clear to auscultation, Respirations are non-labored, Breath sounds are equal, Symmetrical chest wall expansion, No chest wall tenderness. Cardiovascular: Normal rate, Regular rhythm, No murmur, No gallop, Good pulses equal in all extremities, Normal peripheral perfusion. Gastrointestinal: Soft, Non-tender, Non-distended, Normal bowel sounds, Obese. Musculoskeletal: No tenderness, No deformity, Lymphedema right leg. Integumentary: Warm, Dry, Intact, No rash. Neurologic: No focal deficits, Gag reflex normal, Normal deep tendon reflexes, Not alert, Not oriented. Psychiatric: Not cooperative, Not appropriate mood & affect. Review / Management Results review: Labs from [facility] as follows: WBC 10, Hgb 9.1, Plt 436, INR 1.1, ammonia 17, lactic acid 2.7, UA negative, UDS negative, Na 141, K 3.0, Cl 103, CO2 31, BUN 10, Cr 1.02, Glu 102, Ca 8.8, Mg 1.2, Bili 0.2, AST 2, ALT 14, Alk phos 144, trop <0.02, TSH 2.35, alcohol 0. Chest x-ray results Consistent with: CXR at [facility] interpreted as no change, enlargement of the cardiac silhouette without failure, left lung linear scar Radiology results CT head at [facility] interpreted as no acute intracranial process ECG interpretation: EKG from Pablo personally reviewed and showed NSR at [address] with no acute [address]-T wave changes. Documentation reviewed: Records from referring facility, Records from referring physician. Condition: Guarded. Impression and Plan 1. Acute encephalopathy: Etiology unclear, basic workup was unrevealing as to a cause. I will ask Neurology to see her. I will hold sedating meds such as klonopin She has some kind of unspecified psychiatric disorders which I don't have information about as she is on lamictal, risperdal, lexapro, klonopin, benztropine, and wellbutrin. 2. Mild hypokalemia: Will check BMP in a.m. 3. Hypothyroidism: Continue levothyroxine. 4. DM Type II: Start SSI. Hold glipizide and januvia for now. 5. Depression: Continue wellbutrin. 6. Hypertension: Continue coreg and losartan. 7. Lymphedema right leg The patient is moderate risk. documented in this encounter Plan of Treatment Not on file documented as of this encounter Visit Diagnoses Not on filedocumented in this encounter
--- OUTSIDE RECORDS SUMMARY | 2025-05-15 16:56 | XMS_ITS | Clinical Summary ---
Author Organization [employer] ([place], [place], [place], [place]) Address [address] [place] [address] Care Team Providers Care Rotary Soil Stabilizer Operator Name Role Phone Unavailable Primary Care [...]
--- OUTSIDE RECORDS SUMMARY | 2025-05-15 16:56 | XMS_ITS | Encounter Summary ---
Author Organization [employer] ([place], [place], [place], [place]) Address [address] [place] [address] Care Team Providers Care Mechanical Applications Engineer Name Role Phone Unavailable Primary Care Provider Unavailabl e Encounter Details Date Type Department Care Team (Late st Contact Info) Description 05/07/2019 Transcribed Document [facility] [place] Family Medicine [address] [place] [address] ProviderCorrina MD [facility] [place] [address] Social History Tobacco Use Types [...] Note - Historical ProviderMD - 05/07/2019 5:00 PM CDT Chart Check - Review Order Profile Entered On: 05/07/2019 16:38 EDT Performed On: 05/07/2019 17:00 EDT by Lizet Keita, RN Chart Check Powerplans Initiated/Discontinued as Appropriate : Yes All Active Orders Reviewed : Yes Lizet Keita, LAURA - 05/07/2019 16:38 EDT documented in this encounter Plan of Treatment Not on file documented as of this encounter Visit Diagnoses Not on filedocumented in this encounter
--- OUTSIDE RECORDS SUMMARY | 2025-05-15 16:56 | XMS_ITS | Encounter Summary ---
Author Organization [employer] ([place], [place], [place], [place]) Address [address] [place] [address] Care Team Providers Care Piece Goods Packer Name Role Phone Unavailable Primary Care Provider Lauren mathews Encounter Details Date Type Department Care Team (Late st Contact Info) Description 05/08/2019 Transcribed Document [facility] [place] Family Medicine [address] [place] [address] ProviderCorrina MD [facility] [place] [address] Social History Tobacco Use Types [...] Conversion Note - Historical ProviderMD - 05/08/2019 2:00 AM CDT Wire Mesh Filter Fabricator Details Entered On: 05/08/2019 4:48 EDT Performed On: 05/08/2019 2:00 EDT by Lizet Kline RN Order Details Transport Mode Order Detail : Wheelchair Isolation Precautions Order Detail : Standard Precautions Order Detail : 0 IV Order Detail : 1 Oxygen Order Detail : 1 Nurse Collect Order Detail : 0 Lift/Transfer : Moderate assist Central Line Order Detail : No Room Service : Not Appropriate Arterial Line : No Lizet Kline RN - 05/08/2019 4:48 EDT documented in this encounter Plan of Treatment Not on file documented as of this encounter Visit Diagnoses Not on filedocumented in this encounter
--- OUTSIDE RECORDS SUMMARY | 2025-05-15 16:56 | XMS_ITS | Encounter Summary ---
Author Organization [employer] ([place], [place], [place], [place]) Address [address] [place] [address] Care Team Providers Care Feed Mixer Helper Name Role Phone Unavailable Primary Care Provider Lauren mathews Encounter Details Date Type Department Care Team (Late st Contact Info) Description 05/07/2019 Transcribed Document [facility] [place] Family Medicine [facility] [place] [address] ProviderCorrina [place] [address] Social History Tobacco Use Types [...] Conversion Note - Historical ProviderMD - 05/07/2019 2:00 AM CDT Military Administrative Technician Details Entered On: 05/07/2019 3:12 EDT Performed On: 05/07/2019 2:00 EDT by Lizet Kline RN Order Details Transport Mode Order Detail : Bed (including specialty) Isolation Precautions Order Detail : Standard Precautions Order Detail : 0 IV Order Detail : 1 Oxygen Order Detail : 0 Nurse Collect Order Detail : 0 Lift/Transfer : Moderate assist Central Line Order Detail : No Room Service : Not Appropriate Arterial Line : No Lizet Kline RN - 05/07/2019 3:12 EDT documented in this encounter Plan of Treatment Not on file documented as of this encounter Visit Diagnoses Not on filedocumented in this encounter
--- OUTSIDE RECORDS SUMMARY | 2025-05-15 16:56 | XMS_ITS | Encounter Summary ---
Author Organization [employer] ([place], [place], [place], [place]) Address [address] [place] [address] Care Team Providers Care Shoe Salesperson Name Role Phone Unavailable Primary Care Provider Unavailabl e Encounter Details Date Type Department Care Team (Late st Contact Info) Description 05/09/2019 Transcribed Document [facility] [address] [place] [address] Tiffanie Buchanan MD [address] [place] [address] [address] Social History Tobacco Use Types Packs/Day Years Used Date Smoking Tobacco: Never Assessed Comments Unknown Sex and Gender Information Value Date Recorded Sex Assigned at Female 04/10/2022 5:16 PM CDT Legal Sex Female 6:39 PM CDT Gender Identity Female 04/10/2022 5:16 PM CDT Sexual Orientation Not on file documented as of this encounter Miscellaneous Notes * Cerner Conversion Note - Tiffanie Buchanan MD - 05/09/2019 3:52 PM EDT DATE OF ADMISSION: 05/06/2019 DATE OF DISCHARGE: 05/09/2019 DISCHARGE SUMMARY NOTE: Patient comes from [facility] and returns to that facility. PRINCIPAL DISCHARGE DIAGNOSES: 1. Altered mental status, unclear etiology. Likely metabolic encephalopathy that is resolved. 2. History of schizoaffective disorder. 3. Hypertension. 4. Anemia. Recommend outpatient followup and workup. 5. History of diabetes mellitus. PRINCIPAL CONSULTATIONS: Neurology consult with Dr. Lima. PRINCIPAL PROCEDURES: 1. Electroencephalogram performed on 05/09/2019. Patient did not have any epileptiform features suggestive of seizure disorder. 2. Bilateral carotid ultrasound was unremarkable for hemodynamically significant stenosis. 3. Echocardiogram showed an ejection fraction of 66% without any significant valvular abnormalities noted. 4. CT scan of the head was done at outside facility in [facility], where the patient did not have any acute changes. ADMISSION HISTORY AND HOSPITAL COURSE: This is a 54-year-old, white female, with a schizoaffective disorder who reportedly has a history of lymphedema. She did undergo some wrapping to her right lower extremity and was seen for the same at [facility] when she was noted to have some altered level of mentation. Patient was taken to the emergency room there. She did undergo extensive workup including administration of Narcan as well as a CT of the head, all of which were unremarkable. There was no identifiable cause noted and she was transferred over here for neurologic evaluation. By the time the patient arrived here she became slowly awake and alert. Patient did not recall the event stating that sometimes she has had some intermittent falls over the last several months, but denied any recent history of fall or syncope. She denied any chest pain preceding the event. Of note, she has had problems with schizoaffective disorder and denied any recent changes to her medications. Patient was also listed as being on Klonopin, but the urine drug screen at the outside facility was negative for benzodiazepines, however. During the period of observation, patient continued to do well. Her psych medications were renewed and upon administration patient was seemed to be tolerating them fairly well. She also participated with physical therapy. Patient reportedly ambulates with a walker and during the evaluation here she was noted to be quite mobile and ambulated nearly 170 feet with a rolling walker, in addition was able to independently ambulate into the bathroom for her personal care. Dr. Lima saw the patient in evaluation. He did also proceed with her EEG to make sure she did not have any undiagnosed seizure as she was also on Wellbutrin, but this was unremarkable. She did also have a carotid Doppler and echocardiogram, all of which have been unremarkable. Patient does have some mild anemia and upon further questioning, reports that she has a known history of chronic anemia with iron deficiency. I have recommended that she have continued outpatient follow up through her PCP for the same. Patient is also listed as being on aspirin and Plavix and states that in the past she has had some stent placement, but could not tell me any further details, but things she may have had a CAD with intervention. So, that is being continued at this time. I have also discussed with the patient's listed power of commercial real estate attorney, MsSyd Queenie Spence on 05/08/2019 about the hospital course. Currently, the patient will return to [facility] and I have also discussed with case management and she will be returning to the facility with continued recommendations for physical therapy. PHYSICAL EXAMINATION: On the day of discharge, patient is doing well. Awake, alert, and oriented and afebrile. She is at her baseline. Her lung exam is clear to auscultation. Abdomen exam is benign and soft. The blood pressure was 157/65. At this time, she has felt to met with maximum inpatient hospital benefit and is being discharged home. DISCHARGE DIET: Would be cardiac as tolerated. DISCHARGE ACTIVITY: As tolerated with use of a walker and recommend continued PT and OT. DISCHARGE MEDICATIONS: 1. Flonase nasal spray b.i.d. 2. Lasix 40 mg daily, which she can take on an as needed basis p.r.n. if she has any lower extremity edema. 3. Cozaar 100 mg daily. 4. Metformin 1000 mg b.i.d. 5. Januvia 100 mg daily. 6. Prilosec 20 mg daily. 7. Albuterol inhaler q.6 h. p.r.n. 8. Baby aspirin 1 tablet daily. 9. Lipitor 40 mg daily. 10. Cogentin 0.5 mg b.i.d. 11. Wellbutrin 300 mg daily. 12. Coreg 12.5 mg b.i.d. 13. Klonopin 0.5 mg b.i.d. p.r.n. for anxiety. 14. Plavix 75 mg daily. 15. Celexa 20 mg daily. 16. Fluticasone/Vilanterol inhalation daily. 17. Lamictal 100 mg b.i.d. 18. Levothyroxine 50 mcg daily. 19. Singulair 10 mg daily. 20. Risperdal 1.5 mg b.i.d. Patient has had a fairly normal blood sugar here between 157-162. DISCHARGE FOLLOWUP: 1. As per protocol at the receiving facility. Recommend that she have outpatient evaluation for anemia. 2. Patient will also continue to follow up with a behavioral health specialist as per prior. 3. Follow up with Neurology in six weeks on an as needed basis. with Dr. Wylie. DISCHARGE INSTRUCTIONS: All other discharge instructions have also been reviewed with the patient. TIME SPENT: In entirety towards the discharge disposition including review of the above and earlier discussion with her power of commercial real estate attorney and discussion with case management, with discharge plans totals at 45 minutes. Tiffanie Buchanan M.D. Dict: 05/09/2019 14:52:20 Trans: 05/09/2019 16:20:41 CC1: Tiffanie Buchanan M.D. documented in this encounter Plan of Treatment Not on file documented as of this encounter Visit Diagnoses Not on filedocumented in this encounter
--- OUTSIDE RECORDS SUMMARY | 2025-05-15 16:56 | XMS_ITS | Encounter Summary ---
Author Organization [employer] ([place], [place], [place], [place]) Address [address] [place] [address] Care Team Providers Care Steam Cleaning Machine Operator Name Role Phone Unavailable Primary Care Provider Unavailabl e Encounter Details Date Type Department Care Team (Late st Contact Info) Description 05/07/2019 Transcribed Document [facility] Radiology [address] [place] [address] Israel Buchanan MD [address] [place] [address] Social History Tobacco Use Types Packs/Day Years Used Date Smoking Tobacco: Never Assessed Comments Unknown Sex and Gender Information Value Date Recorded Sex Assigned at Female 04/10/2022 5:16 PM CDT Legal Sex Female 6:39 PM CDT Gender Identity Female 04/10/2022 5:16 PM CDT Sexual Orientation Not on file documented as of this encounter Miscellaneous Notes * Cerner Conversion Note - Israel Buchanan MD - 05/07/2019 2:45 PM EDT Patient: NURA AG Age: 54 years Sex: Female : 1965 Associated Diagnoses: None Author: ISRAEL BUCHANAN MD Subjective Patient reports she feels at her baseline No focal deficits. Recalls going for her lymphodema trt Reportedly lives at [facility] and has known schizo affective disorder N o headache No nausea Objective VS/Measurements Vital Measurements 05/07/2019 10:21 EDT Systolic Blood Pressure 115 mmHg Diastolic Blood Pressure 68 mmHg Mean Arterial Pressure (MAP)-BMDI 82 Temperature Source Oral Temperature Mode Fahrenheit Temperature, Fahrenheit 98.2 Deg F Clinical Temperature, C 36.8 Deg C Heart Rate Monitored 64 bpm Respiratory Rate 16 Breaths/Min Oxygen Saturation 99 % 05/07/2019 9:22 EDT Systolic Blood Pressure 146 mmHg HI Diastolic Blood Pressure 62 mmHg Mean Arterial Pressure (MAP)-BMDI 77 Heart Rate Monitored 67 bpm Oxygen Saturation 99 % Oxygen Therapy Mode Room air, Simple mask General: Alert and oriented, No acute distress. Eye: Pupils are equal, round and reactive to light. HENT: Normocephalic. Neck: Supple, Non-tender. Respiratory: Lungs are clear to auscultation, Respirations are non-labored, Breath sounds are equal, Symmetrical chest wall expansion. Cardiovascular: Normal rate, Regular rhythm. Gastrointestinal: Soft, Non-tender, Non-distended, Normal bowel sounds. Genitourinary: No costovertebral angle tenderness. Musculoskeletal: No tenderness, No swelling. Integumentary: Warm, Dry, right leg in wraps. Neurologic: Alert, Oriented, No focal deficits. Psychiatric: Cooperative, Appropriate mood & affect. Assessment Interpretation of Results Diagnostic tests. MAY 07 06:53 141 108 7 / H 140 L 3.1 30 0.80 \ MAY 07 06:53 \ L 9.4 / 9.3 336 / L 31.2 \ Plan Altered mental status(POA)resolved Reportedly transfered form OSH for the same At present patient at her baseline. Had CT head negative and cxr normal. Had normal ammonia level and UDS negative despite mention of klonopin in her regimen. Does admit to schizoaffective disorder without recent change in her meds Sent for neuro inut and pending (though at her baseline now) Schizoaffective disorder On cogentin , lamictal, lexapro and wellbutrin Hypokalemia Replace Dizziness Denies syncope Obtain orthostatics Encourage out of bed with assistance and assess. Hypertension On coreg and diovan Anemia No blood loss reported Recommed outpt followup Code status: Based on records from OSH there is a DNR per her POA Queenie Spence However patient reports she has changed her mind and she wants to be full code and attempts at resuscitation if need arises. DVT prophylaxis with pneumatic boots Encourage out of bed Discontinue IVFand obtain orthostatics and neuro input for completion If doing well should be able to return to facilityinam. Time spent with above 30 minutes documented in this encounter Plan of Treatment Not on file documented as of this encounter Visit Diagnoses Not on filedocumented in this encounter
--- NOTE | 2025-05-15 17:13 | XR_ITS ---
PROCEDURE INFORMATION: Exam: XR Left Hand Exam date and time: 05/15/2025 5:32 PM Age: 60 years old Clinical indication: Pain; Hand; Bilateral; Additional info: Bilateral hand pain TECHNIQUE: Imaging protocol: Radiologic exam of the left hand. Views: 3 or more views. COMPARISON: CR XR WRIST LT MIN 3V 09/26/2019 9:38 AM FINDINGS: Bones/joints: Mild degenerative changes of the 2nd and 3rd DIP joints. No acute fracture identified. Soft tissues: Normal. IMPRESSION: No acute findings.
--- NOTE | 2025-05-15 17:13 | XR_ITS ---
PROCEDURE INFORMATION: Exam: XR Right Hand Exam date and time: 05/15/2025 5:32 PM Age: 60 years old Clinical indication: Pain; Hand; Bilateral; Additional info: Bilateral hand pain TECHNIQUE: Imaging protocol: Radiologic exam of the right hand. Views: 3 or more views. COMPARISON: CR XR WRIST RT MIN 3V 09/07/2020 11:06 AM FINDINGS: Bones/joints: Normal. No acute fracture identified. Soft tissues: Normal. IMPRESSION: No acute findings.
--- NOTE | 2025-05-15 17:24 | ECG_ITS ---
APPROVED REPORT Exam: Resting ECG HR:70 bpm ECG Measurements Heart Rate 70 AXES AK 175 P 133 QRSd 88 QRS 178 QT 396 T 172 QTc 417 Conclusion SINUS RHYTHM POSSIBLE RIGHT VENTRICULAR HYPERTROPHY [SOME/ALL OF: PROMINENT R IN V1, LATE TRANSITION, RAD, JANET, SSS] POSSIBLE ANTERIOR MYOCARDIAL INFARCTION , PROBABLY OLD [30 ms Q WAVE IN V3/V4, OR R < 0.2 mV IN V4] INFERIOR MYOCARDIAL INFARCTION , PROBABLY OLD [40+ ms Q WAVE AND/OR ST/T ABNORMALITY IN II/aVF] ABNORMAL ECG UNCONFIRMED REPORT Electronically signed by : Flip Orr, 05/15/2025 23:22:09
[2025-05-15 18:19] LABS: Hematocrit 37.4 % (37.0-47.0); Hemoglobin 12.0 g/dL (12.2-16.2); Immature Granulocytes % 1.0 %; Mean Corpuscular HGB Conc 32.1 g/dL (31.8-35.4); Mean Corpuscular Hemoglobin 27.8 pg (27.0-31.2); Mean Corpuscular Volume 86.6 fl (81-99); Nucleated Red Blood Cells % 0 %; Platelet Count 302 K/mm3 (142-424); Red Blood Count 4.32 M/mm3 (4.20-5.40); Red Cell Distribution Width-SD 41.1 fL; White Blood Count 8.2 K/mm3 (4.8-10.8)
[2025-05-15 18:37] LABS: Alanine Aminotransferase 21 U/L (12-78); Albumin Level 4.4 g/dl (3.5-5.0); Albumin/Globulin Ratio 1.6 (1.1-1.8); Alkaline Phosphatase 107 U/L (38-126); Anion Gap 11.2 mEq/L (5-15); Aspartate Amino Transferase 27 U/L (14-36); Bilirubin,Total 0.2 mg/dl (0.2-1.3); Blood Urea Nitrogen 17 mg/dl (7-17); Calcium 10.5 mg/dl (8.4-10.2); Carbon Dioxide 30 mmol/L (22.0-30.0); Chloride 101 mmol/L (98-107); Creatinine Clearance Estimated 74 mL/min (50-200); Creatinine,Serum 1.20 mg/dl (0.52-1.04); Estimated Glomerular Filt Rate 46 ml/min (>60); GFR (African American) 55 ML/MIN (>60); Globulin 2.8 g/dL (1.3-3.2); Glucose 193 mg/dl (74-100); Magnesium 1.2 mg/dl (1.6-2.3); Potassium 4.2 mmoL/L (3.5-5.1); Sodium 138 mmol/L (136-145); Total Protein,Serum 7.2 g/dl (6.3-8.2)
[2025-05-15 18:42] LABS: Salicylate < 1.0 mg/dL (2.0-20.0)
[2025-05-15 18:43] LABS: Acetaminophen < 10 ug/ml (10-30)
[2025-05-15 18:48] LABS: NT Pro Brain Natriuretic Pep. 307 pg/mL (0-125)
[2025-05-15 18:55] LABS: Troponin I < 0.01 ng/ml (0.00-0.034)
[2025-05-15] MEDS: MAGNESIUM SULFATE IN WATER 2 GM/50 ML PIGGYBACK IV (19:26)
[2025-05-15 20:18] LABS: Microscopic, Urine URINE MICROSCOPIC (MICROSCOPIC)
[2025-05-15 20:22] LABS: Bilirubin,Urine Negative (Negative); Color,Urine YELLOW (Yellow); Glucose,Urine (UA) TRACE (Negative); Ketones,Urine Negative (Negative); Leukocyte Esterase,Urine Negative (Negative); PH,Urine 6.0 (5.0-8.5); Protein,Urine Negative (Negative); Specific Gravity, Urine 1.025 (1.005-1.030); Urobilinogen,Urine 0.2 EU/dl (0.2)
[2025-05-15 20:31] LABS: Amphetamine/Metha Screen,Urine Negative ng/ml (<1000); Barbiturates Screen,Urine Negative ng/ml (<200)
[2025-05-15 20:32] LABS: Benzodiazepines Screen,Urine Negative ng/ml (<200)
[2025-05-15 20:34] LABS: Methadone Screen,Urine Negative ng/ml (<300)
[2025-05-15 20:35] LABS: Bacteria,Urine Trace /lpf; Opiate Screen,Urine Positive ng/ml (<300); Phencyclidine Screen,Urine Negative ng/ml (<25)
[2025-05-15 20:36] LABS: RBC,Urine Occasional #/hpf (0-3)
== END 2025-05-15 23:58 | disposition home or self-care (01) ==
PROVIDERS: Physician Assistant; Emergency Provider Student in an Organized Health Care Education/Training Program
DX: R45.1 Restlessness and agitation (principal); E83.42 Hypomagnesemia; M79.641 Pain in right hand; M79.642 Pain in left hand; E78.5 Hyperlipidemia, unspecified; I10 Essential (primary) hypertension; F33.9 Major depressive disorder, recurrent, unspecified; F25.0 Schizoaffective disorder, bipolar type; F17.210 Nicotine dependence, cigarettes, uncomplicated
CPT/HCPCS: 73130; 80053; 80307; 80320; 80329; 81001; 83735; 83880; 84484; 85025; 93005; 96365; 99285; J3475

== ENCOUNTER 2025-07-07 07:57 | Outpatient (CLI) | payer MEDICAID, SELFPAY ==
--- OUTSIDE RECORDS SUMMARY | 2025-07-07 08:00 | XMS_ITS | Encounter Summary ---
Author Organization [employer] ([place], [place], [place], [place]) Address [address] [place] [address] Care Team Providers Care Cash Posting Clerk Name Role Phone Unavailable Primary Care Provider Unavailabl e Encounter Details Date Type Department Care Team (Late st Contact Info) Description 05/07/2019 Transcribed Document [facility] [place] Medicine [address] [place] [address] ProviderCorrina MD [facility] [place] [address] Social History Tobacco Use [...]
--- OUTSIDE RECORDS SUMMARY | 2025-07-07 08:00 | XMS_ITS | Encounter Summary ---
Author Organization [employer] ([place], [place], [place], [place]) Address [address] [place] [address] Care Team Providers Care Senior Oracle Database Administrator Name Role Phone Unavailable Primary Care Provider Unavailabl e Encounter Details Date Type Department Care Team (Late st Contact Info) Description 05/09/2019 Transcribed Document [facility] [place] [facility] [place] [address] [place] [address] ProviderCorrina MD [facility] [place] [address] Social History Tobacco Use Types [...] completed HOLLIE RAMIRES - 05/09/2019 8:00 EDT documented in this encounter Plan of Treatment Not on file documented as of this encounter Visit Diagnoses Not on filedocumented in this encounter
--- OUTSIDE RECORDS SUMMARY | 2025-07-07 08:00 | XMS_ITS | Encounter Summary ---
Author Organization Healthcare Address [address] [place] [address] Care Team Providers Care Oil Burner Mechanic Name Role Phone Sonido Harrington MD Primary Care Provider [phone] Encounter Details Date Type Department Care Team (Late st Contact Info) Description 10/14/2023 Community [facility] [address] [place] [address] Abhi Orozco, TIRE FABRICATOR [address] [place] [address] Abnormal MRI, lumbar spine (Primary Dx); Abnormal [...] studies documented in this encounter Care Teams Oil Burner Mechanic Relationship Specialty Start Date End Date Sonido Harrington MD [address] [place], [place] [id number] PCP - General 02/22/21 documented as of this encounter
--- OUTSIDE RECORDS SUMMARY | 2025-07-07 08:00 | XMS_ITS | Encounter Summary ---
Author Organization [employer] ([place], [place], [place]) Address [address] [place] [address] Care Team Providers Care Software Engineering Analyst Name Role Phone Unavailable Primary Care Provider Unavailabl e Encounter Details Date Type Department Care Team (Late st Contact Info) Description 05/06/2019 Transcribed Document [facility] Family Medicine [facility] [place] [address] ProviderCorrina MD [facility] [place] [address] Social History Tobacco Use [...] EDT Performed On: 05/06/2019 19:48 EDT by Lizet Keita RN Advance Directive Patient has Advance [...] 14:47 EDT Functional Assessment Living Situation : [facility] Hx Falls Immediate/Within 3 Months : [...] #2 Relationship : . Primary Language : South Sudanese Preferred Communication Mode : Verbal Communication Barrier [...] Level : 46 or > High Risk Girard Fall Interventions : Adequate lighting, Bed in [...] Source : Stated Height Entry Format : [place] Height, Feet : 5 ft(Converted to: 152 cm, 60 Inch) Height, Inches : 3 Inch(Converted to: 0 ft 3 Inch, 7.62 cm) Clinical Height : 160.02 cm Weight Source : Bed scale Weight Entry Format : [place] Clinical Dosing Weight : 93.84 kg Weight, Pounds : 206 lb Weight, Ounces : 7 oz Body Surface Area (BSA) : 1.96 m2 Body Mass Index : 36.6 kg/m2 (HI) [place] Body Weight : 52 kg Lavinia Oh [...]
--- OUTSIDE RECORDS SUMMARY | 2025-07-07 08:00 | XMS_ITS | Encounter Summary ---
Author Organization [employer] ([place], [place], [place]) Address [address] [place] [address] Care Team Providers Care Brick Kiln Worker Name Role Phone Unavailable Primary Care Provider Unavailabl e Encounter Details Date Type Department Care Team (Late st Contact Info) Description 05/09/2019 Transcribed Document [facility] [place] [address] [place] [address] ProviderCorrina MD [address] [place] [address] Social History Tobacco Use Types [...] Historical ProviderMD - 05/09/2019 2:00 AM CDT Auto Polisher Details Entered On: 05/09/2019 4:29 EDT Performed [...]
--- OUTSIDE RECORDS SUMMARY | 2025-07-07 08:00 | XMS_ITS | Clinical Summary ---
Author Organization Healthcare Address [address] [place] [address] Care Team Providers Care Websphere Commerce Architect Name Role Phone Sonido Harrington MD Primary Care Provider [phone] Family History Medical History Relation Name Comments [...] 2013 [facility]-Zoster Vaccines (1 of 2) 2013 GRE-FTPYQ-93 Vaccine (2 - season) 2025 12/13/2020 [facility]-Influenza Vaccine (#1) 06/12/202508/19, 08/20/2016, 07/23/2015, [...] to complete this topic Insurance [facility] [place] [id number] [place] Care Teams Websphere Commerce Architect Relationship Specialty Start Date End Date Sonido Harrington MD [address] [facility] [place] [address] [facility] - General 02/22/21
--- OUTSIDE RECORDS SUMMARY | 2025-07-07 08:00 | XMS_ITS | Encounter Summary ---
Author Organization [employer] ([place], [place], [place], [place]) Address [address] [place] [address] Care Team Providers Care Thread Winder Name Role Phone Unavailable Primary Care Provider Unavailabl e Encounter Details Date Type Department Care Team (Late st Contact Info) Description 05/07/2019 Transcribed Document [facility] [place] [address] [place] [address] ProviderCorrina MD [facility] [place] [address] Social History Tobacco Use Types [...]
--- OUTSIDE RECORDS SUMMARY | 2025-07-07 08:00 | XMS_ITS | Encounter Summary ---
Author Organization [employer] ([place], [place], [place], [place]) Address [address] [place] [address] Care Team Providers Care Provider Network Mgr Name Role Phone Unavailable Primary Care Provider Unavailabl e Encounter Details Date Type Department Care Team (Late st Contact Info) Description 05/09/2019 Transcribed Document [facility] [place] [address] [place] [address] ProviderCorrina MD [address] [place] [address] Social History Tobacco Use Types [...]
--- OUTSIDE RECORDS SUMMARY | 2025-07-07 08:00 | XMS_ITS | Encounter Summary ---
Author Organization [employer] ([place], [place], [place], [place]) Address [address] [place] [address] Care Team Providers Care Housing Counselor Name Role Phone Unavailable Primary Care Provider Unavailabl e Encounter Details Date Type Department Care Team (Late st Contact Info) Description 05/09/2019 Transcribed Document [facility] [place] [facility] [place] [address] ProviderCorrina MD [facility] [place] [address] Social History Tobacco Use Types [...] On: 05/09/2019 12:54 EDT by HALIE CABRALES Powder Nipper Primary Insurance Authorization Authorization and Policy Numbers : Insurance 1 Health Plan: [facility] Policy Number: [id number] Authorization Number: Insurance Primary Name : [facility] Policy Number: [id number] Authorization Comments-Primary : Angelia from [facility] called stating that decision needs to be made today as to wheather pt going to be OBS or go to INPT. needs clinical today Email sent to Benita Schultz Historical Authorization Comments-Primary : No Authorization Comments Found HALIE CABRALES, Powder Nipper - 05/09/2019 12:54 EDT documented in this encounter Plan of Treatment Not on file documented as of this encounter Visit Diagnoses Not on filedocumented in this encounter
--- OUTSIDE RECORDS SUMMARY | 2025-07-07 08:00 | XMS_ITS | Referral Summary ---
Author Organization [employer] ([place], [place], [place], [place]) Address [address] [place] [address] Care Team Providers Care Rn Manager Name Role Phone Unavailable Primary Care [...]
--- OUTSIDE RECORDS SUMMARY | 2025-07-07 08:00 | XMS_ITS | Encounter Summary ---
Author Organization [employer] ([place], [place], [place], [place]) Address [address] [place] [address] Care Team Providers Care Field Naturalist Name Role Phone Unavailable Primary Care Provider Lauren mathews Encounter Details Date Type Department Care Team (Late st Contact Info) Description 05/07/2019 Transcribed Document [facility] [place] [address] [place] [address] ProviderCorrina MD [facility] [place] [address] Social History Tobacco Use Types [...] Lizet Kline RN - 05/08/2019 4:46 EDT Electronically signed by Aaron Steward Conversion Nuclear Medicine Technologist Cerner at 01/28/2023 11:21 AM CDT documented in this encounter Plan of Treatment Not on file documented as of this encounter Visit Diagnoses Not on filedocumented in this encounter
--- OUTSIDE RECORDS SUMMARY | 2025-07-07 08:00 | XMS_ITS | Encounter Summary ---
Author Organization [employer] ([place], [place], [place], [place]) Address [address] [place] [address] Care Team Providers Care Crab Fisherman Name Role Phone Unavailable Primary Care Provider Unavailabl e Encounter Details Date Type Department Care Team (Late st Contact Info) Description 05/09/2019 Transcribed Document [facility] [place] [facility] [place] [address] ProviderCorrina MD [facility] [address] Social History Tobacco Use Types [...] Daily, PRN Mylanta, 15 mL, Oral, BID Gardiner 5 mg-325 mg oral tablet, 1 Tab, [...]
--- OUTSIDE RECORDS SUMMARY | 2025-07-07 08:00 | XMS_ITS | Encounter Summary ---
Author Organization [employer] ([place], [place], [place], [place]) Address [address] [place] [address] Care Team Providers Care Authorizer Name Role Phone Unavailable Primary Care Provider Unavailabl e Encounter Details Date Type Department Care Team (Late st Contact Info) Description 05/07/2019 Transcribed Document [facility] Radiology [address] [place] [address] Israel Buchanan MD [address] [place] [address] Social History Tobacco Use Types Packs/Day [...] for her lymphodema trt Reportedly lives at [facility] and has known schizo affective disorder N [...]
--- OUTSIDE RECORDS SUMMARY | 2025-07-07 08:00 | XMS_ITS | Encounter Summary ---
Author Organization [employer] ([place], [place], [place], [place]) Address [address] [place] [address] Care Team Providers Care Medical Staff Physician Name Role Phone Unavailable Primary Care Provider Unavailabl e Encounter Details Date Type Department Care Team (Late st Contact Info) Description 05/09/2019 Transcribed Document [facility] [place] Medicine [facility] [place] [address] ProviderCorrina MD [address] [place] [address] Social History Tobacco Use Types [...] Corrina ProviderMD - 05/09/2019 4:50 PM CDT Patient [...] in intensive care. ??? [place]. ??? Had recent surgery. ??? Have liver [...] urine clear or pale yellow. ??? Take urit-tjs-kljtwyh and prescription medicines only as told by [...] 03/06/2017 Elsevier Interactive Patient Education ? 2019 [employer] documented in this encounter Plan of Treatment Not on file documented as of this encounter Visit Diagnoses Not on filedocumented in this encounter
--- OUTSIDE RECORDS SUMMARY | 2025-07-07 08:00 | XMS_ITS | Encounter Summary ---
Author Organization [employer] ([place], [place]) Address [address] [place] [address] Care Team Providers Care Fur Matcher Name Role Phone Unavailable Primary Care Provider Unavailabl e Encounter Details Date Type Department Care Team (Late st Contact Info) Description 05/09/2019 Transcribed Document [facility] [place] [facility] [address] ProviderCorrina MD [facility] [address] Social History Tobacco Use Types [...] Comment : [facility] - 05/09/2019 16:56 EDT documented in this encounter Plan of Treatment Not on file documented as of this encounter Visit Diagnoses Not on filedocumented in this encounter
--- OUTSIDE RECORDS SUMMARY | 2025-07-07 08:00 | XMS_ITS | Encounter Summary ---
Author Organization [employer] ([place], [place], [place], [place]) Address [address] [place] [address] Care Team Providers Care Menswear Salesperson Name Role Phone Unavailable Primary Care Provider Unavailabl e Encounter Details Date Type Department Care Team (Late st Contact Info) Description 05/09/2019 Transcribed Document [facility] [place] [place] Medicine [facility] [place] [address] ProviderCorrina MD [facility] [place] [address] Social History Tobacco Use Types [...] On: 05/09/2019 11:57 EDT by NAT DALAL Rn-Oracle Application Architect Initial Assessment I Previously Documented Living Environment : No qualifying data available. Living Situation : Other: [facility] [place] [phone] Patient Lives With : Legal guardian(s) Emergency Contact #1 : andres CARUSO Emergency Contact #1 Phone Number : .[phone] Emergency Contact #1 Relationship : . Emergency Contact #2 : . Emergency Contact #2 Phone Number : . Emergency Contact #2 Relationship : . NAT DALAL Rn-Oracle Application Architect - 05/09/2019 11:57 EDT Initial Assessment II Sensory and Motor Deficits : None, Weakness Current Home Treatments and Equipment : NAT Dougherty Rn-Oracle Application Architect - 05/09/2019 11:57 EDT Discharge Needs I Anticipated Discharge Date : 05/09/2019 EDT Current Home Treatment/Equipment : Current Home Treatment/Equipment No qualifying data available. Post Acute/Home Treatments : NAT Dougherty Rn-Oracle Application Architect - 05/09/2019 11:57 EDT Discharge Needs II Professional Skilled Services : Professional Skilled Services No qualifying data available. Services and Community Resources : Home Health Discharge Options Discussed with Patient : Home Health RHIANNAJaswantNAT VENCES Rn-Oracle Application Architect - 05/09/2019 11:57 EDT Narrative Note Narrative Note : manager night met with pt and ZULY Jerome [phone] at the bedside. Pt is from [facility] in [facility] Shank Maker Teto # [phone]. PLOG> Somewhat independent with walker. Per ZULY Jerome, the last 3 mos pt been falling on and off. Facility is now working on transitioning pt to [facility] in [place]. Ambulates with a walker. CM discussed senior care is more appropriate and pt will continue to pursue while at the [facility]. DC plan is to return with . CM will order Nursing and PT at ri. CM called Spoke with Shank Maker at the facility. Will not need to make onsite assessment, Wants dc summary faxed to her at [phone]. has updated attending MD Phillips that facility is agreeable to take pt today. CM has arranged [facility] for 4PM. IF EEG and Doppler negative will dc as scheduled. NAT DALAL Rn-Oracle Application Architect - 05/09/2019 11:57 EDT documented in this encounter Plan of Treatment Not on file documented as of this encounter Visit Diagnoses Not on filedocumented in this encounter
--- OUTSIDE RECORDS SUMMARY | 2025-07-07 08:00 | XMS_ITS | Encounter Summary ---
Author Organization [employer] ([place], [place], [place], [place]) Address [address] [place] [address] Care Team Providers Care Knitted Garment Finisher Name Role Phone Unavailable Primary Care Provider Lauren mathews Encounter Details Date Type Department Care Team (Late st Contact Info) Description 05/07/2019 Transcribed Document [facility] [place] [facility] [place] [address] ProviderCorrina MD [facility] [place] [address] Social History Tobacco Use [...] Historical ProviderMD - 05/07/2019 2:00 AM CDT Drum Puller Details Entered On: 05/07/2019 3:12 EDT Performed [...]
--- OUTSIDE RECORDS SUMMARY | 2025-07-07 08:00 | XMS_ITS | Encounter Summary ---
Author Organization [employer] ([place], [place], [place], [place]) Address [address] [place] [address] Care Team Providers Care Tow Motor Driver Name Role Phone Unavailable Primary Care Provider Unavailabl e Encounter Details Date Type Department Care Team (Late st Contact Info) Description 05/07/2019 Transcribed Document [facility] [place] [address] [place] [address] ProviderCorrina MD [facility] [place] [address] Social History Tobacco Use Types [...] Policy Numbers : Insurance 1 Health Plan: [facility] Policy Number: [id number] Authorization Number: Insurance Primary Name : [facility] Policy Number: [id number] Historical Authorization Comments-Primary : No Authorization Comments Found SHINE SOLANO Rn-Utilization Review - 05/07/2019 13:31 EDT documented in this encounter Plan of Treatment Not on file documented as of this encounter Visit Diagnoses Not on filedocumented in this encounter
--- OUTSIDE RECORDS SUMMARY | 2025-07-07 08:00 | XMS_ITS | Encounter Summary ---
Author Organization [email or web address] ([place], [place], [place], [place]) Address [address] [place] [address] Care Team Providers Care Levelman Name Role Phone Unavailable Primary Care Provider Unavailabl e Encounter Details Date Type Department Care Team (Late st Contact Info) Description 05/07/2019 Transcribed Document [facility] Family Medicine [facility] [place] [address] ProviderCorrina MD [address] [place] [address] Social History Tobacco Use Types Packs/Day [...] Diagnosis: Encephalopatahy. Hx: schizo affective disorder. KEVIN SAEZ, PT - 05/08/2019 11:11 EDT General Status [...] KEVIN SAEZ, PT - 05/08/2019 11:40 EDT [facility] Charges PT Eval Low Complexity : 1 KEVIN SAEZ, PT - 05/08/2019 11:40 EDT documented in this encounter Plan of Treatment Not on file documented as of this encounter Visit Diagnoses Not on filedocumented in this encounter
--- OUTSIDE RECORDS SUMMARY | 2025-07-07 08:00 | XMS_ITS | Encounter Summary ---
Author Organization [employer] ([place], [place], [place], [place]) Address [address] [place] [address] Care Team Providers Care Pharmaceutical Compounding Supervisor Name Role Phone Unavailable Primary Care Provider Unavailabl e Encounter Details Date Type Department Care Team (Late st Contact Info) Description 05/09/2019 Transcribed Document [facility] [place] [address] [place] [address] ProviderCorrina MD [address] [place] [address] Social History Tobacco Use Types [...]
--- OUTSIDE RECORDS SUMMARY | 2025-07-07 08:01 | XMS_ITS | Encounter Summary ---
Author Organization [employer] ([place], [place], [place], [place]) Address [address] [place] [address] Care Team Providers Care Concept Artist Name Role Phone Unavailable Primary Care Provider Unavailabl e Encounter Details Date Type Department Care Team (Late st Contact Info) Description 05/08/2019 Transcribed Document [facility] [place] [facility] [place] [address] ProviderCorrina [place] [address] Social History Tobacco Use Types [...] to our hospital two days ago from [facility] for an episode of encephalopathy. I have been asked to evaluate her for encephalopathy. The patient indicates to me that a couple of days ago she went to physical therapy session at [facility] and may have passed out. According to Dr. Aleman's note, the patient was obtunded and unresponsive for a period of time and now she is getting better. The patient tells me that she lives at a alf in [place]. She indicates she has never had this [...] HISTORY: Apparently, the patient lives in a alf in [place]. She has no children. She is single. [...] through 12 were intact. Coordination shows intact bpxpbt-tk-mnpk bilaterally. Gait was not tested. Reflexes were [...]
--- OUTSIDE RECORDS SUMMARY | 2025-07-07 08:01 | XMS_ITS | Encounter Summary ---
Author Organization [employer] ([place], [place], [place], [place]) Address [address] [place] [address] Care Team Providers Care Payroll Examiner Name Role Phone Unavailable Primary Care Provider Lauren mathews Encounter Details Date Type Department Care Team (Late st Contact Info) Description 05/08/2019 Transcribed Document [facility] [place] Family Medicine [address] [place] [address] ProviderCorrina MD [facility] [place] [address] Social History Tobacco Use Types [...]
--- OUTSIDE RECORDS SUMMARY | 2025-07-07 08:01 | XMS_ITS | Encounter Summary ---
Author Organization [employer] ([place], [place], [place], [place]) Address [address] [place] [address] Care Team Providers Care Final Inspector Balance Wheel Name Role Phone Unavailable Primary Care Provider Unavailabl e Encounter Details Date Type Department Care Team (Late st Contact Info) Description 05/09/2019 Transcribed Document [facility] [place] [facility] [place] [address] ProviderCorrina MD [facility] [place] [address] Social History Tobacco Use Types [...] Conversion Note - Corrina Darnell MD - 05/09/2019 4:50 PM CDT [facility] [address] [place] [id number] NURA AG :1965 Visit Time:05/06/2019 Your Visit [...] call for a follow up appointment with [facility] Neurology. Where: [facility] [place] [id number] [facility] (1) Follow Up with Follow up with [...] in intensive care. ??? Live in a senior care. ??? Had recent surgery. ??? Have liver [...] urine clear or pale yellow. ??? Take jkpa-zwm-rdooimr and prescription medicines only as told by [...] 03/06/2017 Document Revised: 06/01/2017 Document Reviewed: 03/06/2017 [employer] Interactive Patient Education ?? 2019 [employer]. clonazepam (kloe CAMERON e jacqueline) Chinedu What [...] What is clonazepam? Clonazepam is a benzodiazepine (sho-ybl-fgy-AZE-eh-peen) that affects chemicals in the brain that [...] may report side effects to FDA at 4-502-JPA-4781. What other drugs will affect clonazepam? Taking clonazepam with other drugs that make you sleepy or slow your breathing can cause dangerous side effects or . Ask your doctor before taking a sleeping pill, an opioid medicine, prescription cough medicine, a muscle relaxer, or medicine for anxiety, depression, or seizures. Other drugs may interact with clonazepam, including prescription and daor-rha-iiityiw medicines, vitamins, and herbal products. Tell your [...] to ensure that the information provided by [employer]. ('[employer]') is accurate, up-to-date, and complete, but no guarantee is made to that effect. Drug information contained herein may be time sensitive. [employer] information has been compiled for use by healthcare practitioners and consumers in the [place] and therefore [employer] does not warrant that uses outside of the [place] are appropriate, unless specifically indicated otherwise. [employer] drug information does not endorse drugs, diagnose patients or recommend therapy. [employer] drug information is an informational resource designed [...] effective or appropriate for any given patient. [employer] does not assume any responsibility for any aspect of healthcare administered with the aid of information [employer] provides. The information contained herein is not intended to cover all possible uses, directions, precautions, warnings, drug interactions, allergic reactions, or adverse effects. If you have questions about the drugs you are taking, check with your doctor, nurse or pharmacist. Copyright 5843-7505 [employer]. Version: 8.01. Revision Date: 08/17/2017. Emergency Awareness [...] Assistance with quitting is available by contacting 6-486-KFMGNOW. This is a free resource providing counseling, support, and referral. Or you may contact your personal physician. [place] Suicide Prevention Lifeline: The National Suicide Prevention [...] range between ( 0.0 and 7.0 ) [place] #: 0.63 K/uL -- Normal range between ( 0.16 and 1.00 ) Eos #: 0.57 x10(3)/uL -- Normal range between ( 0.00 and 0.80 ) [place] %: 5.8 % -- Normal range between [...] was given the opportunity to ask questions. Patient/Belt Puncher Name: Patient/Belt Puncher Signature: Relationship to Patient: Clinician/Hospital Belt Puncher Signature: Date: Electronically signed by Nichelle, [facility] Conversion Manager It Training Hunter at 01/28/2023 11:26 AM CDT documented in this encounter Plan of Treatment Not on file documented as of this encounter Visit Diagnoses Not on filedocumented in this encounter
--- OUTSIDE RECORDS SUMMARY | 2025-07-07 08:01 | XMS_ITS | Encounter Summary ---
Author Organization [employer] ([place], [place], [place], [place]) Address [address] [place] [address] Care Team Providers Care Search Strategist Name Role Phone Unavailable Primary Care Provider Lauren mathews Encounter Details Date Type Department Care Team (Late st Contact Info) Description 05/08/2019 Transcribed Document [facility] [place] [address] [place] [address] ProviderCorrina MD [facility] [place] [address] Social History Tobacco Use Types [...] Historical ProviderMD - 05/08/2019 2:00 AM CDT Manager Simulation Details Entered On: 05/08/2019 4:48 EDT Performed [...]
--- OUTSIDE RECORDS SUMMARY | 2025-07-07 08:01 | XMS_ITS | Encounter Summary ---
Author Organization [employer] ([place], [place], [place], [place]) Address [address] [place] [address] Care Team Providers Care Bait Packer Name Role Phone Unavailable Primary Care Provider Unavailabl e Encounter Details Date Type Department Care Team (Late st Contact Info) Description 05/09/2019 Transcribed Document [facility] [place] [address] ProviderCorrina [place] [address] Social History Tobacco Use Types [...] M.D. Electronically signed by Aaron Steward Conversion Rubber Goods Inspector Tester Cerner at 01/28/2023 11:24 AM CDT documented in this encounter Plan of Treatment Not on file documented as of this encounter Visit Diagnoses Not on filedocumented in this encounter
--- OUTSIDE RECORDS SUMMARY | 2025-07-07 08:01 | XMS_ITS | Clinical Summary ---
Author Organization [employer] ([place], [place], [place], [place]) Address [address] [place] [address] Care Team Providers Care Tai Chi Instructor Name Role Phone Unavailable Primary Care [...]
--- OUTSIDE RECORDS SUMMARY | 2025-07-07 08:01 | XMS_ITS | Encounter Summary ---
Author Organization [employer] ([place], [place], [place]) Address [address] [place] [address] Care Team Providers Care Toe Closing Machine Tender Name Role Phone Unavailable Primary Care Provider Unavailabl e Encounter Details Date Type Department Care Team (Late st Contact Info) Description 05/06/2019 Transcribed Document [facility] [place] [facility] [place] [address] ProviderCorrina MD [facility] [place] [address] Social History Tobacco Use [...] history: Medical record, Not self. Referral source: [facility]. History limitation: Clinical condition. Primary Care Physician: Sonido Harrington Referring Physician: Fam Chief Complaint Confusion History of Present Illness This is a 54 year old female with a past medical history as noted below who was requested for transfer from [facility] for sudden onset of altered mental status during an appointment earlier today for lymphedema leg treatment. The patient had pretty extensive workup at [facility] which was unrevealing for any explanation of [...] Review / Management Results review: Labs from [facility] as follows: WBC 10, Hgb 9.1, Plt 436, INR 1.1, ammonia 17, lactic acid 2.7, UA negative, UDS negative, Na 141, K 3.0, Cl 103, CO2 31, BUN 10, Cr 1.02, Glu 102, Ca 8.8, Mg 1.2, Bili 0.2, AST 2, ALT 14, Alk phos 144, trop <0.02, TSH 2.35, alcohol 0. Chest x-ray results Consistent with: CXR at [facility] interpreted as no change, enlargement of the cardiac silhouette without failure, left lung linear scar Radiology results CT head at [facility] interpreted as no acute intracranial process ECG interpretation: EKG from [facility] personally reviewed and showed NSR at 67 [...]
--- OUTSIDE RECORDS SUMMARY | 2025-07-07 08:01 | XMS_ITS | Encounter Summary ---
Author Organization [employer] ([place], [place], [place], [place]) Address [address] [place] [address] Care Team Providers Care Teacher Ballet Name Role Phone Unavailable Primary Care Provider Unavailabl e Encounter Details Date Type Department Care Team (Late st Contact Info) Description 05/09/2019 Transcribed Document [facility] [place] [address] [place] [address] ProviderCorrina MD [facility] [place] [address] Social History Tobacco Use Types [...] Lavinia Oh RN - 05/09/2019 15:28 EDT documented in this encounter Plan of Treatment Not on file documented as of this encounter Visit Diagnoses Not on filedocumented in this encounter
--- OUTSIDE RECORDS SUMMARY | 2025-07-07 08:01 | XMS_ITS | Encounter Summary ---
Author Organization [employer] ([place], [place], [place], [place]) Address [address] [place] [address] Care Team Providers Care Train Brake Operator Name Role Phone Unavailable Primary Care Provider Unavailabl e Encounter Details Date Type Department Care Team (Late st Contact Info) Description 05/09/2019 Transcribed Document [facility] [place] [facility] [place] [address] ProviderCorrina MD [facility] [place] [address] Social History Tobacco Use Types [...] Progress Note : Pt a resident of [facility] in [place] and person spoke lisa/Yara [phone]/fax [phone] BRENDA SMITH, RN-Care Management - 05/09/2019 9:25 EDT documented in this encounter Plan of Treatment Not on file documented as of this encounter Visit Diagnoses Not on filedocumented in this encounter
--- OUTSIDE RECORDS SUMMARY | 2025-07-07 08:01 | XMS_ITS | Encounter Summary ---
Author Organization [employer] ([place], [place], [place], [place]) Address [address] [place] [address] Care Team Providers Care Sheet Metal Contractor Name Role Phone Unavailable Primary Care Provider Unavailabl e Encounter Details Date Type Department Care Team (Late st Contact Info) Description 05/06/2019 Transcribed Document [facility] [place] [facility] [place] [address] ProviderCorrina MD [facility] [place] [place] [address] Social History Tobacco Use Types [...]
--- OUTSIDE RECORDS SUMMARY | 2025-07-07 08:01 | XMS_ITS | Encounter Summary ---
Author Organization [employer] ([place], [place], [place], [place]) Address [address] [place] [address] Care Team Providers Care Client Partner Name Role Phone Unavailable Primary Care Provider Unavailabl e Encounter Details Date Type Department Care Team (Late st Contact Info) Description 05/08/2019 Transcribed Document [facility] [place] Family Medicine [address] [place] [address] ProviderCorrina MD [facility] [place] [address] Social History Tobacco Use [...]
--- OUTSIDE RECORDS SUMMARY | 2025-07-07 08:01 | XMS_ITS | Encounter Summary ---
Author Organization [employer] ([place], [place], [place], [place]) Address [address] [place] [address] Care Team Providers Care Automatic Casting Machine Operator Name Role Phone Unavailable Primary Care Provider Unavailabl e Encounter Details Date Type Department Care Team (Late st Contact Info) Description 05/08/2019 Transcribed Document [facility] [place] Medicine [address] [place] [address] ProviderCorrina MD [facility] [place] [address] Social History Tobacco Use Types [...] Mariella Deshpande LPN - 05/08/2019 16:09 EDT Electronically signed by Aaron Steward Conversion Supervisor Ordnance Truck Installation Cerner at 01/28/2023 11:32 AM CDT documented in this encounter Plan of Treatment Not on file documented as of this encounter Visit Diagnoses Not on filedocumented in this encounter
--- OUTSIDE RECORDS SUMMARY | 2025-07-07 08:01 | XMS_ITS | Encounter Summary ---
Author Organization [employer] ([place], [place], [place], [place]) Address [address] [place] [address] Care Team Providers Care Rent And Housing Investigator Name Role Phone Unavailable Primary Care Provider Unavailabl e Encounter Details Date Type Department Care Team (Late st Contact Info) Description 05/06/2019 Transcribed Document [facility] [place] [address] [place] [address] ProviderCorrina MD [facility] [place] [address] Social History Tobacco Use Types Packs/Day Years [...] - 05/07/2019 14:58 EDT Electronically signed by Aaron Steward Conversion Internal Combustion Engine Assembler Cerner at 01/28/2023 11:33 AM CDT documented in this encounter Plan of Treatment Not on file documented as of this encounter Visit Diagnoses Not on filedocumented in this encounter
--- OUTSIDE RECORDS SUMMARY | 2025-07-07 08:01 | XMS_ITS | Encounter Summary ---
Author Organization [employer] ([place], [place], [place], [place]) Address [address] [place] [address] Care Team Providers Care President Name Role Phone Unavailable Primary Care Provider Unavailabl e Encounter Details Date Type Department Care Team (Late st Contact Info) Description 05/09/2019 Transcribed Document [facility] Radiology [address] [place] [address] Tiffanie Buchanan MD [address] [place] [address] [address] Social History Tobacco Use Types [...] 05/09/2019 DISCHARGE SUMMARY NOTE: Patient comes from [facility] and returns to that facility. PRINCIPAL DISCHARGE [...] head was done at outside facility in [facility], where the patient did not have any acute changes. ADMISSION HISTORY AND HOSPITAL COURSE: This is a 54-year-old, white female, with a schizoaffective disorder who reportedly has a history of lymphedema. She did undergo some wrapping to her right lower extremity and was seen for the same at [facility] when she was noted to have [...] discussed with the patient's listed power of employment attorney, MsSyd Queenie Spence on 05/08/2019 about the hospital course. Currently, the patient will return to [facility] and I have also discussed with case [...] and earlier discussion with her power of employment attorney and discussion with case management, with discharge plans totals at 45 minutes. Tiffanie Buchanan M.D. Dict: 05/09/2019 14:52:20 Trans: 05/09/2019 16:20:41 CC1: Tiffanie Buchanan M.D. documented in this encounter Plan of Treatment Not on file documented as of this encounter Visit Diagnoses Not on filedocumented in this encounter
[2025-07-07 12:00] LABS: C. difficile PCR (HMH) Negative (Negative)
== END 2025-07-07 23:59 | disposition home or self-care (01) ==
PROVIDERS: PCP Nurse Practitioner Family; Visit Provider Nurse Practitioner Family
DX: A04.72 Enterocolitis due to Clostridium difficile, not specified as recurrent (principal)
CPT/HCPCS: 87045; 87493

== ENCOUNTER 2025-07-28 09:08 | Outpatient (CLI) | payer MEDICAID, SELFPAY ==
--- OUTSIDE RECORDS SUMMARY | 2025-07-28 09:15 | XMS_ITS | Encounter Summary ---
Author Organization [employer] ([place], [place], [place], [place]) Address [address] [place] [address] Care Team Providers Care Search Engine Optimization Specialist Name Role Phone Unavailable Primary Care Provider Unavailabl e Encounter Details Date Type Department Care Team (Late st Contact Info) Description 05/09/2019 Transcribed Document [facility] [place] [address] [place] [address] ProviderCorrina MD [address] [place] [address] Social History Tobacco Use Types [...] Historical ProviderMD - 05/09/2019 2:00 AM CDT Hassock Maker Details Entered On: 05/09/2019 4:29 EDT Performed [...]
--- OUTSIDE RECORDS SUMMARY | 2025-07-28 09:15 | XMS_ITS | Clinical Summary ---
Author Organization [facility] Address [address] [place] [address] Care Team Providers Care Dye Can Operator Name Role Phone Sonido Harrington MD Primary Care Provider [phone] Family History Medical History Relation Name Comments [...] 2013 [facility]-Zoster Vaccines (1 of 2) 2013 [facility]-LUEOH-85 Vaccine (2 - season) 2025 12/13/2020 [facility]-Influenza [...] patient's age to complete this topic Insurance [facility] [place] [id number] [place] Care Teams Dye Can Operator Relationship Specialty Start Date End Date Sonido Harrington MD [address] [facility] [place] [address] [facility] - General 02/22/21
--- OUTSIDE RECORDS SUMMARY | 2025-07-28 09:15 | XMS_ITS | Encounter Summary ---
Author Organization [employer] ([place], [place], [place], [place]) Address [address] [place] [address] Care Team Providers Care Project Production Engineer Name Role Phone Unavailable Primary Care Provider Unavailabl e Encounter Details Date Type Department Care Team (Late st Contact Info) Description 05/07/2019 Transcribed Document [facility] [place] [address] [place] [address] ProviderCorrina MD [facility] [place] [address] Social History Tobacco Use Types [...]
--- OUTSIDE RECORDS SUMMARY | 2025-07-28 09:15 | XMS_ITS | Encounter Summary ---
Author Organization [employer] ([place], [place], [place], [place]) Address [address] [place] [address] Care Team Providers Care Hot Tamale Man Name Role Phone Unavailable Primary Care Provider Lauren mathews Encounter Details Date Type Department Care Team (Late st Contact Info) Description 05/07/2019 Transcribed Document [facility] [place] [address] [place] [address] ProviderCorrina MD [place] [address] Social History Tobacco Use Types [...]
--- OUTSIDE RECORDS SUMMARY | 2025-07-28 09:15 | XMS_ITS | Encounter Summary ---
Author Organization [employer] ([place], [place], [place], [place]) Address [address] [place] [address] Care Team Providers Care Web Production Artist Name Role Phone Unavailable Primary Care Provider Unavailabl e Encounter Details Date Type Department Care Team (Late st Contact Info) Description 05/07/2019 Transcribed Document [facility] [place] Family Medicine [address] [place] [address] ProviderCorrina MD [facility] [place] [address] Social History Tobacco Use [...] Policy Numbers : Insurance 1 Health Plan: [facility] Policy Number: [id number] Authorization Number: Insurance Primary Name : [facility] Policy Number: [id number] Historical Authorization Comments-Primary : No Authorization Comments Found [employer] Rn-Utilization Review - 05/07/2019 13:31 EDT documented in this encounter Plan of Treatment Not on file documented as of this encounter Visit Diagnoses Not on filedocumented in this encounter
--- OUTSIDE RECORDS SUMMARY | 2025-07-28 09:15 | XMS_ITS | Encounter Summary ---
Author Organization [employer] ([place], [place], [place], [place]) Address [address] [place] [address] Care Team Providers Care Oil Expeller Name Role Phone Unavailable Primary Care Provider Unavailabl e Encounter Details Date Type Department Care Team (Late st Contact Info) Description 05/07/2019 Transcribed Document [facility] [place] [address] [place] [address] ProviderCorrina MD [facility] [place] [address] Social History Tobacco Use Types [...]
--- OUTSIDE RECORDS SUMMARY | 2025-07-28 09:15 | XMS_ITS | Encounter Summary ---
Author Organization [employer] ([place], [place], [place], [place]) Address [address] [place] [address] Care Team Providers Care Ballet Master/Mistress Name Role Phone Unavailable Primary Care Provider Unavailabl e Encounter Details Date Type Department Care Team (Late st Contact Info) Description 05/07/2019 Transcribed Document [facility] Radiology 1 [place] [address] Israel Buchanan MD [address] [place] [address] Social History Tobacco Use Types Packs/Day [...] for her lymphodema trt Reportedly lives at [facility] and has known schizo affective disorder N [...]
--- OUTSIDE RECORDS SUMMARY | 2025-07-28 09:15 | XMS_ITS | Encounter Summary ---
Author Organization [employer] ([place], [place], [place], [place]) Address [address] [place] [address] Care Team Providers Care Train Inspector Name Role Phone Unavailable Primary Care Provider Unavailabl e Encounter Details Date Type Department Care Team (Late st Contact Info) Description 05/07/2019 Transcribed Document [facility] [place] [facility] [place] [address] ProviderCorrina MD [address] [place] [address] Social History Tobacco Use Types Packs/Day [...] KEVIN SAEZ, PT - 05/08/2019 11:40 EDT [place] PT Charges PT Eval Low Complexity : 1 KEVIN SAEZ, PT - 05/08/2019 11:40 EDT documented in this encounter Plan of Treatment Not on file documented as of this encounter Visit Diagnoses Not on filedocumented in this encounter
--- OUTSIDE RECORDS SUMMARY | 2025-07-28 09:15 | XMS_ITS | Encounter Summary ---
Author Organization [employer] ([place], [place], [place], [place]) Address [address] [place] [address] Care Team Providers Care Batching Operator Name Role Phone Unavailable Primary Care Provider Unavailabl e Encounter Details Date Type Department Care Team (Late st Contact Info) Description 05/09/2019 Transcribed Document [facility] [place] [facility] [place] [address] ProviderCorrina MD [facility] [place] [address] Social History Tobacco Use Types [...] On: 05/09/2019 12:54 EDT by HALIE CABRALES Cashier Ticket Selling Primary Insurance Authorization Authorization and Policy Numbers : Insurance 1 Health Plan: [facility] Policy Number: [id number] Authorization Number: Insurance Primary Name : [facility] Policy Number: [id number] Authorization Comments-Primary : Angelia from [facility] called stating that decision needs to be made today as to wheather pt going to be OBS or go to INPT. needs clinical today Email sent to Benita Schultz Historical Authorization Comments-Primary : No Authorization Comments Found HALIE CABRALES, Cashier Ticket Selling - 05/09/2019 12:54 EDT documented in this encounter Plan of Treatment Not on file documented as of this encounter Visit Diagnoses Not on filedocumented in this encounter
--- OUTSIDE RECORDS SUMMARY | 2025-07-28 09:15 | XMS_ITS | Encounter Summary ---
Author Organization [employer] ([place], [place], [place], [place]) Address [address] [place] [address] Care Team Providers Care Systems Eng Name Role Phone Unavailable Primary Care Provider Unavailabl e Encounter Details Date Type Department Care Team (Late st Contact Info) Description 05/09/2019 Transcribed Document [facility] [place] [address] [place] [address] ProviderCorrina MD [address] [place] [address] Social History Tobacco Use Types [...]
--- OUTSIDE RECORDS SUMMARY | 2025-07-28 09:15 | XMS_ITS | Referral Summary ---
Author Organization [employer] ([place], [place], [place], [place]) Address [address] [place] [address] Care Team Providers Care Passenger Elevator Operator Name Role Phone Unavailable Primary Care [...]
--- OUTSIDE RECORDS SUMMARY | 2025-07-28 09:15 | XMS_ITS | Encounter Summary ---
Author Organization [employer] ([place], [place], [place], [place]) Address [address] [place] [address] Care Team Providers Care Cardiograph Operator Name Role Phone Unavailable Primary Care Provider Unavailabl e Encounter Details Date Type Department Care Team (Late st Contact Info) Description 05/09/2019 Transcribed Document [facility] [place] Family Medicine [address] [place] [address] ProviderCorrina MD [facility] [place] [address] Social History Tobacco Use Types [...]
--- OUTSIDE RECORDS SUMMARY | 2025-07-28 09:16 | XMS_ITS | Encounter Summary ---
Author Organization [employer] ([place], [place], [place], [place]) Address [address] [place] [address] Care Team Providers Care Sand Bobber Name Role Phone Unavailable Primary Care Provider Lauren mathews Encounter Details Date Type Department Care Team (Late st Contact Info) Description 05/08/2019 Transcribed Document [facility] [place] Family [place] [address] [place] [address] ProviderCorrina MD [facility] [place] [address] Social History Tobacco Use Types [...] Lizet Kline RN - 05/08/2019 4:49 EDT Electronically signed by Aaron Steward Conversion Concrete Form Setter And Finisher Cerner at 01/28/2023 11:35 AM CDT documented in this encounter Plan of Treatment Not on file documented as of this encounter Visit Diagnoses Not on filedocumented in this encounter
--- OUTSIDE RECORDS SUMMARY | 2025-07-28 09:16 | XMS_ITS | Encounter Summary ---
Author Organization [employer] ([place], [place], [place], [place]) Address [address] [place] [address] Care Team Providers Care Orchard Sprayer Name Role Phone Unavailable Primary Care Provider Unavailabl e Encounter Details Date Type Department Care Team (Late st Contact Info) Description 05/09/2019 Transcribed Document [facility] [place] [facility] [place] [address] ProviderCorrina MD [facility] [place] [address] Social History Tobacco Use Types [...] On: 05/09/2019 11:57 EDT by NAT DALAL Rn-Teachers' Aide Initial Assessment I Previously Documented Living Environment : No qualifying data available. Living Situation : Other: [facility] in [place] [phone] Patient Lives With : Legal guardian(s) Emergency Contact #1 : andres CARUSO Emergency Contact #1 Phone Number : .[phone] Emergency Contact #1 Relationship : . Emergency Contact #2 : . Emergency Contact #2 Phone Number : . Emergency Contact #2 Relationship : . NAT DALAL Rn-Teachers' Aide - 05/09/2019 11:57 EDT Initial Assessment II Sensory and Motor Deficits : None, Weakness Current Home Treatments and Equipment : NAT Dougherty Rn-Teachers' Aide - 05/09/2019 11:57 EDT Discharge Needs I Anticipated Discharge Date : 05/09/2019 EDT Current Home Treatment/Equipment : Current Home Treatment/Equipment No qualifying data available. Post Acute/Home Treatments : NAT Dougherty Rn-Teachers' Aide - 05/09/2019 11:57 EDT Discharge Needs II Professional Skilled Services : Professional Skilled Services No qualifying data available. Services and Community Resources : Home Health Discharge Options Discussed with Patient : Home Health RHIANNAJaswantNAT VENCES Rn-Teachers' Aide - 05/09/2019 11:57 EDT Narrative Note Narrative Note : marketing intelligence manager met with pt and ZULY Jerome [phone] at the bedside. Pt is from [facility] in [facility] Fire Hydrant Mechanic [place] # [phone]. PLOG> Somewhat independent with walker. Per ZULY Jerome, the last 3 mos pt been falling on and off. Facility is now working on transitioning pt to termite control service representative shelter facility in [place]. Ambulates with a walker. CM discussed [facility] is more appropriate and pt will continue to pursue while at the [facility]. DC plan is to return with . CM will order Nursing and PT at mo. CM called Spoke with Fire Hydrant Mechanic at the facility. Will not need to make onsite assessment, Wants dc summary faxed to her at [phone]. has updated attending MD Phillips that facility is agreeable to take pt today. CM has arranged [facility] for 4PM. IF EEG and Doppler negative will dc as scheduled. NAT DALAL Rn-Teachers' Aide - 05/09/2019 11:57 EDT documented in this encounter Plan of Treatment Not on file documented as of this encounter Visit Diagnoses Not on filedocumented in this encounter
--- OUTSIDE RECORDS SUMMARY | 2025-07-28 09:16 | XMS_ITS | Encounter Summary ---
Author Organization [employer] ([place], [place], [place], [place]) Address [address] [place] [address] Care Team Providers Care Equipment Maintenance Superintendent Name Role Phone Unavailable Primary Care Provider Unavailabl e Encounter Details Date Type Department Care Team (Late st Contact Info) Description 05/09/2019 Transcribed Document [facility] [place] [facility] [place] [address] ProviderCorrina MD [facility] [place] [address] Social History Tobacco Use Types [...] Darnell MD - 05/09/2019 4:50 PM CDT [facility] [address] [place] [id number] NURA AG :1965 Visit Time:05/06/2019 Your Visit [...] call for a follow up appointment with [facility]. Where: [facility] [place] [employer] [place] [phone] [facility] (1) Follow Up with Follow up [...] in intensive care. ??? Live in a alf. ??? Had recent surgery. ??? Have liver [...] urine clear or pale yellow. ??? Take lxoi-yzn-glfkkoq and prescription medicines only as told by [...] 03/06/2017 Document Revised: 06/01/2017 Document Reviewed: 03/06/2017 [employer] Interactive Patient Education ?? 2019 [employer]ision. clonazepam (kloe CAMERON e jacqueline) Chinedu What [...] What is clonazepam? Clonazepam is a benzodiazepine (ygs-iah-nda-AZE-eh-peen) that affects chemicals in the brain that may be unbalanced. Clonazepam is also a seizure medicine, also called an anti-epileptic drug. Clonazepam is used to treat certain seizure disorders (including absence seizures or [place]field-Gastaut syndrome) in adults and children. Clonazepam is [...] may report side effects to FDA at 8-267-XNR-9420. What other drugs will affect clonazepam? Taking clonazepam with other drugs that make you sleepy or slow your breathing can cause dangerous side effects or . Ask your doctor before taking a sleeping pill, an opioid medicine, prescription cough medicine, a muscle relaxer, or medicine for anxiety, depression, or seizures. Other drugs may interact with clonazepam, including prescription and qmjb-dbu-uvniece medicines, vitamins, and herbal products. Tell your [...] to ensure that the information provided by [employer]. ('[place] [employer]') is accurate, up-to-date, and complete, but no guarantee is made to that effect. Drug information contained herein may be time sensitive. [employer] information has been compiled for use by healthcare practitioners and consumers in the [place] and therefore [employer] does not warrant that uses outside of the [place] are appropriate, unless specifically indicated otherwise. [employer] drug information does not endorse drugs, diagnose patients or recommend therapy. [employer] drug information is an informational resource designed [...] effective or appropriate for any given patient. [employer] does not assume any responsibility for any aspect of healthcare administered with the aid of information [employer] provides. The information contained herein is not intended to cover all possible uses, directions, precautions, warnings, drug interactions, allergic reactions, or adverse effects. If you have questions about the drugs you are taking, check with your doctor, nurse or pharmacist. Copyright 1831-7298 [employer]. Version: 8.01. Revision Date: 08/17/2017. Emergency Awareness [...] Assistance with quitting is available by contacting 8-853-WKBENOW. This is a free resource providing counseling, support, and referral. Or you may contact your personal physician. [place] Suicide Prevention Lifeline: The National Suicide Prevention [...] range between ( 0.0 and 7.0 ) [place] #: 0.63 K/uL -- Normal range between ( 0.16 and 1.00 ) [place] #: 0.57 x10(3)/uL -- Normal range between ( 0.00 and 0.80 ) [place] %: 5.8 % -- Normal range between [...] was given the opportunity to ask questions. Patient/Quarrying Specialist Name: Patient/Quarrying Specialist Signature: Relationship to Patient: Clinician/Hospital Quarrying Specialist Signature: Date: Electronically signed by Nichelle, [facility] Conversion Learning And Development Administrator Hunter at 01/28/2023 11:26 AM CDT documented in this encounter Plan of Treatment Not on file documented as of this encounter Visit Diagnoses Not on filedocumented in this encounter
--- OUTSIDE RECORDS SUMMARY | 2025-07-28 09:16 | XMS_ITS | Encounter Summary ---
Author Organization Healthcare Address [address] [place] [address] Care Team Providers Care Automotive Product Specialist Name Role Phone Sonido Harrington MD Primary Care Provider [phone] Encounter Details Date Type Department Care Team (Late st Contact Info) Description 10/14/2023 [facility] [address] [place] [address] Abhi Orozco, STAINED GLASS ARTIST [address] [place] [address] Abnormal MRI, lumbar spine (Primary Dx); Abnormal [...] studies documented in this encounter Care Teams Automotive Product Specialist Relationship Specialty Start Date End Date Sonido Harrington MD [address] [place], [place] [id number] PCP - General 02/22/21 documented as of this encounter
--- OUTSIDE RECORDS SUMMARY | 2025-07-28 09:16 | XMS_ITS | Encounter Summary ---
Author Organization [employer] ([place], [place], [place], [place]) Address [address] [place] [address] Care Team Providers Care Pump Tester Name Role Phone Unavailable Primary Care Provider Unavailabl e Encounter Details Date Type Department Care Team (Late st Contact Info) Description 05/06/2019 Transcribed Document [facility] [place] [address] ProviderCorrina [place] [address] Social History Tobacco Use [...]
--- OUTSIDE RECORDS SUMMARY | 2025-07-28 09:16 | XMS_ITS | Encounter Summary ---
Author Organization [employer] ([place], [place], [place], [place]) Address [address] [place] [address] Care Team Providers Care Body Technician Name Role Phone Unavailable Primary Care Provider Unavailabl e Encounter Details Date Type Department Care Team (Late st Contact Info) Description 05/09/2019 Transcribed Document [facility] [place] [address] [place] [address] ProviderCorrina MD [facility] [place] [address] Social History Tobacco Use Types [...]
--- OUTSIDE RECORDS SUMMARY | 2025-07-28 09:16 | XMS_ITS | Encounter Summary ---
Author Organization [employer] ([place], [place], [place], [place]) Address [address] [place] [address] Care Team Providers Care Camp Guard Name Role Phone Unavailable Primary Care Provider Unavailabl e Encounter Details Date Type Department Care Team (Late st Contact Info) Description 05/08/2019 Transcribed Document [facility] Family Medicine [address] [place] [address] ProviderCorrina MD [place] [address] Social History Tobacco Use Types [...]
--- OUTSIDE RECORDS SUMMARY | 2025-07-28 09:16 | XMS_ITS | Encounter Summary ---
Author Organization [employer] ([place], [place], [place], [place]) Address [address] [place] [address] Care Team Providers Care Lighting Technician Name Role Phone Unavailable Primary Care Provider Unavailabl e Encounter Details Date Type Department Care Team (Late st Contact Info) Description 05/09/[address] [facility] Radiology [address] [place] [address] Tiffanie Buchanan MD [address] [place] [address] [address] Social History Tobacco Use Types [...] head was done at outside facility in [facility], where the patient did not have any acute changes. ADMISSION HISTORY AND HOSPITAL COURSE: This is a 54-year-old, white female, with a schizoaffective disorder who reportedly has a history of lymphedema. She did undergo some wrapping to her right lower extremity and was seen for the same at [facility] when she was noted to have [...] discussed with the patient's listed power of health care attorney, MsSyd Queenie Spence on 05/08/2019 about [...] and earlier discussion with her power of health care attorney and discussion with case management, with discharge plans totals at 45 minutes. Tiffanie Buchanan M.D. Dict: 05/09/2019 14:52:20 Trans: 05/09/2019 16:20:41 CC1: Tiffanie Buchanan M.D. documented in this encounter Plan of Treatment Not on file documented as of this encounter Visit Diagnoses Not on filedocumented in this encounter
--- OUTSIDE RECORDS SUMMARY | 2025-07-28 09:16 | XMS_ITS | Encounter Summary ---
Author Organization [employer] ([place], [place], [place], [place]) Address [address] [place] [address] Care Team Providers Care Autocad Draftsman Name Role Phone Unavailable Primary Care Provider Lauren mathews Encounter Details Date Type Department Care Team (Late st Contact Info) Description 05/08/2019 Transcribed Document [facility] [place] Family Medicine [address] [place] [address] ProviderCorrina MD [facility] [place] [address] Social History Tobacco Use Types [...] Historical ProviderMD - 05/08/2019 2:00 AM CDT Portable Track Crew Chief Details Entered On: 05/08/2019 4:48 EDT Performed [...]
--- OUTSIDE RECORDS SUMMARY | 2025-07-28 09:16 | XMS_ITS | Encounter Summary ---
Author Organization [employer] ([place], [place], [place], [place]) Address [address] [place] [address] Care Team Providers Care Plant Attendant Or Assistant Operator Name Role Phone Unavailable Primary Care Provider Unavailabl e Encounter Details Date Type Department Care Team (Late st Contact Info) Description 05/08/2019 Transcribed Document [facility] [place] [facility] [place] [address] ProviderCorrina MD [facility] [place] [address] Social History Tobacco Use Types [...] to our hospital two days ago from [facility] for an episode of encephalopathy. I have been asked to evaluate her for encephalopathy. The patient indicates to me that a couple of days ago she went to physical therapy session at [facility] and may have passed out. According to Dr. Aleman's note, the patient was obtunded and unresponsive for a period of time and now she is getting better. The patient tells me that she lives at a senior care in [place]. She indicates she has never had this [...] HISTORY: Apparently, the patient lives in a senior care in [place]. She has no children. She is single. [...] through 12 were intact. Coordination shows intact wvvdcd-cc-qfhj bilaterally. Gait was not tested. Reflexes were [...]
--- OUTSIDE RECORDS SUMMARY | 2025-07-28 09:16 | XMS_ITS | Clinical Summary ---
Author Organization [employer] ([place], [place], [place], [place]) Address [address] [place] [address] Care Team Providers Care City Superintendent Of Schools Name Role Phone Unavailable Primary Care Provider [...]
--- OUTSIDE RECORDS SUMMARY | 2025-07-28 09:16 | XMS_ITS | Encounter Summary ---
Author Organization [facility] ([place], [place], [place], [place]) Address [address] [place] [address] Care Team Providers Care Tractor Crane Operator Name Role Phone Unavailable Primary Care Provider Unavailabl e Encounter Details Date Type Department Care Team (Late st Contact Info) Description 05/09/2019 Transcribed Document [facility] [place] [facility] [place] [address] ProviderCorrina MD [facility] [place] [address] Social History Tobacco Use Types [...] Daily, PRN Mylanta, 15 mL, Oral, BID [place] 5 mg-325 mg oral tablet, 1 Tab, [...] mg= 2 mL, IV Push, Q4H, PRN Electronically signed by Nichelle, Aaron Conversion Water Pollution Control Inspector Cerner at 01/28/2023 11:32 AM CDT documented in this encounter Plan of Treatment Not on file documented as of this encounter Visit Diagnoses Not on filedocumented in this encounter
--- OUTSIDE RECORDS SUMMARY | 2025-07-28 09:16 | XMS_ITS | Encounter Summary ---
Author Organization [employer] ([place], [place], [place], [place]) Address [address] [place] [address] Care Team Providers Care Appellate Court Judge Name Role Phone Unavailable Primary Care Provider Lauren mathews Encounter Details Date Type Department Care Team (Late st Contact Info) Description 05/07/2019 Transcribed Document [facility] [place] [facility] [place] [address] ProviderCorrina MD [facility] [place] [address] Social History Tobacco [...] Historical ProviderMD - 05/07/2019 2:00 AM CDT Principal Clerk Details Entered On: 05/07/2019 3:12 EDT Performed [...]
--- OUTSIDE RECORDS SUMMARY | 2025-07-28 09:16 | XMS_ITS | Encounter Summary ---
Author Organization [employer] ([place], [place], [place], [place]) Address [address] [place] [address] Care Team Providers Care Cannoneer Name Role Phone Unavailable Primary Care Provider Unavailabl e Encounter Details Date Type Department Care Team (Late st Contact Info) Description 05/09/2019 Transcribed Document [facility] [place] [facility] [address] ProviderCorrina MD [facility] [address] Social History Tobacco Use Types [...] Progress Note : Pt a resident of [facility] in [place] and person spoke lisa/Yara [phone]/fax [phone] BRENDA SMITH, RN-Care Management - 05/09/2019 9:25 EDT documented in this encounter Plan of Treatment Not on file documented as of this encounter Visit Diagnoses Not on filedocumented in this encounter
--- OUTSIDE RECORDS SUMMARY | 2025-07-28 09:16 | XMS_ITS | Encounter Summary ---
Author Organization [employer] ([place], [place], [place], [place]) Address [address] [place] [address] Care Team Providers Care Primary Substance Abuse Counselor Name Role Phone Unavailable Primary Care Provider Unavailabl e Encounter Details Date Type Department Care Team (Late st Contact Info) Description 05/09/2019 Transcribed Document [facility] [place] [address] [place] [address] ProviderCorrina MD [address] [place] [address] Social History Tobacco Use Types [...]
--- OUTSIDE RECORDS SUMMARY | 2025-07-28 09:16 | XMS_ITS | Encounter Summary ---
Author Organization [employer] ([place], [place], [place], [place]) Address [address] [place] [address] Care Team Providers Care Bereavement Program Coordinator Name Role Phone Unavailable Primary Care Provider Unavailabl e Encounter Details Date Type Department Care Team (Late st Contact Info) Description 05/09/2019 Transcribed Document [facility] [place] [facility] [place] [address] ProviderCorrina MD [facility] [place] [address] Social History Tobacco Use [...] Trans: 05/09/2019 14:29:52 CC1: Jose Lima M.D. documented in this encounter Plan of Treatment Not on file documented as of this encounter Visit Diagnoses Not on filedocumented in this encounter
--- OUTSIDE RECORDS SUMMARY | 2025-07-28 09:16 | XMS_ITS | Encounter Summary ---
Author Organization [employer] ([place], [place], [place], [place]) Address [address] [place] [address] Care Team Providers Care Origination Specialist Name Role Phone Unavailable Primary Care Provider Unavailabl e Encounter Details Date Type Department Care Team (Late st Contact Info) Description 05/06/2019 Transcribed Document [facility] [place] [facility] [place] [address] ProviderCorrina MD [facility] [place] [address] Social History Tobacco Use Types [...] history: Medical record, Not self. Referral source: [facility]. History limitation: Clinical condition. Primary Care Physician: Sonido Harrington Referring Physician: Fam Chief Complaint Confusion History of Present Illness This is a 54 year old female with a past medical history as noted below who was requested for transfer from [facility] for sudden onset of altered mental status during an appointment earlier today for lymphedema leg treatment. The patient had pretty extensive workup at [facility] which was unrevealing for any explanation [...] Review / Management Results review: Labs from [facility] as follows: WBC 10, Hgb 9.1, Plt 436, INR 1.1, ammonia 17, lactic acid 2.7, UA negative, UDS negative, Na 141, K 3.0, Cl 103, CO2 31, BUN 10, Cr 1.02, Glu 102, Ca 8.8, Mg 1.2, Bili 0.2, AST 2, ALT 14, Alk phos 144, trop <0.02, TSH 2.35, alcohol 0. Chest x-ray results Consistent with: CXR at [facility] interpreted as no change, enlargement of the cardiac silhouette without failure, left lung linear scar Radiology results CT head at [facility] interpreted as no acute intracranial process ECG interpretation: EKG from [place] personally reviewed and showed NSR at 69 [...]
--- OUTSIDE RECORDS SUMMARY | 2025-07-28 09:16 | XMS_ITS | Encounter Summary ---
Author Organization [employer] ([place], [place], [place], [place]) Address [address] [place] [address] Care Team Providers Care Police Pilot Name Role Phone Unavailable Primary Care Provider Unavailabl e Encounter Details Date Type Department Care Team (Late st Contact Info) Description 05/08/2019 Transcribed Document [facility] [place] [address] [place] [address] ProviderCorrina MD [facility] [place] [address] Social History Tobacco Use Types [...]
--- OUTSIDE RECORDS SUMMARY | 2025-07-28 09:16 | XMS_ITS | Encounter Summary ---
Author Organization [employer] ([place], [place], [place], [place]) Address [address] [place] [address] Care Team Providers Care Barn Worker Name Role Phone Unavailable Primary Care Provider Unavailabl e Encounter Details Date Type Department Care Team (Late st Contact Info) Description 05/06/2019 Transcribed Document [facility] [place] [address] [place] [address] ProviderCorrina MD [facility] [place] [address] Social History Tobacco Use Types Packs/Day Years [...] EDT SANDRA PFEIFFER - 05/07/2019 14:58 EDT documented in this encounter Plan of Treatment Not on file documented as of this encounter Visit Diagnoses Not on filedocumented in this encounter
--- OUTSIDE RECORDS SUMMARY | 2025-07-28 09:16 | XMS_ITS | Encounter Summary ---
Author Organization [employer] ([place], [place], [place], [place]) Address [address] [place] [address] Care Team Providers Care Craft Worker Name Role Phone Unavailable Primary Care Provider Unavailabl e Encounter Details Date Type Department Care Team (Late st Contact Info) Description 05/09/2019 Transcribed Document [facility] [place] [facility] [place] [address] ProviderCorrina MD [facility] [place] [address] Social History Tobacco Use Types [...] Comment : Called report to ozzie Bagley [facility] Luna RN - 05/09/2019 16:56 EDT documented in this encounter Plan of Treatment Not on file documented as of this encounter Visit Diagnoses Not on filedocumented in this encounter
--- OUTSIDE RECORDS SUMMARY | 2025-07-28 09:16 | XMS_ITS | Encounter Summary ---
Author Organization [employer] ([place], [place], [place], [place]) Address [address] [place] [address] Care Team Providers Care Information Delivery Analyst Name Role Phone Unavailable Primary Care Provider Unavailabl e Encounter Details Date Type Department Care Team (Late st Contact Info) Description 05/06/2019 Transcribed Document [facility] [place] [facility] [place] [facility] [place] [address] ProviderCorrina MD [facility] [place] [address] Social History Tobacco Use Types [...] 14:47 EDT Functional Assessment Living Situation : [facility] [place] Immediate/Within 3 Months : [...] #2 Relationship : . Primary Language : Cuban Preferred Communication Mode : Verbal Communication Barrier [...] Level : 46 or > High Risk [place] Fall Interventions : Adequate lighting, Bed in [...] Source : Stated Height Entry Format : Steele Height, Feet : 5 ft(Converted to: 152 cm, 60 Inch) Height, Inches : 3 Inch(Converted to: 0 ft 3 Inch, 7.62 cm) Clinical Height : 160.02 cm Weight Source : Bed scale Weight Entry Format : Steele Clinical Dosing Weight : 93.84 kg Weight, Pounds : 206 lb Weight, Ounces : 7 oz Body Surface Area (BSA) : 1.96 m2 Body Mass Index : 36.6 kg/m2 (HI) [place] Body Weight : 52 kg Lavinia Oh [...]
--- OUTSIDE RECORDS SUMMARY | 2025-07-28 09:16 | XMS_ITS | Encounter Summary ---
Author Organization [employer] ([place], [place], [place], [place]) Address [address] [place] [address] Care Team Providers Care Associate Business Analyst Name Role Phone Unavailable Primary Care Provider Unavailabl e Encounter Details Date Type Department Care Team (Late st Contact Info) Description 05/09/2019 Transcribed Document [facility] [place] [facility] [place] [address] ProviderCorrina MD [address] [place] [address] Social History Tobacco Use Types [...] in intensive care. ??? Live in a group home. ??? Had recent surgery. ??? Have liver [...] urine clear or pale yellow. ??? Take tfkd-eyu-imuycym and prescription medicines only as told by [...] 03/06/2017 Elsevier Interactive Patient Education ? 2019 [employer] documented in this encounter Plan of Treatment Not on file documented as of this encounter Visit Diagnoses Not on filedocumented in this encounter
[2025-07-28 09:47] LABS: Anion Gap 12.9 mEq/L (5-15); Blood Urea Nitrogen 17 mg/dl (7-17); Calcium 9.1 mg/dl (8.4-10.2); Carbon Dioxide 26 mmol/L (22.0-30.0); Chloride 102 mmol/L (98-107); Cholesterol 169 mg/dl (140-200); Creatinine,Serum 1.20 mg/dl (0.52-1.04); Estimated Glomerular Filt Rate 46 ml/min (>60); GFR (African American) 55 ML/MIN (>60); HDL Cholesterol 48 mg/dl (40-60); Magnesium 1.4 mg/dl (1.6-2.3); Potassium 3.9 mmoL/L (3.5-5.1); Sodium 137 mmol/L (136-145); Triglycerides 126 mg/dl (30-150)
[2025-07-28 09:58] LABS: Free T4 (Free Thyroxine) 1.15 ng/dl (0.78-2.19)
[2025-07-28 10:10] LABS: Hemoglobin A1C 7.0 % (4.0-6.0)
[2025-07-28 10:13] LABS: Thyroid Stimulating Hormone 2.29 uIU/mL (0.465-4.68)
[2025-07-28 11:22] LABS: Glucose 50 mg/dl (74-100)
== END 2025-07-28 23:59 | disposition home or self-care (01) ==
PROVIDERS: PCP Nurse Practitioner Family; Visit Provider Nurse Practitioner Family
DX: I25.10 Atherosclerotic heart disease of native coronary artery without angina pectoris (principal); E11.9 Type 2 diabetes mellitus without complications; E03.9 Hypothyroidism, unspecified
CPT/HCPCS: 36415; 80048; 80061; 83036; 83735; 84439; 84443

== ENCOUNTER 2025-08-05 14:36 | Outpatient (CLI) | payer MEDICAID, SELFPAY ==
--- OUTSIDE RECORDS SUMMARY | 2025-08-05 14:41 | XMS_ITS | Clinical Summary ---
Author Organization Healthcare Address [address] [place] [address] Care Team Providers Care Clinical Assistant Professor Name Role Phone Sonido Harrington MD Primary Care Provider [phone] Family History Medical History Relation Name Comments [...] 2013 [facility]-Zoster Vaccines (1 of 2) 2013 [id number] Vaccine (2 - season) 2025 12/13/2020 [facility]-Influenza [...] patient's age to complete this topic Insurance [facility] [place] [id number] [place] Care Teams Clinical Assistant Professor Relationship Specialty Start Date End Date Sonido Harrington MD [address] [facility] [place] [address] [facility] - General 02/22/21
--- OUTSIDE RECORDS SUMMARY | 2025-08-05 14:41 | XMS_ITS | Encounter Summary ---
Author Organization [employer] ([place], [place], [place], [place]) Address [address] [place] [address] Care Team Providers Care Service Planner Name Role Phone Unavailable Primary Care Provider Unavailabl e Encounter Details Date Type Department Care Team (Late st Contact Info) Description 05/06/2019 Transcribed Document [facility] [place] [address] [place] [address] ProviderCorrina MD [facility] [place] [address] Social History Tobacco Use Types Packs/Day Years [...] EDT Electronically signed by Aaron Steward Conversion Government Property Inspector Cerner at 01/28/2023 11:33 AM CDT documented in this encounter Plan of Treatment Not on file documented as of this encounter Visit Diagnoses Not on filedocumented in this encounter
--- OUTSIDE RECORDS SUMMARY | 2025-08-05 14:41 | XMS_ITS | Encounter Summary ---
Author Organization [employer] ([place], [place], [place], [place]) Address [address] [place] [address] Care Team Providers Care Dye House Helper Name Role Phone Unavailable Primary Care Provider Unavailabl e Encounter Details Date Type Department Care Team (Late st Contact Info) Description 05/06/2019 Transcribed Document [facility] [place] [facility] [place] [address] ProviderCorrina [place] [facility] [place] [address] Social History Tobacco Use Types [...] 14:47 EDT Functional Assessment Living Situation : [facility] Hx Falls Immediate/Within 3 Months : [...] #2 Relationship : . Primary Language : [place] Preferred Communication Mode : Verbal Communication Barrier [...] Level : 46 or > High Risk [place] Fall Interventions : Adequate lighting, Bed in [...] Source : Stated Height Entry Format : [place] Height, Feet : 5 ft(Converted to: 152 cm, 60 Inch) Height, Inches : 3 Inch(Converted to: 0 ft 3 Inch, 7.62 cm) Clinical Height : 160.02 cm Weight Source : Bed scale Weight Entry Format : [place] Clinical Dosing Weight : 93.84 kg Weight, Pounds : 206 lb Weight, Ounces : 7 oz Body Surface Area (BSA) : 1.96 m2 Body Mass Index : 36.6 kg/m2 (HI) Maidens Body Weight : 52 kg Lavinia Oh [...]
--- OUTSIDE RECORDS SUMMARY | 2025-08-05 14:41 | XMS_ITS | Encounter Summary ---
Author Organization [email or web address] ([place], [place], [place], [place]) Address [address] [place] [address] Care Team Providers Care Senior Software Systems Engineer Name Role Phone Unavailable Primary Care Provider Unavailabl e Encounter Details Date Type Department Care Team (Late st Contact Info) Description 05/07/[address] [facility] [place] Family Medicine [address] [place] [address] ProviderCorrina MD [facility] [place] [address] Social History Tobacco Use Types [...] Policy Numbers : Insurance 1 Health Plan: [facility] Policy Number: [id number] Authorization Number: Insurance Primary Name : [facility] Policy Number: [id number] Historical Authorization Comments-Primary : No Authorization Comments Found SHINE SOLANO Rn-Utilization Review - 05/07/2019 13:31 EDT documented in this encounter Plan of Treatment Not on file documented as of this encounter Visit Diagnoses Not on filedocumented in this encounter
--- OUTSIDE RECORDS SUMMARY | 2025-08-05 14:41 | XMS_ITS | Encounter Summary ---
Author Organization [employer] ([place], [place], [place], [place]) Address [address] [place] [address] Care Team Providers Care Manager Of Operations Name Role Phone Unavailable Primary Care Provider Lauren mathews Encounter Details Date Type Department Care Team (Late st Contact Info) Description 05/07/2019 Transcribed Document [facility] [place] [facility] [place] [address] ProviderCorrina MD [facility] [place] [address] Social History Tobacco Use Types [...] Historical ProviderMD - 05/07/2019 2:00 AM CDT Pearl Glue Drier Details Entered On: 05/07/2019 3:12 EDT Performed [...]
--- OUTSIDE RECORDS SUMMARY | 2025-08-05 14:41 | XMS_ITS | Encounter Summary ---
Author Organization [employer] ([place], [place], [place], [place]) Address [address] [place] [address] Care Team Providers Care Cement Mixer Driver Name Role Phone Unavailable Primary Care Provider Unavailabl e Encounter Details Date Type Department Care Team (Late st Contact Info) Description 05/06/2019 Transcribed Document [facility] [place] [facility] [place] [address] ProviderCorrina MD [facility] [address] Social History Tobacco Use Types [...] history: Medical record, Not self. Referral source: [facility]. History limitation: Clinical condition. Primary Care Physician: Sonido Harrington Referring Physician: Fam Chief Complaint Confusion History of Present Illness This is a 54 year old female with a past medical history as noted below who was requested for transfer from [facility] for sudden onset of altered mental status during an appointment earlier today for lymphedema leg treatment. The patient had pretty extensive workup at [facility] which was unrevealing for any explanation of [...] Review / Management Results review: Labs from [facility] as follows: WBC 10, Hgb 9.1, Plt 436, INR 1.1, ammonia 17, lactic acid 2.7, UA negative, UDS negative, Na 141, K 3.0, Cl 103, CO2 31, BUN 10, Cr 1.02, Glu 102, Ca 8.8, Mg 1.2, Bili 0.2, AST 2, ALT 14, Alk phos 144, trop <0.02, TSH 2.35, alcohol 0. Chest x-ray results Consistent with: CXR at [facility] interpreted as no change, enlargement of the cardiac silhouette without failure, left lung linear scar Radiology results CT head at [facility] interpreted as no acute intracranial process ECG interpretation: EKG from [facility] personally reviewed and showed NSR at 67 [...]
--- OUTSIDE RECORDS SUMMARY | 2025-08-05 14:41 | XMS_ITS | Encounter Summary ---
Author Organization [employer] ([place], [place], [place], [place]) Address [address] [place] [address] Care Team Providers Care Office Spec Name Role Phone Unavailable Primary Care Provider Unavailabl e Encounter Details Date Type Department Care Team (Late st Contact Info) Description 05/09/2019 Transcribed Document [facility] [place] Family Medicine [facility] [place] [address] ProviderCorrina MD [facility] [address] Social History Tobacco Use Types [...] On: 05/09/2019 12:54 EDT by HALIE CABRALES Finishing Frame Runner Primary Insurance Authorization Authorization and Policy Numbers : Insurance 1 Health Plan: [facility] Policy Number: [id number] Authorization Number: Insurance Primary Name : [facility] Policy Number: [id number] Authorization Comments-Primary : Angelia from [facility] called stating that decision needs to be made today as to wheather pt going to be OBS or go to INPT. needs clinical today Email sent to Benita Schultz Historical Authorization Comments-Primary : No Authorization Comments Found HALIE CABRALES, Finishing Frame Runner - 05/09/2019 12:54 EDT documented in this encounter Plan of Treatment Not on file documented as of this encounter Visit Diagnoses Not on filedocumented in this encounter
--- OUTSIDE RECORDS SUMMARY | 2025-08-05 14:41 | XMS_ITS | Encounter Summary ---
Author Organization [employer] ([place], [place], [place], [place]) Address [address] [place] [address] Care Team Providers Care Body Stylist Name Role Phone Unavailable Primary Care Provider Unavailabl e Encounter Details Date Type Department Care Team (Late st Contact Info) Description 05/07/2019 Transcribed Document [facility] [place] Family Medicine [address] [place] [address] ProviderCorrina MD [facility] [place] [address] Social History Tobacco Use Types [...]
--- OUTSIDE RECORDS SUMMARY | 2025-08-05 14:41 | XMS_ITS | Encounter Summary ---
Author Organization [employer] ([place], [place], [place], [place]) Address [address] [place] [address] Care Team Providers Care Copy Supervisor Name Role Phone Unavailable Primary Care Provider Unavailabl e Encounter Details Date Type Department Care Team (Late st Contact Info) Description 05/09/2019 Transcribed Document [facility] [place] [facility] [place] [address] ProviderCorrina MD [facility] [place] [address] Social History Tobacco Use Types [...] On: 05/09/2019 11:57 EDT by NAT DALAL Rn-Swedger Initial Assessment I Previously Documented Living Environment : No qualifying data available. Living Situation : Other: [facility] in [place] [phone] Patient Lives With : Legal guardian(s) Emergency Contact #1 : andres CARUSO Emergency Contact #1 Phone Number : .[phone] Emergency Contact #1 Relationship : . Emergency Contact #2 : . Emergency Contact #2 Phone Number : . Emergency Contact #2 Relationship : . NAT DALAL Rn-Swedger - 05/09/2019 11:57 EDT Initial Assessment II Sensory and Motor Deficits : None, Weakness Current Home Treatments and Equipment : NAT Dougherty Rn-Swedger - 05/09/2019 11:57 EDT Discharge Needs I Anticipated Discharge Date : 05/09/2019 EDT Current Home Treatment/Equipment : Current Home Treatment/Equipment No qualifying data available. Post Acute/Home Treatments : NAT Dougherty Rn-Swedger - 05/09/2019 11:57 EDT Discharge Needs II Professional Skilled Services : Professional Skilled Services No qualifying data available. Services and Community Resources : Home Health Discharge Options Discussed with Patient : Home Health RHIANNAJaswantNAT VENCES Rn-Swedger - 05/09/2019 11:57 EDT Narrative Note Narrative Note : hr manager met with pt and ZULY Jerome [phone] at the bedside. Pt is from [facility] in [facility] Social Media Strategist Teto # [phone]. PLOG> Somewhat independent with walker. Per ZULY Jerome, the last 3 mos pt been falling on and off. Facility is now working on transitioning pt to remote computer terminal operator shelter facility in [place]. Ambulates with a walker. CM discussed [facility] is more appropriate and pt will continue to pursue while at the [facility]. DC plan is to return with . CM will order Nursing and PT at ut. CM called Spoke with Social Media Strategist at the facility. Will not need to make onsite assessment, Wants dc summary faxed to her at [phone]. has updated attending MD Phillips that facility is agreeable to take pt today. CM has arranged [facility] for 4PM. IF EEG and Doppler negative will dc as scheduled. NAT DALAL Rn-Swedger - 05/09/2019 11:57 EDT documented in this encounter Plan of Treatment Not on file documented as of this encounter Visit Diagnoses Not on filedocumented in this encounter
--- OUTSIDE RECORDS SUMMARY | 2025-08-05 14:41 | XMS_ITS | Encounter Summary ---
Author Organization [employer] ([place], [place], [place], [place]) Address [address] [place] [address] Care Team Providers Care Hot Cell Technician Name Role Phone Unavailable Primary Care Provider Unavailabl e Encounter Details Date Type Department Care Team (Late st Contact Info) Description 05/07/2019 Transcribed Document [facility] Radiology [address] [place] [address] Israel Buchanan MD [address] [place] [address] Social History Tobacco Use Types Packs/Day [...] for her lymphodema trt Reportedly lives at [facility] and has known schizo affective disorder [...]
--- OUTSIDE RECORDS SUMMARY | 2025-08-05 14:41 | XMS_ITS | Referral Summary ---
Author Organization [employer] ([place], [place], [place], [place]) Address [address] [place] [address] Care Team Providers Care Edi Specialist Name Role Phone Unavailable Primary Care [...]
--- OUTSIDE RECORDS SUMMARY | 2025-08-05 14:41 | XMS_ITS | Encounter Summary ---
Author Organization [employer] ([place], [place], [place], [place]) Address [address] [place] [address] Care Team Providers Care It Consultant Name Role Phone Unavailable Primary Care Provider Unavailabl e Encounter Details Date Type Department Care Team (Late st Contact Info) Description 05/09/2019 Transcribed Document [facility] [place] Family Medicine [address] [place] [address] ProviderCorrina MD [address] [place] [address] Social History Tobacco Use Types [...] Historical ProviderMD - 05/09/2019 2:00 AM CDT Recreation Facility Attendant Details Entered On: 05/09/2019 4:29 EDT Performed [...] Drea Antonio Rn - 05/09/2019 4:28 EDT Electronically signed by Aaron Steward Conversion Optical Instrument Assembly Supervisor Hunter at 01/28/2023 11:34 AM CDT documented in this encounter Plan of Treatment Not on file documented as of this encounter Visit Diagnoses Not on filedocumented in this encounter
--- OUTSIDE RECORDS SUMMARY | 2025-08-05 14:41 | XMS_ITS | Encounter Summary ---
Author Organization [employer] ([place], [place], [place], [place]) Address [address] [place] [address] Care Team Providers Care Postmaster Relief Name Role Phone Unavailable Primary Care Provider Unavailabl e Encounter Details Date Type Department Care Team (Late st Contact Info) Description 05/06/2019 Transcribed Document [facility] [place] Medicine [facility] [address] ProviderCorrina MD [facility] [address] Social History Tobacco Use Types [...]
--- OUTSIDE RECORDS SUMMARY | 2025-08-05 14:41 | XMS_ITS | Encounter Summary ---
Author Organization [email or web address] ([place], [place], [place], [place]) Address [address] [place] [address] Care Team Providers Care Vp Talent Management Name Role Phone Unavailable Primary Care Provider Unavailabl e Encounter Details Date Type Department Care Team (Late st Contact Info) Description 05/09/2019 Transcribed Document [facility] [place] [address] [place] [address] ProviderCorrina MD [facility] [address] Social History Tobacco Use Types [...]
--- OUTSIDE RECORDS SUMMARY | 2025-08-05 14:41 | XMS_ITS | Encounter Summary ---
Author Organization [employer] ([place], [place], [place], [place]) Address [address] [place] [address] Care Team Providers Care Women'S Studies Professor Name Role Phone Unavailable Primary Care Provider Unavailabl e Encounter Details Date Type Department Care Team (Late st Contact Info) Description 05/09/2019 Transcribed Document [facility] [place] Family Medicine [facility] [place] [address] ProviderCorrina MD [address] [place] [address] Social History Tobacco Use Types [...] in intensive care. ??? Live in a skilled nursing. ??? Had recent surgery. ??? Have liver [...] urine clear or pale yellow. ??? Take [id number] and prescription medicines only as told by [...] 03/06/2017 Elsevier Interactive Patient Education ? 2019 [employer] documented in this encounter Plan of Treatment Not on file documented as of this encounter Visit Diagnoses Not on filedocumented in this encounter
--- OUTSIDE RECORDS SUMMARY | 2025-08-05 14:41 | XMS_ITS | Encounter Summary ---
Author Organization [employer] ([place], [place], [place], [place]) Address [address] [place] [address] Care Team Providers Care Pie Dough Roller Name Role Phone Unavailable Primary Care Provider Unavailabl e Encounter Details Date Type Department Care Team (Late st Contact Info) Description 05/07/2019 Transcribed Document [facility] [place] Family Medicine [address] [place] [address] ProviderCorrina MD [facility] [place] [address] Social History Tobacco Use Types [...] Lizet Keita RN - 05/07/2019 9:23 EDT Electronically signed by Aaron Steward Conversion Overhead Distribution Engineer Cerner at 01/28/2023 11:35 AM CDT documented in this encounter Plan of Treatment Not on file documented as of this encounter Visit Diagnoses Not on filedocumented in this encounter
--- OUTSIDE RECORDS SUMMARY | 2025-08-05 14:41 | XMS_ITS | Encounter Summary ---
Author Organization [facility] Address [address] [id number] Care Team Providers Care Manager Analytical Name Role Phone Sonido Harrington MD Primary Care Provider [phone] Encounter Details Date Type Department Care Team (Late st Contact Info) Description 10/14/2023 [facility] [address] [place] [address] Abhi Orozco, TRAPEZE PERFORMER [address] [place] [address] Abnormal MRI, lumbar spine (Primary Dx); Abnormal [...] studies documented in this encounter Care Teams Manager Analytical Relationship Specialty Start Date End Date Sonido Harrington MD [address] [place], [place] [id number] PCP - General 02/22/21 documented as of this encounter
--- OUTSIDE RECORDS SUMMARY | 2025-08-05 14:41 | XMS_ITS | Encounter Summary ---
Author Organization [employer] ([place], [place], [place], [place]) Address [address] [place] [address] Care Team Providers Care Professor Of Poultry Science Name Role Phone Unavailable Primary Care Provider Unavailabl e Encounter Details Date Type Department Care Team (Late st Contact Info) Description 05/07/2019 Transcribed Document [facility] [place] Family Medicine [facility] [place] [address] ProviderCorrina MD [address] [place] [address] Social History Tobacco Use Types Packs/Day [...] Information : P.T eval completed and RN (Mraiella) present during mobility assessement. Supine to sit [...] KEVIN SAEZ, PT - 05/08/2019 11:40 EDT [place] PT Charges PT Eval Low Complexity : 1 KEVIN SAEZ, PT - 05/08/2019 11:40 EDT documented in this encounter Plan of Treatment Not on file documented as of this encounter Visit Diagnoses Not on filedocumented in this encounter
--- OUTSIDE RECORDS SUMMARY | 2025-08-05 14:41 | XMS_ITS | Encounter Summary ---
Author Organization [employer] ([place], [place], [place], [place]) Address [address] [place] [address] Care Team Providers Care Full Stack Software Developer Name Role Phone Unavailable Primary Care Provider Unavailabl e Encounter Details Date Type Department Care Team (Late st Contact Info) Description 05/09/2019 Transcribed Document [facility] [place] [address] [place] [address] ProviderCorrina MD [address] [place] [address] Social History Tobacco Use Types [...]
--- OUTSIDE RECORDS SUMMARY | 2025-08-05 14:41 | XMS_ITS | Encounter Summary ---
Author Organization [employer] ([place], [place], [place], [place]) Address [address] [place] [address] Care Team Providers Care Rodent Exterminator Name Role Phone Unavailable Primary Care Provider Unavailabl e Encounter Details Date Type Department Care Team (Late st Contact Info) Description 05/09/[address] [facility] [place] [facility] Medicine [facility] [place] [address] ProviderCorrina MD [facility] [place] [address] Social History Tobacco Use [...] Daily, PRN Mylanta, 15 mL, Oral, BID [place] 5 mg-325 mg oral tablet, 1 Tab, [...]
--- OUTSIDE RECORDS SUMMARY | 2025-08-05 14:41 | XMS_ITS | Encounter Summary ---
Author Organization [employer] ([place], [place], [place], [place]) Address [address] [place] [address] Care Team Providers Care Motivational Speaker Name Role Phone Unavailable Primary Care Provider Unavailabl e Encounter Details Date Type Department Care Team (Late st Contact Info) Description 05/09/2019 Transcribed Document [facility] [place] [address] [place] [address] ProviderCorrina MD [address] [place] [address] Social History Tobacco Use Types [...] Lavinia Oh RN - 05/09/2019 16:50 EDT Electronically signed by Aaron Steward Conversion Explosive Ordnance Specialist Cerner at 01/28/2023 11:28 AM CDT documented in this encounter Plan of Treatment Not on file documented as of this encounter Visit Diagnoses Not on filedocumented in this encounter
--- OUTSIDE RECORDS SUMMARY | 2025-08-05 14:41 | XMS_ITS | Encounter Summary ---
Author Organization [employer] ([place], [place], [place], [place]) Address [address] [place] [address] Care Team Providers Care Program/Music Director Name Role Phone Unavailable Primary Care Provider Lauren mathews Encounter Details Date Type Department Care Team (Late st Contact Info) Description 05/07/2019 Transcribed Document [facility] [place] Family Medicine [address] [place] [address] ProviderCorrina MD [facility] [place] [address] Social History Tobacco Use Types [...]
--- OUTSIDE RECORDS SUMMARY | 2025-08-05 14:41 | XMS_ITS | Encounter Summary ---
Author Organization [employer] ([place], [place], [place], [place]) Address [address] [place] [address] Care Team Providers Care Herb Doctor Name Role Phone Unavailable Primary Care Provider Unavailabl e Encounter Details Date Type Department Care Team (Late st Contact Info) Description 05/09/2019 Transcribed Document [facility] [place] Family Medicine [facility] [place] [address] [place] [address] Social History Tobacco Use Types [...] : [facility] ozzie Bagley [facility] Luna RN - 05/09/2019 16:56 EDT documented in this encounter Plan of Treatment Not on file documented as of this encounter Visit Diagnoses Not on filedocumented in this encounter
--- OUTSIDE RECORDS SUMMARY | 2025-08-05 14:42 | XMS_ITS | Encounter Summary ---
Author Organization [employer] ([place], [place], [place], [place]) Address [address] [place] [address] Care Team Providers Care Care Partner Name Role Phone Unavailable Primary Care Provider Lauren mathews Encounter Details Date Type Department Care Team (Late st Contact Info) Description 05/08/2019 Transcribed Document [facility] [place] [address] [place] [address] ProviderCorrina MD [facility] [address] Social History Tobacco Use Types [...]
--- OUTSIDE RECORDS SUMMARY | 2025-08-05 14:42 | XMS_ITS | Encounter Summary ---
Author Organization [employer] ([place], [place], [place], [place]) Address [address] [place] [address] Care Team Providers Care Rolled Ham Lacer Name Role Phone Unavailable Primary Care Provider Unavailabl e Encounter Details Date Type Department Care Team (Late st Contact Info) Description 05/09/2019 Transcribed Document [facility] [place] [facility] [place] [address] ProviderCorrina MD [facility] [place] [address] Social History Tobacco Use Types [...] Progress Note : Pt a resident of [facility] in [place] and person spoke lisa/Yara [phone]/fax [phone] BRENDA SMITH, RN-Care Management - 05/09/2019 9:25 EDT documented in this encounter Plan of Treatment Not on file documented as of this encounter Visit Diagnoses Not on filedocumented in this encounter
--- OUTSIDE RECORDS SUMMARY | 2025-08-05 14:42 | XMS_ITS | Encounter Summary ---
Author Organization [employer] ([place], [place], [place], [place]) Address [address] [place] [address] Care Team Providers Care Reinforcement Maker Name Role Phone Unavailable Primary Care Provider Unavailabl e Encounter Details Date Type Department Care Team (Late st Contact Info) Description 05/09/2019 Transcribed Document [facility] [place] [facility] [place] [address] ProviderCorrina MD [facility] [place] [address] Social History Tobacco Use Types [...] Darnell MD - 05/09/2019 4:50 PM CDT [facility] [address] [place] [id number] NURA AG :1965 Visit Time:05/06/2019 Your Visit [...] call for a follow up appointment with [facility]. Where: [email or web address] [place] [id number] [facility] (1) Follow Up with [...] urine clear or pale yellow. ??? Take mdpc-vyu-nuuufnm and prescription medicines only as told by [...] 03/06/2017 Document Revised: 06/01/2017 Document Reviewed: 03/06/2017 [employer] Interactive Patient Education ?? 2019 Spotted. clonazepam (kloe CAMERON e jacqueline) Chinedu What [...] What is clonazepam? Clonazepam is a benzodiazepine (yfn-fwt-rmb-AZE-eh-peen) that affects chemicals in the brain that may be unbalanced. Clonazepam is also a seizure medicine, also called an anti-epileptic drug. Clonazepam is used to treat certain seizure disorders (including absence seizures or Brighton-Gastaut syndrome) in adults and children. Clonazepam is [...] may report side effects to FDA at 8-159-ROQ-2100. What other drugs will affect clonazepam? Taking clonazepam with other drugs that make you sleepy or slow your breathing can cause dangerous side effects or . Ask your doctor before taking a sleeping pill, an opioid medicine, prescription cough medicine, a muscle relaxer, or medicine for anxiety, depression, or seizures. Other drugs may interact with clonazepam, including prescription and fids-zyz-wewnjno medicines, vitamins, and herbal products. Tell your [...] to ensure that the information provided by [employer]. ('[employer]') is accurate, up-to-date, and complete, but no guarantee is made to that effect. Drug information contained herein may be time sensitive. [employer] information has been compiled for use by healthcare practitioners and consumers in the [place] and therefore [employer] does not warrant that uses outside of the [place] are appropriate, unless specifically indicated otherwise. [employer] drug information does not endorse drugs, diagnose patients or recommend therapy. [employer] drug information is an informational resource designed [...] effective or appropriate for any given patient. [employer] does not assume any responsibility for any aspect of healthcare administered with the aid of information [employer] provides. The information contained herein is not intended to cover all possible uses, directions, precautions, warnings, drug interactions, allergic reactions, or adverse effects. If you have questions about the drugs you are taking, check with your doctor, nurse or pharmacist. Copyright 5326-3551 [employer]. Version: 8.01. Revision Date: 08/17/2017. Emergency Awareness [...] Assistance with quitting is available by contacting 1-556-HUJBNOW. This is a free resource providing counseling, support, and referral. Or you may contact your personal physician. [place] Suicide Prevention Lifeline: The National Suicide Prevention [...] range between ( 0.0 and 7.0 ) Barron #: 0.63 K/uL -- Normal range between ( 0.16 and 1.00 ) Eos #: 0.57 x10(3)/uL -- Normal range between ( 0.00 and 0.80 ) Barron %: 5.8 % -- Normal range between [...] was given the opportunity to ask questions. Patient/Fabric Cutter Name: Patient/Fabric Cutter Signature: Relationship to Patient: Clinician/Hospital Fabric Cutter Signature: Date: Electronically signed by Nichelle, [facility] Conversion Hat And Cap Opener Hunter at 01/28/2023 11:26 AM CDT documented in this encounter Plan of Treatment Not on file documented as of this encounter Visit Diagnoses Not on filedocumented in this encounter
--- OUTSIDE RECORDS SUMMARY | 2025-08-05 14:42 | XMS_ITS | Encounter Summary ---
Author Organization [employer] ([place], [place], [place], [place]) Address [address] [place] [address] Care Team Providers Care Record Press Operator Name Role Phone Unavailable Primary Care Provider Unavailabl e Encounter Details Date Type Department Care Team (Late st Contact Info) Description 05/08/2019 Transcribed Document [facility] [place] [address] [place] [address] ProviderCorrina MD [facility] [address] Social History Tobacco Use Types [...]
--- OUTSIDE RECORDS SUMMARY | 2025-08-05 14:42 | XMS_ITS | Encounter Summary ---
Author Organization [employer] ([place], [place], [place], [place]) Address [address] [place] [address] Care Team Providers Care Respiratory Practitioner Name Role Phone Unavailable Primary Care Provider Unavailabl e Encounter Details Date Type Department Care Team (Late st Contact Info) Description 05/08/2019 Transcribed Document [facility] [place] [facility] [place] [address] ProviderCorrina MD [facility] [place] [address] Social History Tobacco Use Types [...] tells me that she lives at a [place] in [place]. She indicates she has never had this [...] HISTORY: Apparently, the patient lives in a [place] in [place]. She has no children. She is single. [...] through 12 were intact. Coordination shows intact bvprop-zx-vhwe bilaterally. Gait was not tested. Reflexes were [...] Trans: 05/08/2019 19:17:30 CC1: Jose Lima M.D. Electronically signed by Aaron Steward Conversion Member Of The Legislative Assembly Gener at 01/28/2023 11:39 AM CDT documented in this encounter Plan of Treatment Not on file documented as of this encounter Visit Diagnoses Not on filedocumented in this encounter
--- OUTSIDE RECORDS SUMMARY | 2025-08-05 14:42 | XMS_ITS | Encounter Summary ---
Author Organization [employer] ([place], [place], [place], [place]) Address [address] [place] [address] Care Team Providers Care Policewoman Name Role Phone Unavailable Primary Care Provider Unavailabl e Encounter Details Date Type Department Care Team (Late st Contact Info) Description 05/09/2019 Transcribed Document [facility] [place] [address] [place] [address] ProviderCorrina MD [facility] [place] [address] Social History Tobacco Use Types [...]
--- OUTSIDE RECORDS SUMMARY | 2025-08-05 14:42 | XMS_ITS | Encounter Summary ---
Author Organization [employer] ([place], [place], [place], [place]) Address [address] [place] [address] Care Team Providers Care Rug Setter Velvet Name Role Phone Unavailable Primary Care Provider Unavailabl e Encounter Details Date Type Department Care Team (Late st Contact Info) Description 05/08/2019 Transcribed Document [facility] [place] [address] [place] [address] ProviderCorrina MD [facility] [place] [address] Social History Tobacco Use Types [...]
--- OUTSIDE RECORDS SUMMARY | 2025-08-05 14:42 | XMS_ITS | Encounter Summary ---
Author Organization [employer] ([place], [place], [place], [place]) Address [address] [place] [address] Care Team Providers Care Stewarding Supervisor Name Role Phone Unavailable Primary Care Provider Unavailabl e Encounter Details Date Type Department Care Team (Late st Contact Info) Description 05/09/2019 Transcribed Document [facility] [place] Family Medicine [facility] [place] [address] ProviderCorrina MD [facility] [place] [address] Social History Tobacco Use Types [...] M.D. Electronically signed by Aaron Steward Conversion Multi Purpose Machine Operator Cerner at 01/28/2023 11:24 AM CDT documented in this encounter Plan of Treatment Not on file documented as of this encounter Visit Diagnoses Not on filedocumented in this encounter
--- OUTSIDE RECORDS SUMMARY | 2025-08-05 14:42 | XMS_ITS | Encounter Summary ---
Author Organization [employer] ([place], [place], [place], [place]) Address [address] [place] [address] Care Team Providers Care Credit Control Manager Name Role Phone Unavailable Primary Care Provider Unavailabl e Encounter Details Date Type Department Care Team (Late st Contact Info) Description 05/09/2019 Transcribed Document [facility] [address] [place] [address] Tiffanie Buchanan MD [address] [place] [address] [address] Social History Tobacco Use Types [...] 05/09/2019 DISCHARGE SUMMARY NOTE: Patient comes from [facility] and returns to that facility. PRINCIPAL DISCHARGE [...] head was done at outside facility in [facility], where the patient did not have any acute changes. ADMISSION HISTORY AND HOSPITAL COURSE: This is a 54-year-old, white female, with a schizoaffective disorder who reportedly has a history of lymphedema. She did undergo some wrapping to her right lower extremity and was seen for the same at [facility] when she was noted to have some [...] discussed with the patient's listed power of county attorney, MsSyd Queenie Spence on 05/08/2019 about the hospital course. Currently, the patient will return to [facility] and I have also discussed with case [...] and earlier discussion with her power of county attorney and discussion with case management, with discharge plans totals at 45 minutes. Tiffanie Buchanan M.D. Dict: 05/09/2019 14:52:20 Trans: 05/09/2019 16:20:41 CC1: Tiffanie Buchanan M.D. documented in this encounter Plan of Treatment Not on file documented as of this encounter Visit Diagnoses Not on filedocumented in this encounter
--- OUTSIDE RECORDS SUMMARY | 2025-08-05 14:42 | XMS_ITS | Encounter Summary ---
Author Organization [employer] ([place], [place], [place], [place]) Address [address] [place] [address] Care Team Providers Care Continuous Washer Operator Name Role Phone Unavailable Primary Care Provider Lauren mathews Encounter Details Date Type Department Care Team (Late st Contact Info) Description 05/08/2019 Transcribed Document [facility] [place] [address] [place] [address] ProviderCorrina [place] [address] Social History Tobacco Use Types [...] Historical ProviderMD - 05/08/2019 2:00 AM CDT Land Development Manager Details Entered On: 05/08/2019 4:48 EDT Performed On: 05/08/2019 2:00 EDT by iLzet Kline RN Order Details Transport Mode Order [...]
--- OUTSIDE RECORDS SUMMARY | 2025-08-05 14:42 | XMS_ITS | Clinical Summary ---
Author Organization [employer] ([place], [place], [place], [place]) Address [address] [place] [address] Care Team Providers Care Elder Counselor Name Role Phone Unavailable Primary Care [...]
== END 2025-08-05 23:59 | disposition home or self-care (01) ==
LOC: LAB.DROPOF 14:39
PROVIDERS: PCP Family Medicine; Visit Provider Family Medicine
DX: S61.203A Unspecified open wound of left middle finger without damage to nail, initial encounter (principal)
CPT/HCPCS: 87070; 87077; 87205

== ENCOUNTER 2025-09-02 04:03 | Emergency (ER) | payer MEDICAID, SELFPAY ==
[2025-09-02] VITALS (10 sets, daily range): BP systolic 147–190; BP diastolic 71–115; PULSE 61–71; RESP 16–18; TEMP 36.7–37; O2SAT 95–100; BMI 42.0
--- NOTE | 2025-09-02 04:08 | XR_ITS ---
PROCEDURE INFORMATION: Exam: XR Left Forearm Exam date and time: 09/02/2025 4:25 AM Age: 60 years old Clinical indication: Injury or trauma; Fall; Blunt trauma (contusions or hematomas); Arm, lower; Left; Additional info: Ttp forearm TECHNIQUE: Imaging protocol: Radiologic exam of the left forearm. Views: 2 views. COMPARISON: CR XR HAND LT 2V 09/02/2025 4:25 AM FINDINGS: Bones/joints: Normal. Soft tissues: There is soft tissue swelling. IMPRESSION: Soft tissue swelling, left forearm.
--- NOTE | 2025-09-02 04:08 | XR_ITS ---
PROCEDURE INFORMATION: Exam: XR Left Humerus Exam date and time: 09/02/2025 4:25 AM Age: 60 years old Clinical indication: Injury or trauma; Fall; Blunt trauma (contusions or hematomas); Arm, upper and arm, lower; Left; Additional info: Ttp prox humerus TECHNIQUE: Imaging protocol: Radiologic exam of the left humerus. Views: 2 or more views. COMPARISON: CR XR SHOULDER LT MIN 2V 07/09/2024 8:28 PM FINDINGS: Bones/joints: Normal. Soft tissues: Normal. IMPRESSION: No acute findings.
--- NOTE | 2025-09-02 04:08 | XR_ITS ---
PROCEDURE INFORMATION: Exam: XR Left Shoulder Exam date and time: 09/02/2025 4:25 AM Age: 60 years old Clinical indication: Injury or trauma; Fall; Blunt trauma (contusions or hematomas); Shoulder; Left; Additional info: Ttp proximal humerus/shoulder TECHNIQUE: Imaging protocol: Radiologic exam of the left shoulder. Views: 2 or more views. COMPARISON: CR XR SHOULDER LT MIN 2V 07/09/2024 8:28 PM FINDINGS: Bones/joints: Normal. Soft tissues: Normal. IMPRESSION: No acute findings.
--- NOTE | 2025-09-02 04:08 | XR_ITS ---
PROCEDURE INFORMATION: Exam: XR Left Hand Exam date and time: 09/02/2025 4:25 AM Age: 60 years old Clinical indication: Injury or trauma; Fall; Blunt trauma (contusions or hematomas); Hand; Left; Additional info: Pain L hand fall TECHNIQUE: Imaging protocol: Radiologic exam of the left hand. Views: 1 or 2 views. COMPARISON: CR XR FOREARM LT 2V 09/02/2025 4:25 AM FINDINGS: Bones/joints: No acute fracture or dislocation. Mineralization is within normal limits. There is deformity at the base of the 2nd proximal phalanx which is age indeterminate. Soft tissues: Normal. IMPRESSION: No acute findings.
--- NOTE | 2025-09-02 04:09 | XR_ITS ---
PROCEDURE INFORMATION: Exam: XR Chest Exam date and time: 09/02/2025 4:25 AM Age: 60 years old Clinical indication: Injury or trauma; Fall; Blunt trauma (contusions or hematomas) TECHNIQUE: Imaging protocol: Radiologic exam of the chest. Views: 1 view. COMPARISON: CR XR CHEST PORTABLE PICC PLAC 05/30/2024 10:20 AM FINDINGS: Lungs: Unremarkable. No consolidation. Pleural spaces: Unremarkable. No pleural effusion. No pneumothorax. Heart/Mediastinum: Unremarkable. No cardiomegaly. Bones/joints: Unremarkable. IMPRESSION: No acute findings.
--- NOTE | 2025-09-02 04:09 | CT_ITS ---
PROCEDURE INFORMATION: Exam: CT Lumbar Spine Without Contrast Exam date and time: 09/02/2025 4:49 AM Age: 60 years old Clinical indication: Injury or trauma; Fall; Additional info: Trauma, critical injury suspected TECHNIQUE: Imaging protocol: Computed tomography of the lumbar spine without contrast. Radiation optimization: All CT scans at this facility use at least one of these dose optimization techniques: automated exposure control; mA and/or kV adjustment per patient size (includes targeted exams where dose is matched to clinical indication); or iterative reconstruction. COMPARISON: MR LUMBAR SPINE WO CON 09/10/2023 12:51 PM FINDINGS: Bones/joints: There is a 17 degree levoconvex curvature lumbar spine centered at L2. There is unchanged wedge deformity of the upper L1 vertebral body unchanged from the prior study. Lumbar spondylosis is noted with disc bulging, facet arthropathy and ligamentous thickening. Soft tissues: Unremarkable. IMPRESSION: Unchanged L1 compression deformity. Lumbar spondylosis and levoconvex curvature. If clinically indicated, noncontrast MRI lumbar spine dated performed to assess for acute on chronic fracture.
--- NOTE | 2025-09-02 04:09 | CT_ITS ---
PROCEDURE INFORMATION: Exam: CT Head Without Contrast Exam date and time: 09/02/2025 4:42 AM Age: 60 years old Clinical indication: Injury or trauma; Fall; Additional info: Trauma, critical injury suspected TECHNIQUE: Imaging protocol: Computed tomography of the head without contrast. Radiation optimization: All CT scans at this facility use at least one of these dose optimization techniques: automated exposure control; mA and/or kV adjustment per patient size (includes targeted exams where dose is matched to clinical indication); or iterative reconstruction. COMPARISON: CT HEAD/BRAIN WO CON 07/09/2024 8:29 PM FINDINGS: Brain: Normal. No hemorrhage. Unremarkable white matter. No mass effect. Cerebral ventricles: No ventriculomegaly. Paranasal sinuses: Visualized sinuses are unremarkable. No fluid levels. Mastoid air cells: Visualized mastoid air cells are well aerated. Bones: Unremarkable. No acute fracture. Soft tissues: Unremarkable. IMPRESSION: No acute intracranial abnormality.
--- NOTE | 2025-09-02 04:09 | CT_ITS ---
PROCEDURE INFORMATION: Exam: CT Thoracic Spine Without Contrast Exam date and time: 09/02/2025 4:47 AM Age: 60 years old Clinical indication: Injury or trauma; Fall; Additional info: Trauma, critical injury suspected TECHNIQUE: Imaging protocol: Computed tomography of the thoracic spine without contrast. Radiation optimization: All CT scans at this facility use at least one of these dose optimization techniques: automated exposure control; mA and/or kV adjustment per patient size (includes targeted exams where dose is matched to clinical indication); or iterative reconstruction. COMPARISON: 1. CT CERVICAL SPINE WO CON 09/02/2025 4:[address] CHEST WO CON 01/05/2024 7:59 PM FINDINGS: Bones/joints: There is a 29 degree dextroconvex scoliosis of the thoracic spine centered at T8-9. There is moderate compression of the upper L1 vertebral body, which was present on a prior CT of the thorax. Thoracic vertebral body heights are preserved. There is no bony canal stenosis. Facet hypertrophy on the left causes him modicum of neural foraminal stenosis from T7-8 to T10-11. Soft tissues: Unremarkable. IMPRESSION: No evidence for acute fracture in the thoracic spine. Unchanged upper L1 compression deformity. If clinically indicated, noncontrast MRI lumbar spine may be performed to assess for acute on chronic fracture.
--- NOTE | 2025-09-02 04:09 | XR_ITS ---
PROCEDURE INFORMATION: Exam: XR Pelvis Exam date and time: 09/02/2025 4:25 AM Age: 60 years old Clinical indication: Injury or trauma; Fall; Blunt trauma (contusions or hematomas); Bilateral; Pelvic region TECHNIQUE: Imaging protocol: Radiologic exam of the pelvis. Views: 1 or 2 view. COMPARISON: CR XR HIP RT 2-3V W/PELVIS 01/05/2024 7:56 PM FINDINGS: Bones/joints: No acute displaced pelvic fracture. Soft tissues: The study is somewhat limited by patient body habitus. IMPRESSION: No evidence for acute pelvic fracture.
--- NOTE | 2025-09-02 04:09 | CT_ITS ---
PROCEDURE INFORMATION: Exam: CT Cervical Spine Without Contrast Exam date and time: 09/02/2025 4:45 AM Age: 60 years old Clinical indication: Injury or trauma; Fall; Additional info: Trauma, critical injury suspected TECHNIQUE: Imaging protocol: Computed tomography of the cervical spine without contrast. Radiation optimization: All CT scans at this facility use at least one of these dose optimization techniques: automated exposure control; mA and/or kV adjustment per patient size (includes targeted exams where dose is matched to clinical indication); or iterative reconstruction. COMPARISON: CT CERVICAL SPINE WO CON 07/09/2024 8:32 PM FINDINGS: Bones: No acute fracture. Normal alignment. No significant disc bulge or herniation. No severe spinal canal stenosis. No significant neural foraminal narrowing. Lungs: Lung apices are normal. Soft tissues: Unremarkable. IMPRESSION: No acute cervical spine fracture.
--- OUTSIDE RECORDS SUMMARY | 2025-09-02 04:10 | XMS_ITS | Encounter Summary ---
Author Organization [employer] ([place], [place], [place], [place], [place]) Address [address] [place] [address] Care Team Providers Care Piercing Artist Name Role Phone Unavailable Primary Care Provider Unavailabl e Encounter Details Date Type Department Care Team (Late st Contact Info) Description 05/09/2019 Transcribed Document [facility] [place] [facility] [place] [address] ProviderCorrina MD [facility] [place] [address] Social History Tobacco Use Types [...] Comment : [facility] - 05/09/2019 16:56 EDT Electronically signed by Nichelle [facility] Conversion Quantitative Analyst Marketing Cerner at 01/28/2023 11:31 AM CDT documented in this encounter Plan of Treatment Not on file documented as of this encounter Visit Diagnoses Not on filedocumented in this encounter
--- OUTSIDE RECORDS SUMMARY | 2025-09-02 04:10 | XMS_ITS | Encounter Summary ---
Author Organization [employer] ([place], [place], [place], [place], [place]) Address [address] [place] [address] Care Team Providers Care German Professor Name Role Phone Unavailable Primary Care Provider Unavailabl e Encounter Details Date Type Department Care Team (Late st Contact Info) Description 05/06/2019 Transcribed Document [facility] [place] [address] [place] [address] ProviderCorrina MD [facility] [place] [address] Social History Tobacco Use Types Packs/Day Years [...] EDT Electronically signed by Aaron Steward Conversion Instrument/Control Technician Cerner at 01/28/2023 11:33 AM CDT documented in this encounter Plan of Treatment Not on file documented as of this encounter Visit Diagnoses Not on filedocumented in this encounter
--- OUTSIDE RECORDS SUMMARY | 2025-09-02 04:10 | XMS_ITS | Encounter Summary ---
Author Organization [facility] Address [address] [place] [address] Care Team Providers Care Pond Tender Name Role Phone Sonido Harrington MD Primary Care Provider [phone] Encounter Details Date Type Department Care Team (Late st Contact Info) Description 10/14/2023 Community [facility] Community Practice [address] [place] [address] Abhi Orozco, DRUM WORKER [address] [place] [address] Abnormal MRI, lumbar spine (Primary Dx); Abnormal [...] studies documented in this encounter Care Teams Pond Tender Relationship Specialty Start Date End Date Sonido Harrington MD [address] [place], [place] [id number] PCP - General 02/22/21 documented as of this encounter
--- OUTSIDE RECORDS SUMMARY | 2025-09-02 04:10 | XMS_ITS | Encounter Summary ---
Author Organization [employer] ([place], [place], [place], [place], [place]) Address [address] [place] [address] Care Team Providers Care Automotive Design Drafter Name Role Phone Unavailable Primary Care Provider Unavailabl e Encounter Details Date Type Department Care Team (Late st Contact Info) Description 05/06/2019 Transcribed Document [facility] [place] [facility] [place] [address] ProviderCorrina MD [facility] [place] [address] Social History Tobacco Use Types [...]
--- OUTSIDE RECORDS SUMMARY | 2025-09-02 04:10 | XMS_ITS | Encounter Summary ---
Author Organization [employer] ([place], [place], [place], [place], [place]) Address [address] [place] [address] Care Team Providers Care Refrigeration Unit Repairer Name Role Phone Unavailable Primary Care Provider Unavailabl e Encounter Details Date Type Department Care Team (Late st Contact Info) Description 05/07/2019 Transcribed Document [facility] [place] [facility] [place] [address] ProviderCorrina MD [facility] [place] [address] Social History Tobacco Use Types [...] Strength : WFL Right UE Strength : WFL Left UE Strength : WFL KEVIN SAEZ, [...] PT Orientation : Oriented x 4 KEVIN SAEZ, PT - 05/08/2019 11:11 EDT Edu Topics [...] KEVIN SAEZ, PT - 05/08/2019 11:[address] [facility] PT Charges PT Eval Low Complexity : 1 KEVIN SAEZ, PT - 05/08/2019 11:40 EDT documented in this encounter Plan of Treatment Not on file documented as of this encounter Visit Diagnoses Not on filedocumented in this encounter
--- OUTSIDE RECORDS SUMMARY | 2025-09-02 04:10 | XMS_ITS | Encounter Summary ---
Author Organization [employer] ([place], [place], [place], [place], [place]) Address [address] [place] [address] Care Team Providers Care Cartographic Aide Name Role Phone Unavailable Primary Care Provider Unavailabl e Encounter Details Date Type Department Care Team (Late st Contact Info) Description 05/07/2019 Transcribed Document [facility] Radiology 1 [place] [address] Israel Buchanan MD [address] [place] [address] [address] Social History Tobacco Use Types [...] for her lymphodema trt Reportedly lives at [facility] and has known schizo affective disorder [...]
--- OUTSIDE RECORDS SUMMARY | 2025-09-02 04:10 | XMS_ITS | Encounter Summary ---
Author Organization [employer] ([place], [place], [place], [place], [place]) Address [address] [place] [address] Care Team Providers Care Mercerizer Machine Operator Name Role Phone Unavailable Primary Care Provider Unavailabl e Encounter Details Date Type Department Care Team (Late st Contact Info) Description 05/09/2019 Transcribed Document [facility] Radiology 1 [place] [address] Tiffanie Buchanan MD [facility] [address] [address] Social History Tobacco Use Types [...] 05/09/2019 DISCHARGE SUMMARY NOTE: Patient comes from [facility] and returns to that facility. PRINCIPAL [...] head was done at outside facility in [facility], where the patient did not have any acute changes. ADMISSION HISTORY AND HOSPITAL COURSE: This is a 54-year-old, white female, with a schizoaffective disorder who reportedly has a history of lymphedema. She did undergo some wrapping to her right lower extremity and was seen for the same at [facility] when she was noted to [...] discussed with the patient's listed power of park keeper, Ms. Queenie Spence on 05/08/2019 about the hospital course. Currently, the patient will return to [facility] and I have also discussed with [...] and earlier discussion with her power of park keeper and discussion with case management, with discharge plans totals at 45 minutes. Tiffanie Buchanan M.D. Dict: 05/09/2019 14:52:20 Trans: 05/09/2019 16:20:41 CC1: Tiffanie Buchanan M.D. documented in this encounter Plan of Treatment Not on file documented as of this encounter Visit Diagnoses Not on filedocumented in this encounter
--- OUTSIDE RECORDS SUMMARY | 2025-09-02 04:10 | XMS_ITS | Encounter Summary ---
Author Organization [employer] ([place], [place], [place], [place], [place]) Address [address] [place] [address] Care Team Providers Care Accounting/Finance Tutor Name Role Phone Unavailable Primary Care Provider Unavailabl e Encounter Details Date Type Department Care Team (Late st Contact Info) Description 05/06/2019 Transcribed Document [facility] [place] Family Medicine [address] [place] [address] ProviderCorrina MD [facility] [place] [address] Social History Tobacco Use Types [...] history: Medical record, Not self. Referral source: [facility]. History limitation: Clinical condition. Primary Care Physician: [...] acute intracranial process ECG interpretation: EKG from [facility] personally reviewed and showed NSR at 67 [...]
--- OUTSIDE RECORDS SUMMARY | 2025-09-02 04:10 | XMS_ITS | Encounter Summary ---
Author Organization [employer] ([place], [place], [place], [place], [place]) Address [address] [place] [address] Care Team Providers Care Stained Glass Painter Name Role Phone Unavailable Primary Care Provider Unavailabl e Encounter Details Date Type Department Care Team (Late st Contact Info) Description 05/09/2019 Transcribed Document [facility] [place] Family Medicine [address] [place] [address] ProviderCorrina MD [address] [place] [address] Social History Tobacco Use Types Packs/Day Years Used Date Smoking Tobacco: Never Assessed Comments Unknown Sex and Gender Information Value Date Recorded Sex Assigned at Female 04/10/2022 5:16 PM CDT Legal Sex Female 6:39 PM CDT Gender Identity Female 04/10/2022 5:16 PM CDT Sexual Orientation Not on file documented as of this encounter Miscellaneous Notes * Cerpili Conversion Note - Historical ProviderMD - 05/09/2019 [...]
--- OUTSIDE RECORDS SUMMARY | 2025-09-02 04:10 | XMS_ITS | Encounter Summary ---
Author Organization [employer] ([place], [place], [place], [place], [place]) Address [address] [place] [address] Care Team Providers Care Television Installer Helper Name Role Phone Unavailable Primary Care Provider Unavailabl e Encounter Details Date Type Department Care Team (Late st Contact Info) Description 05/09/2019 Transcribed Document [facility] [place] Family Medicine [address] [place] [address] ProviderCorrina MD [address] [place] [address] Social History Tobacco Use Types [...]
--- OUTSIDE RECORDS SUMMARY | 2025-09-02 04:10 | XMS_ITS | Encounter Summary ---
Author Organization [employer] ([place], [place], [place], [place], [place]) Address [address] [place] [address] Care Team Providers Care Volcanologist Name Role Phone Unavailable Primary Care Provider Unavailabl e Encounter Details Date Type Department Care Team (Late st Contact Info) Description 05/07/2019 Transcribed Document [facility] [place] [address] [place] [address] ProviderCorrina MD [address] [place] [address] Social History Tobacco Use Types [...] - 05/07/2019 9:23 EDT Electronically signed by Nichelle [facility] Conversion Registered Dental Hygienist Cerner at 01/28/2023 11:35 AM CDT documented in this encounter Plan of Treatment Not on file documented as of this encounter Visit Diagnoses Not on filedocumented in this encounter
--- OUTSIDE RECORDS SUMMARY | 2025-09-02 04:10 | XMS_ITS | Referral Summary ---
Author Organization [employer] ([place], [place], [place], [place], [place]) Address [address] [place] [address] Care Team Providers Care Research Librarian Name Role Phone Unavailable Primary Care Provider [...]
--- OUTSIDE RECORDS SUMMARY | 2025-09-02 04:10 | XMS_ITS | Encounter Summary ---
Author Organization [employer] ([place], [place], [place], [place], [place]) Address [address] [place] [address] Care Team Providers Care Inventory Management Specialist Name Role Phone Unavailable Primary Care Provider Unavailabl e Encounter Details Date Type Department Care Team (Late st Contact Info) Description 05/09/2019 Transcribed Document [facility] [place] Family Medicine [facility] [place] [address] ProviderCorrina MD [facility] [place] [address] Social History Tobacco Use Types [...] Conversion Note - Historical ProviderMD - 05/09/2019 11:57 AM CDT Initial Discharge Planning Entered On: 05/09/2019 12:04 EDT Performed On: 05/09/2019 11:57 EDT by NAT DALAL Rn-Artist Mannequin Coloring Initial Assessment I Previously Documented Living Environment : No qualifying data available. Living Situation : Other: [facility] [place] [phone] Patient Lives With : Legal guardian(s) Emergency Contact #1 : andres CARUSO Emergency Contact #1 Phone Number : .[phone] Emergency Contact #1 Relationship : . Emergency Contact #2 : . Emergency Contact #2 Phone Number : . Emergency Contact #2 Relationship : . NAT DALAL Rn-Artist Mannequin Coloring - 05/09/2019 11:57 EDT Initial Assessment II Sensory and Motor Deficits : None, Weakness Current Home Treatments and Equipment : Walker OSINDE-OGEGA, SOPHIAH O, Rn-Artist Mannequin Coloring - 05/09/2019 11:57 EDT Discharge Needs I Anticipated Discharge Date : 05/09/2019 EDT Current Home Treatment/Equipment : Current Home Treatment/Equipment No qualifying data available. Post Acute/Home Treatments : NAT Dougherty Rn-Artist Mannequin Coloring - 05/09/2019 11:57 EDT Discharge Needs II Professional Skilled Services : Professional Skilled Services No qualifying data available. Services and Community Resources : Home Health Discharge Options Discussed with Patient : Home Health ESPERANZANAT VENCES Rn-Artist Mannequin Coloring - 05/09/2019 11:57 EDT Narrative Note Narrative Note : bowling floor manager met with pt and ZULY Jerome [phone] at the bedside. Pt is from [facility] in [facility] Physical Therapy Assistant Teto # [phone]. PLOG> Somewhat independent with walker. Per ZULY Jerome, the last 3 mos pt been falling on and off. Facility is now working on transitioning pt to terminal gauger [facility] facility in [place]. Ambulates with a walker. CM discussed termite treater is more appropriate and pt will continue to pursue while at the [facility]. DC plan is to return with . CM will order Nursing and PT at ri. CM called Spoke with Physical Therapy Assistant at the facility. Will not need to make onsite assessment, Wants dc summary faxed to her at [phone]. CM has updated attending MD Phillips that facility is agreeable to take pt today. CM has arranged [facility] for 4PM. IF EEG and Doppler negative will dc as scheduled. NAT DALAL Rn-Artist Mannequin Coloring - 05/09/2019 11:57 EDT Electronically signed by Nichelle [facility] Conversion Surgical Scheduler Cerner at 01/28/2023 11:29 AM CDT documented in this encounter Plan of Treatment Not on file documented as of this encounter Visit Diagnoses Not on filedocumented in this encounter
--- OUTSIDE RECORDS SUMMARY | 2025-09-02 04:10 | XMS_ITS | Encounter Summary ---
Author Organization [employer] ([place], [place], [place], [place], [place]) Address [address] [place] [address] Care Team Providers Care Passenger Elevator Operator Name Role Phone Unavailable Primary Care Provider Unavailabl e Encounter Details Date Type Department Care Team (Late st Contact Info) Description 05/09/2019 Transcribed Document [facility] [place] Family Medicine [facility] [place] [address] ProviderCorrina MD [address] [place] [address] Social History Tobacco Use Types [...]
--- OUTSIDE RECORDS SUMMARY | 2025-09-02 04:10 | XMS_ITS | Clinical Summary ---
Author Organization [facility] Address [address] [place] [address] Care Team Providers Care Ornamental Metal Erector Name Role Phone Sonido Harrington MD Primary Care Provider [phone] Family History Medical History Relation Name Comments [...] 2013 [facility]-Zoster Vaccines (1 of 2) 2013 [facility]-RQDLV-31 Vaccine (2 - season) 2025 12/13/2020 [facility]-Influenza [...] patient's age to complete this topic Insurance [facility] [place] [id number] [place] Care Teams Ornamental Metal Erector Relationship Specialty Start Date End Date Sonido Harrington MD [address] [facility] [place] [address] [facility] - General 02/22/21
--- OUTSIDE RECORDS SUMMARY | 2025-09-02 04:10 | XMS_ITS | Encounter Summary ---
Author Organization [employer] ([place], [place], [place], [place], [place]) Address [address] [place] [address] Care Team Providers Care Notereader Name Role Phone Unavailable Primary Care Provider Unavailabl e Encounter Details Date Type Department Care Team (Late st Contact Info) Description 05/09/2019 Transcribed Document [facility] [place] Family Medicine [address] [place] [address] ProviderCorrina MD [address] [place] [address] Social History Tobacco Use Types [...] Historical ProviderMD - 05/09/2019 2:00 AM CDT Manager Of Pmo Details Entered On: 05/09/2019 4:29 EDT Performed [...] EDT Electronically signed by Aaron Steward Conversion Electronic News Gathering Editor Cerner at 01/28/2023 11:34 AM CDT documented in this encounter Plan of Treatment Not on file documented as of this encounter Visit Diagnoses Not on filedocumented in this encounter
--- OUTSIDE RECORDS SUMMARY | 2025-09-02 04:10 | XMS_ITS | Encounter Summary ---
Author Organization [employer] ([place], [place], [place], [place], [place]) Address [address] [place] [address] Care Team Providers Care Short Haul Driver Name Role Phone Unavailable Primary Care Provider Unavailabl e Encounter Details Date Type Department Care Team (Late st Contact Info) Description 05/09/2019 Transcribed Document [facility] [place] [address] [place] [address] ProviderCorrina MD [address] [place] [address] Social History Tobacco Use Types [...] in intensive care. ??? Live in a jail. ??? Had recent surgery. ??? Have liver [...] urine clear or pale yellow. ??? Take alry-vzf-kpmhqog and prescription medicines only as told by [...] 03/06/2017 Elsevier Interactive Patient Education ? 2019 [employer] documented in this encounter Plan of Treatment Not on file documented as of this encounter Visit Diagnoses Not on filedocumented in this encounter
--- OUTSIDE RECORDS SUMMARY | 2025-09-02 04:10 | XMS_ITS | Encounter Summary ---
Author Organization [employer] ([place], [place], [place], [place], [place]) Address [address] [place] [address] Care Team Providers Care Professor Of Violin Name Role Phone Unavailable Primary Care Provider Unavailabl e Encounter Details Date Type Department Care Team (Late st Contact Info) Description 05/08/2019 Transcribed Document [facility] [place] Family Medicine [address] [place] [address] ProviderCorrina MD [address] [place] [address] Social History Tobacco Use Types [...] Conversion Note - Historical ProviderMD - 05/08/2019 5:08 PM CDT Discharge [...]
--- OUTSIDE RECORDS SUMMARY | 2025-09-02 04:10 | XMS_ITS | Encounter Summary ---
Author Organization [employer] ([place], [place], [place], [place], [place]) Address [address] [place] [address] Care Team Providers Care Eeg Technologist Name Role Phone Unavailable Primary Care Provider Unavailabl e Encounter Details Date Type Department Care Team (Late st Contact Info) Description 05/09/2019 Transcribed Document [facility] [place] [address] [place] [address] ProviderCorrina MD [address] [place] [address] Social History Tobacco Use Types [...] Daily, PRN Mylanta, 15 mL, Oral, BID [place] 5 mg-325 mg oral tablet, 1 Tab, [...]
--- OUTSIDE RECORDS SUMMARY | 2025-09-02 04:10 | XMS_ITS | Encounter Summary ---
Author Organization [employer] ([place], [place], [place], [place], [place]) Address [address] [place] [address] Care Team Providers Care Poultry Boner Name Role Phone Unavailable Primary Care Provider Unavailcierra e Encounter Details Date Type Department Care Team (Late st Contact Info) Description 05/07/2019 Transcribed Document [facility] [place] Family Medicine [address] [place] [address] ProviderCorrina MD [address] [place] [address] Social History Tobacco Use Types [...] Cerpili Conversion Note - Historical ProviderMD - 05/07/2019 [...]
--- OUTSIDE RECORDS SUMMARY | 2025-09-02 04:10 | XMS_ITS | Encounter Summary ---
Author Organization [employer] ([place], [place], [place], [place], [place]) Address [address] [place] [address] Care Team Providers Care Grinder Brake Lining Name Role Phone Unavailable Primary Care Provider Unavailabl e Encounter Details Date Type Department Care Team (Late st Contact Info) Description 05/09/2019 Transcribed Document [facility] Family Medicine [address] [place] [address] ProviderCorrina MD [address] [place] [address] Social History Tobacco Use Types [...]
--- OUTSIDE RECORDS SUMMARY | 2025-09-02 04:10 | XMS_ITS | Encounter Summary ---
Author Organization [employer] ([place], [place], [place], [place], [place]) Address [address] [place] [address] Care Team Providers Care Pupil Personnel Worker Name Role Phone Unavailable Primary Care Provider Lauren e Encounter Details Date Type Department Care Team (Late st Contact Info) Description 05/08/2019 Transcribed Document [facility] [place] Family Medicine [address] [place] [address] ProviderCorrina MD [address] [place] [address] Social History Tobacco Use [...] Historical ProviderMD - 05/08/2019 2:00 AM CDT Cooling Pan Tender Details Entered On: 05/08/2019 4:48 EDT Performed [...]
--- OUTSIDE RECORDS SUMMARY | 2025-09-02 04:10 | XMS_ITS | Encounter Summary ---
Author Organization [employer] ([place], [place], [place], [place], [place]) Address [address] [place] [address] Care Team Providers Care Behavioral Health Specialist Name Role Phone Unavailable Primary Care Provider Unavailabl e Encounter Details Date Type Department Care Team (Late st Contact Info) Description 05/09/2019 Transcribed Document [facility] [place] [address] [place] [address] ProviderCorrina MD [address] [place] [address] Social History Tobacco Use Types [...]
--- OUTSIDE RECORDS SUMMARY | 2025-09-02 04:10 | XMS_ITS | Clinical Summary ---
Author Organization [employer] ([place], [place], [place], [place], [place]) Address [address] [place] [address] Care Team Providers Care Process Coach Name Role Phone Unavailable Primary Care Provider [...]
--- OUTSIDE RECORDS SUMMARY | 2025-09-02 04:10 | XMS_ITS | Encounter Summary ---
Author Organization [employer] ([place], [place], [place], [place], [place]) Address [address] [place] [address] Care Team Providers Care Hydro Technician Name Role Phone Unavailable Primary Care Provider Unavailcierra e Encounter Details Date Type Department Care Team (Late st Contact Info) Description 05/08/2019 Transcribed Document [facility] [place] [address] [place] [address] ProviderCorrina MD [address] [place] [address] Social History Tobacco Use Types [...] Cerpili Conversion Note - Historical ProviderMD - 05/08/2019 5:00 AM CDT Chart Check - Review Order Profile Entered On: 05/08/2019 4:49 EDT Performed On: 05/08/2019 5:00 EDT by Lizet Kline RN Chart Check Powerplans Initiated/Discontinued as Appropriate : Yes All Active Orders Reviewed : Yes Lizet Kline, RN - 05/08/2019 4:49 EDT documented in this encounter Plan of Treatment Not on file documented as of this encounter Visit Diagnoses Not on filedocumented in this encounter
--- OUTSIDE RECORDS SUMMARY | 2025-09-02 04:10 | XMS_ITS | Encounter Summary ---
Author Organization [employer] ([place], [place], [place], [place], [place]) Address [address] [place] [address] Care Team Providers Care Motor Brakeman Name Role Phone Unavailable Primary Care Provider Unavailabl e Encounter Details Date Type Department Care Team (Late st Contact Info) Description 05/08/2019 Transcribed Document [facility] [place] [address] [place] [address] ProviderCorrina MD [address] [place] [address] Social History Tobacco Use Types [...]
--- OUTSIDE RECORDS SUMMARY | 2025-09-02 04:10 | XMS_ITS | Encounter Summary ---
Author Organization [employer] ([place], [place], [place], [place], [place]) Address [address] [place] [address] Care Team Providers Care Casket Inspector Name Role Phone Unavailable Primary Care Provider Unavailabl e Encounter Details Date Type Department Care Team (Late st Contact Info) Description 05/07/2019 Transcribed Document [facility] Family Medicine [address] [place] [address] ProviderCorrina MD [address] [place] [address] Social History Tobacco Use Types Packs/Day Years [...] Policy Numbers : Insurance 1 Health Plan: [facility] Policy Number: [id number] Authorization Number: Insurance Primary Name : [facility] Policy Number: [id number] Historical Authorization Comments-Primary : No Authorization Comments Found [employer] Rn-Utilization Review - 05/07/2019 13:31 EDT Electronically signed by Nichelle [facility] Conversion It Risk And Assurance Senior Manager Cerner at 01/28/2023 11:35 AM CDT documented in this encounter Plan of Treatment Not on file documented as of this encounter Visit Diagnoses Not on filedocumented in this encounter
--- OUTSIDE RECORDS SUMMARY | 2025-09-02 04:10 | XMS_ITS | Encounter Summary ---
Author Organization [employer] ([place], [place], [place], [place], [place]) Address [address] [place] [address] Care Team Providers Care Aboriginal Home School Liaison Officer Name Role Phone Unavailable Primary Care Provider Unavailabl e Encounter Details Date Type Department Care Team (Late st Contact Info) Description 05/09/2019 Transcribed Document [facility] [place] Family Medicine [address] [place] [address] ProviderCorrina MD [address] [place] [address] Social History Tobacco Use Types [...] Corrina ProviderMD - 05/09/2019 4:50 PM CDT [facility] [place] [id number] NURA AG :1965 Visit Time:05/06/2019 Your Visit [...] call for a follow up appointment with [facility]. Where: [facility] [employer] [facility] (1) Follow Up with Follow up with [...] urine clear or pale yellow. ??? Take tpit-mzg-jherhpm and prescription medicines only as told by [...] 03/06/2017 Document Revised: 06/01/2017 Document Reviewed: 03/06/2017 [employer] Interactive Patient Education ?? 2019 [employer]. clonazepam (kloe CAMERON e jacqueline) MarckonoPIN What is the most important information I [...] What is clonazepam? Clonazepam is a benzodiazepine (zca-cms-whd-AZE-eh-peen) that affects chemicals in the brain that may be unbalanced. Clonazepam is also a seizure medicine, also called an anti-epileptic drug. Clonazepam is used to treat certain seizure disorders (including absence seizures or [place] syndrome) in adults and children. Clonazepam is [...] may report side effects to FDA at 2-345-PAH-3210. What other drugs will affect clonazepam? Taking clonazepam with other drugs that make you sleepy or slow your breathing can cause dangerous side effects or . Ask your doctor before taking a sleeping pill, an opioid medicine, prescription cough medicine, a muscle relaxer, or medicine for anxiety, depression, or seizures. Other drugs may interact with clonazepam, including prescription and wrli-ket-zcuusbq medicines, vitamins, and herbal products. Tell your [...] to ensure that the information provided by [employer]. ('[employer]') is accurate, up-to-date, and complete, but no guarantee is made to that effect. Drug information contained herein may be time sensitive. [employer] information has been compiled for use by healthcare practitioners and consumers in the [place] and therefore [employer] does not warrant that uses outside of the [place] are appropriate, unless specifically indicated otherwise. [employer] drug information does not endorse drugs, diagnose patients or recommend therapy. [employer] drug information is an informational resource designed [...] effective or appropriate for any given patient. [employer] does not assume any responsibility for any aspect of healthcare administered with the aid of information [employer] provides. The information contained herein is not intended to cover all possible uses, directions, precautions, warnings, drug interactions, allergic reactions, or adverse effects. If you have questions about the drugs you are taking, check with your doctor, nurse or pharmacist. Copyright 5435-6495 [employer]. Version: 8.01. Revision Date: 08/17/2017. Emergency Awareness [...] Assistance with quitting is available by contacting 0-532-LOXSNOW. This is a free resource providing counseling, support, and referral. Or you may contact your personal physician. [place] Suicide Prevention Lifeline: The National Suicide Prevention [...] range between ( 0.0 and 7.0 ) [place] #: 0.63 K/uL -- Normal range between ( 0.16 and 1.00 ) Eos #: 0.57 x10(3)/uL -- Normal range between ( 0.00 and 0.80 ) [place] %: 5.8 % -- Normal range between [...] was given the opportunity to ask questions. Patient/Restaurant Cashier Name: Patient/Restaurant Cashier Signature: Relationship to Patient: Clinician/Hospital Restaurant Cashier Signature: Date: Electronically signed by Nichelle, [facility] Conversion Origination Specialist Hunter at 01/28/2023 11:26 AM CDT documented in this encounter Plan of Treatment Not on file documented as of this encounter Visit Diagnoses Not on filedocumented in this encounter
--- OUTSIDE RECORDS SUMMARY | 2025-09-02 04:10 | XMS_ITS | Encounter Summary ---
Author Organization [employer] ([place], [place], [place], [place], [place]) Address [address] [place] [address] Care Team Providers Care Rn Lpn Cna Name Role Phone Unavailable Primary Care Provider Unavailabl e Encounter Details Date Type Department Care Team (Late st Contact Info) Description 05/09/2019 Transcribed Document [facility] Family Medicine [facility] [place] [address] ProviderCorrina MD [facility] [place] [address] Social History Tobacco Use Types [...] Progress Note : Pt a resident of [facility] in [place] and person spoke lisa/Yara [phone]/fax [phone] BRENDA SMITH, RN-Care Management - 05/09/2019 9:25 EDT documented in this encounter Plan of Treatment Not on file documented as of this encounter Visit Diagnoses Not on filedocumented in this encounter
--- OUTSIDE RECORDS SUMMARY | 2025-09-02 04:10 | XMS_ITS | Encounter Summary ---
Author Organization [employer] ([place], [place], [place], [place], [place]) Address [address] [place] [address] Care Team Providers Care Steamboat Inspector Name Role Phone Unavailable Primary Care Provider Unavailabl e Encounter Details Date Type Department Care Team (Late st Contact Info) Description 05/06/2019 Transcribed Document [facility] [address] [place] [address] ProviderCorrina MD [facility] [place] [address] Social History Tobacco Use Types [...] 14:47 EDT Functional Assessment Living Situation : nursing [facility] Hx Falls Immediate/Within 3 Months : Yes Current Home Treatments : None Lizet eKita RN - 05/07/2019 14:47 EDT General Info Want Family/Rep/Phys Notified of Admit : No Emergency Contact #1 : andres CARUSO Emergency Contact #1 Phone Number : . Emergency Contact #1 Relationship : . Emergency Contact #2 : . Emergency Contact #2 Phone Number : . Emergency Contact #2 Relationship : . Primary Language : Syriac Preferred Communication Mode : Verbal Communication Barrier [...] Level : 46 or > High Risk Chestnut Fall Interventions : Adequate lighting, Bed in [...] Source : Stated Height Entry Format : Bollinger Height, Feet : 5 ft(Converted to: 152 cm, 60 Inch) Height, Inches : 3 Inch(Converted to: 0 ft 3 Inch, 7.62 cm) Clinical Height : 160.02 cm Weight Source : Bed scale Weight Entry Format : Bollinger Clinical Dosing Weight : 93.84 kg Weight, Pounds : 206 lb Weight, Ounces : 7 oz Body Surface Area (BSA) : 1.96 m2 Body Mass Index : 36.6 kg/m2 (HI) [place] Body Weight : 52 kg Lavinia Oh [...]
--- OUTSIDE RECORDS SUMMARY | 2025-09-02 04:10 | XMS_ITS | Encounter Summary ---
Author Organization [employer] ([place], [place], [place], [place], [place]) Address [address] [place] [address] Care Team Providers Care Animal Tech Name Role Phone Unavailable Primary Care Provider Lauren mathews Encounter Details Date Type Department Care Team (Late st Contact Info) Description 05/07/2019 Transcribed Document [facility] [place] Family Medicine [address] [place] [address] ProviderCorrina MD [address] [place] [address] Social History Tobacco Use Types [...] Historical ProviderMD - 05/07/2019 2:00 AM CDT Putty Mixer And Applier Details Entered On: 05/07/2019 3:12 EDT Performed [...]
--- OUTSIDE RECORDS SUMMARY | 2025-09-02 04:10 | XMS_ITS | Encounter Summary ---
Author Organization [employer] ([place], [place], [place], [place], [place]) Address [address] [place] [address] Care Team Providers Care Creative Coordinator Name Role Phone Unavailable Primary Care Provider Unavailabl e Encounter Details Date Type Department Care Team (Late st Contact Info) Description 05/08/2019 Transcribed Document [facility] [place] Family Medicine Counts include 234 beds at the [facility] [place] [address] ProviderCorrina MD [address] [place] [address] Social History Tobacco Use Types [...] to our hospital two days ago from [facility] for an episode of encephalopathy. I have been asked to evaluate her for encephalopathy. The patient indicates to me that a couple of days ago she went to physical therapy session at [facility] and may have passed out. According to Dr. Aleman's note, the patient was obtunded and unresponsive for a period of time and now she is getting better. The patient tells me that she lives at a longterm in [place]. She indicates she has never had this [...] HISTORY: Apparently, the patient lives in a longterm in [place]. She has no children. She is single. [...] through 12 were intact. Coordination shows intact bguoyq-fe-vdxe bilaterally. Gait was not tested. Reflexes were [...]
--- OUTSIDE RECORDS SUMMARY | 2025-09-02 04:10 | XMS_ITS | Encounter Summary ---
Author Organization [employer] ([place], [place], [place], [place], [place]) Address [address] [place] [address] Care Team Providers Care Retort Setter Name Role Phone Unavailable Primary Care Provider Unavailabl e Encounter Details Date Type Department Care Team (Late st Contact Info) Description 05/07/2019 Transcribed Document [facility] [place] Family Medicine [address] [place] [address] ProviderCorrina MD [address] [place] [address] Social History Tobacco Use Types [...]
--- OUTSIDE RECORDS SUMMARY | 2025-09-02 04:10 | XMS_ITS | Encounter Summary ---
Author Organization [employer] ([place], [place], [place], [place], [place]) Address [address] [place] [address] Care Team Providers Care Director Of Residential Services Name Role Phone Unavailable Primary Care Provider Unavailabl e Encounter Details Date Type Department Care Team (Late st Contact Info) Description 05/09/2019 Transcribed Document [facility] [place] Family Medicine [address] [place] [address] ProviderCorrina MD [address] [place] [address] Social History Tobacco Use Types [...] On: 05/09/2019 12:54 EDT by HALIE CABRALES Product Manager Financial Services Primary Insurance Authorization Authorization and Policy Numbers : Insurance 1 Health Plan: [facility] Policy Number: [id number] Authorization Number: Insurance Primary Name : [facility] Policy Number: [id number] Authorization Comments-Primary : Angelia from [facility] called stating that decision needs to be made today as to wheather pt going to be OBS or go to INPT. needs clinical today Email sent to Benita Schultz Historical Authorization Comments-Primary : No Authorization Comments Found HALIE CABRALES, Product Manager Financial Services - 05/09/2019 12:54 EDT documented in this encounter Plan of Treatment Not on file documented as of this encounter Visit Diagnoses Not on filedocumented in this encounter
--- NOTE | 2025-09-02 04:13 | ECG_ITS ---
APPROVED REPORT Exam: Resting ECG HR:63 bpm ECG Measurements Heart Rate 63 AXES RI 191 P 77 QRSd 94 QRS 88 QT 424 T 67 QTc 432 Conclusion SINUS RHYTHM NORMAL ECG Electronically signed by : KEISHA ORTA, 09/02/2025 07:24:37
[2025-09-02 04:21] LABS: Hematocrit 34.8 % (37.0-47.0); Hemoglobin 11.0 g/dL (12.2-16.2); Immature Granulocytes % 0.7 %; Mean Corpuscular HGB Conc 31.6 g/dL (31.8-35.4); Mean Corpuscular Hemoglobin 27.7 pg (27.0-31.2); Mean Corpuscular Volume 87.7 fl (81-99); Nucleated Red Blood Cells % 0 %; Platelet Count 304 K/mm3 (142-424); Red Blood Count 3.97 M/mm3 (4.20-5.40); Red Cell Distribution Width-SD 46.0 fL; White Blood Count 8.1 K/mm3 (4.8-10.8)
[2025-09-02 04:25] LABS: Alanine Aminotransferase 14 U/L (12-78); Albumin Level 4.3 g/dl (3.5-5.0); Albumin/Globulin Ratio 1.5 (1.1-1.8); Alkaline Phosphatase 95 U/L (38-126); Anion Gap 10.7 mEq/L (5-15); Aspartate Amino Transferase 24 U/L (14-36); Bilirubin,Total 0.4 mg/dl (0.2-1.3); Blood Urea Nitrogen 18 mg/dl (7-17); Calcium 9.7 mg/dl (8.4-10.2); Carbon Dioxide 27 mmol/L (22.0-30.0); Chloride 102 mmol/L (98-107); Creatinine Clearance Estimated 35 mL/min (50-200); Creatinine,Serum 1.30 mg/dl (0.52-1.04); Estimated Glomerular Filt Rate 42 ml/min (>60); GFR (African American) 50 ML/MIN (>60); Globulin 2.8 g/dL (1.3-3.2); Glucose 116 mg/dl (74-100); Potassium 3.7 mmoL/L (3.5-5.1); Sodium 136 mmol/L (136-145); Total Protein,Serum 7.1 g/dl (6.3-8.2)
[2025-09-02 04:29] LABS: Activated Partial Thrombo Time 26.5 seconds (22.8-30.6); INR 1.05 (0.9-1.1); Prothrombin Time 11.6 seconds (10.1-12.5)
[2025-09-02 04:37] LABS: Troponin I < 0.01 ng/ml (0.00-0.034)
[2025-09-02 05:22] LABS: Hepatitis C Ab Qual. W/ RFX NEGATIVE (Negative)
--- NOTE | 2025-09-02 05:39 | CT_ITS ---
PROCEDURE INFORMATION: Exam: CTA Chest With Contrast Exam date and time: 09/02/2025 6:15 AM Age: 60 years old Clinical indication: Injury or trauma; Fall; Blunt trauma (contusions or hematomas); Additional info: Trauma, small pericardial effusion TECHNIQUE: Imaging protocol: Computed tomographic angiography of the chest with contrast. Exam focused on the arteries. 3D rendering (Not supervised by radiologist): MIP and/or 3D reconstructed images were created by the technologist. Radiation optimization: All CT scans at this facility use at least one of these dose optimization techniques: automated exposure control; mA and/or kV adjustment per patient size (includes targeted exams where dose is matched to clinical indication); or iterative reconstruction. Contrast material: ISO 370; Contrast volume: 80 ml; Contrast route: INTRAVENOUS (IV); COMPARISON: CT CHEST WO CON 01/05/2024 7:59 PM FINDINGS: Pulmonary arteries: Normal. No pulmonary emboli. Aorta: Unremarkable. No aortic aneurysm. No aortic dissection. Lungs: Unremarkable. No consolidation. No masses. Pleural spaces: Unremarkable. No pneumothorax. No pleural effusion. Heart: Mild cardiomegaly. Coronary arteries: Moderate coronary calcium. Lymph nodes: Unremarkable. No enlarged lymph nodes. Bones/joints: L1 compression deformity unchanged from prior. Soft tissues: Unremarkable. IMPRESSION: 1. No evidence of pulmonary embolus or other acute process. 2. Moderate coronary calcium. 3. Stable L1 compression deformity.
[2025-09-02] MEDS: SODIUM CHLORIDE 0.9% 10ML SYR (RAD ONLY) 10 ML IV (06:17)
[2025-09-02] MEDS: IOPAMIDOL-370 (76%);100ML BOTTLE 80 ML IV (06:17)
[2025-09-02] MEDS: IBUPROFEN 400 MG TABLET PO (06:28)
[2025-09-02] MEDS: ACETAMINOPHEN 500MG TAB 500 MG PO (06:29)
[2025-09-02] MEDS: RINGERS SOLUTION,LACTATED 500 ML 999 ML IV (06:29)
--- NOTE | 2025-09-02 06:56 | HMH.EDGENADL ---
Discharge Plan Disposition Patient Disposition: Xfer [facility] Condition: Good Prescriptions Prescriptions: No Action alum-mag hydroxide-simeth [Antacid] 200-200-20 mg/5 mL suspension 30 ml PO TIDP PRN (Reason: Acid Reflux) Rx Instructions: administer between meals and at bedtime loperamide 2 mg capsule 2 mg PO Q6H PRN (Reason: Diarrhea) (DME) AutoShield Duo Pen Needle 30 gauge x 3/16 needle See Rx Instructions .ROUTE .MEDSUPPLY Qty: 100 Rx Instructions: As directed isosorbide mononitrate 30 mg tablet extended release 24 hr 30 mg PO DAILY Qty: 30 2RF diclofenac sodium 1 % gel 2 g topical QID PRN pantoprazole 40 mg tablet,delayed release (DR/EC) 40 mg PO DAILY aripiprazole 15 mg tablet 15 mg PO DAILY hydroxyzine HCl 50 mg tablet 50 mg PO QID escitalopram oxalate [Lexapro] 10 mg tablet 10 mg PO DAILY venlafaxine [Effexor XR] 75 mg capsule,extended release 24hr 225 mg PO DAILY bupropion HCl 100 mg tablet 100 mg PO DAILY acetaminophen 500 mg capsule 500 mg PO Q6H PRN (Reason: Mild Pain (Scale Score 1-4)) tiotropium bromide [Spiriva with HandiHaler] 18 mcg capsule, w/inhalation device 1 cap inhalation DAILY 90 Days Qty: 90 3RF Rx Instructions: puncture 1 cap using device; one dose = 2 inhalations fexofenadine 60 mg tablet 60 mg PO DAILY (DME) BD AutoShield Duo Pen Needle 30 gauge x 3/16 needle See Rx Instructions .ROUTE .MEDSUPPLY Qty: 100 Rx Instructions: As directed metoprolol succinate [Toprol XL] 100 mg tablet extended release 24 hr 100 mg PO DAILY Qty: 90 3RF levothyroxine 50 mcg tablet 50 mcg PO DAILY insulin glargine 100 unit/mL solution 20 unit SQ HS ipratropium-albuterol 0.5 mg-3 mg(2.5 mg base)/3 mL solution for nebulization 3 ml inhalation Q6H PRN budesonide-formoterol [Symbicort] 160-4.5 mcg/actuation HFA aerosol inhaler 2 puff inhalation BID lidocaine [Aspercreme (lidocaine)] 4 % adhesive patch,medicated 1 patch topical QHS Humulin 70/30 U-100 KwikPen 100 unit/mL (70-30) insulin pen 25 unit SQ BID Rx Instructions: 0630 and 1630 melatonin 3 mg tablet 3 mg PO QHS insulin glargine [Lantus Solostar U-100 Insulin] 100 unit/mL (3 mL) insulin pen 20 unit SQ PRN ranolazine 1,000 mg tablet extended release 12 hr 1,000 mg PO BID Qty: 180 2RF Systane Complete PF 0.6 % drops ophthalmic (eye) albuterol sulfate [Ventolin HFA] 90 mcg/actuation HFA aerosol inhaler 2 puff inhalation Q6H PRN (Reason: shortness of breath or wheezing) Qty: 8.5 11RF gabapentin 300 mg capsule 300 mg PO BID Qty: 60 2RF hydrocodone-acetaminophen 5-325 mg tablet 1 tab PO TID 30 Days Qty: 90 0RF clonazepam 1 mg tablet 1 mg PO BID Qty: 60 5RF clopidogrel [Plavix] 75 mg tablet 75 mg PO DAILY atorvastatin 20 mg tablet 20 mg PO QHS Dupixent Syringe 300 mg/2 mL syringe 300 mg SQ Q2W Rx Instructions: every 2 weeks fluticasone propionate 50 mcg/actuation spray,suspension 1 spray INTRANASAL BID Referrals Follow up/Referrals: Gerardo Yan MD [Primary Care Provider, Family Practice] - See instructions Activity Restrictions/Add. Instructions Additional Instructions/Restrictions: You were evaluated in the ER and are believed to be appropriate for discharge at this time. Continue home medications as previously prescribed. Follow-up with PCP for reevaluation in a few days. Return to the ER with new, worsening, or otherwise concerning symptoms Clinical Impressions Clinical Impression: Fall Print Language Print Language: Mozambican Discharge ED Provider: Anuja Gandhi General Adult HPI General Chief complaint: Fall Stated complaint: fall Time Seen by Provider: 09/02/25 04:14 Mode of Arrival: EMS Source of Information: Patient and EMS Description of Symptoms (Recalled from ER Triage Doc. by RN): PT brought to the ED for evaluation of fall from standing. History of Present Illness HPI narrative: 60-year-old female presents to the ER from [facility] after fall. Patient was brought in by EMS. She reports she was getting up and tripped on her rollator and fell. Unclear if she struck her head, denies loss of consciousness, she does take Plavix. Patient is complaining of pain in her neck, back, and left upper extremity. Denies chest pain or difficulty breathing, denies abdominal pain. She reports chronic diarrhea which is unchanged from baseline, nonbloody, nonmelanotic. Denies dysuria or hematuria. No shortness of breath. No new dizziness, weakness, numbness, or tingling. Denies any fevers or chills or recent illness. Patient complains of pain in the left arm and left hand stating she hit it. She will move the arm independently without complaint but when asked to move it for exam, will yell in pain and refused to move it. However at 1 point, she independently raised her arm high in front and to the side like I had previously asked, and when I said oh good, it looks like you can move it well she quickly snapped back down to her side and complained of pain after. Related Data Home Medications ?Medication ?Instructions ?Recorded ?Confirmed clopidogrel 75 mg tablet (Plavix) 75 mg PO DAILY 01/05/24 08/30/25 aluminum-mag hydroxide-simethicone 30 ml PO TIDP PRN Acid Reflux 01/12/24 08/30/25 200 mg-200 mg-20 mg/5 mL oral susp (Antacid) fluticasone propionate 50 1 spray intranasal BID 05/27/24 08/30/25 mcg/actuation nasal spray,suspension fexofenadine 60 mg tablet 60 mg PO DAILY 12/01/24 08/30/25 pen needle,diabetic dual safty 30 #100 ea 12/01/24 08/30/25 gauge x /16 levothyroxine 50 mcg tablet 50 mcg PO DAILY 12/29/24 08/30/25 budesonide-formoterol HFA 160 2 puff inhalation BID 02/21/25 08/30/25 mcg-4.5 mcg/actuation aerosol inhaler (Symbicort) ipratropium 0.5 mg-albuterol 3 mg 3 ml inhalation Q6H PRN 02/21/25 08/30/25 (2.5 mg base)/3 mL nebulization soln insulin NPH-regular 70-30 U-100 25 unit SQ BID 05/02/25 08/30/25 insulin 100 unit/mL subcutaneous pen (Humulin 70/30 U-100 KwikPen) lidocaine 4 % topical patch 1 patch topical QHS 05/02/25 08/30/25 (Aspercreme (lidocaine)) pen needle, diabetic, safety 30 #100 ea 06/29/25 08/30/25 gauge x 3/16 (AutoShield Duo Pen Needle) acetaminophen 500 mg capsule 500 mg PO Q6H PRN Mild Pain (Scale 07/25/25 08/30/25 Score 1-4) aripiprazole 15 mg tablet 15 mg PO DAILY 07/25/25 08/30/25 atorvastatin 20 mg tablet 20 mg PO QHS 07/25/25 08/30/25 bupropion HCl 100 mg tablet 100 mg PO DAILY 07/25/25 08/30/25 diclofenac sodium 1 % topical gel 2 g topical QID PRN 07/25/25 08/30/25 dupilumab 300 mg/2 mL subcutaneous 300 mg SQ Q2W 07/25/25 08/30/25 syringe (Dupixent) escitalopram oxalate 10 mg tablet 10 mg PO DAILY 07/25/25 08/30/25 (Lexapro) hydroxyzine HCl 50 mg tablet 50 mg PO QID 07/25/25 08/30/25 insulin glargine 100 unit/mL 20 unit SQ HS 07/25/25 08/30/25 subcutaneous solution loperamide 2 mg capsule 2 mg PO Q6H PRN Diarrhea 07/25/25 08/30/25 melatonin 3 mg tablet 3 mg PO QHS 07/25/25 08/30/25 pantoprazole 40 mg tablet,delayed 40 mg PO DAILY 07/25/25 08/30/25 release venlafaxine 75 mg capsule,extended 225 mg PO DAILY 07/25/25 08/30/25 release 24 hr (Effexor XR) insulin glargine 100 unit/mL (3 20 unit SQ PRN 08/17/25 08/30/25 mL) subcutaneous pen (Lantus Solostar U-100 Insulin) propylene glycol (PF) 0.6 % eye drp ophthalmic (eye) 08/30/25 08/30/25 drops (Systane Complete PF) Previous Rx's ?Medication ?Instructions ?Recorded tiotropium bromide 18 mcg capsule 1 cap inhalation DAILY 90 days #90 02/15/24 with inhalation device (Spiriva puffs with HandiHaler) albuterol sulfate 90 mcg/actuation 2 puff inhalation Q6H PRN 08/08/24 aerosol inhaler (Ventolin HFA) shortness of breath or wheezing #8.5 grams metoprolol succinate 100 mg 100 mg PO DAILY #90 tabs 12/01/24 tablet,extended release 24 hr (Toprol XL) isosorbide mononitrate 30 mg 30 mg PO DAILY #30 tabs 06/29/25 tablet,extended release 24 hr gabapentin 300 mg capsule 300 mg PO BID #60 caps 07/28/25 clonazepam 1 mg tablet 1 mg PO BID #60 tabs 08/08/25 hydrocodone 5 mg-acetaminophen 325 1 tab PO TID 30 days #90 tabs 08/08/25 mg tablet ranolazine 1,000 mg 1,000 mg PO BID #180 tabs 08/17/25 tablet,extended release,12 hr Allergies Allergy/AdvReac Type Severity Reaction Status Date / Time lactose (LACTOSE) Allergy Unknown Unknown Verified 08/17/25 09:34 allergy reaction TD Inhibitors Allergy Unknown Verified 08/17/25 09:34 allergy reaction lisinopril Allergy Unknown Verified 08/17/25 09:34 allergy reaction PFSH PFS Disclaimer: The information contained in this section may have been updated after the patient was seen, as this information can be updated by other users. Medical History (Updated 09/02/25 @ 05:39 by Anuja Gandhi MD) GARRISON (obstructive sleep apnea) Alteration in physical mobility Gait disturbance Chronic neck pain Chronic back pain Cigarette smoker Dupuytrens contracture Staph aureus infection Arthritis of both hands Heart murmur Breast cancer screening by mammogram Colonic polyp Lymphedema Anemia Deviated nasal septum Chronic sinusitis Anxiety disorder, unspecified Major depressive disorder, recurrent, unspecified Schizoaffective disorder, bipolar type Frequent falls Screening for lung cancer Asthma-COPD overlap syndrome Thoracic scoliosis Diastolic dysfunction Hypothyroidism (acquired) Obesity HLD (hyperlipidemia) HTN (hypertension) CAD (coronary artery disease) Diabetes COPD (chronic obstructive pulmonary disease) Surgical History (Updated 08/30/25 @ 17:25 by Gerardo Yan MD) H/O colonoscopy with polypectomy History of tonsillectomy History of carpal tunnel release History of arthroscopic knee surgery Hx laparoscopic cholecystectomy Hx of cardiac cath Hx of cataract surgery Family History Other Family history of myocardial infarction Social History (Updated 08/30/25 @ 17:50 by Gerardo Yan MD) Smoking Status: Current every day smoker second hand exposure: Yes alcohol intake: never substance use type: denies use current occupational status: disabled Travel in the last 8 weeks?: None household members: other housing: [facility] current occupational exposures/hazards: No caffeine: Yes Other Medical History Have you received the Flu Vaccine for this season: No Have you received the Pneumonia Vaccine: Yes (01/27/21) ROS Obtained: Yes Systems reviewed as appropriate & no additional complaints except as documented Per HPI Physical Exam General General appearance: alert and in no apparent distress Head Head exam: atraumatic and normocephalic Eye Eye exam: Present PERRL and EOMI ENT ENT exam: Present mucous membranes moist Neck Neck exam: Present normal inspection, full ROM and tenderness (Diffuse, nonfocal, no spinal tenderness, no deformity or step-off) Chest Chest inspection: Present symmetric chest wall rise; Absent tenderness Respiratory Respiratory exam: Present normal lung sounds bilaterally; Absent respiratory distress, wheezes or stridor Cardiovascular Cardiovascular exam: Present regular rate and normal rhythm Abdominal Exam Abdominal exam: Present soft; Absent distention or tenderness Extremities Exam Extremities exam: Present full ROM (Patient reported that she had pain with moving the left upper extremity but then on her own volition would independently move it with full range of motion without complaint.), tenderness (Reports tenderness of the left proximal humerus and left forearm as well as left hand without crepitus, deformity, full range of motion present, neurovascularly intact distally) and normal capillary refill; Absent edema Back Exam Back exam: Present tenderness (Patient reports diffuse thoracolumbar tenderness with no focal tenderness, deformity, or step-off.); Absent CVA tenderness (R) or CVA tenderness (L) Neurological Exam Neurological exam: Present alert and oriented X3; Absent motor sensory deficit Psychiatric Psychiatric exam: Present normal affect and normal mood Skin Skin exam: Present warm and dry Medical Decision Making Medical Records Medical records reviewed: Yes I reviewed the patient's medical records. Screening: Per USPSTF and CDC recommendations, given the prevalence of disease in our region, it is our hospital?s policy to screen for HIV and viral Hepatitis for all patients aged 18 and over and those with ongoing risk factors. Sammy Inquiry Pt receiving controlled substance: No Vital Signs: 09/02/25 04:04 09/02/25 04:10 09/02/25 04:14 Temperature 98.1 F Temperature Source Axillary Pulse Rate 61 Pulse Rate [Right] 63 Respiratory Rate 16 Blood Pressure 147/71 H Blood Pressure [Right Arm] 147/71 H Blood Pressure Mean [Right Arm] 96 02 Sat by Pulse Oximetry 98 99 99 Oxygen Delivery Method Room Air Room Air 09/02/25 04:16 09/02/25 04:30 09/02/25 05:24 Temperature Temperature Source Pulse Rate 64 64 69 Pulse Rate [Right] Respiratory Rate 18 Blood Pressure 147/71 H 174/86 H 190/86 H Blood Pressure [Right Arm] Blood Pressure Mean [Right Arm] 02 Sat by Pulse Oximetry 99 100 95 Oxygen Delivery Method Room Air 09/02/25 05:27 09/02/25 05:30 09/02/25 06:30 Temperature Temperature Source Pulse Rate 68 71 68 Pulse Rate [Right] Respiratory Rate Blood Pressure 178/84 H 171/85 H 174/115 H Blood Pressure [Right Arm] Blood Pressure Mean [Right Arm] 02 Sat by Pulse Oximetry 95 96 99 Oxygen Delivery Method 09/02/25 06:50 Temperature 98.6 F Temperature Source Oral Pulse Rate 68 Pulse Rate [Right] Respiratory Rate 18 Blood Pressure 174/115 H Blood Pressure [Right Arm] Blood Pressure Mean [Right Arm] 02 Sat by Pulse Oximetry Oxygen Delivery Method Room Air Lab Data Lab Results 09/02/25 04:03: WBC 8.1, RBC 3.97 L, Hgb 11.0 L, Hct 34.8 L, MCV 87.7, MCH 27.7, MCHC 31.6 L, RDW 14.3, Plt Count 304, MPV 9.3, Neut % (Auto) 73.9, Lymph % (Auto) 15.1, [place] % (Auto) 7.2, Eos % (Auto) 2.7, Baso % (Auto) 0.4, Neut # (Auto) 6.0, Lymph # (Auto) 1.2, [place] # (Auto) 0.6, Eos # (Auto) 0.2, Baso # (Auto) 0.0, PT 11.6, INR 1.05, APTT 26.5, Sodium 136, Potassium 3.7, Chloride 102, Carbon Dioxide 27, Anion Gap 10.7, BUN 18 H, Creatinine 1.30 H, Estimated Creat Clear 35, Estimated GFR 42 L, Est GFR ( Amer) 50 L, Glucose 116 H, Calcium 9.7, Total Bilirubin 0.4, AST 24, ALT 14, Alkaline Phosphatase 95, Troponin I < 0.01, Total Protein 7.1, Albumin 4.3, Globulin 2.8, Albumin/Globulin Ratio 1.5, HCV Ab SHELBY w/Rflx PCR Qn Negative, HIV Ag/Ab Combo Qual Negative 09/02/25 04:03 09/02/25 04:03 Orders (Tests/Meds): ED MEDICATIONS Generic Name Dose Route Start Last Admin Trade Name Freq PRN Reason Stop Dose Admin Sodium Chloride 10 ml 09/02/25 04:08 Sodium Chloride 0.9% 10ml Flush Syringe IV 10/02/25 04:07 NEEDED PRN Maintain IV Site Discontinued Medications Generic Name Dose Route Start Last Admin Trade Name Freq PRN Reason Stop Dose Admin Acetaminophen 500 mg 09/02/25 05:35 09/02/25 06:29 Acetaminophen 500mg Tab PO 09/02/25 05:36 500 mg ONCE ONE Administration Lactated Ringer's 500 mls @ 999 mls/hr 09/02/25 05:33 09/02/25 06:29 Lactated Ringer's 500ml IV 09/02/25 06:03 999 mls/hr .Q31M ONE Administration Ibuprofen 400 mg 09/02/25 05:35 09/02/25 06:28 Ibuprofen 400 Mg Tablet PO 09/02/25 05:36 400 mg ONCE ONE Administration Iopamidol 80 ml 09/02/25 06:16 09/02/25 06:17 Iopamidol-370 (76%);100ml Bottle IV 09/02/25 06:17 80 ml ONCE ONE Administration Sodium Chloride 10 ml 09/02/25 06:16 09/02/25 06:17 Sodium Chloride 0.9% 10ml Syr (Rad Only) IV 09/02/25 06:17 10 ml ONCE ONE Administration Sodium Chloride 50 ml 09/02/25 06:17 0.9 % Sodium Chloride 50 Ml Vial IV 09/02/25 06:18 ONCE ONE ORDERS Category Date Time Status CT angio chest - dissection Stat Cat Scan 09/02/25 05:[address] cervical spine wo con Stat Cat Scan 09/02/25 04:[address] head/brain wo con Stat Cat Scan 09/02/25 04:[address] lumbar spine wo con Stat Cat Scan 09/02/25 04:[address] thoracic spine wo con Stat Cat Scan 09/02/25 04:09 Completed Forearm XR left 2 views [XR forearm LT 2V] Stat Exams 09/02/25 04:08 Completed Hand XR left 2 views [XR hand LT 2V] Stat Exams 09/02/25 04:08 Completed POCUS Point of Care (ER Only) Stat Exams 09/02/25 04:02 Completed Shoulder XR left minimum 2 views [XR shoulder LT min 2V Exams 09/02/25 04:08 Completed ] Stat XR chest portable Stat Exams 09/02/25 04:09 Completed XR humerus LT Stat Exams 09/02/25 04:08 Completed XR pelvis 1-2V Stat Exams 09/02/25 04:09 Completed Activated Partial Thrombo Time Stat Lab 09/02/25 04:03 Completed Complete Blood Count Auto Diff Stat Lab 09/02/25 04:03 Completed Comprehensive Metabolic Panel Stat Lab 09/02/25 04:03 Completed HIV Combo Stat Lab 09/02/25 04:03 Completed Hepatitis C Ab Qual. W/ RFX Stat Lab 09/02/25 04:03 Completed Prothrombin Time INR Stat Lab 09/02/25 04:03 Completed Troponin I Q3H Lab 09/02/25 07:15 Ordered Troponin I Q3H Lab 09/02/25 10:15 Ordered Troponin I Stat Lab 09/02/25 04:03 Completed Medical Decision Narrative: In summary, this 60-year-old female with comorbidities including CAD, GARRISON, hypertension, hyperlipidemia presents to the emergency department today with concerns of possible injury after fall. On initial evaluation patient is hemodynamically stable, afebrile, I evaluated the patient at bedside as soon as she arrived in the ER. Airway is intact, bilateral breath sounds present, 2+ right radial pulse, GCS 15, no neurologic deficits. E-FAST personally performed and interpreted at bedside demonstrates small pericardial effusion versus fat pad which I suspect is chronic since patient is hemodynamically stable and not complaining of any chest pain or impact of the chest during her fall. Cardiopulmonary exam benign. Abdominal exam benign. Patient reports diffuse pain throughout the axial spine without midline tenderness of the C-spine, diffuse tenderness throughout the thoracolumbar spine without focal tenderness, deformity, or step-off. No neurologic deficits. No saddle anesthesia, no bowel or bladder incontinence, rectal tone intact. Patient reports tenderness in the left upper extremity in the humerus and forearm without deformity, crepitus, bruising, or swelling. Differential diagnosis includes but is not limited to intracranial bleed due to patient being on blood thinner, also consider the possibility of axial spine injury though I have lower suspicion for this, considered osseous injury of the left upper extremity. With the small pericardial effusion versus fat pad considered the possibility of acute vascular injury in the chest though I have extremely low suspicion for this and suspect this to be more of a chronic finding. Based on these concerns, I ordered hematologic and serum labs, CT imaging including angiography of the chest. ECG personally interpreted demonstrates sinus rhythm, rate 63, normal axis, normal NV and QTc, no STEMI. Patient received Tylenol and ibuprofen for treatment. Labs personally reviewed demonstrate no leukocytosis, mild anemia is nonactionable, normal platelets, PT/INR and APTT normal, CMP nonactionable, kidney dysfunction is at baseline, creatinine 1.3, previously 1.2-1.5. No transaminitis, initial troponin undetectably low less than 0.01 significantly reassuring in the setting of nonischemic ECG and absence of chest pain or cardiac type complaints. Chest x-ray grossly interpreted demonstrates no acute intrathoracic injury such as pneumothorax, hemothorax, or displaced rib fracture, see radiology read for final interpretation. Pelvis x-ray personally interpreted demonstrates no open book pelvis fracture or other osseous injury, see radiology read for final interpretation. X-rays of the left upper extremity personally interpreted do not demonstrate any acute osseous injury, see radiology reads. CT imaging personally interpreted demonstrate no intracranial bleed, mass, midline shift, or skull fracture, I do not appreciate acute axial spine injury, there appears to be a chronic finding of L1. See radiology read for final interpretation. Radiology read also comments that the L1 finding is chronic in appearance and patient has no focal tenderness here. C-collar was cleared by me. Patient has full range of motion without midline pain, no midline tenderness to palpation, no paresthesias or neurologic deficits. CT angiography chest demonstrates no PE, no evidence of injury to the aorta, mild cardiomegaly, no comment on pericardial effusion. See read for full interpretation. On reassessment patient continues to be stable. I reassured her about all of her findings and lack of acute traumatic injury. She is appropriate for discharge at this time and comfortable with this plan. Patient was given instructions on symptomatic management, follow up instructions, and return precautions for the emergency department. Patient indicated understanding and was discharged in stable condition. Report called to [facility] by nursing staff. Critical Care Critical Care Time Critical Care Time: No
== END 2025-09-02 07:20 ==
PROVIDERS: Emergency Provider Emergency Medicine; PCP Family Medicine
DX: M54.2 Cervicalgia (principal); M79.602 Pain in left arm; M54.6 Pain in thoracic spine; M54.50 Low back pain, unspecified; W19.XXXA Unspecified fall, initial encounter
CPT/HCPCS: 70450; 71045; 71275; 72125; 72128; 72131; 72170; 73030; 73060; 73090; 73120; 80053; 84484; 85025; 85610; 85730; 86803; 87389; 93005; 99285; J7120; Q9967

== ENCOUNTER 2025-10-02 09:14 | Outpatient (CLI) | payer MEDICAID, SELFPAY ==
--- OUTSIDE RECORDS SUMMARY | 2025-10-02 09:19 | XMS_ITS | Encounter Summary ---
Author Organization [employer] ([place], [place], [place], [place], [place]) Address [address] [place] [id number] Care Team Providers Care Meteorological Observer Name Role Phone Unavailable Primary Care Provider Unavailabl e Encounter Details Date Type Department Care Team (Late st Contact Info) Description 05/09/2019 Transcribed Document [facility] [address] [place] [address] ProviderCorrina MD [address] [place] [address] Social History Tobacco Use Types [...] On: 05/09/2019 12:54 EDT by HALIE CABRALES Student Driving Instructor Primary Insurance Authorization Authorization and Policy Numbers : Insurance 1 Health Plan: [facility] Policy Number: [id number] Authorization Number: Insurance Primary Name : [facility] Policy Number: [id number] Authorization Comments-Primary : Angelia from [facility] called stating that decision needs to be made today as to wheather pt going to be OBS or go to INPT. needs clinical today Email sent to Benita Schultz Historical Authorization Comments-Primary : No Authorization Comments Found HALIE CABRALES, Student Driving Instructor - 05/09/2019 12:54 EDT documented in this encounter Plan of Treatment Not on file documented as of this encounter Visit Diagnoses Not on filedocumented in this encounter
--- OUTSIDE RECORDS SUMMARY | 2025-10-02 09:19 | XMS_ITS | Encounter Summary ---
Author Organization [employer] ([place], [place], [place], [place], [place]) Address [address] [place] [address] Care Team Providers Care Chief Development Officer Name Role Phone Unavailable Primary Care Provider Unavailabl e Encounter Details Date Type Department Care Team (Late st Contact Info) Description 05/09/2019 Transcribed Document [facility] [place] Family Medicine [facility] [place] [address] ProviderCorrina MD [facility] [place] [address] Social History Tobacco Use Types [...] On: 05/09/2019 11:57 EDT by NAT DALAL Rn-Trolley Operator Initial Assessment I Previously Documented Living Environment : No qualifying data available. Living Situation : Other: [facility] in [place] [phone] Patient Lives With : Legal guardian(s) Emergency Contact #1 : andres CARUSO Emergency Contact #1 Phone Number : .[phone] Emergency Contact #1 Relationship : . Emergency Contact #2 : . Emergency Contact #2 Phone Number : . Emergency Contact #2 Relationship : . NAT DALAL Rn-Trolley Operator - 05/09/2019 11:57 EDT Initial Assessment II Sensory and Motor Deficits : None, Weakness Current Home Treatments and Equipment : Walker OSINDE-OGEGA, SOPHIAH O, Rn-Trolley Operator - 05/09/2019 11:57 EDT Discharge Needs I Anticipated Discharge Date : 05/09/2019 EDT Current Home Treatment/Equipment : Current Home Treatment/Equipment No qualifying data available. Post Acute/Home Treatments : NAT Dougherty Rn-Trolley Operator - 05/09/2019 11:57 EDT Discharge Needs II Professional Skilled Services : Professional Skilled Services No qualifying data available. Services and Community Resources : Home Health Discharge Options Discussed with Patient : Home Health ESPERANZANAT VENCES Rn-Trolley Operator - 05/09/2019 11:57 EDT Narrative Note Narrative Note : manager software development met with pt and ZULY Jerome [phone] at the bedside. Pt is from [facility] in [facility] Shank Archer Teto # [phone]. PLOG> Somewhat independent with walker. Per ZULY Jerome, the last 3 mos pt been falling on and off. Facility is now working on transitioning pt to [facility] term acute care [facility] [place]. Ambulates with a walker. CM discussed bed bug exterminator is more appropriate and pt will continue to pursue while at the [facility]. DC plan is to return with . CM will order Nursing and PT [place]. CM called Spoke with Shank Archer at the facility. Will not need to make onsite assessment, Wants dc summary faxed to her at [phone]. CM has updated attending MD Phillips that facility is agreeable to take pt today. CM has arranged [facility] for 4PM. IF EEG and Doppler negative will dc as scheduled. NAT DALAL Rn-Trolley Operator - 05/09/2019 11:57 EDT Electronically signed by Nichelle [facility] Conversion Program Proposals Coordinator Cerner at 01/28/2023 11:29 AM CDT documented in this encounter Plan of Treatment Not on file documented as of this encounter Visit Diagnoses Not on filedocumented in this encounter
--- OUTSIDE RECORDS SUMMARY | 2025-10-02 09:19 | XMS_ITS | Encounter Summary ---
Author Organization [employer] ([place], [place], [place], [place], [place]) Address [address] [place] [address] Care Team Providers Care Embedded Software Manager Name Role Phone Unavailable Primary Care Provider Unavailabl e Encounter Details Date Type Department Care Team (Late st Contact Info) Description 05/09/2019 Transcribed Document [facility] [place] Family Medicine [address] [place] [address] ProviderCorrina MD [address] [place] [address] Social History Tobacco Use Types [...]
--- OUTSIDE RECORDS SUMMARY | 2025-10-02 09:19 | XMS_ITS | Encounter Summary ---
Author Organization [employer] ([place], [place], [place], [place], [place]) Address [address] [place] [address] Care Team Providers Care Restaurant And Bar Manager Name Role Phone Unavailable Primary Care Provider Lauren mathews Encounter Details Date Type Department Care Team (Late st Contact Info) Description 05/07/2019 Transcribed Document [facility] [place] [address] [place] [address] ProviderCorrina MD [address] [place] [address] Social History Tobacco Use Types [...] Historical ProviderMD - 05/07/2019 2:00 AM CDT Construction And Maintenance Inspector Details Entered On: 05/07/2019 3:12 EDT Performed [...] Lizet Kline RN - 05/07/2019 3:12 EDT Electronically signed by Aaron Steward Conversion Adapted Physical Education Specialist Cerner at 01/28/2023 11:20 AM CDT documented in this encounter Plan of Treatment Not on file documented as of this encounter Visit Diagnoses Not on filedocumented in this encounter
--- OUTSIDE RECORDS SUMMARY | 2025-10-02 09:19 | XMS_ITS | Referral Summary ---
Author Organization [employer] ([place], [place], [place], [place], [place]) Address [address] [place] [address] Care Team Providers Care Log Cooker Name Role Phone Unavailable Primary Care Provider [...]
--- OUTSIDE RECORDS SUMMARY | 2025-10-02 09:19 | XMS_ITS | Encounter Summary ---
Author Organization [employer] ([place], [place], [place], [place], [place]) Address [address] [place] [address] Care Team Providers Care Food Preparation Kitchen Aide Name Role Phone Unavailable Primary Care Provider Unavailabl e Encounter Details Date Type Department Care Team (Late st Contact Info) Description 05/07/2019 Transcribed Document [facility] [place] Family Medicine [address] [place] [address] ProviderCorrina MD [address] [place] [address] Social History Tobacco Use Types Packs/Day Years [...] Policy Numbers : Insurance 1 Health Plan: [facility] Policy Number: [id number] Authorization Number: Insurance Primary Name : [facility] Policy Number: [id number] Historical Authorization Comments-Primary : No Authorization Comments Found SHINE SOLANO Rn-Utilization Review - 05/07/2019 13:31 EDT Electronically signed by Nichelle [facility] Conversion Sugar Trucker Cerner at 01/28/2023 11:35 AM CDT documented in this encounter Plan of Treatment Not on file documented as of this encounter Visit Diagnoses Not on filedocumented in this encounter
--- OUTSIDE RECORDS SUMMARY | 2025-10-02 09:19 | XMS_ITS | Encounter Summary ---
Author Organization [employer] ([place], [place], [place], [place], [place]) Address [address] [place] [address] Care Team Providers Care Plate And Frame Filter Operator Name Role Phone Unavailable Primary Care Provider Unavailabl e Encounter Details Date Type Department Care Team (Late st Contact Info) Description 05/09/2019 Transcribed Document [facility] [place] [facility] [place] [address] ProviderCorrina MD [facility] [place] [address] Social History Tobacco Use Types [...] Comment : Called report to ozzie Bagley [facility] Luna RN - 05/09/2019 16:56 EDT Electronically signed by Nichelle [facility] Conversion Telephone Triage Nurse Cerner at 01/28/2023 11:31 AM CDT documented in this encounter Plan of Treatment Not on file documented as of this encounter Visit Diagnoses Not on filedocumented in this encounter
--- OUTSIDE RECORDS SUMMARY | 2025-10-02 09:19 | XMS_ITS | Encounter Summary ---
Author Organization [employer] ([place], [place], [place], [place], [place]) Address [address] [place] [address] Care Team Providers Care Riverine Assault Craft Crewman Name Role Phone Unavailable Primary Care Provider Unavailabl e Encounter Details Date Type Department Care Team (Late st Contact Info) Description 05/06/2019 Transcribed Document [facility] [place] Family Medicine [address] [place] [address] ProviderCorrina MD [facility] [place] [address] Social History Tobacco Use Types [...] 14:47 EDT Functional Assessment Living Situation : correction CHRISTIANSON Hx Falls Immediate/Within 3 Months : [...] #2 Relationship : . Primary Language : Latvian Preferred Communication Mode : Verbal Communication Barrier [...] Level : 46 or > High Risk [place] Fall Interventions : Adequate lighting, Bed in low position, Call device within reach, Hourly comfort/safety rounds, Non-slip footwear, Personal items within reach, Room free of clutter/spills, Upper side-rails up, Wheels locked, Wires/Cords secured Barriers to Learning : Acuity of Illness Learning Style Preferences Family : None Learning Style Preferences Patient : None Fall Risk Scale Calc Temp : 0 Lizet eKita RN - 05/07/2019 14:47 EDT Health Histories [...] Source : Stated Height Entry Format : [place] Height, Feet : 5 ft(Converted to: 152 cm, 60 Inch) Height, Inches : 3 Inch(Converted to: 0 ft 3 Inch, 7.62 cm) Clinical Height : 160.02 cm Weight Source : Bed scale Weight Entry Format : [place] Clinical Dosing Weight : 93.84 kg Weight, Pounds : 206 lb Weight, Ounces : 7 oz Body Surface Area (BSA) : 1.96 m2 Body Mass Index : 36.6 kg/m2 (HI) [place] Body Weight : 52 kg Lavinia Oh [...]
--- OUTSIDE RECORDS SUMMARY | 2025-10-02 09:19 | XMS_ITS | Encounter Summary ---
Author Organization [employer] ([place], [place], [place], [place], [place]) Address [address] [place] [address] Care Team Providers Care Fruit Packer Face And Fill Name Role Phone Unavailable Primary Care Provider Unavailabl e Encounter Details Date Type Department Care Team (Late st Contact Info) Description 05/09/2019 Transcribed Document [facility] [place] Family Medicine [address] [place] [address] ProviderCorrina MD [address] [place] [address] Social History Tobacco Use Types [...] Daily, PRN Mylanta, 15 mL, Oral, BID [place] 5 mg-325 mg oral tablet, 1 Tab, [...]
--- OUTSIDE RECORDS SUMMARY | 2025-10-02 09:19 | XMS_ITS | Encounter Summary ---
Author Organization [employer] ([place], [place], [place], [place], [place]) Address [address] [place] [address] Care Team Providers Care Public Affairs Specialist Name Role Phone Unavailable Primary Care Provider Unavailabl e Encounter Details Date Type Department Care Team (Late st Contact Info) Description 05/07/2019 Transcribed Document [facility] [place] [address] [place] [address] ProviderCorrina MD [address] [place] [address] Social History Tobacco Use Types [...]
--- OUTSIDE RECORDS SUMMARY | 2025-10-02 09:19 | XMS_ITS | Encounter Summary ---
Author Organization [employer] ([place], [place], [place], [place], [place]) Address [address] [place] [address] Care Team Providers Care Creche Attendant Name Role Phone Unavailable Primary Care Provider Unavailabl e Encounter Details Date Type Department Care Team (Late st Contact Info) Description 05/07/2019 Transcribed Document [facility] [address] [place] [address] ProviderCorrina MD [address] [place] [address] Social History Tobacco Use Types [...] 05/07/2019 9:23 EDT Electronically signed by Nichelle [facility] Conversion Customer Service And Sales Consultant Cerner at 01/28/2023 11:35 AM CDT documented in this encounter Plan of Treatment Not on file documented as of this encounter Visit Diagnoses Not on filedocumented in this encounter
--- OUTSIDE RECORDS SUMMARY | 2025-10-02 09:19 | XMS_ITS | Encounter Summary ---
Author Organization [employer] ([place], [place], [place], [place], [place]) Address [address] [place] [address] Care Team Providers Care Cisco Certified Internetwork Expert Name Role Phone Unavailable Primary Care Provider Unavailabl e Encounter Details Date Type Department Care Team (Late st Contact Info) Description 05/07/2019 Transcribed Document [facility] [place] [facility] [place] [address] ProviderCorrina MD [facility] [place] [address] Social History Tobacco Use Types [...] function. Plan for Treatment : D/C KEVIN SEAZ, PT - 05/08/2019 11:40 EDT Subjective Comment [...]
--- OUTSIDE RECORDS SUMMARY | 2025-10-02 09:19 | XMS_ITS | Encounter Summary ---
Author Organization [employer] ([place], [place], [place], [place], [place]) Address [address] [place] [address] Care Team Providers Care Certified Hearing Instrument Dispenser Name Role Phone Unavailable Primary Care Provider Unavailcierra e Encounter Details Date Type Department Care Team (Late st Contact Info) Description 05/07/2019 Transcribed Document [facility] [place] [address] [place] [address] ProviderCorrina MD [address] [place] [address] Social History Tobacco Use Types [...] EDT Electronically signed by Aaron Steward Conversion Photographic Equipment Assembler Cerner at 01/28/2023 11:21 AM CDT documented in this encounter Plan of Treatment Not on file documented as of this encounter Visit Diagnoses Not on filedocumented in this encounter
--- OUTSIDE RECORDS SUMMARY | 2025-10-02 09:19 | XMS_ITS | Encounter Summary ---
Author Organization [employer] ([place], [place], [place], [place], [place]) Address [address] [place] [address] Care Team Providers Care Real Estate Development Manager Name Role Phone Unavailable Primary Care Provider Unavailabl e Encounter Details Date Type Department Care Team (Late st Contact Info) Description 05/09/2019 Transcribed Document [facility] [place] [address] [place] [address] ProviderCorrina MD [address] [place] [address] Social History Tobacco Use Types [...] Historical ProviderMD - 05/09/2019 2:00 AM CDT Measurement And Sensing Technician Details Entered On: 05/09/2019 4:29 EDT Performed [...]
--- OUTSIDE RECORDS SUMMARY | 2025-10-02 09:19 | XMS_ITS | Encounter Summary ---
Author Organization [employer] ([place], [place], [place], [place], [place]) Address [address] [place] [address] Care Team Providers Care Solderer Name Role Phone Unavailable Primary Care Provider Unavailabl e Encounter Details Date Type Department Care Team (Late st Contact Info) Description 05/09/2019 Transcribed Document [place] Family Medicine [address] [place] [address] ProviderCorrina MD [address] [place] [address] Social History Tobacco Use Types [...] in intensive care. ??? Live in a chcf. ??? Had recent surgery. ??? Have liver [...] urine clear or pale yellow. ??? Take drwz-gis-xfjtdjd and prescription medicines only as told by [...] 03/06/2017 Elsevier Interactive Patient Education ? 2019 [employer] documented in this encounter Plan of Treatment Not on file documented as of this encounter Visit Diagnoses Not on filedocumented in this encounter
--- OUTSIDE RECORDS SUMMARY | 2025-10-02 09:19 | XMS_ITS | Clinical Summary ---
Author Organization [facility] Address [address] [place] [address] Care Team Providers Care Concrete Floater Name Role Phone Sonido Harrington MD Primary Care Provider [phone] Family History Medical History Relation Name Comments [...] 2013 [facility]-Zoster Vaccines (1 of 2) 2013 VIU-APSHI-55 Vaccine (2 - season) 2025 12/13/2020 [facility]-Influenza Vaccine (#1) 06/12/202508/19, 08/20/2016, 07/23/2015, Additional history exists [facility]-RSV Vaccine: 60+ Years or (1 - 1-dose 75+ series) 2038 HPV Vaccines (No Doses Required) Completed [facility]-HIB Vaccines Aged Out No longer e [...] patient's age to complete this topic Insurance [facility] [place] [id number] [place] Care Teams Concrete Floater Relationship Specialty Start Date End Date Sonido Harrington MD [address] [facility] [place] [address] [facility] - General 02/22/21
--- OUTSIDE RECORDS SUMMARY | 2025-10-02 09:19 | XMS_ITS | Encounter Summary ---
Author Organization [employer] ([place], [place], [place], [place], [place]) Address [address] [place] [address] Care Team Providers Care Chief Radiologic Technologist Name Role Phone Unavailable Primary Care Provider Unavailabl e Encounter Details Date Type Department Care Team (Late st Contact Info) Description 05/07/2019 Transcribed Document [facility] Radiology [address] [place] [address] Israel Buchanan MD [address] [place] [address] [address] Social History Tobacco Use Types [...] for her lymphodema trt Reportedly lives at [facility] and has known schizo affective disorder [...]
--- OUTSIDE RECORDS SUMMARY | 2025-10-02 09:19 | XMS_ITS | Encounter Summary ---
Author Organization [employer] ([place], [place], [place], [place], [place]) Address [address] [place] [address] Care Team Providers Care Purchasing Contracting Clerk Name Role Phone Unavailable Primary Care Provider Unavailabl e Encounter Details Date Type Department Care Team (Late st Contact Info) Description 05/09/2019 Transcribed Document [facility] [place] [address] [place] [address] ProviderCorrina MD [address] [place] [address] Social History Tobacco Use Types [...]
--- OUTSIDE RECORDS SUMMARY | 2025-10-02 09:20 | XMS_ITS | Encounter Summary ---
Author Organization [employer] ([place], [place], [place], [place], [place]) Address [address] [place] [address] Care Team Providers Care Associate Professor Of Forestry Name Role Phone Unavailable Primary Care Provider Unavailabl e Encounter Details Date Type Department Care Team (Late st Contact Info) Description 05/08/2019 Transcribed Document [facility] [place] [facility] [place] [address] ProviderCorrina MD [address] [place] [address] Social History Tobacco Use Types [...] OF CONSULTATION: 05/08/2019 NEUROLOGY CONSULTATION REFERRING PHYSICIAN: Suaznne Aleman M.D. HISTORY OF PRESENT ILLNESS: Jeny Starkey is a 54-year-old white female, who apparently has a history of schizoaffective disorder, who was transferred to our hospital two days ago from [facility] for an episode of encephalopathy. I have been asked to evaluate her for encephalopathy. The patient indicates to me that a couple of days ago she went to physical therapy session at [facility] and may have passed out. According to Dr. Aleman's note, the patient was obtunded and unresponsive for a period of time and now she is getting better. The patient tells me that she lives at a alf in [place]. She indicates she has never had this [...] the patient lives in a alf in [place]. She has no children. She is single. [...] through 12 were intact. Coordination shows intact dkufxd-um-[id number] bilaterally. Gait was not tested. Reflexes were [...] M.D. Electronically signed by Aaron Steward Conversion Catalyst Concentration Operator Gener at 01/28/2023 11:39 AM CDT documented in this encounter Plan of Treatment Not on file documented as of this encounter Visit Diagnoses Not on filedocumented in this encounter
--- OUTSIDE RECORDS SUMMARY | 2025-10-02 09:20 | XMS_ITS | Encounter Summary ---
Author Organization [employer] ([place], [place], [place], [place], [place]) Address [address] [place] [address] Care Team Providers Care Java Architect Name Role Phone Unavailable Primary Care Provider Unavailabl e Encounter Details Date Type Department Care Team (Late st Contact Info) Description 05/06/2019 Transcribed Document [facility] [place] [address] [place] [address] ProviderCorrina MD [facility] [place] [address] Social History Tobacco Use Types [...] Medical record, Not self. Referral source: [facility]. History limitation: Clinical condition. Primary Care Physician: Sonido Harrington Referring Physician: Fam Chief Complaint Confusion History of Present Illness This is a 54 year old female with a past medical history as noted below who was requested for transfer from [facility] for sudden onset of altered mental status during an appointment earlier today for lymphedema leg treatment. The patient had pretty extensive workup at [facility] which was unrevealing for any explanation [...] Review / Management Results review: Labs from [facility] as follows: WBC 10, Hgb 9.1, Plt 436, INR 1.1, ammonia 17, lactic acid 2.7, UA negative, UDS negative, Na 141, K 3.0, Cl 103, CO2 31, BUN 10, Cr 1.02, Glu 102, Ca 8.8, Mg 1.2, Bili 0.2, AST 2, ALT 14, Alk phos 144, trop <0.02, TSH 2.35, alcohol 0. Chest x-ray results Consistent with: CXR at [facility] interpreted as no change, enlargement of the cardiac silhouette without failure, left lung linear scar Radiology results CT head at [facility] interpreted as no acute intracranial process ECG interpretation: EKG from [place] personally reviewed and showed NSR at 69 [...]
--- OUTSIDE RECORDS SUMMARY | 2025-10-02 09:20 | XMS_ITS | Encounter Summary ---
Author Organization [employer] ([place], [place], [place], [place], [place]) Address [address] [place] [address] Care Team Providers Care Steak Tenderizer Machine Name Role Phone Unavailable Primary Care Provider Lauren e Encounter Details Date Type Department Care Team (Late st Contact Info) Description 05/08/2019 Transcribed Document [facility] [place] [address] [place] [address] ProviderCorrina MD [address] [place] [address] Social History Tobacco Use Types [...] Historical ProviderMD - 05/08/2019 2:00 AM CDT Armament Mechanic Details Entered On: 05/08/2019 4:48 EDT Performed [...]
--- OUTSIDE RECORDS SUMMARY | 2025-10-02 09:20 | XMS_ITS | Clinical Summary ---
Author Organization [employer] ([place], [place], [place], [place], [place]) Address [address] [place] [address] Care Team Providers Care Charge Master Analyst Name Role Phone Unavailable Primary Care [...]
--- OUTSIDE RECORDS SUMMARY | 2025-10-02 09:20 | XMS_ITS | Encounter Summary ---
Author Organization [employer] ([place], [place], [place], [place], [place]) Address [address] [place] [address] Care Team Providers Care Mine Wirer Name Role Phone Unavailable Primary Care Provider Unavailabl e Encounter Details Date Type Department Care Team (Late st Contact Info) Description 05/09/2019 Transcribed Document [facility] [place] [address] [place] [address] ProviderCorrina MD [address] [place] [address] Social History Tobacco Use Types [...]
--- OUTSIDE RECORDS SUMMARY | 2025-10-02 09:20 | XMS_ITS | Encounter Summary ---
Author Organization [facility] Address [address] [place] [address] Care Team Providers Care Cutter Grind Tool Technician Name Role Phone Sonido Harrington MD Primary Care Provider [phone] Encounter Details Date Type Department Care Team (Late st Contact Info) Description 10/14/2023 Community [facility] [address] [place] [address] Abhi Orozco, SLIDE DEVELOPER [address] [place] [address] Abnormal MRI, lumbar spine (Primary Dx); Abnormal [...] studies documented in this encounter Care Teams Cutter Grind Tool Technician Relationship Specialty Start Date End Date Sonido Harrington MD [address] [place], [place] [id number] PCP - General 02/22/21 documented as of this encounter
--- OUTSIDE RECORDS SUMMARY | 2025-10-02 09:20 | XMS_ITS | Encounter Summary ---
Author Organization [employer] ([place], [place], [place], [place], [place]) Address [address] [place] [address] Care Team Providers Care Towing Pilot Name Role Phone Unavailable Primary Care Provider Unavailabl e Encounter Details Date Type Department Care Team (Late st Contact Info) Description 05/09/2019 Transcribed Document [facility] [place] [address] [place] [address] ProviderCorrina MD [address] [place] [address] Social History Tobacco Use Types [...] Corrina ProviderMD - 05/09/2019 4:50 PM CDT [facility] [place] [id number] NURA AG :1965 Visit Time:05/06/2019 Your Visit [...] call for a follow up appointment with [facility] Neurology. Where: [facility] [address] [facility] (1) Follow Up with Follow up [...] urine clear or pale yellow. ??? Take noio-wwl-ztuhxsv and prescription medicines only as told by [...] 03/06/2017 Document Revised: 06/01/2017 Document Reviewed: 03/06/2017 [employer] Patient Education ?? 2019 [employer]. clonazepam (kloe CAMERON e jacqueline) MarckonoPIN What [...] What is clonazepam? Clonazepam is a benzodiazepine (est-bea-qcq-AZE-eh-peen) that affects chemicals in the brain that may be unbalanced. Clonazepam is also a seizure medicine, also called an anti-epileptic drug. Clonazepam is used to treat certain seizure disorders (including absence seizures or [place]Gast[place] syndrome) in adults and children. Clonazepam is [...] may report side effects to FDA at 9-751-QVD-1826. What other drugs will affect clonazepam? Taking clonazepam with other drugs that make you sleepy or slow your breathing can cause dangerous side effects or . Ask your doctor before taking a sleeping pill, an opioid medicine, prescription cough medicine, a muscle relaxer, or medicine for anxiety, depression, or seizures. Other drugs may interact with clonazepam, including prescription and mvnw-vpb-quaizcw medicines, vitamins, and herbal products. Tell your [...] to ensure that the information provided by [employer]. ('[employer]') is accurate, up-to-date, and complete, but no guarantee is made to that effect. Drug information contained herein may be time sensitive. [employer] information has been compiled for use by healthcare practitioners and consumers in the [place] and therefore [employer] does not warrant that uses outside of the [place] are appropriate, unless specifically indicated otherwise. [employer] drug information does not endorse drugs, diagnose patients or recommend therapy. [employer] drug information is an informational resource designed [...] effective or appropriate for any given patient. [employer] does not assume any responsibility for any aspect of healthcare administered with the aid of information [employer] provides. The information contained herein is not intended to cover all possible uses, directions, precautions, warnings, drug interactions, allergic reactions, or adverse effects. If you have questions about the drugs you are taking, check with your doctor, nurse or pharmacist. Copyright 5277-5076 [employer]. Version: 8.01. Revision Date: 08/17/2017. Emergency Awareness [...] Assistance with quitting is available by contacting 3-590-KRGWNOW. This is a free resource providing counseling, support, and referral. Or you may contact your personal physician. [place] Suicide Prevention Lifeline: The National Suicide Prevention [...] range between ( 0.0 and 7.0 ) [place] #: 0.63 K/uL -- Normal range between ( 0.16 and 1.00 ) Eos #: 0.57 x10(3)/uL -- Normal range between ( 0.00 and 0.80 ) [place] %: 5.8 % -- Normal range between [...] was given the opportunity to ask questions. Patient/Records Coordinator Name: Patient/Records Coordinator Signature: Relationship to Patient: Clinician/Hospital Records Coordinator Signature: Date: Electronically signed by Nichelle, [facility] Conversion Acupuncturist Hunter at 01/28/2023 11:26 AM CDT documented in this encounter Plan of Treatment Not on file documented as of this encounter Visit Diagnoses Not on filedocumented in this encounter
--- OUTSIDE RECORDS SUMMARY | 2025-10-02 09:20 | XMS_ITS | Encounter Summary ---
Author Organization [employer] ([place], [place], [place], [place], [place]) Address [address] [place] [address] Care Team Providers Care Log Sorter Name Role Phone Unavailable Primary Care Provider Unavailabl e Encounter Details Date Type Department Care Team (Late st Contact Info) Description 05/06/2019 Transcribed Document [facility] [place] Family Medicine [address] [place] [address] ProviderCorrina MD [place] [address] Social History Tobacco Use Types Packs/Day Years [...]
--- OUTSIDE RECORDS SUMMARY | 2025-10-02 09:20 | XMS_ITS | Encounter Summary ---
Author Organization [employer] ([place], [place], [place], [place], [place]) Address [address] [place] [address] Care Team Providers Care Tier In Name Role Phone Unavailable Primary Care Provider Unavailabl e Encounter Details Date Type Department Care Team (Late st Contact Info) Description 05/08/2019 Transcribed Document [facility] [place] Family Medicine [address] [place] [address] ProviderCorrina MD [address] [place] [address] Social History Tobacco Use Types [...]
--- OUTSIDE RECORDS SUMMARY | 2025-10-02 09:20 | XMS_ITS | Encounter Summary ---
Author Organization [employer] ([place], [place], [place], [place], [place]) Address [address] [place] [address] Care Team Providers Care Blender Laborer Name Role Phone Unavailable Primary Care Provider Unavailabl e Encounter Details Date Type Department Care Team (Late st Contact Info) Description 05/09/2019 Transcribed Document [facility] Radiology [address] [place] [address] Tiffanie Buchanan MD [facility] [address] [address] Social History Tobacco Use Types [...] 05/09/2019 DISCHARGE SUMMARY NOTE: Patient comes from [facility] and returns to that facility. PRINCIPAL [...] head was done at outside facility in [facility], where the patient did not have any acute changes. ADMISSION HISTORY AND HOSPITAL COURSE: This is a 54-year-old, white female, with a schizoaffective disorder who reportedly has a history of lymphedema. She did undergo some wrapping to her right lower extremity and was seen for the same at [facility] when she was noted to have some [...] discussed with the patient's listed power of family law attorney, Ms. Queenie Spence on 05/08/2019 about the hospital course. Currently, the patient will return to [facility] and I have also discussed with [...] and earlier discussion with her power of family law attorney and discussion with case management, with discharge plans totals at 45 minutes. Tiffanie Buchanan M.D. Dict: 05/09/2019 14:52:20 Trans: 05/09/2019 16:20:41 CC1: Tiffanie Buchanan M.D. documented in this encounter Plan of Treatment Not on file documented as of this encounter Visit Diagnoses Not on filedocumented in this encounter
--- OUTSIDE RECORDS SUMMARY | 2025-10-02 09:20 | XMS_ITS | Encounter Summary ---
Author Organization [employer] ([place], [place], [place], [place], [place]) Address [address] [place] [address] Care Team Providers Care Estate Planner Name Role Phone Unavailable Primary Care Provider Unavailabl e Encounter Details Date Type Department Care Team (Late st Contact Info) Description 05/09/2019 Transcribed Document [facility] [place] [address] [place] [address] ProviderCorrina MD [address] [place] [address] Social History Tobacco Use Types [...]
--- OUTSIDE RECORDS SUMMARY | 2025-10-02 09:20 | XMS_ITS | Encounter Summary ---
Author Organization [employer] ([place], [place], [place], [place], [place]) Address [address] [place] [address] Care Team Providers Care Skin Pass Operator Name Role Phone Unavailable Primary Care Provider Unavailabl e Encounter Details Date Type Department Care Team (Late st Contact Info) Description 05/08/2019 Transcribed Document [facility] [place] [address] [place] [address] ProviderCorrina MD [address] [place] [address] Social History Tobacco Use Types [...]
--- OUTSIDE RECORDS SUMMARY | 2025-10-02 09:20 | XMS_ITS | Encounter Summary ---
Author Organization [employer] ([place], [place], [place], [place], [place]) Address [address] [place] [address] Care Team Providers Care Construction Project Engineer Name Role Phone Unavailable Primary Care Provider Unavailabl e Encounter Details Date Type Department Care Team (Late st Contact Info) Description 05/09/2019 Transcribed Document [facility] [place] [facility] [place] [facility] [place] [address] ProviderCorrina MD [address] [place] [address] Social History Tobacco Use [...] CC1: Jose Lima M.D. Electronically signed by Nichelle, [facility] Conversion Disability Benefits Specialist Cerner at 01/28/2023 11:24 AM CDT documented in this encounter Plan of Treatment Not on file documented as of this encounter Visit Diagnoses Not on filedocumented in this encounter
--- OUTSIDE RECORDS SUMMARY | 2025-10-02 09:20 | XMS_ITS | Encounter Summary ---
Author Organization [employer] ([place], [place], [place], [place], [place]) Address [address] [place] [address] Care Team Providers Care Log Loader Name Role Phone Unavailable Primary Care Provider Unavailabl e Encounter Details Date Type Department Care Team (Late st Contact Info) Description 05/06/2019 Transcribed Document [facility] [place] [facility] [place] [address] ProviderCorrina MD [facility] [place] [address] Social History Tobacco Use Types [...]
--- OUTSIDE RECORDS SUMMARY | 2025-10-02 09:20 | XMS_ITS | Encounter Summary ---
Author Organization [employer] ([place], [place], [place], [place], [place]) Address [address] [place] [address] Care Team Providers Care Mushroom Cutter Name Role Phone Unavailable Primary Care Provider Unavailabl e Encounter Details Date Type Department Care Team (Late st Contact Info) Description 05/09/2019 Transcribed Document [facility] [place] [facility] [place] [address] ProviderCorrina MD [facility] [place] [address] Social History Tobacco Use Types [...] Progress Note : Pt a resident of [facility] in [place] and person spoke lisa/Yara [phone]/fax [phone] BRENDA SMITH, RN-Care Management - 05/09/2019 9:25 EDT documented in this encounter Plan of Treatment Not on file documented as of this encounter Visit Diagnoses Not on filedocumented in this encounter
--- OUTSIDE RECORDS SUMMARY | 2025-10-02 09:20 | XMS_ITS | Encounter Summary ---
Author Organization [employer] ([place], [place], [place], [place], [place]) Address [address] [place] [address] Care Team Providers Care Flux Core Welder Name Role Phone Unavailable Primary Care Provider Unavailcierra e Encounter Details Date Type Department Care Team (Late st Contact Info) Description 05/08/2019 Transcribed Document [facility] [place] [address] [place] [address] ProviderCorrina MD [address] [place] [address] Social History Tobacco Use Types [...]
[2025-10-02 09:59] LABS: Anion Gap 11.6 mEq/L (5-15); Blood Urea Nitrogen 22 mg/dl (7-17); Calcium 9.4 mg/dl (8.4-10.2); Carbon Dioxide 28 mmol/L (22.0-30.0); Chloride 101 mmol/L (98-107); Creatinine,Serum 1.10 mg/dl (0.52-1.04); Estimated Glomerular Filt Rate 50 ml/min (>60); GFR (African American) 61 ML/MIN (>60); Glucose 172 mg/dl (74-100); Potassium 4.6 mmoL/L (3.5-5.1); Sodium 136 mmol/L (136-145)
--- NOTE | 2025-10-02 11:17 | XR_ITS ---
FINAL REPORT CLINICAL HISTORY: rule out scaphoid fracture COMPARISON: None FINDINGS: LEFT WRIST THREE VIEW FINDINGS: Three views show no evidence of an acute, displaced fracture or dislocation of the visualized bony architecture. The joint spaces appear normal. IMPRESSION: Unremarkable exam. Reviewed, Interpreted and Dictated by Efren Mckenzie MD Transcribed by Gwen Quinonez Authenticated and [facility]
== END 2025-10-02 23:59 ==
LOC: LAB.DROPOF 09:15 → RAD 11:11
PROVIDERS: PCP Family Medicine; Visit Provider Nurse Practitioner Family
DX: M25.532 Pain in left wrist (principal); Z87.81 Personal history of (healed) traumatic fracture
CPT/HCPCS: 36415; 73110; 80048